=== PATIENT | female | born 1940 | race Caucasian/White ===

== ENCOUNTER 2022-02-21 10:30 | Outpatient (RCR) | payer MEDICARE, BC, SELFPAY ==
--- NOTE | 2022-02-15 19:15 | ONC.NURNOTE ---
Authorization: User: Gaby Staleyroryroseliam Date: 07/06/21 11:14 Type: Eligibility Determination Note... Request received from [facility] for prior authorization of Darzalex/Faspro [id number]. Patient carries Medicare as primary insurance. Per CMS.gov no prior authorization is required for Darzalex/Faspro. Services are based on medical necessity and follows Medicare guidelines.
[2022-02-17 16:05] LABS: Albumin 3.89 g/dL (3.75-5.01); Alpha 1 Globulin 0.22 g/dL (0.19-0.46); Immunofixation IFE Done; Immunoglobulin A 3 mg/dL (68-408); Immunoglobulin G 400 mg/dL (768-1632); Immunoglobulin M < 10 mg/dL (35-263); Kappa Qnt Free Light Chains 10.69 mg/L (3.30-19.40); Kappa/Lambda Light Chain Ratio 3.61 (0.26-1.65); Lambda Qnt Free Light Chains 2.96 mg/L (5.71-26.30); Total Protein, Serum 5.9 g/dL (6.3-8.2)
[2022-02-20 08:45] LABS: Basophils Percent Auto 1.4 % (0.0-3.0); Eosinophils Percent Auto 3.1 % (0.0-7.0); Hematocrit 41.5 % (33.0-51.0); Hemoglobin* 13.7 gm/dL (12.0-16.0); Lymphocytes Percent Auto 31.2 % (20-44); Mean Corpuscular HGB Conc 33 gm/dL (32-36); Mean Corpuscular Hemoglobin 33 pg (26-34); Mean Corpuscular Volume 101 fL (80-100); Monocytes Percent Auto 15.4 % (0.0-11.0); Neutrophils Percent Auto 48.9 % (42.0-72.0); Platelet Count* 221 K/uL (140-440); RDW Coefficient of Variation % 12.2 % (11.5-15.5); Red Blood Count 4.13 m/uL (4.00-5.20); White Blood Count* 4.23 K/uL (4.50-11.00)
[2022-02-20 08:52] LABS: Slide Review Reflex No
[2022-02-20 09:01] LABS: Chloride* 107 mmol/L (96-114); Potassium* 4.7 mmol/L (3.6-5.1); Sodium* 138 mmol/L (135-149)
[2022-02-20 09:03] LABS: Bilirubin Total* 0.5 mg/dL (0.1-1.5); Carbon Dioxide* 26 mmol/L (20-32); Creatinine* 1.4 mg/dL (0.5-1.5); Est. Creatinine Clearance* 26.92; Estimated Glomerular Filt Rate 37 ml/min
[2022-02-20 09:04] LABS: Alanine Aminotransferase* 14 U/L (4-35); Alkaline Phosphatase* 118 U/L (40-150); Aspartate Amino Transferase* 23 U/L (12-35); Blood Urea Nitrogen* 28 mg/dL (7-30); Calcium* 9.9 mg/dL (8.4-10.6); Glucose* 83 mg/dL (60-115); Total Protein* 6.1 g/dL (6.0-8.3)
[2022-02-21] MEDS: DARATUMUMAB-HYALURONIDASE-FIHJ 15 ML SUBCUT (11:01)
== END 2022-03-03 23:59 | disposition home or self-care (01) ==
LOC: CCIC 10:30
PROVIDERS: Clinical Nurse Specialist; PCP Internal Medicine; Visit Provider Internal Medicine Hematology & Oncology
DX: C90.00 Multiple myeloma not having achieved remission (principal)
CPT/HCPCS: 36415; 80053; 82784; 83520; 84155; 84165; 85025; 86334; 96372; 99212; 99214; J9144

== ENCOUNTER 2022-05-28 10:02 | Outpatient (CLI) | payer MEDICARE, BC, SELFPAY ==
[2022-05-28 17:58] LABS: Cholesterol* 311 mg/dL (90-199); HDL Cholesterol* 89 mg/dL (>=50); LDL Cholesterol Calculated 182 mg/dL (<100); Triglycerides* 199 mg/dL (40-149)
== END 2022-05-28 10:03 | disposition home or self-care (01) ==
LOC: NFLDREF 10:02
PROVIDERS: PCP Internal Medicine; Visit Provider Internal Medicine
DX: E78.5 Hyperlipidemia, unspecified (principal)
CPT/HCPCS: 80061

== ENCOUNTER 2022-09-12 09:00 | Outpatient (RCR) | payer MEDICARE, BC, SELFPAY ==
[2022-03-20 08:27] LABS: Basophils Percent Auto 1.1 % (0.0-3.0); Eosinophils Percent Auto 2.4 % (0.0-7.0); Hematocrit 41.6 % (33.0-51.0); Lymphocytes Percent Auto 35.1 % (20-44); Mean Corpuscular HGB Conc 34 gm/dL (32-36); Mean Corpuscular Hemoglobin 33 pg (26-34); Mean Corpuscular Volume 99 fL (80-100); Monocytes Percent Auto 14.1 % (0.0-11.0); Neutrophils Percent Auto 47.3 % (42.0-72.0); Platelet Count* 212 K/uL (140-440); RDW Coefficient of Variation % 12.3 % (11.5-15.5); White Blood Count* 3.76 K/uL (4.50-11.00)
[2022-03-20 08:33] LABS: Slide Review Reflex No
[2022-03-20 08:51] LABS: Chloride* 106 mmol/L (96-114)
[2022-03-20 08:52] LABS: Albumin* 3.9 g/dL (3.3-5.0); Potassium* 4.6 mmol/L (3.6-5.1); Sodium* 138 mmol/L (135-149)
[2022-03-20 08:54] LABS: Bilirubin Total* 0.3 mg/dL (0.1-1.5); Creatinine* 1.5 mg/dL (0.5-1.5); Estimated Glomerular Filt Rate 34 ml/min
[2022-03-20 08:55] LABS: Alanine Aminotransferase* 15 U/L (4-35); Alkaline Phosphatase* 119 U/L (40-150); Aspartate Amino Transferase* 25 U/L (12-35); Blood Urea Nitrogen* 24 mg/dL (7-30); Calcium* 9.7 mg/dL (8.4-10.6); Carbon Dioxide* 26 mmol/L (20-32); Total Protein* 6.4 g/dL (6.0-8.3)
[2022-03-20 09:21] LABS: Glucose* 44 mg/dL (60-115)
--- NOTE | 2022-03-20 10:20 | ONC.NURNOTE ---
Received phone call from lab with critical glucose of 44. Called patient and denies dizziness or feeling off. She was on her way to work. She was instructed to be sure to eat and drink something prior to leaving and let us know if she feels differently. Discussed with STEAMING CABINET TENDER, fasting glucose for tomorrow ordered. Patient called and notified that will need this, and to call to schedule her injection for in the morning if possible.
[2022-03-21 08:44] LABS: Glucose* 100 mg/dL (60-115)
[2022-03-21 13:45] VITALS: BP 143/82; PULSE 72; RESP 16; TEMP 37; O2SAT 94
[2022-03-21] MEDS: DARATUMUMAB-HYALURONIDASE-FIHJ 15 ML SUBCUT (14:12)
[2022-04-17 08:19] LABS: Basophils Absolute Auto 0.04 K/uL (0.00-0.30); Basophils Percent Auto 0.8 % (0.0-3.0); Eosinophils Absolute Auto 0.15 K/uL (0.00-0.50); Eosinophils Percent Auto 2.9 % (0.0-7.0); Hematocrit 40.5 % (33.0-51.0); Hemoglobin* 13.3 gm/dL (12.0-16.0); Lymphocytes Percent Auto 15.7 % (20-44); Mean Corpuscular HGB Conc 33 gm/dL (32-36); Mean Corpuscular Hemoglobin 33 pg (26-34); Mean Corpuscular Volume 100 fL (80-100); Monocytes Percent Auto 12.9 % (0.0-11.0); Neutrophils Absolute Auto 3.53 K/uL (1.7-7.0); Neutrophils Percent Auto 67.7 % (42.0-72.0); Platelet Count* 190 K/uL (140-440); RDW Coefficient of Variation % 12.5 % (11.5-15.5); Red Blood Count 4.04 m/uL (4.00-5.20); White Blood Count* 5.21 K/uL (4.50-11.00)
[2022-04-17 08:23] LABS: Slide Review Reflex No
[2022-04-17 08:44] LABS: Chloride* 107 mmol/L (96-114); Sodium* 138 mmol/L (135-149)
[2022-04-17 08:45] LABS: Potassium* 4.1 mmol/L (3.6-5.1)
[2022-04-17 08:47] LABS: Alkaline Phosphatase* 118 U/L (40-150); Aspartate Amino Transferase* 23 U/L (12-35); Bilirubin Total* 0.4 mg/dL (0.1-1.5); Blood Urea Nitrogen* 19 mg/dL (7-30); Carbon Dioxide* 24 mmol/L (20-32); Creatinine* 1.4 mg/dL (0.5-1.5); Estimated Glomerular Filt Rate 37 ml/min; Total Protein* 6.2 g/dL (6.0-8.3)
[2022-04-17 08:48] LABS: Alanine Aminotransferase* 14 U/L (4-35); Calcium* 9.3 mg/dL (8.4-10.6); Glucose* 71 mg/dL (60-115)
[2022-04-18 15:38] LABS: Total Protein, Serum 5.5
[2022-04-18 15:40] LABS: SARS Antigen* Negative (Negative)
[2022-04-18 16:25] LABS: Albumin 3.62; Alpha 2 Globulin 0.73
[2022-04-18 16:26] LABS: Immunoglobulin G 396
[2022-04-18 16:27] LABS: Immunoglobulin A 4; Immunoglobulin M < 10
[2022-04-18 16:28] LABS: Kappa Qnt Free Light Chains 10.29; Kappa/Lambda Light Chain Ratio 3.74; Lambda Qnt Free Light Chains 2.75
[2022-04-18 16:30] LABS: Immunofixation IFE Done
[2022-04-18 16:35] LABS: SARS PCR* Negative SARS-CoV-2 (Negative)
[2022-04-25 09:33] VITALS: BP 157/65; PULSE 53; RESP 16; TEMP 36.2; O2SAT 94
[2022-04-25] MEDS: DARATUMUMAB-HYALURONIDASE-FIHJ 15 ML SUBCUT (10:01)
[2022-05-22 08:28] LABS: Basophils Percent Auto 1.4 % (0.0-3.0); Eosinophils Percent Auto 3.4 % (0.0-7.0); Hematocrit 41.7 % (33.0-51.0); Hemoglobin* 13.7 gm/dL (12.0-16.0); Lymphocytes Percent Auto 31.8 % (20-44); Mean Corpuscular HGB Conc 33 gm/dL (32-36); Mean Corpuscular Hemoglobin 33 pg (26-34); Mean Corpuscular Volume 101 fL (80-100); Monocytes Percent Auto 13.8 % (0.0-11.0); Neutrophils Percent Auto 49.6 % (42.0-72.0); Platelet Count* 212 K/uL (140-440); Red Blood Count 4.14 m/uL (4.00-5.20); White Blood Count* 3.55 K/uL (4.50-11.00)
[2022-05-22 08:35] LABS: Slide Review Reflex No
[2022-05-22 08:47] LABS: Chloride* 106 mmol/L (96-114)
[2022-05-22 08:48] LABS: Sodium* 137 mmol/L (135-149)
[2022-05-22 08:49] LABS: Potassium* 4.7 mmol/L (3.6-5.1)
[2022-05-22 08:51] LABS: Alanine Aminotransferase* 14 U/L (4-35); Alkaline Phosphatase* 115 U/L (40-150); Aspartate Amino Transferase* 25 U/L (12-35); Bilirubin Total* 0.4 mg/dL (0.1-1.5); Blood Urea Nitrogen* 18 mg/dL (7-30); Carbon Dioxide* 27 mmol/L (20-32); Creatinine* 1.6 mg/dL (0.5-1.5); Estimated Glomerular Filt Rate 32 ml/min; Glucose* 75 mg/dL (60-115); Total Protein* 6.3 g/dL (6.0-8.3)
[2022-05-23 13:07] VITALS: BP 137/79; PULSE 97; RESP 16; TEMP 35.9
[2022-05-23 13:31] VITALS: BP 129/83; PULSE 73
[2022-05-23 13:32] VITALS: BP 128/82; PULSE 73
[2022-05-23] MEDS: DARATUMUMAB-HYALURONIDASE-FIHJ 15 ML SUBCUT (13:44)
[2022-06-13 08:21] LABS: Eosinophils Percent Auto 1.9 % (0.0-7.0); Hematocrit 42.2 % (33.0-51.0); Hemoglobin* 13.9 gm/dL (12.0-16.0); Lymphocytes Percent Auto 30.2 % (20-44); Mean Corpuscular HGB Conc 33 gm/dL (32-36); Mean Corpuscular Hemoglobin 33 pg (26-34); Mean Corpuscular Volume 101 fL (80-100); Monocytes Percent Auto 11.4 % (0.0-11.0); Neutrophils Percent Auto 55.5 % (42.0-72.0); Platelet Count* 213 K/uL (140-440); RDW Coefficient of Variation % 12.8 % (11.5-15.5); White Blood Count* 4.21 K/uL (4.50-11.00)
[2022-06-13 08:30] LABS: Slide Review Reflex No
[2022-06-13 08:37] LABS: Albumin* 4.1 g/dL (3.3-5.0); Chloride* 103 mmol/L (96-114)
[2022-06-13 08:38] LABS: Potassium* 5.2 mmol/L (3.6-5.1); Sodium* 135 mmol/L (135-149)
[2022-06-13 08:40] LABS: Aspartate Amino Transferase* 26 U/L (12-35); Bilirubin Total* 0.5 mg/dL (0.1-1.5); Carbon Dioxide* 26 mmol/L (20-32); Creatinine* 2.3 mg/dL (0.5-1.5); Estimated Glomerular Filt Rate 20 ml/min
[2022-06-13 08:41] LABS: Alanine Aminotransferase* 17 U/L (4-35); Alkaline Phosphatase* 117 U/L (40-150); Blood Urea Nitrogen* 33 mg/dL (7-30); Calcium* 9.7 mg/dL (8.4-10.6); Glucose* 106 mg/dL (60-115); Total Protein* 6.4 g/dL (6.0-8.3)
--- NOTE | 2022-06-14 08:47 | ONC.NURNOTE ---
Called and let patient know that her BUN and Creatinine are high so wondering if she has experienced any diarrhea or vomiting in last few days. She states she did have loose stool Friday and Friday like 2-3 times but admits she's not drinking as well either. Patient agreed to come in for a liter of NS today and states she will increase her water intake.
[2022-06-14 12:26] VITALS: BP 135/77; PULSE 67; RESP 16; TEMP 36.1; O2SAT 96
[2022-06-14] MEDS: 0.9 % SODIUM CHLORIDE 1000 ml 1,000 ML 500 ML IV (12:54)
[2022-06-15 23:41] LABS: Albumin 3.83 g/dL (3.75-5.01); Alpha 1 Globulin 0.24 g/dL (0.19-0.46); Alpha 2 Globulin 0.79 g/dL (0.48-1.05); Immunofixation IFE Done; Immunoglobulin A 5 mg/dL (68-408); Immunoglobulin G 488 mg/dL (768-1632); Immunoglobulin M <10 mg/dL (35-263); Kappa Qnt Free Light Chains 18.05 mg/L (3.30-19.40); Kappa/Lambda Light Chain Ratio 6.27 (0.26-1.65); Lambda Qnt Free Light Chains 2.88 mg/L (5.71-26.30); Monoclonal Protein 0.35 g/dL
[2022-06-19 08:50] LABS: Basophils Percent Auto 1.7 % (0.0-3.0); Eosinophils Percent Auto 2.8 % (0.0-7.0); Hemoglobin* 14.1 gm/dL (12.0-16.0); Immature Granulocytes Pct Auto 0.2 %; Lymphocytes Percent Auto 36.8 % (20-44); Mean Corpuscular HGB Conc 33 gm/dL (32-36); Mean Corpuscular Hemoglobin 33 pg (26-34); Mean Corpuscular Volume 101 fL (80-100); Neutrophils Percent Auto 45.5 % (42.0-72.0); Platelet Count* 229 K/uL (140-440); Red Blood Count 4.26 m/uL (4.00-5.20); White Blood Count* 4.24 K/uL (4.50-11.00)
[2022-06-19 08:55] LABS: Slide Review Reflex No
[2022-06-19 09:05] LABS: Chloride* 108 mmol/L (96-114); Sodium* 138 mmol/L (135-149)
[2022-06-19 09:06] LABS: Potassium* 4.7 mmol/L (3.6-5.1)
[2022-06-19 09:08] LABS: Alanine Aminotransferase* 17 U/L (4-35); Alkaline Phosphatase* 103 U/L (40-150); Aspartate Amino Transferase* 22 U/L (12-35); Bilirubin Total* 0.4 mg/dL (0.1-1.5); Blood Urea Nitrogen* 31 mg/dL (7-30); Carbon Dioxide* 25 mmol/L (20-32); Creatinine* 1.4 mg/dL (0.5-1.5); Estimated Glomerular Filt Rate 37 ml/min; Glucose* 63 mg/dL (60-115); Total Protein* 6.3 g/dL (6.0-8.3)
[2022-06-20] MEDS: DARATUMUMAB-HYALURONIDASE-FIHJ 15 ML SUBCUT (10:49)
[2022-07-17 08:48] LABS: Basophils Percent Auto 1.5 % (0.0-3.0); Eosinophils Percent Auto 3.2 % (0.0-7.0); Hematocrit 42.6 % (33.0-51.0); Hemoglobin* 13.8 gm/dL (12.0-16.0); Immature Granulocytes Pct Auto 0.2 %; Lymphocytes Percent Auto 30.1 % (20-44); Mean Corpuscular HGB Conc 32 gm/dL (32-36); Mean Corpuscular Hemoglobin 33 pg (26-34); Mean Corpuscular Volume 101 fL (80-100); Monocytes Percent Auto 15.8 % (0.0-11.0); Neutrophils Percent Auto 49.2 % (42.0-72.0); Platelet Count* 240 K/uL (140-440); Red Blood Count 4.21 m/uL (4.00-5.20); White Blood Count* 4.12 K/uL (4.50-11.00)
[2022-07-17 08:52] LABS: Slide Review Reflex No
[2022-07-17 09:08] LABS: Albumin* 3.9 g/dL (3.3-5.0)
[2022-07-17 09:09] LABS: Chloride* 109 mmol/L (96-114); Potassium* 4.4 mmol/L (3.6-5.1); Sodium* 141 mmol/L (135-149)
[2022-07-17 09:11] LABS: Bilirubin Total* 0.5 mg/dL (0.1-1.5); Creatinine* 1.4 mg/dL (0.5-1.5); Estimated Glomerular Filt Rate 37 ml/min
[2022-07-17 09:12] LABS: Alanine Aminotransferase* 16 U/L (4-35); Alkaline Phosphatase* 100 U/L (40-150); Aspartate Amino Transferase* 24 U/L (12-35); Blood Urea Nitrogen* 19 mg/dL (7-30); Calcium* 9.8 mg/dL (8.4-10.6); Carbon Dioxide* 27 mmol/L (20-32); Total Protein* 6.1 g/dL (6.0-8.3)
[2022-07-17 09:33] LABS: Glucose* 46 mg/dL (60-115)
--- NOTE | 2022-07-17 09:40 | ONC.NURNOTE ---
Blood sugar noted at 46 called to Yoko she reports eating breakfast including a glass of OJ around 630 this am recommended another glass of OJ and she will also have peanut butter and toast, leaving for work shortly also instructed to bring a snack to work
[2022-07-18 10:16] VITALS: BP 118/77; PULSE 54; RESP 16; TEMP 36.6; O2SAT 99
[2022-07-18] MEDS: DARATUMUMAB-HYALURONIDASE-FIHJ 15 ML SUBCUT (10:22)
[2022-07-18 10:24] LABS: Glucose* 72 mg/dL (60-115)
[2022-07-20 13:08] LABS: Albumin 3.64 g/dL (3.75-5.01); Alpha 1 Globulin 0.22 g/dL (0.19-0.46); Alpha 2 Globulin 0.76 g/dL (0.48-1.05); Immunofixation IFE Done; Immunoglobulin A 5 mg/dL (68-408); Immunoglobulin G 544 mg/dL (768-1632); Immunoglobulin M <10 mg/dL (35-263); Kappa Qnt Free Light Chains 20.01 mg/L (3.30-19.40); Monoclonal Protein 0.32 g/dL; Total Protein, Serum 5.7 g/dL (6.3-8.2)
[2022-07-31 08:55] LABS: Glucose* 83 mg/dL (60-115)
--- NOTE | 2022-07-31 14:58 | ONC.NURNOTE ---
Pt here to recheck glucose level. Glucose 83. Pt did have breakfast before blood draw. Discussed with Shiela Mancia APRN. With pt's permission, screen writer did leave message with her primary care provider Dr. Mcintyre informing primary care that pt has had low glucose, in the 40's and asymptomatic. Requested Francisco Javier review labs and offer any recommendations such as monitoring to pt.
[2022-08-11 09:34] LABS: Albumin 3.76 g/dL (3.75-5.01); Alpha 1 Globulin 0.27 g/dL (0.19-0.46); Alpha 2 Globulin 0.82 g/dL (0.48-1.05); Immunofixation IFE Done; Immunoglobulin A 5 mg/dL (68-408); Immunoglobulin G 532 mg/dL (768-1632); Immunoglobulin M 11 mg/dL (35-263); Kappa Qnt Free Light Chains 20.83 mg/L (3.30-19.40); Kappa/Lambda Light Chain Ratio 6.22 (0.26-1.65); Lambda Qnt Free Light Chains 3.35 mg/L (5.71-26.30); Monoclonal Protein 0.35 g/dL
[2022-08-14 08:13] LABS: Basophils Percent Auto 1.1 % (0.0-3.0); Eosinophils Percent Auto 3.4 % (0.0-7.0); Hematocrit 44.5 % (33.0-51.0); Hemoglobin* 14.5 gm/dL (12.0-16.0); Lymphocytes Percent Auto 26.3 % (20-44); Mean Corpuscular HGB Conc 33 gm/dL (32-36); Mean Corpuscular Hemoglobin 33 pg (26-34); Mean Corpuscular Volume 100 fL (80-100); Monocytes Percent Auto 11.2 % (0.0-11.0); Platelet Count* 290 K/uL (140-440); RDW Coefficient of Variation % 12.6 % (11.5-15.5); Red Blood Count 4.44 m/uL (4.00-5.20); White Blood Count* 4.37 K/uL (4.50-11.00)
[2022-08-14 08:14] LABS: Slide Review Reflex No
[2022-08-14 08:28] LABS: Albumin* 4.2 g/dL (3.3-5.0); Chloride* 109 mmol/L (96-114); Potassium* 4.2 mmol/L (3.6-5.1); Sodium* 139 mmol/L (135-149)
[2022-08-14 08:31] LABS: Alanine Aminotransferase* 16 U/L (4-35); Alkaline Phosphatase* 112 U/L (40-150); Aspartate Amino Transferase* 25 U/L (12-35); Bilirubin Total* 0.6 mg/dL (0.1-1.5); Blood Urea Nitrogen* 14 mg/dL (7-30); Carbon Dioxide* 27 mmol/L (20-32); Creatinine* 1.4 mg/dL (0.5-1.5); Estimated Glomerular Filt Rate 37 ml/min; Glucose* 68 mg/dL (60-115); Total Protein* 6.6 g/dL (6.0-8.3)
[2022-08-14 08:32] LABS: Calcium* 9.9 mg/dL (8.4-10.6)
[2022-08-16 11:30] VITALS: BP 159/90; PULSE 85; RESP 16; TEMP 36.2; O2SAT 96
[2022-08-16] MEDS: DARATUMUMAB-HYALURONIDASE-FIHJ 15 ML SUBCUT (11:45)
--- NOTE | 2022-09-09 15:16 | URNOTE ---
Request received for authorization for Daratumumab-Hyaluronidase (J9144). Prior authorization is not required as services are based on medical necessity and follow Medicare guidelines.
[2022-09-11 08:39] LABS: Basophils Percent Auto 1.2 % (0.0-3.0); Eosinophils Percent Auto 4.7 % (0.0-7.0); Hematocrit 44.4 % (33.0-51.0); Hemoglobin* 14.4 gm/dL (12.0-16.0); Lymphocytes Percent Auto 34.7 % (20-44); Mean Corpuscular HGB Conc 32 gm/dL (32-36); Mean Corpuscular Hemoglobin 33 pg (26-34); Mean Corpuscular Volume 101 fL (80-100); Monocytes Percent Auto 11.4 % (0.0-11.0); Platelet Count* 240 K/uL (140-440); RDW Coefficient of Variation % 13.1 % (11.5-15.5); Red Blood Count 4.38 m/uL (4.00-5.20); White Blood Count* 4.03 K/uL (4.50-11.00)
[2022-09-11 08:57] LABS: Slide Review Reflex No
[2022-09-11 08:58] LABS: Chloride* 110 mmol/L (96-114)
[2022-09-11 08:59] LABS: Potassium* 4.3 mmol/L (3.6-5.1); Sodium* 140 mmol/L (135-149)
[2022-09-11 09:01] LABS: Alkaline Phosphatase* 91 U/L (40-150); Aspartate Amino Transferase* 26 U/L (12-35); Bilirubin Total* 0.5 mg/dL (0.1-1.5); Blood Urea Nitrogen* 20 mg/dL (7-30); Carbon Dioxide* 24 mmol/L (20-32); Creatinine* 1.3 mg/dL (0.5-1.5); Estimated Glomerular Filt Rate 41 ml/min; Total Protein* 6.7 g/dL (6.0-8.3)
[2022-09-11 09:02] LABS: Alanine Aminotransferase* 19 U/L (4-35); Calcium* 9.8 mg/dL (8.4-10.6); Glucose* 69 mg/dL (60-115)
[2022-09-12 09:09] VITALS: BP 128/77; PULSE 58; RESP 18; TEMP 36.6; O2SAT 97
[2022-09-12] MEDS: DARATUMUMAB-HYALURONIDASE-FIHJ 15 ML SUBCUT (09:47)
== END 2022-09-16 23:59 | disposition home or self-care (01) ==
LOC: CCIC 09:00
PROVIDERS: Internal Medicine Hematology & Oncology; Nurse Practitioner Family; PCP Internal Medicine; Referring Provider Internal Medicine; Visit Provider Clinical Nurse Specialist
DX: C90.00 Multiple myeloma not having achieved remission (principal); E16.2 Hypoglycemia, unspecified
CPT/HCPCS: 36415; 80053; 82784; 82947; 83520; 84155; 84165; 85025; 86334; 87426; 87635; 96360; 96361; 96401; 99212; 99213; 99214; J9144; J7030

== ENCOUNTER 2023-03-27 10:30 | Outpatient (RCR) | payer MEDICARE, BC, SELFPAY ==
[2022-10-14 08:29] LABS: Basophils Percent Auto 1.5 % (0.0-3.0); Eosinophils Percent Auto 2.5 % (0.0-7.0); Hematocrit 43.2 % (33.0-51.0); Hemoglobin* 13.9 gm/dL (12.0-16.0); Lymphocytes Percent Auto 30.6 % (20-44); Mean Corpuscular HGB Conc 32 gm/dL (32-36); Mean Corpuscular Hemoglobin 33 pg (26-34); Mean Corpuscular Volume 101 fL (80-100); Neutrophils Percent Auto 53.4 % (42.0-72.0); Platelet Count* 256 K/uL (140-440); RDW Coefficient of Variation % 13.1 % (11.5-15.5); Red Blood Count 4.26 m/uL (4.00-5.20); Slide Review Reflex No; White Blood Count* 3.99 K/uL (4.50-11.00)
[2022-10-14 08:49] LABS: Albumin* 3.9 g/dL (3.3-5.0); Chloride* 107 mmol/L (96-114); Potassium* 4.4 mmol/L (3.6-5.1); Sodium* 138 mmol/L (135-149)
[2022-10-14 08:51] LABS: Bilirubin Total* 0.5 mg/dL (0.1-1.5); Creatinine* 1.3 mg/dL (0.5-1.5); Estimated Glomerular Filt Rate 41 ml/min
[2022-10-14 08:52] LABS: Alanine Aminotransferase* 17 U/L (4-35); Alkaline Phosphatase* 93 U/L (40-150); Aspartate Amino Transferase* 23 U/L (12-35); Blood Urea Nitrogen* 25 mg/dL (7-30); Calcium* 9.6 mg/dL (8.4-10.6); Carbon Dioxide* 27 mmol/L (20-32); Glucose* 60 mg/dL (60-115); Total Protein* 6.5 g/dL (6.0-8.3)
[2022-10-14 14:01] VITALS: BP 133/73; PULSE 72; RESP 16; TEMP 36.3; O2SAT 97
[2022-10-14] MEDS: DARATUMUMAB-HYALURONIDASE-FIHJ 15 ML SUBCUT (14:17)
[2022-11-03 02:46] LABS: Alpha 1 Globulin 0.23 g/dL (0.19-0.46); Alpha 2 Globulin 0.71 g/dL (0.48-1.05); Immunofixation IFE Done; Immunoglobulin A 5 mg/dL (68-408); Immunoglobulin G 594 mg/dL (768-1632); Immunoglobulin M 12 mg/dL (35-263); Kappa/Lambda Light Chain Ratio 8.03 (0.26-1.65); Lambda Qnt Free Light Chains 2.74 mg/L (5.71-26.30); Monoclonal Protein 0.41 g/dL
[2022-11-06 07:59] LABS: Basophils Absolute Auto 0.04 K/uL (0.00-0.30); Basophils Percent Auto 0.8 % (0.0-3.0); Eosinophils Absolute Auto 0.14 K/uL (0.00-0.50); Eosinophils Percent Auto 2.9 % (0.0-7.0); Hematocrit 44.9 % (33.0-51.0); Hemoglobin* 14.6 gm/dL (12.0-16.0); Lymphocytes Absolute Auto 1.73 K/uL (0.90-2.90); Lymphocytes Percent Auto 35.7 % (20-44); Mean Corpuscular HGB Conc 33 gm/dL (32-36); Mean Corpuscular Hemoglobin 33 pg (26-34); Mean Corpuscular Volume 101 fL (80-100); Monocytes Percent Auto 8.5 % (0.0-11.0); Neutrophils Absolute Auto 2.52 K/uL (1.7-7.0); Neutrophils Percent Auto 52.1 % (42.0-72.0); Platelet Count* 223 K/uL (140-440); RDW Coefficient of Variation % 13.1 % (11.5-15.5); Red Blood Count 4.43 m/uL (4.00-5.20); White Blood Count* 4.84 K/uL (4.50-11.00)
[2022-11-06 08:01] LABS: Slide Review Reflex No
[2022-11-06 08:10] LABS: Chloride* 107 mmol/L (96-114); Potassium* 4.5 mmol/L (3.6-5.1); Sodium* 139 mmol/L (135-149)
[2022-11-06 08:12] LABS: Creatinine* 1.4 mg/dL (0.5-1.5); Estimated Glomerular Filt Rate 37 ml/min
[2022-11-06 08:13] LABS: Alanine Aminotransferase* 18 U/L (4-35); Alkaline Phosphatase* 104 U/L (40-150); Aspartate Amino Transferase* 27 U/L (12-35); Bilirubin Total* 0.5 mg/dL (0.1-1.5); Blood Urea Nitrogen* 20 mg/dL (7-30); Carbon Dioxide* 28 mmol/L (20-32); Glucose* 138 mg/dL (60-115); Total Protein* 6.6 g/dL (6.0-8.3)
[2022-11-06 08:14] LABS: Calcium* 9.7 mg/dL (8.4-10.6)
[2022-11-07] MEDS: DARATUMUMAB-HYALURONIDASE-FIHJ 15 ML SUBCUT (12:39)
--- NOTE | 2022-11-08 08:23 | URNOTE ---
Request received for authorization for Darzalex faspro (J9144). Prior authorization is not required as services are based on medical necessity and follow Medicare guidelines.
[2022-11-20 08:07] LABS: Basophils Absolute Auto 0.04 K/uL (0.00-0.30); Basophils Percent Auto 0.8 % (0.0-3.0); Eosinophils Percent Auto 2.1 % (0.0-7.0); Hematocrit 45.2 % (33.0-51.0); Hemoglobin* 14.7 gm/dL (12.0-16.0); Lymphocytes Absolute Auto 1.64 K/uL (0.90-2.90); Lymphocytes Percent Auto 33.9 % (20-44); Mean Corpuscular HGB Conc 33 gm/dL (32-36); Mean Corpuscular Hemoglobin 33 pg (26-34); Mean Corpuscular Volume 102 fL (80-100); Monocytes Percent Auto 9.3 % (0.0-11.0); Neutrophils Absolute Auto 2.61 K/uL (1.7-7.0); Neutrophils Percent Auto 53.9 % (42.0-72.0); Platelet Count* 243 K/uL (140-440); RDW Coefficient of Variation % 13.3 % (11.5-15.5); Red Blood Count 4.44 m/uL (4.00-5.20); White Blood Count* 4.84 K/uL (4.50-11.00)
[2022-11-20 08:18] LABS: Chloride* 109 mmol/L (96-114)
[2022-11-20 08:19] LABS: Albumin* 4.2 g/dL (3.3-5.0); Potassium* 4.5 mmol/L (3.6-5.1); Sodium* 139 mmol/L (135-149)
[2022-11-20 08:21] LABS: Carbon Dioxide* 26 mmol/L (20-32); Creatinine* 1.5 mg/dL (0.5-1.5); Estimated Glomerular Filt Rate 34 ml/min
[2022-11-20 08:22] LABS: Alanine Aminotransferase* 21 U/L (4-35); Alkaline Phosphatase* 96 U/L (40-150); Aspartate Amino Transferase* 29 U/L (12-35); Bilirubin Total* 0.5 mg/dL (0.1-1.5); Blood Urea Nitrogen* 25 mg/dL (7-30); Calcium* 9.8 mg/dL (8.4-10.6); Glucose* 75 mg/dL (60-115)
[2022-11-20 08:23] LABS: Slide Review Reflex No
[2022-11-21] MEDS: DARATUMUMAB-HYALURONIDASE-FIHJ 15 ML SUBCUT (09:41)
[2022-11-21 09:48] VITALS: BP 157/74; PULSE 71; RESP 16; TEMP 36.2; O2SAT 96
[2022-12-04 08:11] LABS: Basophils Percent Auto 0.9 % (0.0-3.0); Eosinophils Percent Auto 2.6 % (0.0-7.0); Hematocrit 45.2 % (33.0-51.0); Hemoglobin* 14.8 gm/dL (12.0-16.0); Lymphocytes Percent Auto 30.4 % (20-44); Mean Corpuscular HGB Conc 33 gm/dL (32-36); Mean Corpuscular Hemoglobin 33 pg (26-34); Mean Corpuscular Volume 102 fL (80-100); Monocytes Percent Auto 11.6 % (0.0-11.0); Neutrophils Percent Auto 54.5 % (42.0-72.0); Platelet Count* 220 K/uL (140-440); RDW Coefficient of Variation % 13.1 % (11.5-15.5); Red Blood Count 4.43 m/uL (4.00-5.20); White Blood Count* 4.24 K/uL (4.50-11.00)
[2022-12-04 08:13] LABS: Slide Review Reflex No
[2022-12-04 08:47] LABS: Chloride* 107 mmol/L (96-114)
[2022-12-04 08:48] LABS: Albumin* 4.1 g/dL (3.3-5.0); Potassium* 4.4 mmol/L (3.6-5.1); Sodium* 140 mmol/L (135-149)
[2022-12-04 08:51] LABS: Alanine Aminotransferase* 19 U/L (4-35); Alkaline Phosphatase* 100 U/L (40-150); Aspartate Amino Transferase* 25 U/L (12-35); Bilirubin Total* 0.5 mg/dL (0.1-1.5); Blood Urea Nitrogen* 22 mg/dL (7-30); Carbon Dioxide* 26 mmol/L (20-32); Creatinine* 1.5 mg/dL (0.5-1.5); Estimated Glomerular Filt Rate 34 ml/min; Total Protein* 6.6 g/dL (6.0-8.3)
[2022-12-04 08:52] LABS: Glucose* 63 mg/dL (60-115)
[2022-12-05 10:14] VITALS: BP 143/95; PULSE 57; RESP 16; TEMP 36.4; O2SAT 96
[2022-12-05] MEDS: DARATUMUMAB-HYALURONIDASE-FIHJ 15 ML SUBCUT (10:40)
[2022-12-18 08:12] LABS: Basophils Percent Auto 0.5 % (0.0-3.0); Eosinophils Percent Auto 2.3 % (0.0-7.0); Hematocrit 44.2 % (33.0-51.0); Hemoglobin* 14.3 gm/dL (12.0-16.0); Lymphocytes Percent Auto 34.3 % (20-44); Mean Corpuscular HGB Conc 32 gm/dL (32-36); Mean Corpuscular Hemoglobin 33 pg (26-34); Mean Corpuscular Volume 102 fL (80-100); Monocytes Percent Auto 12.1 % (0.0-11.0); Neutrophils Percent Auto 50.8 % (42.0-72.0); Platelet Count* 207 K/uL (140-440); RDW Coefficient of Variation % 12.8 % (11.5-15.5); Red Blood Count 4.34 m/uL (4.00-5.20); White Blood Count* 4.29 K/uL (4.50-11.00)
[2022-12-18 08:21] LABS: Chloride* 107 mmol/L (96-114)
[2022-12-18 08:22] LABS: Potassium* 4.8 mmol/L (3.6-5.1); Slide Review Reflex No; Sodium* 138 mmol/L (135-149)
[2022-12-18 08:24] LABS: Carbon Dioxide* 25 mmol/L (20-32); Creatinine* 1.4 mg/dL (0.5-1.5); Estimated Glomerular Filt Rate 37 ml/min
[2022-12-18 08:25] LABS: Alanine Aminotransferase* 20 U/L (4-35); Alkaline Phosphatase* 88 U/L (40-150); Aspartate Amino Transferase* 25 U/L (12-35); Bilirubin Total* 0.4 mg/dL (0.1-1.5); Blood Urea Nitrogen* 21 mg/dL (7-30); Calcium* 9.9 mg/dL (8.4-10.6); Glucose* 76 mg/dL (60-115); Total Protein* 6.5 g/dL (6.0-8.3)
[2022-12-19 10:00] VITALS: BP 118/72; PULSE 53; RESP 16; TEMP 36.7; O2SAT 95
[2022-12-19] MEDS: DARATUMUMAB-HYALURONIDASE-FIHJ 15 ML SUBCUT (10:16)
[2023-01-01 07:49] LABS: Basophils Percent Auto 0.9 % (0.0-3.0); Eosinophils Percent Auto 2.7 % (0.0-7.0); Hematocrit 44.8 % (33.0-51.0); Hemoglobin* 14.7 gm/dL (12.0-16.0); Lymphocytes Percent Auto 32.6 % (20-44); Mean Corpuscular HGB Conc 33 gm/dL (32-36); Mean Corpuscular Hemoglobin 33 pg (26-34); Mean Corpuscular Volume 101 fL (80-100); Monocytes Percent Auto 10.1 % (0.0-11.0); Neutrophils Percent Auto 53.7 % (42.0-72.0); Platelet Count* 226 K/uL (140-440); RDW Coefficient of Variation % 12.9 % (11.5-15.5); Red Blood Count 4.45 m/uL (4.00-5.20); White Blood Count* 4.45 K/uL (4.50-11.00)
[2023-01-01 07:51] LABS: Slide Review Reflex No
[2023-01-01 08:05] LABS: Chloride* 111 mmol/L (96-114); Potassium* 4.1 mmol/L (3.6-5.1); Sodium* 141 mmol/L (135-149)
[2023-01-01 08:08] LABS: Alanine Aminotransferase* 21 U/L (4-35); Alkaline Phosphatase* 92 U/L (40-150); Aspartate Amino Transferase* 26 U/L (12-35); Bilirubin Total* 0.5 mg/dL (0.1-1.5); Blood Urea Nitrogen* 19 mg/dL (7-30); Carbon Dioxide* 22 mmol/L (20-32); Creatinine* 1.6 mg/dL (0.5-1.5); Estimated Glomerular Filt Rate 32 ml/min; Glucose* 80 mg/dL (60-115); Total Protein* 6.5 g/dL (6.0-8.3)
[2023-01-01 08:09] LABS: Calcium* 10.1 mg/dL (8.4-10.6)
--- NOTE | 2023-01-01 08:28 | ONC.NURNOTE ---
Pt here for labs 1 day prior to Darzalex faspro. Labs reviewed by Shiela Mancia APRN. Per Shiela, pt encouraged to increase hydration at home prior to tomorrow, we will recheck Creatinine and give pt IVF tomorrow prior to receiving the darzalex faspro. Pt verbalized understanding of plan of care.
[2023-01-02 10:24] VITALS: BP 142/76; PULSE 56; RESP 16; TEMP 36.2; O2SAT 96
[2023-01-02 10:36] LABS: Creatinine* 1.6 mg/dL (0.5-1.5); Estimated Glomerular Filt Rate 32 ml/min
[2023-01-02] MEDS: DARATUMUMAB-HYALURONIDASE-FIHJ 15 ML SUBCUT (12:00)
[2023-01-03 09:10] VITALS: BP 139/68; PULSE 67; RESP 16; TEMP 36.4; O2SAT 96
[2023-01-03 09:25] LABS: Creatinine* 1.3 mg/dL (0.5-1.5); Estimated Glomerular Filt Rate 41 ml/min
--- NOTE | 2023-01-03 11:31 | ONC.NURNOTE ---
Creatinine 1.3 today, IV dc'd. Pt encouraged to continue to stay hydrated.
[2023-01-15 08:28] LABS: Basophils Absolute Auto 0.04 K/uL (0.00-0.30); Basophils Percent Auto 0.8 % (0.0-3.0); Eosinophils Absolute Auto 0.11 K/uL (0.00-0.50); Eosinophils Percent Auto 2.2 % (0.0-7.0); Hematocrit 44.1 % (33.0-51.0); Hemoglobin* 14.3 gm/dL (12.0-16.0); Immature Granulocytes Abs Auto 0.01 K/uL (0.00-0.30); Immature Granulocytes Pct Auto 0.2 %; Lymphocytes Absolute Auto 1.77 K/uL (0.90-2.90); Mean Corpuscular HGB Conc 32 gm/dL (32-36); Mean Corpuscular Hemoglobin 33 pg (26-34); Mean Corpuscular Volume 102 fL (80-100); Monocytes Percent Auto 12.8 % (0.0-11.0); Neutrophils Absolute Auto 2.48 K/uL (1.7-7.0); Platelet Count* 216 K/uL (140-440); RDW Coefficient of Variation % 12.7 % (11.5-15.5); Red Blood Count 4.34 m/uL (4.00-5.20); White Blood Count* 5.06 K/uL (4.50-11.00)
[2023-01-15 08:34] LABS: Slide Review Reflex No
[2023-01-15 08:41] LABS: Albumin* 3.9 g/dL (3.3-5.0); Chloride* 105 mmol/L (96-114); Sodium* 139 mmol/L (135-149)
[2023-01-15 08:42] LABS: Potassium* 4.4 mmol/L (3.6-5.1)
[2023-01-15 08:44] LABS: Alkaline Phosphatase* 93 U/L (40-150); Aspartate Amino Transferase* 23 U/L (12-35); Bilirubin Total* 0.5 mg/dL (0.1-1.5); Blood Urea Nitrogen* 20 mg/dL (7-30); Carbon Dioxide* 28 mmol/L (20-32); Creatinine* 1.4 mg/dL (0.5-1.5); Estimated Glomerular Filt Rate 37 ml/min; Total Protein* 6.5 g/dL (6.0-8.3)
[2023-01-15 08:45] LABS: Alanine Aminotransferase* 18 U/L (4-35); Calcium* 9.9 mg/dL (8.4-10.6); Glucose* 77 mg/dL (60-115)
[2023-01-16 10:03] VITALS: BP 142/76; PULSE 52; RESP 16; TEMP 36; O2SAT 96
[2023-01-16] MEDS: DARATUMUMAB-HYALURONIDASE-FIHJ 15 ML SUBCUT (10:30)
[2023-01-22 08:09] LABS: Basophils Absolute Auto 0.04 K/uL (0.00-0.30); Basophils Percent Auto 0.8 % (0.0-3.0); Eosinophils Absolute Auto 0.07 K/uL (0.00-0.50); Eosinophils Percent Auto 1.3 % (0.0-7.0); Hematocrit 46.9 % (33.0-51.0); Hemoglobin* 15.2 gm/dL (12.0-16.0); Lymphocytes Absolute Auto 1.79 K/uL (0.90-2.90); Lymphocytes Percent Auto 33.6 % (20-44); Mean Corpuscular HGB Conc 32 gm/dL (32-36); Mean Corpuscular Hemoglobin 33 pg (26-34); Mean Corpuscular Volume 100 fL (80-100); Monocytes Percent Auto 9.8 % (0.0-11.0); Neutrophils Absolute Auto 2.91 K/uL (1.7-7.0); Neutrophils Percent Auto 54.5 % (42.0-72.0); Platelet Count* 255 K/uL (140-440); RDW Coefficient of Variation % 12.3 % (11.5-15.5); Red Blood Count 4.67 m/uL (4.00-5.20); White Blood Count* 5.33 K/uL (4.50-11.00)
[2023-01-22 08:11] LABS: Slide Review Reflex No
[2023-01-22 08:33] LABS: Albumin* 3.9 g/dL (3.3-5.0); Chloride* 107 mmol/L (96-114); Potassium* 4.1 mmol/L (3.6-5.1); Sodium* 138 mmol/L (135-149)
[2023-01-22 08:35] LABS: Creatinine* 1.6 mg/dL (0.5-1.5); Estimated Glomerular Filt Rate 32 ml/min
[2023-01-22 08:36] LABS: Alanine Aminotransferase* 20 U/L (4-35); Alkaline Phosphatase* 94 U/L (40-150); Aspartate Amino Transferase* 24 U/L (12-35); Bilirubin Total* 0.5 mg/dL (0.1-1.5); Blood Urea Nitrogen* 19 mg/dL (7-30); Carbon Dioxide* 24 mmol/L (20-32); Glucose* 105 mg/dL (60-115); Total Protein* 6.5 g/dL (6.0-8.3)
[2023-01-24 22:19] LABS: Albumin 3.81 g/dL (3.75-5.01); Alpha 1 Globulin 0.22 g/dL (0.19-0.46); Alpha 2 Globulin 0.75 g/dL (0.48-1.05); Immunofixation IFE Done; Immunoglobulin A 5 mg/dL (68-408); Immunoglobulin G 529 mg/dL (768-1632); Immunoglobulin M <10 mg/dL (35-263); Kappa Qnt Free Light Chains 24.68 mg/L (3.30-19.40); Kappa/Lambda Light Chain Ratio 10.28 (0.26-1.65); Monoclonal Protein 0.49 g/dL
[2023-01-29 08:22] LABS: Basophils Absolute Auto 0.04 K/uL (0.00-0.30); Basophils Percent Auto 0.9 % (0.0-3.0); Eosinophils Absolute Auto 0.08 K/uL (0.00-0.50); Eosinophils Percent Auto 1.7 % (0.0-7.0); Hematocrit 43.9 % (33.0-51.0); Hemoglobin* 14.3 gm/dL (12.0-16.0); Lymphocytes Absolute Auto 1.59 K/uL (0.90-2.90); Lymphocytes Percent Auto 34.5 % (20-44); Mean Corpuscular HGB Conc 33 gm/dL (32-36); Mean Corpuscular Hemoglobin 33 pg (26-34); Mean Corpuscular Volume 101 fL (80-100); Monocytes Percent Auto 10.2 % (0.0-11.0); Neutrophils Absolute Auto 2.43 K/uL (1.7-7.0); Neutrophils Percent Auto 52.7 % (42.0-72.0); Platelet Count* 213 K/uL (140-440); RDW Coefficient of Variation % 12.5 % (11.5-15.5); Red Blood Count 4.34 m/uL (4.00-5.20); White Blood Count* 4.61 K/uL (4.50-11.00)
[2023-01-29 08:26] LABS: Slide Review Reflex No
[2023-01-29 08:33] LABS: Albumin* 3.9 g/dL (3.3-5.0); Chloride* 107 mmol/L (96-114); Sodium* 138 mmol/L (135-149)
[2023-01-29 08:34] LABS: Potassium* 4.7 mmol/L (3.6-5.1)
[2023-01-29 08:36] LABS: Alkaline Phosphatase* 78 U/L (40-150); Aspartate Amino Transferase* 24 U/L (12-35); Bilirubin Total* 0.5 mg/dL (0.1-1.5); Blood Urea Nitrogen* 24 mg/dL (7-30); Carbon Dioxide* 24 mmol/L (20-32); Creatinine* 1.4 mg/dL (0.5-1.5); Estimated Glomerular Filt Rate 37 ml/min; Total Protein* 6.5 g/dL (6.0-8.3)
[2023-01-29 08:37] LABS: Alanine Aminotransferase* 19 U/L (4-35); Calcium* 9.9 mg/dL (8.4-10.6); Glucose* 61 mg/dL (60-115)
[2023-01-30] MEDS: DARATUMUMAB-HYALURONIDASE-FIHJ 15 ML SUBCUT (11:31)
[2023-02-26 08:14] LABS: Basophils Percent Auto 1.1 % (0.0-3.0); Hematocrit 43.6 % (33.0-51.0); Hemoglobin* 14.4 gm/dL (12.0-16.0); Immature Granulocytes Pct Auto 0.5 %; Lymphocytes Percent Auto 36.8 % (20-44); Mean Corpuscular HGB Conc 33 gm/dL (32-36); Mean Corpuscular Hemoglobin 34 pg (26-34); Mean Corpuscular Volume 102 fL (80-100); Monocytes Percent Auto 10.2 % (0.0-11.0); Neutrophils Percent Auto 49.4 % (42.0-72.0); Platelet Count* 245 K/uL (140-440); RDW Coefficient of Variation % 13.2 % (11.5-15.5); Red Blood Count 4.27 m/uL (4.00-5.20); White Blood Count* 4.43 K/uL (4.50-11.00)
[2023-02-26 08:19] LABS: Slide Review Reflex No
[2023-02-26 08:47] LABS: Albumin* 3.8 g/dL (3.3-5.0); Chloride* 110 mmol/L (96-114); Potassium* 4.2 mmol/L (3.6-5.1); Sodium* 139 mmol/L (135-149)
[2023-02-26 08:49] LABS: Bilirubin Total* 0.5 mg/dL (0.1-1.5); Creatinine* 1.5 mg/dL (0.5-1.5); Estimated Glomerular Filt Rate 34 ml/min
[2023-02-26 08:50] LABS: Alanine Aminotransferase* 18 U/L (4-35); Alkaline Phosphatase* 81 U/L (40-150); Aspartate Amino Transferase* 24 U/L (12-35); Blood Urea Nitrogen* 16 mg/dL (7-30); Calcium* 9.5 mg/dL (8.4-10.6); Carbon Dioxide* 21 mmol/L (20-32); Glucose* 92 mg/dL (60-115); Total Protein* 6.4 g/dL (6.0-8.3)
[2023-02-27] MEDS: DARATUMUMAB-HYALURONIDASE-FIHJ 15 ML SUBCUT (10:46)
--- NOTE | 2023-02-27 12:04 | PC.NURSE ---
Pt is here at [facility] today for scheduled injection. Pt shares that she recently had skin biopsies done on her LEFT upper lip (first time in this area) and LEFT wrist (second time in this area) for which she's waiting for final results. Per Yoko, the fender mechanic apprentice was confident these spots would be basal cell carcinoma. Pt states that she was also told that due to the location of the lip lesion, it would not be favorable to do more surgery on that area. Radiation therapy was discussed. Pt asked if it would be ok to get radiation (3x per week for 6 weeks) while on her current myeloma treatment. RN discussed with Dr. Shearer. would like to know what all pt is taking now for her myeloma, final pathology on the skin biopsies, and exact radiation treatment recommendations. 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 Yoko states that she hasn't even received final results and will still need to meet with radiation (in [facility]). She also states that she wouldn't start radiation until after she sees Dr. Shearer next month. She is ok waiting until then to finalize the plan. Yoko will make sure all records are sent to [facility]. Fax number provided.
[2023-03-22 01:11] LABS: Albumin 3.97 g/dL (3.75-5.01); Alpha 1 Globulin 0.21 g/dL (0.19-0.46); Alpha 2 Globulin 0.68 g/dL (0.48-1.05); Immunofixation IFE Done; Immunoglobulin A 5 mg/dL (68-408); Immunoglobulin G 709 mg/dL (768-1632); Immunoglobulin M 14 mg/dL (35-263); Kappa Qnt Free Light Chains 36.39 mg/L (3.30-19.40); Lambda Qnt Free Light Chains 2.51 mg/L (5.71-26.30); Monoclonal Protein 0.53 g/dL; Total Protein, Serum 6.1 g/dL (6.3-8.2)
[2023-03-26 08:19] LABS: Basophils Absolute Auto 0.05 K/uL (0.00-0.30); Eosinophils Absolute Auto 0.16 K/uL (0.00-0.50); Eosinophils Percent Auto 3.3 % (0.0-7.0); Hematocrit 47.4 % (33.0-51.0); Hemoglobin* 15.2 gm/dL (12.0-16.0); Lymphocytes Absolute Auto 1.71 K/uL (0.90-2.90); Lymphocytes Percent Auto 35.1 % (20-44); Mean Corpuscular HGB Conc 32 gm/dL (32-36); Mean Corpuscular Hemoglobin 33 pg (26-34); Mean Corpuscular Volume 102 fL (80-100); Monocytes Percent Auto 11.7 % (0.0-11.0); Neutrophils Absolute Auto 2.38 K/uL (1.7-7.0); Neutrophils Percent Auto 48.9 % (42.0-72.0); Platelet Count* 190 K/uL (140-440); RDW Coefficient of Variation % 13.6 % (11.5-15.5); Red Blood Count 4.65 m/uL (4.00-5.20); White Blood Count* 4.87 K/uL (4.50-11.00)
[2023-03-26 08:22] LABS: Slide Review Reflex No
[2023-03-26 08:39] LABS: Albumin* 3.9 g/dL (3.3-5.0); Chloride* 108 mmol/L (96-114); Potassium* 4.4 mmol/L (3.6-5.1); Sodium* 138 mmol/L (135-149)
[2023-03-26 08:42] LABS: Alkaline Phosphatase* 81 U/L (40-150); Anion Gap 9 mEq/L (7-15); Aspartate Amino Transferase* 26 U/L (12-35); Bilirubin Total* 0.5 mg/dL (0.1-1.5); Blood Urea Nitrogen* 21 mg/dL (7-30); Carbon Dioxide* 21 mmol/L (20-32); Creatinine* 1.6 mg/dL (0.5-1.5); Estimated Glomerular Filt Rate 31 ml/min; Total Protein* 6.5 g/dL (6.0-8.3)
[2023-03-26 08:43] LABS: Alanine Aminotransferase* 19 U/L (4-35); Glucose* 86 mg/dL (60-115)
[2023-03-28 19:37] LABS: Calcium* 9.6 mg/dL (8.4-10.6)
== END 2023-04-12 23:59 | disposition home or self-care (01) ==
LOC: CCIC 10:30
PROVIDERS: Clinical Nurse Specialist; Internal Medicine Hematology & Oncology; Physician Assistant; PCP Internal Medicine; Referring Provider Internal Medicine; Visit Provider Internal Medicine Hematology & Oncology
DX: C90.00 Multiple myeloma not having achieved remission (principal); G62.0 Drug-induced polyneuropathy; T45.1X5A Adverse effect of antineoplastic and immunosuppressive drugs, initial encounter
CPT/HCPCS: 36415; 80053; 82565; 82784; 83520; 84155; 84165; 85025; 86334; 93306; 96360; 96372; 96401; 99212; 99213; 99214; 99215; J9144

== ENCOUNTER 2023-04-01 11:07 | Outpatient (CLI) | payer MEDICARE, BC, SELFPAY ==
[2023-04-01 11:16] VITALS: BMI 25.8
[2023-04-01 11:48] VITALS: BP 143/87; PULSE 77; RESP 16; TEMP 36.3; O2SAT 99
[2023-04-01 12:25] VITALS: BP 92/63; PULSE 66; RESP 16; O2SAT 92
[2023-04-01 12:31] LABS: Basophils Absolute Auto 0.06 K/uL (0.00-0.30); Basophils Percent Auto 0.9 % (0.0-3.0); Eosinophils Percent Auto 1.5 % (0.0-7.0); Hemoglobin* 16.5 gm/dL (12.0-16.0); Immature Granulocytes Abs Auto 0.01 K/uL (0.00-0.30); Immature Granulocytes Pct Auto 0.2 %; Immature Reticulocyte Fraction 12.4 % (3.0-15.9); Lymphocytes Absolute Auto 2.61 K/uL (0.90-2.90); Lymphocytes Percent Auto 39.8 % (20-44); Mean Corpuscular HGB Conc 32 gm/dL (32-36); Mean Corpuscular Hemoglobin 33 pg (26-34); Mean Corpuscular Volume 101 fL (80-100); Monocytes Percent Auto 8.8 % (0.0-11.0); Neutrophils Percent Auto 48.8 % (42.0-72.0); Platelet Count* 246 K/uL (140-440); RDW Coefficient of Variation % 13.4 % (11.5-15.5); Red Blood Count 5.04 m/uL (4.00-5.20); Reticulocyte Hemoglobin Equivi 32.8 pg (29.0-35.0); Reticulocyte Percent 1.1 % (0.5-2.0); Reticulocytes Absolute 0.06 # (0.03-0.08); White Blood Count* 6.56 K/uL (4.50-11.00)
[2023-04-01 12:33] VITALS: BP 100/66; PULSE 62; RESP 16; O2SAT 92
--- NOTE | 2023-04-01 12:33 | P.ANES_ITS ---
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
[2023-04-01 12:45] VITALS: BP 107/71; PULSE 71; RESP 16; O2SAT 95
[2023-04-01 12:53] LABS: Slide Review Reflex No
== END 2023-04-01 13:06 | disposition home or self-care (01) ==
LOC: OP CLINIC 11:08
PROVIDERS: PCP Internal Medicine; Visit Provider Internal Medicine Hematology & Oncology
DX: C90.00 Multiple myeloma not having achieved remission (principal)
CPT/HCPCS: 01112; 36415; 38222; 85025; 85045; 88184; 88185; 88305; 88311; 88313; 88360; 99100; J1644; J2001; J2704

== ENCOUNTER 2023-04-03 12:13 | Outpatient (CLI) | payer MEDICARE, BC, SELFPAY ==
--- NOTE | 2023-04-03 12:45 | CRLHL7_ITS ---
For Patients: As a result of the 21st Century Cures Act, medical imaging exams and procedure reports are released immediately into your electronic medical record. You may view this report before your referring provider. If you have questions, please contact your health care provider. EXAM: PET-CT Vertex to feet CLINICAL INFORMATION: 83-yo female with multiple myeloma. Patient is referred for further characterization. TECHNIQUE: Radiopharmaceutical: 12.78 mCi of 18F-FDG Intravenous injection site: RAC Uptake time: 55 minutes Blood glucose level at the time of injection: 82 mg/dL Field of view: Skull vertex to feet CT protocol: The low-dose, free-breathing, noncontrast CT performed as part of this study is designed for the purposes of attenuation correction and lesion localization, and it is neither sufficient, nor it should be substituted for diagnostic purposes. COMPARISON: CT abdomen pelvis 05/04/2021 FINDINGS: Physiologic background liver standardized uptake value (SUV mean and SUV max) reported for comparison between PET studies: 3.1 and 3.6. Prominent amount of retained tracer within the soft tissues of the right forearm and hand. Findings could affect the sensitivity and reproducibility of SUV max Visualized head and neck: Physiologic uptake in the visualized portions of the brain and salivary glands. Head and neck lymph nodes: No suspicious head/neck lymph nodes. Lungs: No suspicious tracer avid pulmonary nodules or abnormal uptake. Thoracic lymph nodes: No enlarged or hypermetabolic mediastinal, hilar or axillary lymph nodes. Other chest findings: Physiologic myocardial uptake. Scattered coronary vascular calcifications. -Prior left-sided mastectomy no suspicious chest wall or axillary soft tissue uptake. Hepatobiliary: No abnormal uptake. Spleen: No abnormal uptake. No splenomegaly. Pancreas: No abnormal uptake. Adrenals: No abnormal uptake. Kidneys and bladder: No abnormal uptake or obstruction. Distended urinary bladder with no asymmetric wall thickening. Bowel and peritoneum: No suspicious bowel uptake or abnormality. Diffuse distal colonic diverticulosis without inflammatory change. Pelvic organs: Prior hysterectomy. No abnormal uptake. Abdominopelvic lymph nodes: No enlarged or hypermetabolic abdominopelvic lymph nodes. Musculoskeletal, soft tissues, skin: No aggressive, lytic or expansile osseous lesions with uptake. Medullary uptake within the proximal right humerus is nonspecific, SUV max 2.7 (fused image 120). No associated bony changes. As well, there is increased uptake within the right bony glenoid and lower body/tip of the right scapula without associated lytic changes or cortical erosion. For example: Lower right scapula/tip SUV max 3.3. -Degenerative type uptake within the right shoulder, spine, knees and left midfoot. Left total shoulder arthroplasty with periprosthetic uptake. Other: Scattered aortoiliac atherosclerotic vascular calcifications. IMPRESSION: 1. No aggressive, lytic or expansile osseous lesions with uptake worrisome for areas of active multiple myeloma. Small foci of medullary uptake proximal right humerus and increased uptake within the right bony glenoid and scapular body/tip without associated lytic changes or noncontrast CT abnormality. Nonspecific. Correlate with myeloma specific laboratory panel, bone marrow biopsy and clinical history. 2. No distant sites of tracer avid disease in the neck, lungs or solid organs of the upper abdomen . 3. Colonic diverticulosis without inflammatory change. 4. Prior left breast mastectomy with no suspicious soft tissue, left chest wall or left axillary vandana uptake. 5. Other nonacute findings as detailed in the body of the report. Dictated by Berny Noguera MD @ 04/15/2023 8:30:59 PM (Electronically Signed)
== END 2023-04-03 12:14 | disposition home or self-care (01) ==
LOC: RAD 12:13
PROVIDERS: PCP Internal Medicine; Visit Provider Internal Medicine Hematology & Oncology
DX: C90.00 Multiple myeloma not having achieved remission (principal); K57.30 Diverticulosis of large intestine without perforation or abscess without bleeding
CPT/HCPCS: 78816; A9552

== ENCOUNTER 2023-10-02 10:00 | Outpatient (RCR) | payer MEDICARE, BC, SELFPAY ==
[2023-04-18 08:27] LABS: Basophils Absolute Auto 0.04 K/uL (0.00-0.30); Basophils Percent Auto 0.8 % (0.0-3.0); Eosinophils Absolute Auto 0.11 K/uL (0.00-0.50); Eosinophils Percent Auto 2.3 % (0.0-7.0); Hematocrit 45.9 % (33.0-51.0); Immature Granulocytes Abs Auto 0.01 K/uL (0.00-0.30); Immature Granulocytes Pct Auto 0.2 %; Lymphocytes Absolute Auto 1.74 K/uL (0.90-2.90); Lymphocytes Percent Auto 35.7 % (20-44); Mean Corpuscular HGB Conc 33 gm/dL (32-36); Mean Corpuscular Hemoglobin 33 pg (26-34); Mean Corpuscular Volume 101 fL (80-100); Monocytes Percent Auto 10.5 % (0.0-11.0); Neutrophils Absolute Auto 2.47 K/uL (1.7-7.0); Neutrophils Percent Auto 50.5 % (42.0-72.0); Platelet Count* 220 K/uL (140-440); RDW Coefficient of Variation % 13.4 % (11.5-15.5); Red Blood Count 4.53 m/uL (4.00-5.20); White Blood Count* 4.88 K/uL (4.50-11.00)
[2023-04-18 08:30] LABS: Slide Review Reflex No
[2023-04-18 08:40] LABS: Albumin* 4.1 g/dL (3.3-5.0); Chloride* 107 mmol/L (96-114); Potassium* 4.4 mmol/L (3.6-5.1); Sodium* 140 mmol/L (135-149)
[2023-04-18 08:42] LABS: Anion Gap 8 mEq/L (7-15); Bilirubin Total* 0.7 mg/dL (0.1-1.5); Carbon Dioxide* 25 mmol/L (20-32); Creatinine* 1.6 mg/dL (0.5-1.5); Estimated Glomerular Filt Rate 31 ml/min
[2023-04-18 08:43] LABS: Alanine Aminotransferase* 20 U/L (4-35); Alkaline Phosphatase* 86 U/L (40-150); Aspartate Amino Transferase* 27 U/L (12-35); Blood Urea Nitrogen* 23 mg/dL (7-30); Calcium* 10.1 mg/dL (8.4-10.6); Glucose* 65 mg/dL (60-115); Total Protein* 6.8 g/dL (6.0-8.3)
[2023-04-18] MEDS: DARATUMUMAB-HYALURONIDASE-FIHJ 15 ML SUBCUT (13:54)
[2023-04-18 14:06] VITALS: BP 128/84; PULSE 89; RESP 16; TEMP 36.5; O2SAT 94
[2023-05-14 08:28] LABS: Basophils Absolute Auto 0.04 K/uL (0.00-0.30); Basophils Percent Auto 0.8 % (0.0-3.0); Eosinophils Absolute Auto 0.22 K/uL (0.00-0.50); Eosinophils Percent Auto 4.4 % (0.0-7.0); Hematocrit 48.8 % (33.0-51.0); Hemoglobin* 15.8 gm/dL (12.0-16.0); Immature Granulocytes Abs Auto 0.01 K/uL (0.00-0.30); Immature Granulocytes Pct Auto 0.2 %; Lymphocytes Percent Auto 30.1 % (20-44); Mean Corpuscular HGB Conc 32 gm/dL (32-36); Mean Corpuscular Hemoglobin 33 pg (26-34); Mean Corpuscular Volume 103 fL (80-100); Monocytes Percent Auto 11.8 % (0.0-11.0); Neutrophils Absolute Auto 2.63 K/uL (1.7-7.0); Neutrophils Percent Auto 52.7 % (42.0-72.0); Platelet Count* 264 K/uL (140-440); RDW Coefficient of Variation % 13.7 % (11.5-15.5); Red Blood Count 4.74 m/uL (4.00-5.20); White Blood Count* 4.99 K/uL (4.50-11.00)
[2023-05-14 08:31] LABS: Albumin* 4.3 g/dL (3.3-5.0); Chloride* 110 mmol/L (96-114); Sodium* 142 mmol/L (135-149)
[2023-05-14 08:32] LABS: Slide Review Reflex No
[2023-05-14 08:34] LABS: Alanine Aminotransferase* 18 U/L (4-35); Alkaline Phosphatase* 92 U/L (40-150); Anion Gap 10 mEq/L (7-15); Aspartate Amino Transferase* 28 U/L (12-35); Bilirubin Total* 0.6 mg/dL (0.1-1.5); Blood Urea Nitrogen* 22 mg/dL (7-30); Calcium* 9.9 mg/dL (8.4-10.6); Carbon Dioxide* 22 mmol/L (20-32); Creatinine* 1.4 mg/dL (0.5-1.5); Estimated Glomerular Filt Rate 37 ml/min; Total Protein* 7.3 g/dL (6.0-8.3)
[2023-05-14 09:08] LABS: Glucose* 43 mg/dL (60-115)
--- NOTE | 2023-05-14 09:37 | ONC.NURNOTE ---
Pt's glucose 43; re-run of blood sample is 42. Called pt; she is feeling well, denies lethargy. She ate pancakes with syrup for breakfast before coming in for labs. She notes she is tired but is always tired d/t dx/treatment. Pt has had low blood sugar before; see note from 07/2022. Encouraged pt to eat snacks throughout the day to keep steady inflow of carbohydrates; pt agreeable to this plan.
[2023-05-15 09:50] VITALS: BP 123/93; PULSE 81; RESP 16; TEMP 36.1; O2SAT 97
[2023-05-15] MEDS: DARATUMUMAB-HYALURONIDASE-FIHJ 15 ML SUBCUT (10:17)
--- NOTE | 2023-05-15 16:05 | ONC.NURNOTE ---
pt states took pre meds 1/2 before coming in this am.
[2023-05-17 11:58] LABS: Albumin 4.05 g/dL (3.75-5.01); Alpha 1 Globulin 0.25 g/dL (0.19-0.46); Alpha 2 Globulin 0.83 g/dL (0.48-1.05); Immunofixation IFE Done; Immunoglobulin A 5 mg/dL (68-408); Immunoglobulin G 860 mg/dL (768-1632); Immunoglobulin M 21 mg/dL (35-263); Kappa/Lambda Light Chain Ratio 11.67 (0.26-1.65); Monoclonal Protein 0.61 g/dL; Total Protein, Serum 6.5 g/dL (6.3-8.2)
[2023-06-11 08:05] LABS: Basophils Absolute Auto 0.04 K/uL (0.00-0.30); Basophils Percent Auto 0.8 % (0.0-3.0); Eosinophils Absolute Auto 0.21 K/uL (0.00-0.50); Eosinophils Percent Auto 4.4 % (0.0-7.0); Lymphocytes Absolute Auto 1.67 K/uL (0.90-2.90); Lymphocytes Percent Auto 35.2 % (20-44); Mean Corpuscular HGB Conc 33 gm/dL (32-36); Mean Corpuscular Hemoglobin 34 pg (26-34); Mean Corpuscular Volume 103 fL (80-100); Monocytes Percent Auto 10.7 % (0.0-11.0); Neutrophils Absolute Auto 2.32 K/uL (1.7-7.0); Neutrophils Percent Auto 48.9 % (42.0-72.0); Platelet Count* 241 K/uL (140-440); RDW Coefficient of Variation % 13.3 % (11.5-15.5); Red Blood Count 4.48 m/uL (4.00-5.20); White Blood Count* 4.75 K/uL (4.50-11.00)
[2023-06-11 08:07] LABS: Slide Review Reflex No
[2023-06-11 08:29] LABS: Chloride* 109 mmol/L (96-114)
[2023-06-11 08:30] LABS: Albumin* 4.1 g/dL (3.3-5.0); Potassium* 4.3 mmol/L (3.6-5.1); Sodium* 141 mmol/L (135-149)
[2023-06-11 08:33] LABS: Alanine Aminotransferase* 16 U/L (4-35); Alkaline Phosphatase* 90 U/L (40-150); Anion Gap 7 mEq/L (7-15); Aspartate Amino Transferase* 25 U/L (12-35); Bilirubin Total* 0.4 mg/dL (0.1-1.5); Blood Urea Nitrogen* 17 mg/dL (7-30); Carbon Dioxide* 25 mmol/L (20-32); Creatinine* 1.4 mg/dL (0.5-1.5); Estimated Glomerular Filt Rate 37 ml/min; Glucose* 73 mg/dL (60-115); Total Protein* 6.6 g/dL (6.0-8.3)
[2023-06-11 08:34] LABS: Calcium* 9.8 mg/dL (8.4-10.6)
[2023-06-12] MEDS: DARATUMUMAB-HYALURONIDASE-FIHJ 15 ML SUBCUT (11:16)
[2023-07-09 08:14] LABS: Basophils Absolute Auto 0.05 K/uL (0.00-0.30); Eosinophils Absolute Auto 0.15 K/uL (0.00-0.50); Hematocrit 48.8 % (33.0-51.0); Hemoglobin* 15.5 gm/dL (12.0-16.0); Lymphocytes Percent Auto 34.1 % (20-44); Mean Corpuscular HGB Conc 32 gm/dL (32-36); Mean Corpuscular Hemoglobin 33 pg (26-34); Mean Corpuscular Volume 105 fL (80-100); Monocytes Percent Auto 9.4 % (0.0-11.0); Neutrophils Absolute Auto 2.62 K/uL (1.7-7.0); Neutrophils Percent Auto 52.5 % (42.0-72.0); Platelet Count* 252 K/uL (140-440); RDW Coefficient of Variation % 13.6 % (11.5-15.5); Red Blood Count 4.65 m/uL (4.00-5.20); White Blood Count* 4.99 K/uL (4.50-11.00)
[2023-07-09 08:15] LABS: Slide Review Reflex No
[2023-07-09 08:30] LABS: Albumin* 4.2 g/dL (3.3-5.0); Chloride* 109 mmol/L (96-114); Potassium* 4.1 mmol/L (3.6-5.1); Sodium* 140 mmol/L (135-149)
[2023-07-09 08:32] LABS: Anion Gap 7 mEq/L (7-15); Bilirubin Total* 0.5 mg/dL (0.1-1.5); Carbon Dioxide* 24 mmol/L (20-32); Creatinine* 1.6 mg/dL (0.5-1.5); Estimated Glomerular Filt Rate 31 ml/min
[2023-07-09 08:33] LABS: Alanine Aminotransferase* 16 U/L (4-35); Alkaline Phosphatase* 94 U/L (40-150); Aspartate Amino Transferase* 25 U/L (12-35); Blood Urea Nitrogen* 18 mg/dL (7-30); Calcium* 9.7 mg/dL (8.4-10.6); Glucose* 77 mg/dL (60-115); Total Protein* 6.9 g/dL (6.0-8.3)
[2023-07-10 09:58] VITALS: BP 120/75; PULSE 91; RESP 16; TEMP 36.3; O2SAT 95
[2023-07-10] MEDS: DARATUMUMAB-HYALURONIDASE-FIHJ 15 ML SUBCUT (10:09)
[2023-08-06 08:40] LABS: Basophils Absolute Auto 0.03 K/uL (0.00-0.30); Basophils Percent Auto 0.6 % (0.0-3.0); Eosinophils Absolute Auto 0.17 K/uL (0.00-0.50); Eosinophils Percent Auto 3.5 % (0.0-7.0); Hemoglobin* 15.4 gm/dL (12.0-16.0); Lymphocytes Absolute Auto 1.76 K/uL (0.90-2.90); Lymphocytes Percent Auto 36.3 % (20-44); Mean Corpuscular HGB Conc 33 gm/dL (32-36); Mean Corpuscular Hemoglobin 34 pg (26-34); Mean Corpuscular Volume 104 fL (80-100); Monocytes Percent Auto 11.5 % (0.0-11.0); Neutrophils Absolute Auto 2.33 K/uL (1.7-7.0); Neutrophils Percent Auto 48.1 % (42.0-72.0); Platelet Count* 224 K/uL (140-440); RDW Coefficient of Variation % 13.9 % (11.5-15.5); Red Blood Count 4.51 m/uL (4.00-5.20); White Blood Count* 4.85 K/uL (4.50-11.00)
[2023-08-06 08:48] LABS: Slide Review Reflex No
[2023-08-06 09:00] LABS: Chloride* 109 mmol/L (96-114)
[2023-08-06 09:01] LABS: Albumin* 3.9 g/dL (3.3-5.0); Potassium* 4.3 mmol/L (3.6-5.1); Sodium* 141 mmol/L (135-149)
[2023-08-06 09:03] LABS: Anion Gap 8 mEq/L (7-15); Bilirubin Total* 0.5 mg/dL (0.1-1.5); Carbon Dioxide* 24 mmol/L (20-32); Creatinine* 1.4 mg/dL (0.5-1.5); Estimated Glomerular Filt Rate 37 ml/min
[2023-08-06 09:04] LABS: Alanine Aminotransferase* 18 U/L (4-35); Alkaline Phosphatase* 88 U/L (40-150); Aspartate Amino Transferase* 25 U/L (12-35); Blood Urea Nitrogen* 19 mg/dL (7-30); Calcium* 9.7 mg/dL (8.4-10.6); Glucose* 66 mg/dL (60-115); Total Protein* 6.7 g/dL (6.0-8.3)
[2023-08-07 10:40] VITALS: BP 131/84; PULSE 92; RESP 16; TEMP 35.9; O2SAT 97
[2023-08-07] MEDS: DARATUMUMAB-HYALURONIDASE-FIHJ 15 ML SUBCUT (10:55)
[2023-08-09 02:22] LABS: Alpha 1 Globulin 0.22 g/dL (0.19-0.46); Alpha 2 Globulin 0.73 g/dL (0.48-1.05); Immunofixation IFE Done; Immunoglobulin A 10 mg/dL (68-408); Immunoglobulin G 877 mg/dL (768-1632); Immunoglobulin M 12 mg/dL (35-263); Kappa/Lambda Light Chain Ratio 20.91 (0.26-1.65); Lambda Qnt Free Light Chains 2.31 mg/L (5.71-26.30); Monoclonal Protein 0.61 g/dL; Total Protein, Serum 6.1 g/dL (6.3-8.2)
[2023-09-03 08:28] LABS: Eosinophils Percent Auto 2.4 % (0.0-7.0); Hematocrit 47.7 % (33.0-51.0); Hemoglobin* 15.5 gm/dL (12.0-16.0); Lymphocytes Percent Auto 43.7 % (20-44); Mean Corpuscular HGB Conc 33 gm/dL (32-36); Mean Corpuscular Hemoglobin 34 pg (26-34); Mean Corpuscular Volume 105 fL (80-100); Monocytes Percent Auto 8.6 % (0.0-11.0); Neutrophils Percent Auto 44.3 % (42.0-72.0); Platelet Count* 199 K/uL (140-440); RDW Coefficient of Variation % 13.6 % (11.5-15.5); Red Blood Count 4.55 m/uL (4.00-5.20); White Blood Count* 4.19 K/uL (4.50-11.00)
[2023-09-03 08:30] LABS: Slide Review Reflex No
[2023-09-03 08:41] LABS: Chloride* 109 mmol/L (96-114); Potassium* 4.2 mmol/L (3.6-5.1); Sodium* 139 mmol/L (135-149)
[2023-09-03 08:43] LABS: Creatinine* 1.5 mg/dL (0.5-1.5); Estimated Glomerular Filt Rate 34 ml/min
[2023-09-03 08:44] LABS: Alanine Aminotransferase* 15 U/L (4-35); Alkaline Phosphatase* 96 U/L (40-150); Anion Gap 7 mEq/L (7-15); Aspartate Amino Transferase* 25 U/L (12-35); Bilirubin Total* 0.5 mg/dL (0.1-1.5); Blood Urea Nitrogen* 18 mg/dL (7-30); Carbon Dioxide* 23 mmol/L (20-32); Glucose* 150 mg/dL (60-115); Total Protein* 6.7 g/dL (6.0-8.3)
[2023-09-03 08:45] LABS: Calcium* 9.5 mg/dL (8.4-10.6)
[2023-09-04 09:46] VITALS: BP 142/89; PULSE 76; RESP 16; TEMP 36.1; O2SAT 98
[2023-09-04] MEDS: DARATUMUMAB-HYALURONIDASE-FIHJ 15 ML SUBCUT (10:17)
[2023-10-01 08:37] LABS: Basophils Absolute Auto 0.04 K/uL (0.00-0.30); Basophils Percent Auto 0.8 % (0.0-3.0); Eosinophils Absolute Auto 0.11 K/uL (0.00-0.50); Eosinophils Percent Auto 2.3 % (0.0-7.0); Hemoglobin* 15.4 gm/dL (12.0-16.0); Lymphocytes Percent Auto 39.7 % (20-44); Mean Corpuscular HGB Conc 32 gm/dL (32-36); Mean Corpuscular Hemoglobin 34 pg (26-34); Mean Corpuscular Volume 106 fL (80-100); Monocytes Percent Auto 11.7 % (0.0-11.0); Neutrophils Absolute Auto 2.17 K/uL (1.7-7.0); Neutrophils Percent Auto 45.5 % (42.0-72.0); Platelet Count* 218 K/uL (140-440); RDW Coefficient of Variation % 13.4 % (11.5-15.5); Red Blood Count 4.54 m/uL (4.00-5.20); White Blood Count* 4.78 K/uL (4.50-11.00)
[2023-10-01 08:40] LABS: Slide Review Reflex No
[2023-10-01 08:52] LABS: Albumin* 4.2 g/dL (3.3-5.0); Chloride* 105 mmol/L (96-114); Sodium* 137 mmol/L (135-149)
[2023-10-01 08:55] LABS: Alanine Aminotransferase* 16 U/L (4-35); Alkaline Phosphatase* 99 U/L (40-150); Anion Gap 6 mEq/L (7-15); Aspartate Amino Transferase* 24 U/L (12-35); Bilirubin Total* 0.5 mg/dL (0.1-1.5); Blood Urea Nitrogen* 24 mg/dL (7-30); Carbon Dioxide* 26 mmol/L (20-32); Creatinine* 1.5 mg/dL (0.5-1.5); Estimated Glomerular Filt Rate 34 ml/min; Glucose* 70 mg/dL (60-115); Total Protein* 7.1 g/dL (6.0-8.3)
[2023-10-01 08:56] LABS: Calcium* 10.2 mg/dL (8.4-10.6)
[2023-10-02 09:45] VITALS: BP 144/80; PULSE 103; RESP 16; TEMP 35.9
[2023-10-02] MEDS: DARATUMUMAB-HYALURONIDASE-FIHJ 15 ML SUBCUT (10:49)
== END 2023-10-14 23:59 | disposition home or self-care (01) ==
LOC: CCIC 10:00
PROVIDERS: Clinical Nurse Specialist; PCP Internal Medicine; Referring Provider Internal Medicine; Visit Provider Internal Medicine Hematology & Oncology
DX: C90.00 Multiple myeloma not having achieved remission (principal); Z51.12 Encounter for antineoplastic immunotherapy
CPT/HCPCS: 36415; 80053; 82784; 83520; 84155; 84165; 85025; 86334; 96401; 99212; 99213; 99214; 99215; G0463; J9144

== ENCOUNTER 2024-01-06 15:06 | Outpatient (CLI) | payer MEDICARE, BC, SELFPAY ==
--- NOTE | 2024-01-06 15:30 | CRLHL7_ITS ---
For Patients: As a result of the 21st Century Cures Act, medical imaging exams and procedure reports are released immediately into your electronic medical record. You may view this report before your referring provider. If you have questions, please contact your health care provider. Indication: Lesion of sciatic nerve. History of multiple myeloma. Incidental sacral Tarlov cysts. Technique: Noncontrast sagittal and axial T1, T2, and sagittal STIR sequences are provided. Postcontrast sagittal and axial T1 weighted images were obtained after administration of 20 cc Dotarem IV contrast. Comparison: PET-CT 04/03/2020 Findings: Levoscoliosis with apex at L2-3. No fractures. No prevertebral or paraspinal edema. No aggressive osseous lesions. The conus medullaris is normal in signal and location. Grade 1 anterolisthesis at L4-5. Moderate interspace narrowing at L1-2, L2-3 and L3-4 levels. T12-L1: Mild disc bulge indents the thecal sac without significant spinal canal stenosis. L1-2: Moderate disc space narrowing. Disc bulge and endplate osteophytic spurring. Mild indentation of the thecal sac. No significant spinal canal stenosis or neural foramen narrowing. L2-3: Mild disc bulge and endplate osteophytic spurring indents the thecal sac. No significant spinal canal stenosis or neural foraminal narrowing. L3-4: Disc bulge and endplate osteophytic spurring eccentric to the right. Moderate right facet arthrosis. Mild right subarticular recess narrowing and mild right neural foraminal narrowing. No left neural foramen narrowing. L4-5: Grade 1 anterolisthesis with uncovering of the disc. Moderate facet arthrosis and ligamentum flavum buckling. Mild subarticular recess stenosis. Mild right neural foraminal narrowing. No left neural foraminal narrowing. L5-S1: Mild disc bulge. Moderate facet arthrosis. Severe left neural foraminal narrowing. No right neural foraminal narrowing. Incidental bilateral sacral Tarlov cysts. Impression: 1. No acute osseous or ligamentous abnormality. Levoscoliosis with apex at L2-3. 2. Severe left neural foraminal narrowing at L5-S1 due to combination of disc bulge, endplate osteophytic spurring and facet arthrosis with impingement of the exiting left L5 nerve roots. 3. Multilevel low-grade spinal canal and neural foramina narrowing. 4. No pathologic enhancement. 5. Incidental bilateral sacral Tarlov cysts. Dictated by Koffi Jaime MD @ 01/07/2024 9:27:25 AM (Electronically Signed)
== END 2024-01-06 15:07 | disposition home or self-care (01) ==
LOC: MRI 15:07
PROVIDERS: PCP Internal Medicine; Visit Provider Internal Medicine
DX: G57.00 Lesion of sciatic nerve, unspecified lower limb (principal); M51.26 Other intervertebral disc displacement, lumbar region
CPT/HCPCS: 72158; A9575

== ENCOUNTER 2024-02-09 09:15 | Outpatient (RCR) | payer MEDICARE, BC, SELFPAY ==
--- NOTE | 2024-01-14 15:22 | PT.OPEX ---
PT [facility] [place] [facility] Eval PT [facility] Outpatient Eval Start: 01/14/24 13:42 Freq: Status: Active Protocol: Document 01/14/24 13:43 CRP (Rec: 01/14/24 15:21 CRP [id number]) E-signed By Armando Lopes, PT Physical Therapy Outpatient Evaluation Insurance Information Recert Due Date 04/13/24 Insurance Name Medicare B Medical Diagnosis R sided sciatica Referring MD Dr Mcintyre Subjective Subjective About 2 months ago she began having sharp shooting pain down her R quad with maybe some soreness at her gluteal muscles. Has had a long history of low grade LBP that she has been fine managing. This thigh pain she feels is nerve pain. This pain only happens at night. When it comes on it might take 30 min or so for her to stand and work it out. Was diagnosed with multiple myeloma about 3 years ago. Has neuropathy on both feet. Pain Comments Current Work Status Retired Objective Other/Pertinent Objective Trunk ROM flex WNL, Ext mod dec, bilat SB min/mod dec, bilat rot mod dec Hip ROM WNL MMT: myotomes WNL. Lumbopelvic flex: 4-/5. Hip ext 4-/5 bilat SLR negative bilat Assessment Assessment/Impression Pt has had recent past hx of signs and sxs consistent with lumbar radicular pain. Pt currently shows decreased trunk ROM, lumbopelvic weakness, hip extension weakness and decreased functional mobility. Skilled PT is necessary to incorporate ther ex, nm leonarda, manual therapy and pt education to improve functional mobility. Primary Functional Limitations Don/doff socks/shoes on the R Sleep difficulties Plan of Care Rehabilitation Potential Excellent Physical Therapy Goals 1. Independent with HEP in 6 weeks. 2. Pt will don/doff clothing without c.o in 8 weeks. 3. Pt will sleep through the night without thigh pain in 12 weeks. Coordination/Communication With Referral Source Treatment Plan/Direct Interventions Joint Mobilization,Manual Therapy,Neuromuscular Re-ed, Self-Care/Home Management, Therapeutic Activities, Therapeutic Exercises Frequency/Duration 1x/wk for 12 weeks Patient Will Be Discharged From Therapy Completion of LTG(s),Skills Plateau,Independent w/HEP, Independently Progressing Evaluation Billing Untimed Code Treatment Minutes 30 Complexity Moderate Certification Information Initial Certification Date 01/14/24 Ending Certification Date 04/13/24 Provider Signature Required Yes Provider Signature Shows Agreement With POC & Medical Necessity Physician NPI Number Write NPI# Here Physician Comment/Change : Physician Signature & Date Requested Please Sign/Date Here
== END 2024-02-09 09:39 | disposition home or self-care (01) ==
PROVIDERS: PCP Internal Medicine; Visit Provider Internal Medicine
DX: M54.31 Sciatica, right side (principal); Z51.89 Encounter for other specified aftercare
CPT/HCPCS: 97110; 97162

== ENCOUNTER 2024-03-25 09:30 | Outpatient (RCR) | payer MEDICARE, BC, SELFPAY ==
[2023-10-18 12:32] LABS: Albumin 4.07 g/dL (3.75-5.01); Alpha 1 Globulin 0.21 g/dL (0.19-0.46); Alpha 2 Globulin 0.74 g/dL (0.48-1.05); Immunofixation IFE Done; Immunoglobulin A 7 mg/dL (68-408); Immunoglobulin G 961 mg/dL (768-1632); Immunoglobulin M 12 mg/dL (35-263); Kappa Qnt Free Light Chains 60.96 mg/L (3.30-19.40); Kappa/Lambda Light Chain Ratio 28.22 (0.26-1.65); Lambda Qnt Free Light Chains 2.16 mg/L (5.71-26.30); Monoclonal Protein 0.72 g/dL (<=0.00); Total Protein, Serum 6.5 g/dL (6.3-8.2)
[2023-10-29 08:12] LABS: Basophils Absolute Auto 0.04 K/uL (0.00-0.30); Basophils Percent Auto 0.8 % (0.0-3.0); Eosinophils Percent Auto 2.1 % (0.0-7.0); Hematocrit 50.5 % (33.0-51.0); Hemoglobin* 16.6 gm/dL (12.0-16.0); Lymphocytes Absolute Auto 1.75 K/uL (0.90-2.90); Lymphocytes Percent Auto 36.5 % (20-44); Mean Corpuscular HGB Conc 33 gm/dL (32-36); Mean Corpuscular Hemoglobin 35 pg (26-34); Mean Corpuscular Volume 105 fL (80-100); Monocytes Percent Auto 9.6 % (0.0-11.0); Neutrophils Absolute Auto 2.44 K/uL (1.7-7.0); Platelet Count* 201 K/uL (140-440); RDW Coefficient of Variation % 13.3 % (11.5-15.5); Red Blood Count 4.79 m/uL (4.00-5.20); White Blood Count* 4.79 K/uL (4.50-11.00)
[2023-10-29 08:13] LABS: Slide Review Reflex No
[2023-10-29 08:28] LABS: Albumin* 4.3 g/dL (3.3-5.0); Chloride* 107 mmol/L (96-114); Potassium* 4.5 mmol/L (3.6-5.1); Sodium* 140 mmol/L (135-149)
[2023-10-29 08:30] LABS: Creatinine* 1.6 mg/dL (0.5-1.5); Estimated Glomerular Filt Rate 31 ml/min
[2023-10-29 08:31] LABS: Alanine Aminotransferase* 18 U/L (4-35); Alkaline Phosphatase* 98 U/L (40-150); Anion Gap 6 mEq/L (7-15); Aspartate Amino Transferase* 25 U/L (12-35); Bilirubin Total* 0.6 mg/dL (0.1-1.5); Blood Urea Nitrogen* 22 mg/dL (7-30); Carbon Dioxide* 27 mmol/L (20-32); Glucose* 81 mg/dL (60-115); Total Protein* 7.4 g/dL (6.0-8.3)
[2023-10-29 08:32] LABS: Calcium* 10.3 mg/dL (8.4-10.6)
[2023-10-30] MEDS: DARATUMUMAB-HYALURONIDASE-FIHJ 15 ML SUBCUT (11:29)
--- NOTE | 2023-11-05 14:43 | URNOTE ---
Prior authoirzation is not required for Darzalex (J9144). Pt has medicare/ [employer]. Services are based on medical necessity and follow medicare guidelines.
[2023-11-27 08:15] LABS: Basophils Absolute Auto 0.04 K/uL (0.00-0.30); Basophils Percent Auto 0.8 % (0.0-3.0); Eosinophils Absolute Auto 0.11 K/uL (0.00-0.50); Eosinophils Percent Auto 2.1 % (0.0-7.0); Hematocrit 46.5 % (33.0-51.0); Hemoglobin* 15.1 gm/dL (12.0-16.0); Lymphocytes Absolute Auto 1.81 K/uL (0.90-2.90); Mean Corpuscular HGB Conc 33 gm/dL (32-36); Mean Corpuscular Hemoglobin 35 pg (26-34); Mean Corpuscular Volume 107 fL (80-100); Monocytes Percent Auto 9.7 % (0.0-11.0); Neutrophils Absolute Auto 2.71 K/uL (1.7-7.0); Neutrophils Percent Auto 52.4 % (42.0-72.0); Platelet Count* 202 K/uL (140-440); RDW Coefficient of Variation % 13.3 % (11.5-15.5); Red Blood Count 4.36 m/uL (4.00-5.20); White Blood Count* 5.17 K/uL (4.50-11.00)
[2023-11-27 08:17] LABS: Slide Review Reflex No
[2023-11-27 08:51] LABS: Chloride* 109 mmol/L (96-114); Potassium* 4.3 mmol/L (3.6-5.1); Sodium* 138 mmol/L (135-149)
[2023-11-27 08:53] LABS: Bilirubin Total* 0.5 mg/dL (0.1-1.5); Creatinine* 1.6 mg/dL (0.5-1.5); Estimated Glomerular Filt Rate 31 ml/min
[2023-11-27 08:54] LABS: Alanine Aminotransferase* 18 U/L (4-35); Alkaline Phosphatase* 86 U/L (40-150); Anion Gap 5 mEq/L (7-15); Aspartate Amino Transferase* 28 U/L (12-35); Blood Urea Nitrogen* 27 mg/dL (7-30); Calcium* 9.8 mg/dL (8.4-10.6); Carbon Dioxide* 24 mmol/L (20-32); Glucose* 72 mg/dL (60-115); Total Protein* 6.9 g/dL (6.0-8.3)
[2023-11-27 13:00] VITALS: BP 106/71; PULSE 76; RESP 16; TEMP 36.6; O2SAT 96
[2023-11-27] MEDS: DARATUMUMAB-HYALURONIDASE-FIHJ 15 ML SUBCUT (13:23)
[2023-12-24 08:27] LABS: Basophils Absolute Auto 0.03 K/uL (0.00-0.30); Basophils Percent Auto 0.6 % (0.0-3.0); Eosinophils Absolute Auto 0.21 K/uL (0.00-0.50); Eosinophils Percent Auto 4.1 % (0.0-7.0); Hematocrit 48.5 % (33.0-51.0); Hemoglobin* 15.8 gm/dL (12.0-16.0); Immature Granulocytes Abs Auto 0.01 K/uL (0.00-0.30); Immature Granulocytes Pct Auto 0.2 %; Lymphocytes Absolute Auto 2.18 K/uL (0.90-2.90); Lymphocytes Percent Auto 42.4 % (20-44); Mean Corpuscular HGB Conc 33 gm/dL (32-36); Mean Corpuscular Hemoglobin 35 pg (26-34); Mean Corpuscular Volume 107 fL (80-100); Monocytes Percent Auto 9.5 % (0.0-11.0); Neutrophils Absolute Auto 2.22 K/uL (1.7-7.0); Neutrophils Percent Auto 43.2 % (42.0-72.0); Platelet Count* 210 K/uL (140-440); RDW Coefficient of Variation % 13.4 % (11.5-15.5); Red Blood Count 4.52 m/uL (4.00-5.20); White Blood Count* 5.14 K/uL (4.50-11.00)
[2023-12-24 08:32] LABS: Slide Review Reflex No
[2023-12-24 08:41] LABS: Albumin* 4.5 g/dL (3.3-5.0); Chloride* 109 mmol/L (96-114)
[2023-12-24 08:42] LABS: Potassium* 4.3 mmol/L (3.6-5.1); Sodium* 140 mmol/L (135-149)
[2023-12-24 08:44] LABS: Anion Gap 6 mEq/L (7-15); Aspartate Amino Transferase* 25 U/L (12-35); Bilirubin Total* 0.7 mg/dL (0.1-1.5); Blood Urea Nitrogen* 23 mg/dL (7-30); Carbon Dioxide* 25 mmol/L (20-32); Creatinine* 1.5 mg/dL (0.5-1.5); Estimated Glomerular Filt Rate 34 ml/min; Total Protein* 7.4 g/dL (6.0-8.3)
[2023-12-24 08:45] LABS: Alanine Aminotransferase* 17 U/L (4-35); Alkaline Phosphatase* 91 U/L (40-150); Calcium* 9.9 mg/dL (8.4-10.6); Glucose* 69 mg/dL (60-115)
[2023-12-25 13:30] VITALS: BP 124/80; PULSE 95; RESP 15; TEMP 35.9; O2SAT 97
[2023-12-25] MEDS: DARATUMUMAB-HYALURONIDASE-FIHJ 15 ML SUBCUT (14:19)
[2024-01-21 08:29] LABS: Basophils Absolute Auto 0.04 K/uL (0.00-0.30); Basophils Percent Auto 0.8 % (0.0-3.0); Eosinophils Absolute Auto 0.16 K/uL (0.00-0.50); Hematocrit 48.3 % (33.0-51.0); Hemoglobin* 15.8 gm/dL (12.0-16.0); Lymphocytes Absolute Auto 2.06 K/uL (0.90-2.90); Lymphocytes Percent Auto 39.2 % (20-44); Mean Corpuscular HGB Conc 33 gm/dL (32-36); Mean Corpuscular Hemoglobin 35 pg (26-34); Mean Corpuscular Volume 107 fL (80-100); Monocytes Percent Auto 10.7 % (0.0-11.0); Neutrophils Absolute Auto 2.43 K/uL (1.7-7.0); Neutrophils Percent Auto 46.3 % (42.0-72.0); Platelet Count* 236 K/uL (140-440); RDW Coefficient of Variation % 13.1 % (11.5-15.5); Red Blood Count 4.52 m/uL (4.00-5.20); Slide Review Reflex No; White Blood Count* 5.25 K/uL (4.50-11.00)
[2024-01-21 08:58] LABS: Albumin* 4.4 g/dL (3.3-5.0); Chloride* 107 mmol/L (96-114); Potassium* 4.6 mmol/L (3.6-5.1); Sodium* 138 mmol/L (135-149)
[2024-01-21 09:00] LABS: Anion Gap 7 mEq/L (7-15); Aspartate Amino Transferase* 24 U/L (12-35); Bilirubin Total* 0.6 mg/dL (0.1-1.5); Carbon Dioxide* 24 mmol/L (20-32); Creatinine* 1.5 mg/dL (0.5-1.5); Estimated Glomerular Filt Rate 34 ml/min; Total Protein* 7.1 g/dL (6.0-8.3)
[2024-01-21 09:01] LABS: Alanine Aminotransferase* 18 U/L (4-35); Alkaline Phosphatase* 79 U/L (40-150); Blood Urea Nitrogen* 27 mg/dL (7-30); Calcium* 10.2 mg/dL (8.4-10.6); Glucose* 72 mg/dL (60-115)
[2024-01-22 09:50] VITALS: BP 121/85; PULSE 65; RESP 16; TEMP 36.1; O2SAT 98
[2024-01-22] MEDS: DARATUMUMAB-HYALURONIDASE-FIHJ 15 ML SUBCUT (10:38)
[2024-01-23 08:47] LABS: Albumin 4.11 g/dL (3.75-5.01); Alpha 1 Globulin 0.19 g/dL (0.19-0.46); Alpha 2 Globulin 0.77 g/dL (0.48-1.05); Immunofixation IFE Done; Immunoglobulin A 6 mg/dL (68-408); Immunoglobulin G 1199 mg/dL (768-1632); Immunoglobulin M 22 mg/dL (35-263); Kappa Qnt Free Light Chains 96.99 mg/L (3.30-19.40); Kappa/Lambda Light Chain Ratio 40.08 (0.26-1.65); Lambda Qnt Free Light Chains 2.42 mg/L (5.71-26.30); Total Protein, Serum 6.7 g/dL (6.3-8.2)
--- NOTE | 2024-01-29 14:18 | ONC.NURNOTE ---
Lenalidomide 10 mg tabs X 14 days, followed by 14 days off repeated every 28 day cycle plan is to restart with D1 of next cycle Darzolax Reenrollment completed with the lenalidomide REMS program with same patient ID number RX faxed with all supporting documentation [facility] at Following reviewed with Yoko: dosing safe handling process for ordering medication each month survey that will need to be completed by patient financial implications of the copay with possible options for enrollment into patient assist program for free drug through the manufactorer hand out given on lenalidomide questions addressed plan to follow up next week when Yoko returns for trip
--- NOTE | 2024-02-03 14:02 | ONC.NURNOTE ---
Addendum entered by Katlyn Lambert RN 02/04/24 13:02: PA submitted via [employer] yesterday Original Note: PA for lenalidomide: [facility] unable at this time to give covermymeds harding for PA it is known that a PA is needed- however there is a glitch with [facility] in getting this set up with covermymeds automatic typewriter inspector spoke with multiple customer service reps and a pharmacist at [facility] phone # given to call insurance directly to do phone PA it was not the right number- 4 other phone calls attempted to [employer] and automatic typewriter inspector was not able to get to the right place to do a phone PA message left with Yoko that barriers encountered to expedite this process
--- NOTE | 2024-02-11 09:32 | ONC.NURNOTE ---
Lenalidomide PA approval 11/07/23-02/04/25 Case # [id number]
[2024-02-18 08:22] LABS: Basophils Absolute Auto 0.04 K/uL (0.00-0.30); Basophils Percent Auto 0.8 % (0.0-3.0); Hematocrit 49.3 % (33.0-51.0); Hemoglobin* 16.2 gm/dL (12.0-16.0); Immature Granulocytes Abs Auto 0.01 K/uL (0.00-0.30); Immature Granulocytes Pct Auto 0.2 %; Lymphocytes Absolute Auto 2.15 K/uL (0.90-2.90); Lymphocytes Percent Auto 42.2 % (20-44); Mean Corpuscular HGB Conc 33 gm/dL (32-36); Mean Corpuscular Hemoglobin 35 pg (26-34); Mean Corpuscular Volume 107 fL (80-100); Monocytes Percent Auto 10.8 % (0.0-11.0); Neutrophils Absolute Auto 2.24 K/uL (1.7-7.0); Platelet Count* 235 K/uL (140-440); RDW Coefficient of Variation % 13.1 % (11.5-15.5); Red Blood Count 4.59 m/uL (4.00-5.20); White Blood Count* 5.09 K/uL (4.50-11.00)
[2024-02-18 08:26] LABS: Slide Review Reflex No
[2024-02-18 08:32] LABS: Albumin* 4.4 g/dL (3.3-5.0)
[2024-02-18 08:33] LABS: Chloride* 106 mmol/L (96-114); Potassium* 4.2 mmol/L (3.6-5.1); Sodium* 139 mmol/L (135-149)
[2024-02-18 08:35] LABS: Alkaline Phosphatase* 81 U/L (40-150); Anion Gap 8 mEq/L (7-15); Aspartate Amino Transferase* 25 U/L (12-35); Bilirubin Total* 0.7 mg/dL (0.1-1.5); Blood Urea Nitrogen* 19 mg/dL (7-30); Carbon Dioxide* 25 mmol/L (20-32); Creatinine* 1.3 mg/dL (0.5-1.5); Estimated Glomerular Filt Rate 40 ml/min; Total Protein* 7.3 g/dL (6.0-8.3)
[2024-02-18 08:36] LABS: Alanine Aminotransferase* 16 U/L (4-35); Calcium* 10.4 mg/dL (8.4-10.6); Glucose* 85 mg/dL (60-115)
[2024-02-19 10:36] VITALS: BP 151/73; PULSE 73; RESP 16; TEMP 36.3; O2SAT 95
[2024-02-19] MEDS: DARATUMUMAB-HYALURONIDASE-FIHJ 15 ML SUBCUT (11:27)
--- NOTE | 2024-02-20 13:16 | ONC.NURNOTE ---
Addendum entered by Emmanuelle Mcclellan RN 02/23/24 13:44: Spoke to pt, she is doing well with no concerns at this time. Addendum entered by Emmanuelle Mcclellan RN 02/23/24 10:56: Left message with pt to call back to let [facility] staff know how she is doing since starting Revlimid. Original Note: Attempted to call pt to follow up start of revlimid, line busy. Will have nursing try again this afternoon.
--- NOTE | 2024-02-26 10:21 | ONC.NURNOTE ---
Addendum entered by Katlyn Lambert RN 02/27/24 11:40: return call to Yoko: reports no ill effects from Revlimd reports 1 watery and 1 loose stool- which can be her norm has not used imodium- and stools have been baseline since then eating and drinking well Original Note: Revlimid follow up: message left on voice mail to call back
--- NOTE | 2024-03-01 14:59 | ONC.NURNOTE ---
Yoko continues to report no adverse effects since starting the lenalidomide- she has 2 days left of the 14 days on, then she will have 14 days off plan to order next lenalidomide on 03/08/24 Yoko understands to call if any concerns arise
[2024-03-17 08:06] LABS: Basophils Percent Auto 2.6 % (0.0-3.0); Eosinophils Percent Auto 4.3 % (0.0-7.0); Hematocrit 48.6 % (33.0-51.0); Lymphocytes Percent Auto 52.4 % (20-44); Mean Corpuscular HGB Conc 33 gm/dL (32-36); Mean Corpuscular Hemoglobin 35 pg (26-34); Mean Corpuscular Volume 107 fL (80-100); Monocytes Percent Auto 15.1 % (0.0-11.0); Neutrophils Percent Auto 25.6 % (42.0-72.0); Platelet Count* 246 K/uL (140-440); RDW Coefficient of Variation % 13.1 % (11.5-15.5); Red Blood Count 4.56 m/uL (4.00-5.20); White Blood Count* 4.16 K/uL (4.50-11.00)
[2024-03-17 08:13] LABS: Slide Review Reflex No
[2024-03-17 08:19] LABS: Chloride* 111 mmol/L (96-114); Potassium* 4.1 mmol/L (3.6-5.1); Sodium* 140 mmol/L (135-149)
[2024-03-17 08:21] LABS: Creatinine* 1.5 mg/dL (0.5-1.5); Estimated Glomerular Filt Rate 34 ml/min
[2024-03-17 08:22] LABS: Alanine Aminotransferase* 16 U/L (4-35); Alkaline Phosphatase* 77 U/L (40-150); Anion Gap 7 mEq/L (7-15); Aspartate Amino Transferase* 24 U/L (12-35); Bilirubin Total* 0.5 mg/dL (0.1-1.5); Blood Urea Nitrogen* 28 mg/dL (7-30); Carbon Dioxide* 22 mmol/L (20-32); Glucose* 102 mg/dL (60-115); Total Protein* 6.6 g/dL (6.0-8.3)
[2024-03-18 10:00] VITALS: BP 112/69; PULSE 87; RESP 16; TEMP 36.6; O2SAT 96
[2024-03-18] MEDS: DARATUMUMAB-HYALURONIDASE-FIHJ 15 ML SUBCUT (10:49)
[2024-03-20 12:12] LABS: Albumin 3.82 g/dL (3.75-5.01); Alpha 1 Globulin 0.21 g/dL (0.19-0.46); Alpha 2 Globulin 0.76 g/dL (0.48-1.05); Immunofixation IFE Done; Immunoglobulin A 9 mg/dL (68-408); Immunoglobulin G 729 mg/dL (768-1632); Immunoglobulin M 17 mg/dL (35-263); Kappa Qnt Free Light Chains 51.65 mg/L (3.30-19.40); Kappa/Lambda Light Chain Ratio 18.71 (0.26-1.65); Lambda Qnt Free Light Chains 2.76 mg/L (5.71-26.30); Monoclonal Protein 0.57 g/dL (<=0.00); Total Protein, Serum 6.1 g/dL (6.3-8.2)
== END 2024-04-12 23:59 | disposition home or self-care (01) ==
LOC: CCIC 09:30
PROVIDERS: Clinical Nurse Specialist; PCP Internal Medicine; Referring Provider Internal Medicine; Visit Provider Internal Medicine Hematology & Oncology
DX: C90.00 Multiple myeloma not having achieved remission (principal); G62.0 Drug-induced polyneuropathy; T45.1X5A Adverse effect of antineoplastic and immunosuppressive drugs, initial encounter; D70.9 Neutropenia, unspecified
CPT/HCPCS: 36415; 80053; 82784; 83520; 84155; 84165; 85025; 86334; 96401; 97110; 97162; 99213; 99214; G0463; J9144

== ENCOUNTER 2024-10-07 08:00 | Outpatient (RCR) | payer MEDICARE, BC, SELFPAY ==
[2024-04-14 08:21] LABS: Basophils Percent Auto 2.6 % (0.0-3.0); Eosinophils Percent Auto 5.1 % (0.0-7.0); Hematocrit 45.3 % (33.0-51.0); Hemoglobin* 15.1 gm/dL (12.0-16.0); Lymphocytes Percent Auto 57.1 % (20-44); Mean Corpuscular HGB Conc 33 gm/dL (32-36); Mean Corpuscular Hemoglobin 35 pg (26-34); Mean Corpuscular Volume 106 fL (80-100); Monocytes Percent Auto 13.1 % (0.0-11.0); Neutrophils Percent Auto 22.1 % (42.0-72.0); Platelet Count* 222 K/uL (140-440); RDW Coefficient of Variation % 12.8 % (11.5-15.5); Red Blood Count 4.27 m/uL (4.00-5.20); White Blood Count* 3.52 K/uL (4.50-11.00)
[2024-04-14 08:23] LABS: Slide Review Reflex Yes
[2024-04-14 08:37] LABS: Albumin* 3.9 g/dL (3.3-5.0); Chloride* 108 mmol/L (96-114)
[2024-04-14 08:38] LABS: Potassium* 4.2 mmol/L (3.6-5.1); Sodium* 137 mmol/L (135-149)
[2024-04-14 08:40] LABS: Alkaline Phosphatase* 79 U/L (40-150); Anion Gap 8 mEq/L (7-15); Aspartate Amino Transferase* 21 U/L (12-35); Bilirubin Total* 0.6 mg/dL (0.1-1.5); Blood Urea Nitrogen* 18 mg/dL (7-30); Carbon Dioxide* 21 mmol/L (20-32); Creatinine* 1.4 mg/dL (0.5-1.5); Estimated Glomerular Filt Rate 37 ml/min
[2024-04-14 08:41] LABS: Alanine Aminotransferase* 16 U/L (4-35); Calcium* 9.8 mg/dL (8.4-10.6); Glucose* 81 mg/dL (60-115)
[2024-04-14 08:52] LABS: Slide Review Acceptable Review (Acceptable)
--- NOTE | 2024-04-15 11:54 | ONC.NURNOTE ---
Patient in clinic today for Darzalex Faspro and to start her D1 of 14 of Lenalidomide. Patient's ANC resulted at 0.80. On assessment patient report feeling good just some fatigue which is baseline for her. She denies any fevers, cough, or urinary symptoms. RN spoke with Dr. Shearer, Dr. Shearer wants to hold treatment today and have patient come next week to repeat CBC. If ANC over 1.0, ok for patient to start her round of Lenalidomide and receive her injection. Updated patient with MD recommendations and she verbalized understanding. Patient will come back on Saturday 04/21 for a CBC, she is asking for a call that afternoon with her results so she knows if she should take her pre meds on AM. RN will leave reminder for someone to call her. Patient agreeable to the plan.
--- NOTE | 2024-04-16 14:08 | ONC.NURNOTE ---
Sole Dyer [facility] and he states that patient is enrolled in bebo started on 01/10/2024 and goes until 01/08/2025. Currently has 8300 dollars left and shipment just sent out Patient called and informed.
[2024-04-21 08:12] LABS: Basophils Absolute Auto 0.08 K/uL (0.00-0.30); Basophils Percent Auto 1.3 % (0.0-3.0); Eosinophils Absolute Auto 0.07 K/uL (0.00-0.50); Eosinophils Percent Auto 1.2 % (0.0-7.0); Hematocrit 50.6 % (33.0-51.0); Hemoglobin* 16.6 gm/dL (12.0-16.0); Lymphocytes Absolute Auto 2.47 K/uL (0.90-2.90); Lymphocytes Percent Auto 41.4 % (20-44); Mean Corpuscular HGB Conc 33 gm/dL (32-36); Mean Corpuscular Hemoglobin 35 pg (26-34); Mean Corpuscular Volume 106 fL (80-100); Monocytes Percent Auto 5.9 % (0.0-11.0); Neutrophils Percent Auto 50.2 % (42.0-72.0); Platelet Count* 251 K/uL (140-440); RDW Coefficient of Variation % 13.1 % (11.5-15.5); Red Blood Count 4.79 m/uL (4.00-5.20); White Blood Count* 5.97 K/uL (4.50-11.00)
[2024-04-21 08:21] LABS: Slide Review Reflex No
[2024-04-21 08:26] LABS: Albumin* 4.1 g/dL (3.3-5.0); Chloride* 106 mmol/L (96-114)
[2024-04-21 08:27] LABS: Potassium* 4.3 mmol/L (3.6-5.1); Sodium* 137 mmol/L (135-149)
[2024-04-21 08:29] LABS: Alkaline Phosphatase* 91 U/L (40-150); Anion Gap 8 mEq/L (7-15); Aspartate Amino Transferase* 22 U/L (12-35); Bilirubin Total* 0.6 mg/dL (0.1-1.5); Blood Urea Nitrogen* 27 mg/dL (7-30); Carbon Dioxide* 23 mmol/L (20-32); Creatinine* 1.6 mg/dL (0.5-1.5); Estimated Glomerular Filt Rate 31 ml/min; Total Protein* 6.5 g/dL (6.0-8.3)
[2024-04-21 08:30] LABS: Alanine Aminotransferase* 20 U/L (4-35); Calcium* 9.9 mg/dL (8.4-10.6); Glucose* 127 mg/dL (60-115)
[2024-04-22] MEDS: DARATUMUMAB-HYALURONIDASE-FIHJ 15 ML SUBCUT (10:45)
--- NOTE | 2024-04-22 13:30 | ONC.NURNOTE ---
Patient in clinic today for treatment and brought in a bill from [facility] for her Lenalidomide. Patient thought she had a bebo and is wondering if she needs to pay the bill. RN called [facility] and they state that patient no longer has a balance. RN called patient to update her that she can disregard the bill she has. Patient verbalized understanding.
[2024-05-19 08:01] LABS: Basophils Percent Auto 3.2 % (0.0-3.0); Eosinophils Percent Auto 2.3 % (0.0-7.0); Hematocrit 47.6 % (33.0-51.0); Hemoglobin* 15.6 gm/dL (12.0-16.0); Immature Granulocytes Pct Auto 0.2 %; Mean Corpuscular HGB Conc 33 gm/dL (32-36); Mean Corpuscular Hemoglobin 35 pg (26-34); Mean Corpuscular Volume 107 fL (80-100); Monocytes Percent Auto 14.4 % (0.0-11.0); Neutrophils Percent Auto 23.9 % (42.0-72.0); Platelet Count* 258 K/uL (140-440); RDW Coefficient of Variation % 13.3 % (11.5-15.5); Red Blood Count 4.45 m/uL (4.00-5.20); White Blood Count* 4.39 K/uL (4.50-11.00)
[2024-05-19 08:07] LABS: Slide Review Reflex No
[2024-05-19 08:13] LABS: Chloride* 107 mmol/L (96-114); Sodium* 138 mmol/L (135-149)
[2024-05-19 08:14] LABS: Potassium* 4.2 mmol/L (3.6-5.1)
[2024-05-19 08:16] LABS: Alanine Aminotransferase* 16 U/L (4-35); Alkaline Phosphatase* 78 U/L (40-150); Anion Gap 6 mEq/L (7-15); Aspartate Amino Transferase* 22 U/L (12-35); Bilirubin Total* 0.5 mg/dL (0.1-1.5); Blood Urea Nitrogen* 15 mg/dL (7-30); Carbon Dioxide* 25 mmol/L (20-32); Creatinine* 1.5 mg/dL (0.5-1.5); Estimated Glomerular Filt Rate 34 ml/min; Glucose* 81 mg/dL (60-115); Total Protein* 6.3 g/dL (6.0-8.3)
--- NOTE | 2024-05-19 14:00 | ONC.NURNOTE ---
Labs reviewed. ANC 1.[address] Shearer patient notified that treatment- lenalidomide and darzalex held X 1 week appts rescheduled
[2024-05-22 12:05] LABS: Albumin 3.73 g/dL (3.75-5.01); Alpha 1 Globulin 0.22 g/dL (0.19-0.46); Alpha 2 Globulin 0.72 g/dL (0.48-1.05); Immunofixation IFE Done; Immunoglobulin A 8 mg/dL (68-408); Immunoglobulin G 472 mg/dL (768-1632); Immunoglobulin M 12 mg/dL (35-263); Kappa Qnt Free Light Chains 34.15 mg/L (3.30-19.40); Lambda Qnt Free Light Chains <1.30 mg/L (5.71-26.30); Monoclonal Protein 0.35 g/dL (<=0.00); Total Protein, Serum 5.7 g/dL (6.3-8.2)
[2024-05-26 08:07] LABS: Basophils Absolute Auto 0.11 K/uL (0.00-0.30); Basophils Percent Auto 2.1 % (0.0-3.0); Eosinophils Absolute Auto 0.08 K/uL (0.00-0.50); Eosinophils Percent Auto 1.5 % (0.0-7.0); Hematocrit 47.8 % (33.0-51.0); Hemoglobin* 15.7 gm/dL (12.0-16.0); Immature Granulocytes Abs Auto 0.01 K/uL (0.00-0.30); Immature Granulocytes Pct Auto 0.2 %; Lymphocytes Absolute Auto 2.19 K/uL (0.90-2.90); Lymphocytes Percent Auto 42.2 % (20-44); Mean Corpuscular HGB Conc 33 gm/dL (32-36); Mean Corpuscular Hemoglobin 35 pg (26-34); Mean Corpuscular Volume 107 fL (80-100); Monocytes Percent Auto 9.1 % (0.0-11.0); Neutrophils Absolute Auto 2.33 K/uL (1.7-7.0); Neutrophils Percent Auto 44.9 % (42.0-72.0); Platelet Count* 210 K/uL (140-440); RDW Coefficient of Variation % 13.4 % (11.5-15.5); Red Blood Count 4.47 m/uL (4.00-5.20); White Blood Count* 5.19 K/uL (4.50-11.00)
[2024-05-26 08:14] LABS: Slide Review Reflex Yes
[2024-05-26 08:39] LABS: Slide Review Acceptable Review (Acceptable)
[2024-05-27] MEDS: DARATUMUMAB-HYALURONIDASE-FIHJ 15 ML SUBCUT (11:07)
--- NOTE | 2024-05-31 11:56 | ONC.NURNOTE ---
New RX's for lenalidomide 2.5 mg and 5.0 mg in process with [facility]. This inspector automatic typewriter expedited the review on Friday and scripts still pending review when patient called today. Request was placed for expedite again. Yoko will call [facility] again tomorrow
--- NOTE | 2024-06-03 11:32 | ONC.NURNOTE ---
After 1 week of calling [facility] daily to expedite delivery of new doses of lenolidamide- drug is now able to be shipped to patient- ETA friday06/04/24 Yoko will start tomorrow will need to review schedule with Dr Shearer for the next schedule- as lenalidomide and Darzolex are not on the same schedule
--- NOTE | 2024-06-04 15:31 | ONC.NURNOTE ---
Addendum entered by Katlyn Lambert RN 06/07/24 10:38: Per Yoko- Samantha states that Lenalidomide will be shipped today and scheduled to arrive tomorrow patient took 10 mg dose on Friday, Friday and Friday (30 mg cumulative dose) and will not take any dose today ( to adjust for dose modification of 7.5 mg/d instead of 10 mg/day) and will start on the 2.5 mg + 5.0 mg tabs tomorrow X 10 additional days to complete the 14 day cycle Yoko repeated back the instructions Original Note: lenalidomide 7.5 mg dose has not been delivered Yoko called in to say Samantha just called- the lenalidomide is still in process and will not be delivered today- there was not further explanation as to why discussed with Shiela Ugarte APRN- and Yoko instructions as follows start the bird 10 mg today, Friday and Friday if she has not received the 7.5 mg dose- will adjust her schedule with the 10 mg to equal 7.5 mg/day Ykoo states understanding
--- NOTE | 2024-07-05 09:55 | ONC.NURNOTE ---
Lenalidomide RX for 2.5 mg and 5.0 mg D1-14 every 28 days was transferred to [facility] Medication is being shipped today for arrival on Friday- with start date on
[2024-07-07 08:34] LABS: Basophils Percent Auto 1.8 % (0.0-3.0); Eosinophils Percent Auto 1.3 % (0.0-7.0); Hematocrit 46.5 % (33.0-51.0); Hemoglobin* 15.5 gm/dL (12.0-16.0); Immature Granulocytes Pct Auto 0.2 %; Lymphocytes Percent Auto 42.2 % (20-44); Mean Corpuscular HGB Conc 33 gm/dL (32-36); Mean Corpuscular Hemoglobin 35 pg (26-34); Mean Corpuscular Volume 105 fL (80-100); Neutrophils Percent Auto 48.5 % (42.0-72.0); Platelet Count* 201 K/uL (140-440); RDW Coefficient of Variation % 13.4 % (11.5-15.5); Red Blood Count 4.41 m/uL (4.00-5.20); White Blood Count* 4.48 K/uL (4.50-11.00)
[2024-07-07 08:40] LABS: Slide Review Reflex No
[2024-07-07 08:50] LABS: Albumin* 3.8 g/dL (3.3-5.0); Chloride* 110 mmol/L (96-114); Sodium* 139 mmol/L (135-149)
[2024-07-07 08:51] LABS: Potassium* 4.1 mmol/L (3.6-5.1)
[2024-07-07 08:53] LABS: Alanine Aminotransferase* 15 U/L (4-35); Alkaline Phosphatase* 86 U/L (40-150); Anion Gap 10 mEq/L (7-15); Aspartate Amino Transferase* 23 U/L (12-35); Bilirubin Total* 0.4 mg/dL (0.1-1.5); Blood Urea Nitrogen* 13 mg/dL (7-30); Carbon Dioxide* 19 mmol/L (20-32); Creatinine* 1.3 mg/dL (0.5-1.5); Est. Creatinine Clearance* 26.82; Estimated Glomerular Filt Rate 40 ml/min; Glucose* 140 mg/dL (60-115)
[2024-07-08 10:04] VITALS: BP 115/81; PULSE 79; RESP 16; TEMP 36.2; O2SAT 98
[2024-07-08] MEDS: DARATUMUMAB-HYALURONIDASE-FIHJ 15 ML SUBCUT (11:06)
--- NOTE | 2024-07-27 09:59 | ONC.NURNOTE ---
Attempted to contact patient yesterday and today with no return phone call. REMS lenalidomide was completed yesterday, but sql report writer needed date that Rx needed for form. Nursing counted out from last date, and filled in 08/02/2024 and faxed to Juan Mcrockettmaria eugenia.
[2024-08-03 08:20] LABS: Basophils Percent Auto 2.5 % (0.0-3.0); Eosinophils Percent Auto 4.2 % (0.0-7.0); Hemoglobin* 15.9 gm/dL (12.0-16.0); Immature Granulocytes Pct Auto 0.2 %; Lymphocytes Percent Auto 35.4 % (20-44); Mean Corpuscular HGB Conc 33 gm/dL (32-36); Mean Corpuscular Hemoglobin 35 pg (26-34); Mean Corpuscular Volume 106 fL (80-100); Monocytes Percent Auto 13.7 % (0.0-11.0); Platelet Count* 208 K/uL (140-440); RDW Coefficient of Variation % 13.6 % (11.5-15.5); Red Blood Count 4.55 m/uL (4.00-5.20); White Blood Count* 4.32 K/uL (4.50-11.00)
[2024-08-03 08:21] LABS: Slide Review Reflex No
[2024-08-03 08:32] LABS: Chloride* 107 mmol/L (96-114); Potassium* 3.9 mmol/L (3.6-5.1); Sodium* 136 mmol/L (135-149)
[2024-08-03 08:34] LABS: Anion Gap 6 mEq/L (7-15); Aspartate Amino Transferase* 19 U/L (12-35); Bilirubin Total* 0.8 mg/dL (0.1-1.5); Carbon Dioxide* 23 mmol/L (20-32); Creatinine* 1.5 mg/dL (0.5-1.5); Est. Creatinine Clearance* 23.25; Estimated Glomerular Filt Rate 34 ml/min; Total Protein* 6.3 g/dL (6.0-8.3)
[2024-08-03 08:35] LABS: Alanine Aminotransferase* 16 U/L (4-35); Alkaline Phosphatase* 102 U/L (40-150); Blood Urea Nitrogen* 11 mg/dL (7-30); Calcium* 9.8 mg/dL (8.4-10.6); Glucose* 151 mg/dL (60-115)
--- OUTSIDE RECORDS SUMMARY | 2024-08-05 07:00 | XMS_ITS | Clinical Summary ---
Author Organization [facility] Address [place], [place] [address] Care Team Providers Care Director Of Public Safety Name Role Phone Jenelle Chung Ashlee Unavailable Sena Mcintyre MD Primary Care Provider [phone] Allergies No known active allergies Medications medication order composerIndication s:HX: breast cancer Prosthetic bra Left sided X 2 2 unit. 11 07/20/20 20 Active acyclovir (ZOVIRAX) 200 mg capsuleIndications :Multiple myeloma not having achieved remission (HC) Take 1 Capsule (200 mg) by mouth 2 times daily. 60 Capsule 11:27 AM CDT 05/15/20 21 Active ondansetron (ZOFRAN ODT) 8 mg disintegrating tabletIndications: Multiple myeloma not having achieved remission (HC),Chemotherapy- induced nausea Place 1 Tablet (8 mg) on the tongue every 8 hours if needed for Nausea/Vomiting. 1st choice for nausea 30 Tablet 11:27 AM CDT 05/15/20 21 Active acetaminophen (TYLENOL) 325 mg tablet Take 2 Tablets (650 mg) by mouth every 4 hours if needed for Pain. Max acetaminophen dose: 4000mg in 24 hrs. 0 05/15/20 21 Active calcium carbonate (TUMS) 200 mg calcium (500 mg) chewable tabletIndications: Chemotherapy-induc ed nausea Chew 1-2 Tablets (500-1,000 mg) by mouth every 4 hours if needed for Heartburn. 0 05/15/20 21 Active sennosides (Senna) 8.6 mg tabletIndications: Constipation, unspecified constipation type Take 2 Tablets (17.2 mg) by mouth 2 times daily if needed for Constipation. 100 Tablet 1 11:27 AM CDT 05/15/20 21 Active dexAMETHasone (DECADRON) 4 mg tablet 05/22/20 21 Active cholecalciferol (Vitamin D-3) 2,000 unit capsule Take 2,000 units by mouth once daily. Active trimethoprim-sulfa methoxazole, as half 160-800 mg, (BACTRIM DS, SEPTRA DS) 80-400 mg tab Take 1 half tablet by mouth. Patient takes 3 times a week Active diphenhydrAMINE (Benadryl Allergy) 25 mg tablet Take 25 mg by mouth. Takes 1 tablets once a week Active Eliquis 5 mg tabletIndications: Persistent atrial fibrillation (HC) TAKE ONE TABLET BY MOUTH TWICE DAILY 180 Tablet 1 03/05/20 22 Active metoprolol succinate SR (Toprol XL) 200 mg Sustained-Release tabletIndications: Longstanding persistent atrial fibrillation (HC) Take 1 Tablet (200 mg) by mouth once daily. 90 Tablet 3 10/03/19 24 Active allopurinoL (ZYLOPRIM) 100 mg tablet Take 2 Tablets by mouth once daily. Active Active Problems Problem Noted Date Diagnosed Date Constipation 05/15/2021 Hx of DVT (deep venous thrombosis) 05/15/2021 Myeloma 05/09/2021 Multiple myeloma diagnosed May 2021 05/08/2021 Anemia 05/08/2021 Benign neoplasm of colon 02/28/2009 Overview (05/27/2013): Colonoscopy 02/2009 polyps repeat in 3 years Colonoscopy 05/2013 polyp repeat in 5 years HX: breast cancer 12/29/2008 Sensorineural hearing loss, bilateral 11/27/2007 Pure hypercholesterolemia 10/04/2006 Myeloma kidney Resolved Problems Problem Noted Date Diagnosed Date Resolved Date JORY (acute kidney injury) 05/08/2021 Encounters Date Type Department Care Team Description 07/21/2024 Telephone [facility] [address] [place] [address] Metal Drill Press OperatorIndy Audiology Hearing Aid 07/21/2024 Telephone [facility] [address] [place], [place] [id number] Jeferson Almendarez, AuD 07/02/2024 Telephone [facility] [address] [place] [phone] Vivien Koch, Ashlee Questions (Appointments) 07/02/2024 Telephone [facility] [address] [place] [phone] Vivien Koch, AuD Questions (Lost Hearing Aids) 06/07/2024 Telephone [facility] [address] [place] [address] Jeferson Almendarez, AuD 05/25/2024 Telephone [facility] [address] [place] [phone] Vivien Koch, AuD Hearing Aid from Last 3 Months Immunizations Name Administration Dates Next Due Hepatitis A (Adult) 05/29/2011,03/30/2003 Influenza, High-dose Inactivated 06/10/2016,05/05,04/29/2014 Influenza, IIV3 (Age 6-35 mos) 3,05/07/2012,05/09/2011,2009 Influenza, Inactivated AIIV4 (Age 65+ Years) Preserv Free 05/03/2021,05/17/2020 Influenza, Inactivated IIV3 (Age 65+ Years) Preserv Free 07/05/2019,06/29/2018,06/16/2017 Pneumococcal Poly,23-Valent (Pneumovax) 03/30/2003 Pneumococcal conj 13-Valent (Prevnar 13) 06/16/2017 Td (Age >=7 Years) 05/04/1999 Td, Preservative Free (age > = 7 Years) 12/29/2008 Tdap 05/17/2020 Typhoid (injectable) 05/29/2011 Yellow Fever 03/30/2003 Zoster (Shingrix-RZV, recombinant) 02/19/2021, Family History Medical History Relation Name Comments Good Health Daughter 1 Good Health Daughter 2 Cancer Father bladder Cancer-prostate Father Cancer Mother endometrial Hyperlipidemia Son Omar Pulmonary embolism Son Omar Relation Name Status Comments Daughter 1 Alive Daughter 2 Alive Father Mother Alive Son Omar Social History Tobacco Use Types Packs/Day Years Used Date Smoking Tobacco: Never Smokeless Tobacco: Never Tobacco Cessation:Counseling Given: Yes Alcohol Use Standard Drinks/Week Comments Yes 2.5 (1 standard drink = 0.6 oz p ure alcohol) wine occasionally PHQ-2 Answer Date Recorded PHQ-2 TOTAL SCORE 0 07/20/2020 Social Connections Answer Date Recorded Frequency of Communication with Friends and Fami ly Not on file 08/04/2021 Financial Resource Strain Answer Date R ecorded Difficulty of Paying Living Expenses Not on file 08/04/2021 Difficulty of Paying Living Expenses Not on file 08/04/2021 Comments No Sex and Gender Information Value Date Recorded Sex Assigned at Not on file Legal Sex Female 5:24 AM GENERATOR MECHANIC Gender Identity Not on file Sexual Orientation Not on file Obstetrics History Para Term AB IAB SAB Ectopic Multiple Livin g Live Births 3 3 Date Outcome GA Total Labor Labor/2nd/3rd Weight Sex Type Anes PTL Cheryl A1 A5 Name Clin Para Para Para Last Filed Vital Signs Vital Sign Reading Time Taken Comments Blood Pressure 133/90 04/20/2024 1:06 PM CDT tow er Pulse 72 04/20/2024 1:06 PM CDT Temperature 36.4 C (97.5 F) 09/07/2021 2:00 PM GENERATOR MECHANIC Respiratory Rate 18 09/07/2021 2:00 PM GENERATOR MECHANIC Oxygen Saturation 98% 04/20/2024 1:06 PM CDT Inhaled Oxygen Concentration - - Weight 78 kg (172 lb) 04/20/2024 1:06 PM CDT Height 167.6 cm (5' 6) 09/07/2021 10:29 AM GENERATOR MECHANIC Body Mass Index 27.76 09/07/2021 10:29 AM GENERATOR MECHANIC Plan of Treatment Upcoming Encounters Date Type Department Care Team (Late st Contact Info) Description 08/18/2024 1:00 PM GENERATOR MECHANIC Office Visit [facility] [address] [facility] [address] [place] [phone] Mason Hodge MD [address] [facility] [address] [address] Health Maintenance Due Date Last Done Comments RSV vaccine for adults or (1 - 1-dose 75+ series) 2013 BMI (ht and wt on same day) for age 18+ 07/20/2021 07/20/2020, 07/05/2019, 06/29/2018, Additional history exists Depression screening for age 12+ 07/20/2021 07/20/2020, 07/05/2019, 06/29/2018, Additional history exists Medicare Wellness for age 65+ 07/21/2021 07/20/2020, 07/05/2019, 06/29/2018, Additional history exists Influenza for age 65+ 04/04/2024 05/03/2021 , 05/17/2020, 07/05/2019, Additional history exists COVID-19 vaccine series (2023- season) 2024 04/08/2024, 05/05/2023, 04/25/2022, Additional history exists Tetanus booster 05/17/2030 05/17/2020, 12/03, 05/04/1999 DEXA/DXA scan for age 65+ Addressed 01/07/2011 (Dec lined) Overridden with the intention of not completing the topic Pneumococcal series for age 50+ Completed 06/16/2017, 03/30/2003 Tdap Completed 05/17/2020 Zoster (shingles) series for age 50+ Completed 02/19/2021, 11/30/2020 Procedures Procedure Name Priority Date/Time Associated Diagnosis Comments EXTENDED HOLTER Routine 06/24/2024 Longstanding persistent atrial fibrillation (HC) from Last 3 Months Results * ZIO PATCH XT - weekly to monthly symptoms. (06/24/2024) us Mason Hodge MD CARDIAC SERVICES ORD F inal Result from Last 3 Months Insurance BLUE [place]OSS [place] BLUE MR PB ONLY MEDICARE PART A HB ONLY [place] BLUE HB ONLY MEDICARE PART B HB ONLY Advance Directives * Full Code (Latest Code Status on File) Date Activated Date Inactivated Comments 09/07/2021 12:35 PM 09/07/2021 8:26 PM Question Answer Comments Code Status Discussion: Reviewed Preferences * Partial Code Date Activated Date Inactivated Comments 05/08/2021 1:55 PM 05/15/2021 4:57 PM Discussed w ith patient and family. (daughter is physician and has extensively discussed). Okay for short term elective intubation, DNR otherwise. Full code for procedures on admission. Question Answer Comments Cardio Resuscitation: No Chest CompressionsNo De fibrillation/Cardioversion Ventilation: No Restrictions Drug Protocol: No Drug Protocol After Arrest Oc curs * Full Code Date Activated Date Inactivated Comments 05/08/2021 10:02 AM 05/08/2021 1:55 PM For procedu ral use only. Code status to be discussed at time of informed consent. Question Answer Comments Code Status Discussion: Other (specify in commen ts): Care Teams Director Of Public Safety Relationship Specialty Start Date End Date Sena Mcintyre MD [address] [place] [id number] PCP - General Internal Medicine 05/16/21 Jenelle Chung AuD Audiology 11/09/07
--- OUTSIDE RECORDS SUMMARY | 2024-08-05 07:00 | XMS_ITS | Continuity of Care Document ---
Author Name [facility] User [email or web address] Address Unknown Organization Unknown Address Unknown Procedures FILTER APPLIED:Only known Procedures with Onset Date within the last 5 years Procedure Date Procedure Provider Additiona l Information Status OFFICE O/P EST SF 10 MIN (35012) Completed CHEMO ANTI-NEOPL SQ/IM (16550) Completed OFFICE O/P EST MOD 30 MIN (90072) Completed COMPREHEN METABOLIC PANEL (60685) Completed COMPLETE CBC W/AUTO DIFF WBC (35690) Completed ROUTINE VENIPUNCTURE (38511) Completed ASSAY IGA/IGD/IGG/IGM EACH (85311) Completed IMMUNOASSAY QUANT NOS NONAB (13458) Completed ASSAY OF PROTEIN SERUM (47543) Completed IMMUNOFIX E-PHORESIS SERUM (32526) Completed PROTEIN E-PHORESIS SERUM (27065) Completed OFFICE O/P EST MOD 30 MIN (68181) Completed IMMUNOASSAY QUANT NOS NONAB (87595) Completed ASSAY OF PROTEIN SERUM (31379) Completed IMMUNOFIX E-PHORESIS SERUM (47790) Completed ASSAY IGA/IGD/IGG/IGM EACH (49432) Completed PROTEIN E-PHORESIS SERUM (73438) Completed ROUTINE VENIPUNCTURE (80737) Completed COMPREHEN METABOLIC PANEL (24472) Completed CHEMO ANTI-NEOPL SQ/IM (11596) Completed COMPLETE CBC W/AUTO DIFF WBC (67751) Completed OFFICE O/P EST SF 10 MIN (27817) Completed OFFICE O/P EST HI 40 MIN (15736) Completed Encounters FILTER APPLIED:Only known Encounters with Admission Date within the last 5 years Encounter Location Admission Discharge Billing Code Ward Supervisor [facility]
--- NOTE | 2024-08-05 10:34 | ONC.NURNOTE ---
patient arrived with mask and reports sinus drainage- afeb reports recovering from a cold patient has not done a COVID test reviewed with Shiela Ugarte APRN instructed Yoko to test for COVID- Treatment appt rescheduled for next - Lenalidomide start held until next week
[2024-08-12] MEDS: DARATUMUMAB-HYALURONIDASE-FIHJ 15 ML SUBCUT (10:53)
[2024-09-08 08:11] LABS: Basophils Percent Auto 2.8 % (0.0-3.0); Eosinophils Percent Auto 1.9 % (0.0-7.0); Hematocrit 47.3 % (33.0-51.0); Hemoglobin* 15.4 gm/dL (12.0-16.0); Lymphocytes Percent Auto 52.6 % (20-44); Mean Corpuscular HGB Conc 33 gm/dL (32-36); Mean Corpuscular Hemoglobin 35 pg (26-34); Mean Corpuscular Volume 106 fL (80-100); Neutrophils Percent Auto 29.7 % (42.0-72.0); Platelet Count* 215 K/uL (140-440); RDW Coefficient of Variation % 13.7 % (11.5-15.5); Red Blood Count 4.46 m/uL (4.00-5.20); White Blood Count* 3.61 K/uL (4.50-11.00)
[2024-09-08 08:12] LABS: Slide Review Reflex No
[2024-09-08 08:40] LABS: Albumin* 3.7 g/dL (3.3-5.0); Chloride* 104 mmol/L (96-114); Potassium* 4.3 mmol/L (3.6-5.1); Sodium* 137 mmol/L (135-149)
[2024-09-08 08:42] LABS: Creatinine* 1.5 mg/dL (0.5-1.5); Est. Creatinine Clearance* 23.25; Estimated Glomerular Filt Rate 34 ml/min
[2024-09-08 08:43] LABS: Alanine Aminotransferase* 16 U/L (4-35); Alkaline Phosphatase* 82 U/L (40-150); Anion Gap 8 mEq/L (7-15); Aspartate Amino Transferase* 20 U/L (12-35); Bilirubin Total* 0.6 mg/dL (0.1-1.5); Blood Urea Nitrogen* 14 mg/dL (7-30); Carbon Dioxide* 25 mmol/L (20-32); Glucose* 104 mg/dL (60-115); Total Protein* 5.9 g/dL (6.0-8.3)
[2024-09-08 08:44] LABS: Calcium* 9.8 mg/dL (8.4-10.6)
[2024-09-09 09:37] VITALS: BP 155/88; PULSE 92; RESP 18; TEMP 36.3; O2SAT 86
[2024-09-09] MEDS: DARATUMUMAB-HYALURONIDASE-FIHJ 15 ML SUBCUT (10:15)
--- NOTE | 2024-09-27 12:28 | ONC.NURNOTE ---
Letter received from [employer] that Revlimid is not on patients formulary and that an alternative is needed travel writer spent over 45 min on phone with Lootsie to get a formulary override for Revlimid, because lenolidamide is in short supply override received phone call reference # [id number] ph # [phone]
[2024-10-07 08:00] LABS: Basophils Percent Auto 2.3 % (0.0-3.0); Eosinophils Percent Auto 2.3 % (0.0-7.0); Hematocrit 48.4 % (33.0-51.0); Immature Granulocytes Pct Auto 0.2 %; Lymphocytes Percent Auto 53.6 % (20-44); Mean Corpuscular HGB Conc 33 gm/dL (32-36); Mean Corpuscular Hemoglobin 35 pg (26-34); Mean Corpuscular Volume 107 fL (80-100); Monocytes Percent Auto 11.7 % (0.0-11.0); Neutrophils Percent Auto 29.9 % (42.0-72.0); Platelet Count* 262 K/uL (140-440); RDW Coefficient of Variation % 14.5 % (11.5-15.5); Red Blood Count 4.54 m/uL (4.00-5.20); White Blood Count* 4.35 K/uL (4.50-11.00)
[2024-10-07 08:04] LABS: Slide Review Reflex No
[2024-10-07 08:08] LABS: Albumin* 4.4 g/dL (3.3-5.0); Chloride* 104 mmol/L (96-114); Potassium* 4.3 mmol/L (3.6-5.1); Sodium* 138 mmol/L (135-149)
[2024-10-07 08:11] LABS: Alanine Aminotransferase* 16 U/L (4-35); Alkaline Phosphatase* 92 U/L (40-150); Anion Gap 11 mEq/L (7-15); Aspartate Amino Transferase* 22 U/L (12-35); Blood Urea Nitrogen* 18 mg/dL (7-30); Calcium* 10.1 mg/dL (8.4-10.6); Carbon Dioxide* 23 mmol/L (20-32); Creatinine* 1.8 mg/dL (0.5-1.5); Est. Creatinine Clearance* 19.37; Estimated Glomerular Filt Rate 27 ml/min; Glucose* 134 mg/dL (60-115); Total Protein* 6.8 g/dL (6.0-8.3)
[2024-10-07 08:32] LABS: Bilirubin Total* 0.7 mg/dL (0.1-1.5)
--- NOTE | 2024-10-07 12:02 | ONC.NURNOTE ---
See provider note from today's visit. RN called Dr. Mason Hodge's team at [facility] to inquire about metoprolol dose given today's low BP. Of note, pt saw Dr. Hodge in August for her a. fib and recommended stress test was declined by Yoko as she wasn't interested in any of the interventions that would follow. Pt's a. fib is manageable and chronic. Spoke with CLARI Schreiber with I and she suggested that Yoko monitor her blood pressure twice daily (as directed by Shiela Ugarte, TABITHA, ART GLASS DESIGNER) and call after a few days with the updates. Per CLARI Schreiber, MD wouldn't make any medication changes based on one days readings. Resourcing Consultant called Yoko with these instructions, she verbalized understanding. Yoko also understands that she is to take a half dose of her Metoprolol (100 mg) tomorrow. We discussed that if her second reading (1-2 hours after taking her medication) is high, that she should resume the full 200 mg dose. We discussed s/s of rapid heart rate with her a. fib and that if she experiences any of those symptoms, she would also want to go back to her full dose. Pt states she understands all instructions. Will also update Dr. Mcintyre.
--- NOTE | 2024-10-11 09:15 | ONC.NURNOTE ---
Addendum entered by Katlyn Lambert RN 10/11/24 09:41: amend todays BP to 143/107 at 7 an Original Note: Yoko called with BP monitoring over the weekend: Friday: 145/86 prior to Metoprolol 100mg at 02 0945- 130/80 Friday: 145/115 prior to Metoprolol 100mg at 07 09: 126/85 manual by daughter later in afternoon 126/74 Friday: 137/102 at 07 prior to metoprolol 100mg 09: 143/98 Today: 143/07 prior metoprolol 100mg 09: 143/116 Denies KELLY's, nausea, visual changes reports feeling well other than the intermittant diarrhea related to the revlimid planning to come in today with her home BP cuff to compare BP's
[2024-10-11 11:18] LABS: Albumin 4.07 g/dL (3.75-5.01); Alpha 1 Globulin 0.23 g/dL (0.19-0.46); Alpha 2 Globulin 0.79 g/dL (0.48-1.05); Immunofixation IFE Done; Immunoglobulin A 8 mg/dL (68-408); Immunoglobulin G 585 mg/dL (768-1632); Immunoglobulin M 16 mg/dL (35-263); Kappa Qnt Free Light Chains 34.47 mg/L (3.30-19.40); Kappa/Lambda Light Chain Ratio 13.26 (0.26-1.65); Monoclonal Protein 0.36 g/dL (<=0.00); Total Protein, Serum 6.2 g/dL (6.3-8.2)
== END 2024-10-11 23:59 | disposition home or self-care (01) ==
LOC: CCIC 08:00
PROVIDERS: Internal Medicine Hematology & Oncology; PCP Internal Medicine; Referring Provider Internal Medicine; Visit Provider Clinical Nurse Specialist
DX: C90.00 Multiple myeloma not having achieved remission (principal); G62.0 Drug-induced polyneuropathy; T45.1X5A Adverse effect of antineoplastic and immunosuppressive drugs, initial encounter; I48.19 Other persistent atrial fibrillation; Z86.718 Personal history of other venous thrombosis and embolism; Z79.01 Long term (current) use of anticoagulants; Z85.3 Personal history of malignant neoplasm of breast; I95.9 Hypotension, unspecified
CPT/HCPCS: 36415; 80053; 82784; 83520; 84155; 84165; 85025; 86334; 96401; 99211; 99213; 99214; G0463; J9144

== ENCOUNTER 2024-11-01 11:42 | Outpatient (CLI) | payer MEDICARE, BC, SELFPAY ==
--- NOTE | 2024-11-01 12:00 | CRLHL7_ITS ---
For Patients: As a result of the 21st Century Cures Act, medical imaging exams and procedure reports are released immediately into your electronic medical record. You may view this report before your referring provider. If you have questions, please contact your health care provider. Indication: Left foot drop Technique: Multiplanar, multisequence, MRI of the lumbar spine, obtained without and with contrast. A total of 15 mL of Dotarem IV contrast was administered. Comparison: MRI lumbar spine report 01/06/2024 Findings: Levoconvex curvature, with right lateral listhesis at L1-2, left lateral listhesis at L4-5. Preserved lumbar lordosis, with grade 1 retrolisthesis at L1-2 and L2-3. No acute osseous abnormality. Modic type 1 opposing endplate changes at L1-2, L2-3 and L3-4. No suspicious bone marrow lesion or pathologic post-contrast enhancement identified. Conus medullaris terminates at T12-L1. Degenerative changes of the included SI joints. T11-T12: Left facet arthropathy. No neural foraminal or spinal canal stenosis. T12-L1: Shallow posterior disc bulge, mild facet arthropathy. No neural foraminal or spinal canal stenosis. L1-L2: Mild diffuse disc-osteophyte complex, mild facet arthropathy. No neural foraminal or spinal canal stenosis. L2-L3: Right eccentric disc-osteophyte complex, mild facet arthropathy. No neural foraminal or spinal canal stenosis. L3-L4: Mild right eccentric disc-osteophyte complex, right asymmetric facet arthropathy. No left, mild right neural foraminal narrowing. No spinal canal stenosis. L4-L5: Disc unroofing with diffuse bulge, moderate facet arthropathy. Mild bilateral neural foraminal narrowing. No spinal canal stenosis. L5-S1: Left eccentric disc-osteophyte complex impinging the exiting left L5 nerve root within the severely stenosed neural foramen. Left asymmetric facet arthropathy. No right neural foraminal or spinal canal stenosis. Impression: 1. Lumbar spondylosis, levoconvex curvature, low-grade spondylolisthesis and Modic endplate changes as detailed. 2. At L5-S1, left eccentric disc-osteophyte complex contributes to severe left neural foraminal stenosis and impingement of the exiting left L5 nerve root, similar to the prior exam. 3. Low-grade neural foraminal narrowing elsewhere. No spinal canal stenosis. Dictated by Dot Rush MD @ 11/01/2024 8:20:25 PM (Electronically Signed)
== END 2024-11-01 11:43 | disposition home or self-care (01) ==
LOC: MRI 11:47
PROVIDERS: PCP Internal Medicine; Visit Provider Internal Medicine Hematology & Oncology
DX: M21.372 Foot drop, left foot (principal); M47.896 Other spondylosis, lumbar region; M48.07 Spinal stenosis, lumbosacral region; C90.00 Multiple myeloma not having achieved remission
CPT/HCPCS: 72158; A9575

== ENCOUNTER 2024-12-01 11:45 | Outpatient (RCR) | payer MEDICARE, BC, SELFPAY ==
--- NOTE | 2024-11-08 15:08 | PT.OPEX ---
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 She has noticed weakness with dorsiflexion in the left. Numbness has caused a fall; no injury. Symptoms started a few months ago. Yoko has a walker but has not used it. 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 KEVIN: with a particular medication (chemotherapy) but pt has been off of medication for a while. Aggravating factors: sitting, fall occurred when going to stand to answer the phone after sitting. Alleviating factors: moving leg. PMH: A-fib, Multiple Myeloma receiving chemo, Breast CA ( remission), CKD, hyperlipidemia Work status: retired Pt goals: Pt wants an exercise program for balance and strengthening. 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 -Knee Ext: R: 5/5, L: 5/5? -Knee Flex: R: 5/5, L: 5/5? -Hip Abd: R: 5/5, L: 5/5?( seated) -Hip Add: R: 5/5, L: 5/5? -Hip Flx: R: 5/5, L: 4/5? Ankle Strength (R/L):? -DF: R: 5/5, L: 3-/5? -PF (uni heel raise): R: 5 reps, L: 3 reps? -Inv: R: 5/5, L: 5/5? -Meagan: R: 5/5, L: 3+/5? Balance & Gait DECKER=44 TUG=25 seconds Functional Test Performed & Score LEFS= 53 Assessment Assessment/Impression Patient is an 84-year-old female presenting to physical therapy for evaluation and treatment of left leg weakness and peripheral neuropathy. Patient presents with decreased left ankle and hip strength, impaired balance, and decreased sensation. These impairments are limiting the patient's ability to walk and transfer easily and pt has experienced falls. Patient appears motivated to participate in PT and presents with good prognosis to improve mobility, strength, proprioception and return to functional activities with skilled physical therapy intervention.? Educated patient on proper form and muscle activation throughout session in order to optimize muscle function and proper body mechanics.? Primary Functional Limitations weakness, impaired balance, impaired sensation. Plan of Care Rehabilitation Potential Good Physical Therapy Goals STG's to be met in 2-4 weeks: 1.) Pt will improve left dorsiflexion strength to 3/5 or greater 2.) Pt will be able to SLS on L LE for 5 seconds. 3.) Pt will increase Decker Balance scale score by 3 points suggesting improvement in balance and fall risk. LTG's to be met in 6-8 weeks: 1.) Pt will improve left ankle and hip strength to 4+/5 or greater for all motions. 2.) Pt will improve TUG score to <20 seconds. 3.) Pt will improve Decker balance scale score to 48 or better suggesting improved balance and decreasing risk for falls. 4.) Pt will be independent and compliant with HEP. Coordination/Communication With Referral Source Treatment Plan/Direct Interventions Gait Training,Neuromuscular Re -ed,Therapeutic Activities, Therapeutic Exercises Frequency/Duration 1-2x/week for 6-8 weeks Patient Will Be Discharged From Therapy Completion of LTG(s),Skills Plateau,Independent w/HEP, Independently Progressing Evaluation Billing Untimed Code Treatment Minutes 30 PT Eval No Charge No Complexity Low Certification Information Initial Certification Date 11/08/24 Ending Certification Date 02/07/25 Provider Signature Required Yes Provider Signature Shows Agreement With POC & Medical Necessity Physician NPI Number Write NPI# Here Physician Comment/Change : Physician Signature & Date Requested Please Sign/Date Here
--- NOTE | 2024-12-06 09:51 | ONC.NURNOTE ---
Revlimid order required an override (again) because generic is not available at [facility] Brisa in the pharmacy was able to get the override by calling [employer] at number listed in previous RN note first there was only an override for the 2.5 mg cap, 2nd call needed for the 5 mg cap both approved
[2025-02-07 09:56] LABS: Hematocrit* 43.4 % (33.0-51.0); Hemoglobin* 14.1 gm/dL (12.0-16.0); Immature Granulocytes Abs Auto 0.01 K/uL (0.00-0.30); Immature Granulocytes Pct Auto 0.2 %; Lymphocytes Absolute Auto 2.16 K/uL (0.90-2.90); Mean Corpuscular HGB Conc 33 gm/dL (32-36); Mean Corpuscular Hemoglobin 37 pg (26-34); Mean Corpuscular Volume 113 fL (80-100); RDW Coefficient of Variation % 14.4 % (11.5-15.5); Red Blood Count* 3.85 m/uL (4.00-5.20); White Blood Count* 5.28 K/uL (4.50-11.00)
[2025-02-07 09:57] LABS: Slide Review Reflex No
[2025-02-07 10:11] LABS: Albumin* 3.9 g/dL (3.3-5.0); Chloride* 108 mmol/L (96-114); Sodium* 138 mmol/L (135-149)
[2025-02-07 10:12] LABS: Potassium* 4.4 mmol/L (3.6-5.1)
[2025-02-07 10:14] LABS: Alanine Aminotransferase* 17 U/L (4-35); Alkaline Phosphatase* 87 U/L (40-150); Anion Gap 7 mEq/L (7-15); Aspartate Amino Transferase* 29 U/L (12-35); Bilirubin Total* 0.6 mg/dL (0.1-1.5); Blood Urea Nitrogen* 16 mg/dL (7-30); Carbon Dioxide* 23 mmol/L (20-32); Creatinine* 1.3 mg/dL (0.5-1.5); Estimated Glomerular Filt Rate 40 ml/min; Total Protein* 6.5 g/dL (6.0-8.3)
[2025-02-07 10:15] LABS: Calcium* 10.3 mg/dL (8.4-10.6); Glucose* 102 mg/dL (60-115)
[2025-02-09 12:39] LABS: Albumin 3.68 g/dL (3.75-5.01); Immunoglobulin A 10 mg/dL (68-408); Immunoglobulin G 867 mg/dL (768-1632); Immunoglobulin M 22 mg/dL (35-263)
== END 2025-06-07 23:59 | disposition home or self-care (01) ==
PROVIDERS: Internal Medicine Hematology & Oncology; PCP Internal Medicine; Referring Provider Internal Medicine; Visit Provider Clinical Nurse Specialist
DX: G62.0 Drug-induced polyneuropathy (principal); T45.1X5A Adverse effect of antineoplastic and immunosuppressive drugs, initial encounter; Z51.89 Encounter for other specified aftercare
CPT/HCPCS: 36415; 80053; 82784; 83520; 84155; 84165; 85025; 86334; 97110; 97161; 97530

== ENCOUNTER 2024-12-21 10:02 | Inpatient (IN) | payer MEDICARE, BC, SELFPAY ==
[2024-12-21] VITALS (27 sets, daily range): BP systolic 98–126; BP diastolic 47–95; PULSE 79–142; RESP 17–37; TEMP 36.4–37.3; O2SAT 9–98; BMI 26.6; BMI 27.5
--- OUTSIDE RECORDS SUMMARY | 2024-12-21 10:04 | XMS_ITS ---
Author Name Interface, [id number] lity Address [address] [facility] [address] [address] Organization [facility] Address [address] [facility] [address] [place] [address] Care Team Providers Care General Dentist Name Role Phone Cassy Tucker Unavailable Unavailable Allergies and Adverse Reactions Medication/Group Name Reaction Severity Date No known allergies Plan Date Type Value 06/19/2021 APPOINTMENT RCT15 - 0123 ARM RC VELCADE - 0123 ARM RC VELCADE 06/19/2021 APPOINTMENT RCT15 - 0123 ARM RC VELCADE - 0123 ARM RC VELCADE 06/19/2021 APPOINTMENT RCT15 - 0123 ARM RC VELCADE - 0123 ARM RC VELCADE 06/18/2021 APPOINTMENT CHTCK - CHART CH SHYANNE - CHART CHECK 06/12/2021 APPOINTMENT RCT15 - 0123 ARM RC VELCADE - 0123 ARM RC VELCADE 06/12/2021 APPOINTMENT RCT15 - 0123 ARM RC VELCADE - 0123 ARM RC VELCADE 06/12/2021 APPOINTMENT RCT15 - 0123 ARM RC VELCADE - 0123 ARM RC VELCADE 06/12/2021 LABORDER iSTAT creatinine panel 06/12/2021 LABORDER CMP 06/12/2021 LABORDER CBC w/ auto diff 06/18/2021 LABORDER CMP 06/18/2021 LABORDER CBC w/ auto diff 06/19/2021 LABORDER CMP 06/19/2021 LABORDER iSTAT creatinine panel 06/19/2021 LABORDER CBC w/ auto diff Reason for Visit RCT15 - 0123 ARM RC VELCADE - 0123 ARM RC VELCADE Encounters Date Name 06/12/2021 Anemia 06/12/2021 DVT - Deep vein thro mbosis of lower limb 06/12/2021 Liver function tests abnormal (finding) 06/12/2021 Multiple myeloma 06/12/2021 Myeloma kidney Immunizations Date Name Route Dose Instructions Refusal Reason Stat us Covid-19 vaccine (Pfizer) Completed Diagnostic Results Date Type Test Units Lower Limit Upper Limit Result Flag Comments Status Ordered By Specimen Source Lab Address 06/12 iSTAT creat inine panel Creat inine , iSTAT mg/dl 0.6 1.3 1.7 High FINAL [facility] [place], [address] [place] [address] [address] [place] [phone] Phone: () - 06/12 iSTAT creat inine panel GFR estim ate ml/min /1.73m ^2 27.3 Low GFR is calculate d using the CKD-EPI equation. FINAL [facility] - [facility], [address] [place] [address] [address] [place] [id number] 0 Phone: () - 06/12 CBC w/ auto diff WBC K/uL 3.0 8.9 3.6 FINAL [facility] - [facility], [address] [place] [address] [address] [place] [phone] 0 Phone: () - 06/12 CBC w/ auto diff HGB g/dL 11.3 15.2 9.1 Low FINAL [facility] - [facility], [address] [place] [address] [address] [place] [phone] 0 Phone: () - 06/12 CBC w/ auto diff PLT K/uL 113.0 364.0 168 FINAL [facility] - [place], [address] [place] [address] [address] [place] [id number] 0 Phone: () - 06/12 CBC w/ auto diff Consuelo # (ANC) K/uL 1.6 6.6 2.5 FINAL [facility] - [place], [address] [place] [address] [address] [place] [id number] 0 Phone: () - 06/12 CBC w/ auto diff Consuelo % % 43.0 74.0 70.3 FINAL Cassy [facility] [place], [address] [place] [id number] 0 Phone: () - 06/12 CBC w/ auto diff IG % % 0.0 0.5 4.5 High FINAL [facility] - [place], [address] [place] [phone] 0 Phone: () - 06/12 CBC w/ auto diff IG # K/uL 0.0 0.03 0.16 High FINAL [facility] - [place], [address] [place] [id number] 0 Phone: () - 06/12 CBC w/ auto diff LY % % 14.0 41.0 16.2 FINAL [facility] - [place], [address] [place] [id number] 0 Phone: () - 06/12 CBC w/ auto diff MO % % 6.0 15.0 6.7 FINAL [facility] - [place], [address] [place] [phone] 0 Phone: () - 06/12 CBC w/ auto diff EO % % 0.0 7.0 1.7 FINAL [facility] - [place], [address] [place] [address] [address] [place] [phone] 0 Phone: () - 06/12 CBC w/ auto diff BA % % 0.0 2.0 0.6 FINAL [facility] - [place], [address] [place] [id number] 0 Phone: () - 06/12 CBC w/ auto diff LY # K/uL 0.4 3.6 0.6 FINAL [facility] - [place], [address] [place] [address] [address] [place] [id number] 0 Phone: () - 06/12 CBC w/ auto diff MO # K/uL 0.2 1.3 0.2 FINAL [facility] - [place], [address] [place] [id number] 0 Phone: () - 06/12 CBC w/ auto diff EO # K/uL 0.0 0.6 0.1 FINAL [facility] - [place], [address] [place] [id number] 0 Phone: () - 06/12 CBC w/ auto diff BA # K/uL 0.0 0.2 0.0 FINAL [facility] - [place], [address] [place] [phone] 0 Phone: () - 06/12 CBC w/ auto diff NRBC % #/100W BC 0.0 0.2 0.8 High FINAL [facility] - [place], [address] [place] [address] [address] [place] [phone] 0 Phone: () - 06/12 CBC w/ auto diff RBC M/uL 3.9 5.1 2.76 Low FINAL [facility] - [place], [address] [place] [address] [address] [place] [phone] 0 Phone: () - 06/12 CBC w/ auto diff HCT % 35.0 48.0 27.9 Low FINAL [facility] - [place] [facility], [address] [place] [address] [address] [place] [phone] 0 Phone: () - 06/12 CBC w/ auto diff MCV fL 80.0 104.0 101.1 FINAL [facility] - [place], [address] [place] [id number] 0 Phone: () - 06/12 CBC w/ auto diff MCH pg 26.0 35.0 33.0 FINAL [facility] - [place], [address] [place] [id number] 0 Phone: () - 06/12 CBC w/ auto diff MCHC g/dL 30.0 35.0 32.6 FINAL [facility] - [place] [facility], [address] [place] [phone] 0 Phone: () - 06/12 CBC w/ auto diff MPV fL 9.5 13.4 10.8 FINAL [facility], [address] [place] [id number] 0 Phone: () - 06/12 CBC w/ auto diff RDW % 11.4 16.1 15.90 FINAL [facility], [address] [place] [address] [address] [place] [id number] 0 Phone: () - 06/12 CMP Sodiu m mmol/L 135.0 145.0 141 FINAL Cassy Tucker 06/12 CMP Potas sium mmol/L 3.5 5.0 4.3 FINAL Cassy Tucker 06/12 CMP Chlor glory mmol/L 98.0 110.0 107 FINAL Cassy Tucker 06/12 CMP CO2 mmol/L 21.0 31.0 24 FINAL Cassy Tucker 06/12 CMP Anion gap, mmol/ L 5.0 18.0 10 FINAL Cassy Tucker 06/12 CMP Gluco se mg/dL 65.0 100.0 111 High FINAL Cassy Tucker 06/12 CMP Calci um mg/dL 8.5 10.5 9.2 FINAL Cassy Tucker 06/12 CMP BUN mg/dL 8.0 25.0 29 High FINAL Cassy Tucker 06/12 CMP Creat inine mg/dL 0.57 1.11 1.61 High FINAL Cassy Tucker 06/12 CMP BUN/C reati nine ratio 10.0 20.0 18 FINAL Cassy Tucker 06/12 CMP GFR Afric an Ameri can, estim ated ml/min /1.73m 2 37 Low FINAL Cassy Tucker 06/12 CMP GFR non-A frica n Ameri can, estim ated ml/min /1.73m 2 31 Low FINAL Cassy Tucker 06/12 CMP Album in g/dL 3.2 4.6 3.5 FINAL Cassy Tucker 06/12 CMP Total prote in g/dL 6.0 8.0 5.8 Low FINAL Cassy Tucker 06/12 CMP Globu max g/dL 2.0 3.7 2.3 FINAL Cassy Tucker 06/12 CMP A/G ratio 1.0 2.0 1.5 FINAL Cassy Tucker 06/12 CMP Bilir ubin, total mg/dL 0.2 1.2 0.6 FINAL Cassy Tucker 06/12 CMP Alkal ine phosp hatas e IU/L 50.0 136.0 177 High FINAL Cassy Tucker 06/12 CMP ALT/S GPT IU/L 8.0 45.0 207 High FINAL Cassy Tucker 06/12 CMP AST/S GOT IU/L 2.0 40.0 47 High Test Performed by:[facility] [address], [address] - [place], [place] [id number] e : FINAL Cassy Tucker 06/18 [facility] [place] See manager business systems d 06/18 [facility] [place] lab See manager business systems d 06/18 [facility] [place] other lab See manager business systems d 06/19 CMP Album in g/dL 3.2 5.2 3.5 FINAL [facility], [address] [place] [phone] 0 Phone: () - 06/19 CMP Alkal ine phosp hatas e U/L 46.0 116.0 137 High FINAL Cassy wood [facility], [address] [place] [phone] 0 Phone: () - 06/19 CMP ALT/S GPT U/L 7.0 40.0 100 High FINAL [facility], [address] [facility] [id number] 0 Phone: () - 06/19 CMP AST/S GOT U/L 13.0 40.0 30 FINAL [facility], [address] [facility] [phone] 0 Phone: () - 06/19 CMP BUN mg/dL 9.0 23.0 25 High FINAL Cass[facility], [address] [phone] 0 Phone: () - 06/19 CMP Calci um mg/dL 8.7 10.4 9.5 FINAL Cassy wood [place] [address] [phone] 0 Phone: () - 06/19 CMP Chlor glory mmol/L 96.0 114.0 110 FINAL Cassy wood [place] [address] [phone] 0 Phone: () - 06/19 CMP CO2 mmol/L 20.0 31.0 28 The expected total allowable error for CO2 is 5.6%. We have seen up to 10% differenc e in values if reported at the end of the 96 hour stability window. Please consider the clinical significa nce of a 2.0-2.5 mmol/L lower reported CO2 value if reported at the end of the 96 hour stability window. FINAL Cassy wood [place] [address] [phone] 0 Phone: () - 06/19 CMP Creat inine mg/dL 0.5 1.2 1.43 High FINAL Cassy wood [place] [address] [phone] 0 Phone: () - 06/19 CMP GFR estim ate ml/min /1.73m ^2 33.7 Low GFR is calculate d using the CKD-EPI equation. FINAL Cassy wood [place] [address] [phone] 0 Phone: () - 06/19 CMP Gluco se mg/dL 73.0 126.0 97 FINAL Cassy wood [place] [address] [phone] 0 Phone: () - 06/19 CMP Potas sium mmol/L 3.5 5.1 4.2 FINAL Cassy wood [place] [address] [phone] 0 Phone: () - 06/19 CMP Sodiu m mmol/L 136.0 145.0 144 FINAL [facility], [address] [facility] [phone] 0 Phone: () - 06/19 CMP Bilir ubin, total mg/dL 0.3 1.2 0.5 FINAL [facility], [address] [facility] [phone] 0 Phone: () - 06/19 CMP Total prote in g/dL 5.7 8.2 5.1 Low FINAL Cassy [facility], [address] [facility] [phone] 0 Phone: () - 06/19 CBC w/ auto diff WBC K/uL 3.0 8.9 6.2 FINAL [facility], [address] [place] [address] [address] [place] [phone] 0 Phone: () - 06/19 CBC w/ auto diff HGB g/dL 11.3 15.2 9.4 Low FINAL [facility] [place] [facility], [address] [place] [address] [address] [place] [phone] 0 Phone: () - 06/19 CBC w/ auto diff PLT K/uL 113.0 364.0 198 FINAL [facility] [place] [facility], [address] [place] [address] [address] [place] [id number] 0 Phone: () - 06/19 CBC w/ auto diff Consuelo # (ANC) K/uL 1.6 6.6 4.0 FINAL [facility] [place] [facility], [address] [place] [address] [address] [place] [id number] 0 Phone: () - 06/19 CBC w/ auto diff Consuelo % % 43.0 74.0 64.4 FINAL [facility] [place] [facility], [address] [place] [address] [address] [place] [id number] 0 Phone: () - 06/19 CBC w/ auto diff IG % % 0.0 0.5 4.0 High FINAL [facility] [place] [facility], [address] [place] [address] 200 [facility] [place] [phone] 0 Phone: () - 06/19 CBC w/ auto diff IG # K/uL 0.0 0.03 0.25 High FINAL [facility] - [place], [address] [place] [address] 200 [facility] [place] [phone] 0 Phone: () - 06/19 CBC w/ auto diff LY % % 14.0 41.0 22.9 FINAL [facility] - [place], [address] [place] [address] 200 [facility] [place] [phone] 0 Phone: () - 06/19 CBC w/ auto diff MO % % 6.0 15.0 7.6 FINAL [facility] - [place], [address] [place] [address] 200 [facility] [place] [phone] 0 Phone: () - 06/19 CBC w/ auto diff EO % % 0.0 7.0 0.8 FINAL [facility] - [place], [address] [place] [address] 200 [facility] [place] [phone] 0 Phone: () - 06/19 CBC w/ auto diff BA % % 0.0 2.0 0.3 FINAL [facility] - [place], [address] [place] [address] 200 [facility] [place] [phone] 0 Phone: () - 06/19 CBC w/ auto diff LY # K/uL 0.4 3.6 1.4 FINAL [facility] - [place] [facility], [address] [place] [address] 200 [facility] [place] [phone] 0 Phone: () - 06/19 CBC w/ auto diff MO # K/uL 0.2 1.3 0.5 FINAL [facility] - [place] [facility], [address] [place] [address] 200 [facility] [place] [id number] 0 Phone: () - 06/19 CBC w/ auto diff EO # K/uL 0.0 0.6 0.1 FINAL [facility] - [place] [facility], [address] [place] [address] 200 [facility] [place] [phone] 0 Phone: () - 06/19 CBC w/ auto diff BA # K/uL 0.0 0.2 0.0 FINAL [facility] - [place], [address] [place] [id number] 0 Phone: () - 06/19 CBC w/ auto diff NRBC % #/100W BC 0.0 0.2 0.8 High FINAL [facility] - [place] [facility], [address] [place] [address] [address] [place] [id number] 0 Phone: () - 06/19 CBC w/ auto diff RBC M/uL 3.9 5.1 2.83 Low FINAL [facility] - [place] [facility], [address] [place] [phone] 0 Phone: () - 06/19 CBC w/ auto diff HCT % 35.0 48.0 29.1 Low FINAL [facility] - [place] [facility], [address] [place] [id number] 0 Phone: () - 06/19 CBC w/ auto diff MCV fL 80.0 104.0 102.8 FINAL [facility] - [place] [facility], [address] [place] [id number] 0 Phone: () - 06/19 CBC w/ auto diff MCH pg 26.0 35.0 33.2 FINAL [facility] - [place] [facility], [address] [place] [address] [address] [place] [phone] 0 Phone: () - 06/19 CBC w/ auto diff MCHC g/dL 30.0 35.0 32.3 FINAL [facility] - [place], [address] [place] [address] [address] [place] [id number] 0 Phone: () - 06/19 CBC w/ auto diff MPV fL 9.5 13.4 10.7 FINAL [facility] - [place] [facility], [address] [place] [address] [address] [place] [phone] 0 Phone: () - 06/19 CBC w/ auto diff RDW % 11.4 16.1 16.10 FINAL [facility] - [place] [facility], [address] [place] [address] [address] [facility] [place] [phone] 0 Phone: () - 06/19 iSTAT creat inine panel Creat inine , iSTAT mg/dl 0.6 1.3 1.7 High FINAL [facility], [address] [place] [address] [address] [facility] [phone] 0 Phone: () - 06/19 iSTAT creat inine panel GFR estim ate ml/min /1.73m ^2 27.3 Low GFR is calculate d using the CKD-EPI equation. FINAL [facility], [address] [place] [address] 200 [facility] [phone] 0 Phone: () - Medications Date Name Route Dose Frequency Instructions Start Date End Date Status Ondansetron Oral Disintegrating Tablet orally 8.0 mg every 8 hours prn nausea and vomiting active Metoprolol Oral (Tartrate) 1.0 tablet BID active 09/04 bortezomib 3.5 MG Injection [Velcade] subcutaneously 2.5 mg once FOR SUBCUTANEOUS ADMINISTRATION dilute with NS to a final concentration of 2.5 mg/mL.May give IV. If given IV, dilute with NS to a final concentration of 1 mg/mL and give over 3-5 seconds. Bortezomib is a possible irritant.NOTE: This is Velcade. 2021 active 09/04 Diphenhydramine IV intravenously 50.0 mg Re-initiate treatment only upon physician approval. 2021 active 09/04 1 ML epinephrine 1 MG/ML Injection intramuscularly 0.3 mg once Re-initiate treatment only upon physician approval. 2021 active 09/04 famotidine 10 MG/ML Injectable Solution intravenously 20.0 mg Re-initiate treatment only upon physician approval. 2021 active 09/04 Solu-Medrol intravenously 125.0 mg Re-initiate treatment only upon physician approval. 2021 active 09/04 Solu-Cortef intravenously 100.0 mg Re-initiate treatment only upon physician approval. 2021 active 08/28 1 ML epinephrine 1 MG/ML Injection intramuscularly 0.3 mg once Re-initiate treatment only upon physician approval. 2021 active 08/28 famotidine 10 MG/ML Injectable Solution intravenously 20.0 mg Re-initiate treatment only upon physician approval. 2021 active 08/28 Diphenhydramine IV intravenously 50.0 mg Re-initiate treatment only upon physician approval. 2021 active 08/28 Solu-Medrol intravenously 125.0 mg Re-initiate treatment only upon physician approval. 2021 active 08/28 Solu-Cortef intravenously 100.0 mg Re-initiate treatment only upon physician approval. 2021 active 08/28 bortezomib 3.5 MG Injection [Velcade] subcutaneously 2.5 mg once FOR SUBCUTANEOUS ADMINISTRATION dilute with NS to a final concentration of 2.5 mg/mL.May give IV. If given IV, dilute with NS to a final concentration of 1 mg/mL and give over 3-5 seconds. Bortezomib is a possible irritant.NOTE: This is Velcade. 2021 active 08/21 1 ML epinephrine 1 MG/ML Injection intramuscularly 0.3 mg once Re-initiate treatment only upon physician approval. 2021 active 08/21 Diphenhydramine IV intravenously 50.0 mg Re-initiate treatment only upon physician approval. 2021 active 08/21 Solu-Cortef intravenously 100.0 mg Re-initiate treatment only upon physician approval. 2021 active 08/21 bortezomib 3.5 MG Injection [Velcade] subcutaneously 2.5 mg once FOR SUBCUTANEOUS ADMINISTRATION dilute with NS to a final concentration of 2.5 mg/mL.May give IV. If given IV, dilute with NS to a final concentration of 1 mg/mL and give over 3-5 seconds. Bortezomib is a possible irritant.NOTE: This is Velcade. 2021 active 08/21 Solu-Medrol intravenously 125.0 mg Re-initiate treatment only upon physician approval. 2021 active 08/21 famotidine 10 MG/ML Injectable Solution intravenously 20.0 mg Re-initiate treatment only upon physician approval. 2021 active 08/14 1 ML epinephrine 1 MG/ML Injection intramuscularly 0.3 mg once Re-initiate treatment only upon physician approval. 2021 active 08/14 famotidine 10 MG/ML Injectable Solution intravenously 20.0 mg Re-initiate treatment only upon physician approval. 2021 active 08/14 bortezomib 3.5 MG Injection [Velcade] subcutaneously 2.5 mg once FOR SUBCUTANEOUS ADMINISTRATION dilute with NS to a final concentration of 2.5 mg/mL.May give IV. If given IV, dilute with NS to a final concentration of 1 mg/mL and give over 3-5 seconds. Bortezomib is a possible irritant.NOTE: This is Velcade. 2021 active 08/14 Solu-Cortef intravenously 100.0 mg Re-initiate treatment only upon physician approval. 2021 active 08/14 Diphenhydramine IV intravenously 50.0 mg Re-initiate treatment only upon physician approval. 2021 active 08/14 Solu-Medrol intravenously 125.0 mg Re-initiate treatment only upon physician approval. 2021 active 08/07 bortezomib 3.5 MG Injection [Velcade] subcutaneously 2.5 mg once FOR SUBCUTANEOUS ADMINISTRATION dilute with NS to a final concentration of 2.5 mg/mL.May give IV. If given IV, dilute with NS to a final concentration of 1 mg/mL and give over 3-5 seconds. Bortezomib is a possible irritant.NOTE: This is Velcade. 2021 active 08/07 famotidine 10 MG/ML Injectable Solution intravenously 20.0 mg Re-initiate treatment only upon physician approval. 2021 active 08/07 1 ML epinephrine 1 MG/ML Injection intramuscularly 0.3 mg once Re-initiate treatment only upon physician approval. 2021 active 08/07 Diphenhydramine IV intravenously 50.0 mg Re-initiate treatment only upon physician approval. 2021 active 08/07 Solu-Medrol intravenously 125.0 mg Re-initiate treatment only upon physician approval. 2021 active 08/07 Solu-Cortef intravenously 100.0 mg Re-initiate treatment only upon physician approval. 2021 active 07/31 1 ML epinephrine 1 MG/ML Injection intramuscularly 0.3 mg once Re-initiate treatment only upon physician approval. 2020 active 07/31 famotidine 10 MG/ML Injectable Solution intravenously 20.0 mg Re-initiate treatment only upon physician approval. 2020 active 07/31 Solu-Medrol intravenously 125.0 mg Re-initiate treatment only upon physician approval. 2020 active 07/31 Solu-Cortef intravenously 100.0 mg Re-initiate treatment only upon physician approval. 2020 active 07/31 bortezomib 3.5 MG Injection [Velcade] subcutaneously 2.5 mg once FOR SUBCUTANEOUS ADMINISTRATION dilute with NS to a final concentration of 2.5 mg/mL.May give IV. If given IV, dilute with NS to a final concentration of 1 mg/mL and give over 3-5 seconds. Bortezomib is a possible irritant.NOTE: This is Velcade. 2020 active 07/31 Diphenhydramine IV intravenously 50.0 mg Re-initiate treatment only upon physician approval. 2020 active 07/24 Solu-Cortef intravenously 100.0 mg Re-initiate treatment only upon physician approval. 2020 active 07/24 1 ML epinephrine 1 MG/ML Injection intramuscularly 0.3 mg once Re-initiate treatment only upon physician approval. 2020 active 07/24 bortezomib 3.5 MG Injection [Velcade] subcutaneously 2.5 mg once FOR SUBCUTANEOUS ADMINISTRATION dilute with NS to a final concentration of 2.5 mg/mL.May give IV. If given IV, dilute with NS to a final concentration of 1 mg/mL and give over 3-5 seconds. Bortezomib is a possible irritant.NOTE: This is Velcade. 2020 active 07/24 Solu-Medrol intravenously 125.0 mg Re-initiate treatment only upon physician approval. 2020 active 07/24 Diphenhydramine IV intravenously 50.0 mg Re-initiate treatment only upon physician approval. 2020 active 07/24 famotidine 10 MG/ML Injectable Solution intravenously 20.0 mg Re-initiate treatment only upon physician approval. 2020 active 07/17 Diphenhydramine IV intravenously 50.0 mg Re-initiate treatment only upon physician approval. 2020 active 07/17 bortezomib 3.5 MG Injection [Velcade] subcutaneously 2.5 mg once FOR SUBCUTANEOUS ADMINISTRATION dilute with NS to a final concentration of 2.5 mg/mL.May give IV. If given IV, dilute with NS to a final concentration of 1 mg/mL and give over 3-5 seconds. Bortezomib is a possible irritant.NOTE: This is Velcade. 2020 active 07/17 famotidine 10 MG/ML Injectable Solution intravenously 20.0 mg Re-initiate treatment only upon physician approval. 2020 active 07/17 Solu-Cortef intravenously 100.0 mg Re-initiate treatment only upon physician approval. 2020 active 07/17 Solu-Medrol intravenously 125.0 mg Re-initiate treatment only upon physician approval. 2020 active 07/17 1 ML epinephrine 1 MG/ML Injection intramuscularly 0.3 mg once Re-initiate treatment only upon physician approval. 2020 active 07/10 Solu-Medrol intravenously 125.0 mg Re-initiate treatment only upon physician approval. 2020 active 07/10 Solu-Cortef intravenously 100.0 mg Re-initiate treatment only upon physician approval. 2020 active 07/10 bortezomib 3.5 MG Injection [Velcade] subcutaneously 2.5 mg once FOR SUBCUTANEOUS ADMINISTRATION dilute with NS to a final concentration of 2.5 mg/mL.May give IV. If given IV, dilute with NS to a final concentration of 1 mg/mL and give over 3-5 seconds. Bortezomib is a possible irritant.NOTE: This is Velcade. 2020 active 07/10 famotidine 10 MG/ML Injectable Solution intravenously 20.0 mg Re-initiate treatment only upon physician approval. 2020 active 07/10 Diphenhydramine IV intravenously 50.0 mg Re-initiate treatment only upon physician approval. 2020 active 07/10 1 ML epinephrine 1 MG/ML Injection intramuscularly 0.3 mg once Re-initiate treatment only upon physician approval. 2020 active 07/03 famotidine 10 MG/ML Injectable Solution intravenously 20.0 mg Re-initiate treatment only upon physician approval. 2020 active 07/03 bortezomib 3.5 MG Injection [Velcade] subcutaneously 2.5 mg once FOR SUBCUTANEOUS ADMINISTRATION dilute with NS to a final concentration of 2.5 mg/mL.May give IV. If given IV, dilute with NS to a final concentration of 1 mg/mL and give over 3-5 seconds. Bortezomib is a possible irritant.NOTE: This is Velcade. 2020 active 07/03 Solu-Cortef intravenously 100.0 mg Re-initiate treatment only upon physician approval. 2020 active 07/03 1 ML epinephrine 1 MG/ML Injection intramuscularly 0.3 mg once Re-initiate treatment only upon physician approval. 2020 active 07/03 Diphenhydramine IV intravenously 50.0 mg Re-initiate treatment only upon physician approval. 2020 active 07/03 Solu-Medrol intravenously 125.0 mg Re-initiate treatment only upon physician approval. 2020 active 06/26 bortezomib 3.5 MG Injection [Velcade] subcutaneously 2.5 mg once FOR SUBCUTANEOUS ADMINISTRATION dilute with NS to a final concentration of 2.5 mg/mL.May give IV. If given IV, dilute with NS to a final concentration of 1 mg/mL and give over 3-5 seconds. Bortezomib is a possible irritant.NOTE: This is Velcade. 2020 active 06/26 famotidine 10 MG/ML Injectable Solution intravenously 20.0 mg Re-initiate treatment only upon physician approval. 2020 active 06/26 Diphenhydramine IV intravenously 50.0 mg Re-initiate treatment only upon physician approval. 2020 active 06/26 Solu-Cortef intravenously 100.0 mg Re-initiate treatment only upon physician approval. 2020 active 06/26 1 ML epinephrine 1 MG/ML Injection intramuscularly 0.3 mg once Re-initiate treatment only upon physician approval. 2020 active 06/26 Solu-Medrol intravenously 125.0 mg Re-initiate treatment only upon physician approval. 2020 active 06/19 Diphenhydramine IV intravenously 50.0 mg Re-initiate treatment only upon physician approval. 2020 active 06/19 Solu-Cortef intravenously 100.0 mg Re-initiate treatment only upon physician approval. 2020 active 06/19 1 ML epinephrine 1 MG/ML Injection intramuscularly 0.3 mg once Re-initiate treatment only upon physician approval. 2020 active 06/19 Solu-Medrol intravenously 125.0 mg Re-initiate treatment only upon physician approval. 2020 active 06/19 famotidine 10 MG/ML Injectable Solution intravenously 20.0 mg Re-initiate treatment only upon physician approval. 2020 active 06/13 dexamethasone 4 MG Oral Tablet orally 40.0 mg once 2020 active 06/12 Diphenhydramine IV intravenously 50.0 mg Re-initiate treatment only upon physician approval. 2020 active 06/12 famotidine 10 MG/ML Injectable Solution intravenously 20.0 mg Re-initiate treatment only upon physician approval. 2020 active 06/12 acyclovir 400 MG Oral Tablet orally 1.0 tablet 2 times per day 2020 active 06/12 apixaban 2.5 MG Oral Tablet orally 1.0 tablet 2 times per day 2020 active 06/12 Solu-Cortef intravenously 100.0 mg Re-initiate treatment only upon physician approval. 2020 active 06/12 1 ML epinephrine 1 MG/ML Injection intramuscularly 0.3 mg once Re-initiate treatment only upon physician approval. 2020 active 06/12 Solu-Medrol intravenously 125.0 mg Re-initiate treatment only upon physician approval. 2020 active 06/05 Solu-Medrol intravenously 125.0 mg Re-initiate treatment only upon physician approval. 2020 active 06/05 Solu-Cortef intravenously 100.0 mg Re-initiate treatment only upon physician approval. 2020 active 06/05 Diphenhydramine IV intravenously 50.0 mg Re-initiate treatment only upon physician approval. 2020 active 06/05 1 ML epinephrine 1 MG/ML Injection intramuscularly 0.3 mg once Re-initiate treatment only upon physician approval. 2020 active 06/05 famotidine 10 MG/ML Injectable Solution intravenously 20.0 mg Re-initiate treatment only upon physician approval. 2020 active 05/29 1 ML epinephrine 1 MG/ML Injection intramuscularly 0.3 mg once Re-initiate treatment only upon physician approval. 2020 active 05/29 Diphenhydramine IV intravenously 50.0 mg Re-initiate treatment only upon physician approval. 2020 active 05/29 Solu-Cortef intravenously 100.0 mg Re-initiate treatment only upon physician approval. 2020 active 05/29 Solu-Medrol intravenously 125.0 mg Re-initiate treatment only upon physician approval. 2020 active 05/29 famotidine 10 MG/ML Injectable Solution intravenously 20.0 mg Re-initiate treatment only upon physician approval. 2020 active 05/25 apixaban 2.5 MG Oral Tablet orally 1.0 tablet 2 times per day 2020 active 05/24 cyclophosphamid e 50 MG Oral Capsule orally 400.0 mg once 2020 active 05/23 cyclophosphamid e 50 MG Oral Capsule orally 400.0 mg once 2020 active 05/22 Diphenhydramine IV intravenously 50.0 mg Re-initiate treatment only upon physician approval. 2020 active 05/22 1 ML epinephrine 1 MG/ML Injection intramuscularly 0.3 mg once Re-initiate treatment only upon physician approval. 2020 active 05/22 famotidine 10 MG/ML Injectable Solution intravenously 20.0 mg Re-initiate treatment only upon physician approval. 2020 active 05/22 Solu-Cortef intravenously 100.0 mg Re-initiate treatment only upon physician approval. 2020 active 05/22 Solu-Medrol intravenously 125.0 mg Re-initiate treatment only upon physician approval. 2020 active 05/20 cyclophosphamid e 50 MG Oral Capsule orally 500.0 mg once 2020 active 05/20 dexamethasone 4 MG Oral Tablet orally 40.0 mg once 2020 active Problems Diagnosis Status Date of Diagnosi s Anemia Active Renal failure Active Liver function tests abnormal (finding) Active Myeloma kidney Active DVT - Deep vein thrombosis of lower limb Active Multiple myeloma Active Vital Signs Date Type Value 06/12/2021 Body Temperature 97.70 06/12/2021 Heart Beat 83.00 06/12/2021 BSA 1.78 06/12/2021 BMI 24.47 06/12/2021 Height 66.00 06/12/2021 Weight 151.60 06/12/2021 Pain Scale 0.00 06/12/2021 Intravascular Systolic 124 06/12/2021 Intravascular Diastolic 84 06/12/2021 Oxygen Saturation 97.00 06/12/2021 Respiratory Rate 15.00 06/19/2021 Body Temperature 98.10 06/19/2021 BMI 24.40 06/19/2021 Height 66.00 06/19/2021 Weight 151.20 06/19/2021 BSA 1.78 06/19/2021 Intravascular Systolic 118 06/19/2021 Intravascular Diastolic 66 06/19/2021 Oxygen Saturation 98.00 06/19/2021 Respiratory Rate 16.00 06/19/2021 Heart Beat 83.00 06/19/2021 Pain Scale 0.00
--- OUTSIDE RECORDS SUMMARY | 2024-12-21 10:04 | XMS_ITS | CCD ---
Author Name Interface, [id number] lity Address [address] [place], [place] [address] [address] [facility] Address [address] [place] [id number] Allergies and Adverse Reactions Care Plan Reason for Visit Encounters Functional Status Medications Problems Social History
--- OUTSIDE RECORDS SUMMARY | 2024-12-21 10:05 | XMS_ITS ---
Author Name Interface, [id number] lity Address [address] [facility] [address] [address] [facility] Address [address] [facility] [address] [address] Care Team Providers Care Healthcare Manager Name Role Phone Tony Gutierrez Unavailable Unavailable Allergies and Adverse Reactions Medication/Group Name Reaction Severity Date No known allergies Plan Date Type Value 06/19/2021 APPOINTMENT RCT15 - 0123 ARM RC VELCADE - 0123 ARM RC VELCADE 06/19/2021 APPOINTMENT RCT15 - 0123 ARM RC VELCADE - 0123 ARM RC VELCADE 06/19/2021 APPOINTMENT RCT15 - 0123 ARM RC VELCADE - 0123 ARM RC VELCADE 06/18/2021 APPOINTMENT CHTCK - CHART SHYANNE - CHART CHECK 06/12/2021 APPOINTMENT RCT15 - 0123 ARM RC VELCADE - 0123 ARM RC VELCADE 06/12/2021 APPOINTMENT RCT15 - 0123 ARM RC VELCADE - 0123 ARM RC VELCADE 06/12/2021 APPOINTMENT RCT15 - 0123 ARM RC VELCADE - 0123 ARM RC VELCADE 06/11/2021 APPOINTMENT CHTCK - CHART SHYANNE - CHART CHECK 06/05/2021 APPOINTMENT RCT15 - 0123 ARM RC VELCADE - 0123 ARM RC VELCADE 06/05/2021 APPOINTMENT RCT15 - 0123 ARM RC VELCADE - 0123 ARM RC VELCADE 06/05/2021 APPOINTMENT RCT15 - 0123 ARM RC VELCADE - 0123 ARM RC VELCADE 05/29/2021 APPOINTMENT RCINJ - 0123 ARM DRAW/RC/VELCADE - [place]/HENRIK OFF 05/29/2021 APPOINTMENT RCINJ - 0123 ARM DRAW/RC/VELCADE - [place]/HENRIK OFF 05/29/2021 APPOINTMENT RCINJ - 0123 ARM DRAW/RC/VELCADE - [place]/HENRIK OFF 05/22/2021 APPOINTMENT HP - 0123 HOSP P T/OK PER DR GUTIERREZ - 0123 HOSP PT/OK PER DR BORGES 05/22/2021 APPOINTMENT HP - 0123 HOSP P T/OK PER DR GUTIERREZ - 0123 HOSP PT/OK PER DR BORGSE 05/22/2021 APPOINTMENT INJ - VELCADE - VELCADE 05/22/2021 LABORDER CMP 05/22/2021 LABORDER IStat 6+ Panel 05/22/2021 LABORDER Serum Protein El ectrophoresis (SPEP) 05/22/2021 LABORDER CBC w/ auto diff 05/22/2021 LABORDER Hepatitis C anti body panel 05/22/2021 LABORDER Hepatitis B surf albina antigen panel 05/22/2021 LABORDER CBC w/ auto diff 05/22/2021 LABORDER iSTAT creatinine panel 05/29/2021 LABORDER iSTAT creatinine panel 05/29/2021 LABORDER CMP 05/29/2021 LABORDER Serum Protein El ectrophoresis (SPEP) 05/29/2021 LABORDER CBC w/ auto diff 06/01/2021 LABORDER CMP 06/01/2021 LABORDER U/S 06/05/2021 LABORDER Uric acid panel 06/05/2021 LABORDER CMP 06/05/2021 LABORDER iSTAT creatinine panel 06/05/2021 LABORDER CBC w/ auto diff 06/05/2021 LABORDER Ferritin panel 06/05/2021 LABORDER Iron profile 06/11/2021 LABORDER CBC w/ auto diff 06/11/2021 LABORDER CMP 06/12/2021 LABORDER iSTAT creatinine panel 06/12/2021 LABORDER CMP 06/12/2021 LABORDER CBC w/ auto diff 06/18/2021 LABORDER CMP 06/18/2021 LABORDER CBC w/ auto diff 06/19/2021 LABORDER CMP 06/19/2021 LABORDER iSTAT creatinine panel 06/19/2021 LABORDER CBC w/ auto diff Reason for Visit RCT15 - 0123 ARM RC VELCADE - 0123 ARM RC VELCADE Encounters Date Name 05/22/2021 Anemia 05/22/2021 DVT - Deep vein thro mbosis of lower limb 05/22/2021 Liver function tests abnormal (finding) 05/22/2021 Multiple myeloma 05/22/2021 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 Renal failure Immunizations Date Name Route Dose Instructions Refusal Reason Stat us Covid-19 vaccine (Pfizer) Completed Covid-19 vaccine (Pfizer) Completed Covid-19 vaccine (Pfizer) Completed Flu vaccine - Adult Comp leted Diagnostic Results Date Type Test Units Lower Limit Upper Limit Result Flag Comments Status Ordered By Specimen Source Lab Address 05/22 CMP Album in g/dL 3.2 5.2 4.0 FINAL Tony Sierra [place] [address] [phone] Phone: () - 05/22 CMP Alkal ine phosp hatas e U/L 46.0 116.0 62 FINAL [place] [address] [phone] Phone: () - 05/22 CMP ALT/S GPT U/L 7.0 40.0 39 FINAL [place] [address] [id number] 0 Phone: () - 05/22 CMP AST/S GOT U/L 13.0 40.0 31 FINAL Tony Sierra [place] [address] [id number] 0 Phone: () - 05/22 CMP BUN mg/dL 9.0 23.0 40 High FINAL [place] [address] [address] [facility] [address] [phone] 0 Phone: () - 05/22 CMP Calci um mg/dL 8.7 10.4 8.8 FINAL [place] [address] [phone] 0 Phone: () - 05/22 CMP Chlor glory mmol/L 96.0 114.0 101 FINAL [place] [address] [address] [facility] [phone] 0 Phone: () - 05/22 CMP CO2 mmol/L 20.0 31.0 24 The expected total allowable error for CO2 is 5.6%. We have seen up to 10% differenc e in values if reported at the end of the 96 hour stability window. Please consider the clinical significa nce of a 2.0-2.5 mmol/L lower reported CO2 value if reported at the end of the 96 hour stability window. FINAL Tony wood [address] [id number] [phone] Phone: () - 05/22 CMP Creat inine mg/dL 0.5 1.2 2.12 High FINAL Tony wood [address] [phone] Phone: () - 05/22 CMP GFR estim ate ml/min /1.73m ^2 20.9 Low GFR is calculate d using the CKD-EPI equation. FINAL Tony wood [address] [id number] Phone: () - 05/22 CMP Gluco se mg/dL 73.0 126.0 140 High FINAL Tony wood [place] [address] [phone] Phone: () - 05/22 CMP Potas sium mmol/L 3.5 5.1 3.7 FINAL Tony wood [address] [phone] [phone] Phone: () - 05/22 CMP Sodiu m mmol/L 136.0 145.0 136 FINAL Tony wood [address] [phone] 0 Phone: () - 05/22 CMP Bilir ubin, total mg/dL 0.3 1.2 0.7 FINAL Tony wood [place] [address] [phone] Phone: () - 10/19 /2021 CMP Total prote in g/dL 5.7 8.2 5.7 FINAL Tony wood [facility], [address] [facility] [phone] Phone: () - 05/22 CBC w/ auto diff WBC K/uL 3.0 8.9 5.2 FINAL Tony wood [facility] - [place], [address] [place] [id number] 0 Phone: () - 05/22 CBC w/ auto diff HGB g/dL 11.3 15.2 8.2 Low FINAL Tony wood [facility] - [place], [address] [place] [id number] 0 Phone: () - 05/22 CBC w/ auto diff PLT K/uL 113.0 364.0 129 FINAL [facility], [address] [place] [id number] 0 Phone: () - 05/22 CBC w/ auto diff Plate let, immat ure, fract ion % 0.9 11.2 10.6 FINAL Tony wood [facility] - [place], [address] [place] [address] [address] [place] [id number] 0 Phone: () - 05/22 CBC w/ auto diff Consuelo # (ANC) K/uL 1.6 6.6 4.4 FINAL Tony wood [facility] - [place], [address] [place] [id number] 0 Phone: () - 05/22 CBC w/ auto diff Consuelo % % 43.0 74.0 85.2 High FINAL Tony wood [facility] - [place], [address] [place] [id number] 0 Phone: () - 05/22 CBC w/ auto diff IG % % 0.0 0.5 1.3 High FINAL Tony wood [facility] - [place], [address] [place] [id number] 0 Phone: () - 05/22 CBC w/ auto diff IG # K/uL 0.0 0.03 0.07 High FINAL Tony wood [facility] - [place], [address] [place] [address] [address] [place] [id number] 0 Phone: () - 05/22 CBC w/ auto diff LY % % 14.0 41.0 4.0 Low FINAL Tony wood [facility] - [place], [address] [place] [address] [address] [place] [id number] 0 Phone: () - 05/22 CBC w/ auto diff MO % % 6.0 15.0 6.4 FINAL Tony wood [facility] - [place], [address] [place] [address] [address] [place] [id number] 0 Phone: () - 05/22 CBC w/ auto diff EO % % 0.0 7.0 2.9 FINAL Tony wood [facility] - [place], [address] [place] [address] [address] [place] [id number] 0 Phone: () - 05/22 CBC w/ auto diff BA % % 0.0 2.0 0.2 FINAL Tony wood [facility] - [place], [address] [place] [address] [address] [place] [id number] 0 Phone: () - 05/22 CBC w/ auto diff LY # K/uL 0.4 3.6 0.2 Low FINAL Tony wood [facility] - [place], [address] [place] [address] [address] [place] [id number] 0 Phone: () - 05/22 CBC w/ auto diff MO # K/uL 0.2 1.3 0.3 FINAL Tony wood [facility] - [place], [address] [place] [address] [address] [place] [id number] 0 Phone: () - 05/22 CBC w/ auto diff EO # K/uL 0.0 0.6 0.2 FINAL Tony wood [facility] - [place], [address] [place] [address] [address] [place] [id number] 0 Phone: () - 05/22 CBC w/ auto diff BA # K/uL 0.0 0.2 0.0 FINAL Tony wood [facility] - [place], [address] [place] [id number] 0 Phone: () - 05/22 CBC w/ auto diff NRBC % #/100W BC 0.0 0.2 1.2 High FINAL Tony wood [facility] - [place], [address] [place] [id number] 0 Phone: () - 05/22 CBC w/ auto diff RBC M/uL 3.9 5.1 2.35 Low FINAL Tony wood [facility] - [place], [address] [place] [id number] 0 Phone: () - 05/22 CBC w/ auto diff HCT % 35.0 48.0 23.4 Low FINAL Tony wood [facility] - [place], [facility] [address] [place] [id number] 0 Phone: () - 05/22 CBC w/ auto diff MCV fL 80.0 104.0 99.6 FINAL Tony wood On[facility] - [place], [address] [place] [id number] 0 Phone: () - 05/22 CBC w/ auto diff MCH pg 26.0 35.0 34.9 FINAL Tony wood [facility] - [place], [address] [place] [id number] 0 Phone: () - 05/22 CBC w/ auto diff MCHC g/dL 30.0 35.0 35.0 FINAL Tony wood [facility] - [place], [address] [place] [id number] 0 Phone: () - 05/22 CBC w/ auto diff MPV fL 9.5 13.4 11.9 FINAL Tony wood On[facility] - [place], [facility] [address] [place] [id number] 0 Phone: () - 05/22 CBC w/ auto diff RDW % 11.4 16.1 13.40 FINAL Tony wood [facility] - [place], [facility] [address] [place] [id number] 0 Phone: () - 05/22 iSTAT creat inine panel Creat inine , iSTAT mg/dl 0.6 1.3 2.5 High FINAL Tony wood Oncology - [place], [address] [place] [id number] 0 Phone: () - 05/22 iSTAT creat inine panel GFR estim ate ml/min /1.73m ^2 17.2 Low GFR is calculate d using the CKD-EPI equation. FINAL Tony wood [facility] - [place], [address] [place] [id number] 0 Phone: () - 05/22 Sodiu m, iSTAT mmol/L 138.0 146.0 134 Low Reference range adjusted 0 with implement ation of I-Stat 8+ cartridge . FINAL Tony wood [facility]cology - [place] [facility], [address] [place] [id number] 0 Phone: () - 05/22 Potas sium, iSTAT mmol/L 3.5 4.9 3.6 Reference range adjusted 0 with implement ation of I-Stat 8+ cartridge . FINAL Tony wood Oncology - [place], [address] [place] [id number] 0 Phone: () - 05/22 Chlor glory, iSTAT mmol/L 98.0 109.0 96 Low Reference range adjusted 0 with implement ation of I-Stat 8+ cartridge . FINAL Tony wood Oncology - [place] [facility], [address] [place] [id number] 0 Phone: () - 05/22 Gluco se mg/dl 70.0 105.0 141 High Reference range adjusted 0 with implement ation of I-Stat 8+ cartridge . FINAL Tnoy wood Oncology - [place] [facility], [address] [place] [id number] 0 Phone: () - 05/22 BUN mg/dl 8.0 26.0 38 High Reference range adjusted 0 with implement ation of I-Stat 8+ cartridge . FINAL Tony wood [facility], [address] [place] [address] [address] [place] [id number] 0 Phone: () - 05/22 Total prote in g/dL 6.4 8.0 5.6 Low FINAL Tony wood [facility], [address] [place] [address] [id number] Phone: () - 05/22 Album in, SPE g/dL 3.31 5.31 3.72 FINAL Tony wood [facility], [address] [place] [address] [id number] 0 Phone: () - 05/22 Alpha -1 globu max g/dL 0.19 0.42 0.30 FINAL Tony wood [facility], [address] [facility] [address] [place] [address] [id number] 0 Phone: () - 05/22 Alpha -2 globu max g/dL 0.44 1.03 0.74 FINAL Tony wood [facility], [address] [facility] [address] [place] [address] [id number] 0 Phone: () - 05/22 Beta globu max g/dL 0.52 1.05 0.38 Low FINAL Tony wood [facility], [address] [facility] [address] [place] [address] [id number] 0 Phone: () - 05/22 Gamma globu max g/dL 0.59 1.46 0.46 Low FINAL Tony wood [facility], [address] [facility] [address] [place] [address] [id number] 0 Phone: () - 05/22 Elect ropho resis , Prote in Lab resul t note Parapro tein detecte d in gamma region = 0.4gm/d L. No history for compari son. Recomme nd immunot yping. Interpr eted and signed by Selena de la paz MD on 021 FINAL Tony wood [facility], [address] [facility] [address] [place] [address] [id number] 0 Phone: () - 05/22 M-spi ke, SPE, g/dL g/dL 0.40 FINAL Tony wood Oncology - [place], [address] [place] [id number] 0 Phone: () - 05/22 Hepat itis B surfa ce antig en panel Hepat itis B surfa ce antig en Nonreac tive Test Performed by:[email or web address] [address] - [facility] [place], [place] [address]Grqw e : FINAL Tony Gutierrez 05/22 Hepat itis C antib jacqui panel Hepat itis C antib jacqui, qual Non-Christine ctive Antibodie s to HCV not detected; does not exclude the possibili ty of exposure toHCV.Valerie t Performed by:[facility] [address] - [facility] [place], [place] [address]Ebrz e : FINAL Tony Gutierrez 05/29 CBC w/ auto diff WBC K/uL 3.0 8.9 12.9 High FINAL Cassy wood Oncology - [facility], [address] [place] [address] [address] [place] [id number] 0 Phone: () - 05/29 CBC w/ auto diff HGB g/dL 11.3 15.2 7.7 Critica l hematol ogy result obtaine d Criti desirae Low FINAL Cassy wood Oncology - [facility], [address] [place] [id number] 0 Phone: () - 05/29 CBC w/ auto diff PLT K/uL 113.0 364.0 142 FINAL [facility] wood [facility], [address] [place] [id number] 0 Phone: () - 05/29 CBC w/ auto diff Consuelo # (ANC) K/uL 1.6 6.6 11.4 High FINAL Cassy wood [facility], [address] [place] [id number] 0 Phone: () - 05/29 CBC w/ auto diff Consuelo % % 43.0 74.0 88.8 High FINAL Cassy wood [facility] - [place], [address] [place] [id number] 0 Phone: () - 05/29 CBC w/ auto diff IG % % 0.0 0.5 1.4 High FINAL Cassy wood [facility] - [place], [address] [place] [id number] 0 Phone: () - 05/29 CBC w/ auto diff IG # K/uL 0.0 0.03 0.18 High FINAL Cassy wood [facility] - [place], [address] [place] [address] [address] [place] [id number] 0 Phone: () - 05/29 CBC w/ auto diff LY % % 14.0 41.0 4.6 Low FINAL Cassy wood [facility] - [place], [address] [place] [address] [address] [place] [id number] 0 Phone: () - 05/29 CBC w/ auto diff MO % % 6.0 15.0 4.8 Low FINAL Cassy wood [facility] - [place], [address] [place] [address] [address] [place] [id number] 0 Phone: () - 05/29 CBC w/ auto diff EO % % 0.0 7.0 0.2 FINAL Cassy wood [facility] - [place], [address] [place] [address] [address] [place] [id number] 0 Phone: () - 05/29 CBC w/ auto diff BA % % 0.0 2.0 0.2 FINAL Cassy wood [facility] - [place], [address] [place] [address] [address] [place] [id number] 0 Phone: () - 05/29 CBC w/ auto diff LY # K/uL 0.4 3.6 0.6 FINAL Cassy wood [facility] - [place], [address] [place] [address] [address] [place] [id number] 0 Phone: () - 05/29 CBC w/ auto diff MO # K/uL 0.2 1.3 0.6 FINAL Cassy wood [facility] - [place], [address] [place] [id number] 0 Phone: () - 05/29 CBC w/ auto diff EO # K/uL 0.0 0.6 0.0 FINAL Cassy wood [facility] - [place], [address] [place] [id number] 0 Phone: () - 05/29 CBC w/ auto diff BA # K/uL 0.0 0.2 0.0 FINAL Cassy wood [facility] - [place], [address] [place] [id number] 0 Phone: () - 05/29 CBC w/ auto diff NRBC % #/100W BC 0.0 0.2 0.4 High FINAL Cassy wood [facility] - [place] [facility], [address] [place] [address] 200 [place] [id number] 0 Phone: () - 05/29 CBC w/ auto diff RBC M/uL 3.9 5.1 2.26 Low FINAL Cassy wood [facility] - [place], [address] [place] [address] 200 [place] [id number] 0 Phone: () - 05/29 CBC w/ auto diff HCT % 35.0 48.0 23.0 Low FINAL Cassy wood [facility] - [place], [address] [place] [address] 200 [place] [id number] 0 Phone: () - 05/29 CBC w/ auto diff MCV fL 80.0 104.0 101.8 FINAL Cassy wood On[facility] - [place], [address] [place] [address] 200 [place] [id number] 0 Phone: () - 05/29 CBC w/ auto diff MCH pg 26.0 35.0 34.1 FINAL Cassy wood [facility] - [place] [facility], [address] [place] [address] [address] [place] [id number] 0 Phone: () - 05/29 CBC w/ auto diff MCHC g/dL 30.0 35.0 33.5 FINAL Cassy wood [facility] - [place] [facility], [address] [place] [address] [address] [place] [id number] 0 Phone: () - 05/29 CBC w/ auto diff MPV fL 9.5 13.4 12.0 FINAL Cassy wood [facility], [address] [facility] [id number] 0 Phone: () - 05/29 CBC w/ auto diff RDW % 11.4 16.1 13.80 FINAL Cassy wood [facility], [address] [place] [address] 200 [facility] [id number] 0 Phone: () - 05/29 CMP CO2 mmol/L 20.0 31.0 27 The expected total allowable error for CO2 is 5.6%. We have seen up to 10% differenc e in values if reported at the end of the 96 hour stability window. Please consider the clinical significa nce of a 2.0-2.5 mmol/L lower reported CO2 value if reported at the end of the 96 hour stability window. FINAL Cassy wood [facility], [address] [id number] 0 Phone: () - 05/29 CMP Creat inine mg/dL 0.5 1.2 2.02 High FINAL Cassy wood [place] [address] [id number] [phone] Phone: () - 05/29 CMP GFR estim ate ml/min /1.73m ^2 22.2 Low GFR is calculate d using the CKD-EPI equation. FINAL Cassy wood [place] [address] [phone] 0 Phone: () - 05/29 CMP Gluco se mg/dL 73.0 126.0 100 FINAL Cassy wood [place] [address] [id number] 0 Phone: () - 05/29 CMP Potas sium mmol/L 3.5 5.1 4.0 FINAL Cassy wood [facility], [address] [id number] 0 Phone: () - 05/29 CMP Sodiu m mmol/L 136.0 145.0 138 FINAL Cassy wood [facility], [address] [place] [address] [id number] 0 Phone: () - 05/29 CMP Bilir ubin, total mg/dL 0.3 1.2 0.5 FINAL Cassy wood [facility], [address] [place] [address] [id number] 0 Phone: () - 05/29 CMP Total prote in g/dL 5.7 8.2 6.1 FINAL Cassy wood [facility] [address] [facility] [address] [place] [address] [id number] [phone] Phone: () - 05/29 CMP Album in g/dL 3.2 5.2 4.1 FINAL Cassy wood [facility] [address] [facility] [address] [place] [address] [id number] 0 Phone: () - 05/29 CMP Alkal ine phosp hatas e U/L 46.0 116.0 143 High FINAL Cassy wood [facility], [facility] [address] [facility] [address] [place] [address] [id number] 0 Phone: () - 05/29 CMP ALT/S GPT U/L 7.0 40.0 315 High FINAL Cassy wood [place] [address] [id number] 0 Phone: () - 05/29 CMP AST/S GOT U/L 13.0 40.0 150 High FINAL Cassy wood [place] [address] [address] [facility] [address] [place] [address] [id number] 0 Phone: () - 05/29 CMP BUN mg/dL 9.0 23.0 41 High FINAL Cassy wood [place] [address] [address] [facility] [address] [id number] 0 Phone: () - 05/29 CMP Calci um mg/dL 8.7 10.4 10.0 FINAL Csasy wood [place] [address] [address] [facility] [address] [place] [address] [id number] 0 Phone: () - 05/29 CMP Chlor glory mmol/L 96.0 114.0 100 FINAL Cassy wood [facility], [address] [facility] [address] [id number] 0 Phone: () - 05/29 Total prote in g/dL 6.4 8.0 6.0 Low FINAL Cassy wood [facility], [address] [facility] [address] [id number] 0 Phone: () - 05/29 Album in, SPE g/dL 3.31 5.31 3.74 FINAL Cassy wood [facility] [address] [id number] 0 Phone: () - 05/29 Alpha -1 globu max g/dL 0.19 0.42 0.38 FINAL Cassy wood [place] [address] [address] [facility] [address] [phone] 0 Phone: () - 05/29 Alpha -2 globu max g/dL 0.44 1.03 0.91 FINAL Cassy wood [place] [address] [address] [facility] [address] [id number] 0 Phone: () - 05/29 Beta globu max g/dL 0.52 1.05 0.49 Low FINAL Cassy wood [place] [address] [address] [facility] [address] [id number] 0 Phone: () - 05/29 Gamma globu max g/dL 0.59 1.46 0.48 Low FINAL Cassy wood [place] [address] [address] [facility] [address] [id number] 0 Phone: () - 05/29 Elect ropho resis , Prote in Lab resul t note Previou sly identif ied parapro tein detecte d in gamma region. Was 0.4 gm/dL, now 0.3 gm/dL. Interpr eted and signed by Jerilyn suazo MD on 021 FINAL Cassy wood [facility], [facility] N [facility] [address] [phone] 0 Phone: () - 05/29 M-spi ke, SPE, g/dL g/dL 0.35 FINAL Cassy wood [facility], [address] [facility] 100 [facility] [id number] 0 Phone: () - 05/29 iSTAT creat inine panel Creat inine , iSTAT mg/dl 0.6 1.3 2.3 High FINAL Cassy wood [facility], [address] [place] [id number] 0 Phone: () - 05/29 iSTAT creat inine panel GFR estim ate ml/min /1.73m ^2 19.0 Low GFR is calculate d using the CKD-EPI equation. FINAL Cassy wood [facility], [address] [place] [id number] 0 Phone: () - 06/01 [facility] other lab See chainstitch elastic attacher d 06/04 [facility] other lab See chainstitch elastic attacher d 06/05 CMP Album in g/dL 3.2 5.2 3.8 FINAL Cassy wood [facility], [address] [facility] [address] [place] [address] [id number] 0 Phone: () - 06/05 CMP Alkal ine phosp hatas e U/L 46.0 116.0 120 High FINAL Cassy wood [facility], [address] [facility] [address] [id number] 0 Phone: () - 06/05 CMP ALT/S GPT U/L 7.0 40.0 66 High FINAL Cassy wood [facility], [address] [facility] [address] [facility] [id number] [phone] Phone: () - 06/05 CMP AST/S GOT U/L 13.0 40.0 21 FINAL Cassy wood [facility], [address] [facility] 100 [facility] [id number] 0 Phone: () - 06/05 CMP BUN mg/dL 9.0 23.0 26 High FINAL Cassy wood [facility], [address] [facility] [id number] 0 Phone: () - 06/05 CMP Calci um mg/dL 8.7 10.4 9.2 FINAL Cassy wood [place] [address] [id number] [phone] Phone: () - 06/05 CMP Chlor glory mmol/L 96.0 114.0 108 FINAL Cassy wood [place] [address] [id number] 0 Phone: () - 06/05 CMP CO2 mmol/L 20.0 31.0 23 The expected total allowable error for CO2 is 5.6%. We have seen up to 10% differenc e in values if reported at the end of the 96 hour stability window. Please consider the clinical significa nce of a 2.0-2.5 mmol/L lower reported CO2 value if reported at the end of the 96 hour stability window. FINAL Cassy wood [place] [address] [id number] 0 Phone: () - 06/05 CMP Creat inine mg/dL 0.5 1.2 1.70 High FINAL Csasy wood [place] [address] [id number] 0 Phone: () - 06/05 CMP GFR estim ate ml/min /1.73m ^2 27.3 Low GFR is calculate d using the CKD-EPI equation. FINAL Cassy wood [place] [address] [id number] 0 Phone: () - 06/05 CMP Gluco se mg/dL 73.0 126.0 109 FINAL Cassy wood [place] [address] [id number] 0 Phone: () - 06/05 CMP Potas sium mmol/L 3.5 5.1 4.4 FINAL Cassy wood [place] [address] [phone] 0 Phone: () - 06/05 CMP Sodiu m mmol/L 136.0 145.0 142 FINAL Cassy wood [facility], [address] [facility] [address] [place] [id number] 0 Phone: () - 06/05 CMP Bilir ubin, total mg/dL 0.3 1.2 0.4 FINAL Cassy wood [facility], [address] [facility] [id number] [phone] Phone: () - 06/05 CMP Total prote in g/dL 5.7 8.2 5.7 FINAL Cassy wood [facility], [address] [facility] [place] [id number] 0 Phone: () - 06/05 iSTAT creat inine panel Creat inine , iSTAT mg/dl 0.6 1.3 2.0 High FINAL [facility], [address] [place] [address] 200 [facility] [place] [id number] 0 Phone: () - 06/05 iSTAT creat inine panel GFR estim ate ml/min /1.73m ^2 22.5 Low GFR is calculate d using the CKD-EPI equation. FINAL [facility], [address] [place] [address] [address] [place] [id number] 0 Phone: () - 06/05 CBC w/ auto diff WBC K/uL 3.0 8.9 4.3 FINAL Cassy wood [facility] - [place] [facility], [address] [place] [address] 200 [place] [id number] 0 Phone: () - 06/05 CBC w/ auto diff HGB g/dL 11.3 15.2 7.1 Critica l hematol ogy result obtaine d Criti desirae Low FINAL Cassy wood [facility] [place] [facility], [address] [place] [address] [address] [place] [id number] 0 Phone: () - 06/05 CBC w/ auto diff PLT K/uL 113.0 364.0 143 FINAL Cassy wood [facility], [address] 200 [place] [id number] 0 Phone: () - 06/05 CBC w/ auto diff Consuelo # (ANC) K/uL 1.6 6.6 3.3 FINAL Cassy wood [facility] - [place], [address] [place] [address] [address] [place] [id number] 0 Phone: () - 06/05 CBC w/ auto diff Consuelo % % 43.0 74.0 75.0 High FINAL Cassy wood [facility] - [place], [address] [place] [address] [address] [place] [id number] 0 Phone: () - 06/05 CBC w/ auto diff IG % % 0.0 0.5 0.5 FINAL Cassy wood [facility] - [place], [address] [place] [address] [address] [place] [id number] 0 Phone: () - 06/05 CBC w/ auto diff IG # K/uL 0.0 0.03 0.02 FINAL Cassy wood [facility] - [place], [address] [place] [address] [address] [place] [id number] 0 Phone: () - 06/05 CBC w/ auto diff LY % % 14.0 41.0 13.4 Low FINAL Cassy wood [facility] - [place] [facility], [address] [place] [address] [address] [place] [id number] 0 Phone: () - 06/05 CBC w/ auto diff MO % % 6.0 15.0 6.2 FINAL Cassy wood [facility] - [place], [address] [place] [address] [address] [place] [id number] 0 Phone: () - 06/05 CBC w/ auto diff EO % % 0.0 7.0 4.2 FINAL Cassy wood [facility] - [place], [address] [place] [address] [address] [place] [id number] 0 Phone: () - 06/05 CBC w/ auto diff BA % % 0.0 2.0 0.7 FINAL Cassy wood [facility] - [place], [address] [place] [address] [address] [place] [id number] 0 Phone: () - 06/05 CBC w/ auto diff LY # K/uL 0.4 3.6 0.6 FINAL Cassy wood [facility] - [place] [facility], [address] [place] [address] [address] [place] [id number] 0 Phone: () - 06/05 CBC w/ auto diff MO # K/uL 0.2 1.3 0.3 FINAL Cassy wood [facility] - [place], [address] [place] [address] [address] [place] [id number] 0 Phone: () - 06/05 CBC w/ auto diff EO # K/uL 0.0 0.6 0.2 FINAL Cassy wood [facility] - [place], [address] [place] [address] [address] [place] [id number] 0 Phone: () - 06/05 CBC w/ auto diff BA # K/uL 0.0 0.2 0.0 FINAL Cassy wood [facility] - [place], [address] [place] [address] [address] [place] [id number] 0 Phone: () - 06/05 CBC w/ auto diff NRBC % #/100W BC 0.0 0.2 0.0 FINAL Cassy wood [facility] - [place] [facility], [address] [place] [address] [address] [place] [id number] 0 Phone: () - 06/05 CBC w/ auto diff RBC M/uL 3.9 5.1 2.07 Low FINAL Cassy wood [facility] - [place] [facility], [address] [place] [address] [address] [place] [id number] 0 Phone: () - 06/05 CBC w/ auto diff HCT % 35.0 48.0 21.9 Low FINAL Cassy wood [facility] - [place], [address] [place] [address] [address] [place] [id number] 0 Phone: () - 06/05 CBC w/ auto diff MCV fL 80.0 104.0 105.8 High FINAL Cassy wood [facility] - [place], [address] [place] [address] [address] [place] [id number] 0 Phone: () - 06/05 CBC w/ auto diff MCH pg 26.0 35.0 34.3 FINAL Cassy wood [facility] - [place], [address] [place] [id number] 0 Phone: () - 06/05 CBC w/ auto diff MCHC g/dL 30.0 35.0 32.4 FINAL Cassy wood [facility], [address] [place] [id number] 0 Phone: () - 06/05 CBC w/ auto diff MPV fL 9.5 13.4 11.4 FINAL Cassy wood [facility], [address] [place] [id number] 0 Phone: () - 06/05 CBC w/ auto diff RDW % 11.4 16.1 14.30 FINAL Cassy wood [facility], [address] [place] [address] 200 [place] [id number] 0 Phone: () - 06/05 Uric acid panel Uric acid mg/dL 2.5 7.7 3.7 FINAL Cassy Sierra [facility], [address] [id number] 0 Phone: () - 06/05 Crys tin panel Crys tin NG/ML 10.0 130.0 975.10 High FINAL Wendi Chan [facility], [address] [id number] 0 Phone: () - 06/05 Iron profi le TIBC ug/dL 250.0 425.0 264 FINAL Wendi Chan [place] [address] [id number] 0 Phone: () - 06/05 Iron profi le Iron ug/dL 50.0 175.0 46 Low FINAL Wendi Chan [facility] [address] [id number] 0 Phone: () - 06/05 Iron profi le Unbou nd iron capac ity ug/dL 75.0 410.0 218 FINAL Wendi Chan [facility] [address] [id number] 0 Phone: () - 06/05 Iron profi le Iron, % satur ation % 20.0 55.0 17 Low FINAL Wendi wood [facility], [address] [place] [id number] 0 Phone: () - 06/11 [facility] other lab See chainstitch elastic attacher d 06/12 iSTAT creat inine panel Creat inine , iSTAT mg/dl 0.6 1.3 1.7 High FINAL Cassy wood Oncology - [place], [address] [place] [address] [address] [place] [id number] 0 Phone: () - 06/12 iSTAT creat inine panel GFR estim ate ml/min /1.73m ^2 27.3 Low GFR is calculate d using the CKD-EPI equation. FINAL Cassy wood [facility] - [place], [address] [place] [address] [address] [place] [id number] 0 Phone: () - 06/12 CBC w/ auto diff WBC K/uL 3.0 8.9 3.6 FINAL Cassy wood [facility] - [place], [address] [place] [address] [address] [place] [id number] 0 Phone: () - 06/12 CBC w/ auto diff HGB g/dL 11.3 15.2 9.1 Low FINAL Cassy wood [facility] - [place] [facility], [address] [place] [address] [address] [place] [id number] 0 Phone: () - 06/12 CBC w/ auto diff PLT K/uL 113.0 364.0 168 FINAL Cassy wood [facility] - [place], [address] [place] [address] [address] [place] [id number] 0 Phone: () - 06/12 CBC w/ auto diff Consuelo # (ANC) K/uL 1.6 6.6 2.5 FINAL Cassy wood [facility] - [place], [address] [place] [address] [address] [place] [id number] 0 Phone: () - 06/12 CBC w/ auto diff Consuelo % % 43.0 74.0 70.3 FINAL Cassy [place] [facility] [place], [address] [place] [id number] 0 Phone: () - 06/12 CBC w/ auto diff IG % % 0.0 0.5 4.5 High FINAL Cassy wood [facility] - [place], [address] 200 [place] [id number] 0 Phone: () - 06/12 CBC w/ auto diff IG # K/uL 0.0 0.03 0.16 High FINAL Cassy wood [facility] - [place], [address] [place] [id number] 0 Phone: () - 06/12 CBC w/ auto diff LY % % 14.0 41.0 16.2 FINAL Cassy wood [facility] - [place], [address] 200 [place] [id number] 0 Phone: () - 06/12 CBC w/ auto diff MO % % 6.0 15.0 6.7 FINAL Cassy wood [facility] - [place], [address] 200 [place] [id number] 0 Phone: () - 06/12 CBC w/ auto diff EO % % 0.0 7.0 1.7 FINAL Cassy wood [facility] - [place], [address] [place] [address] 200 [place] [id number] 0 Phone: () - 06/12 CBC w/ auto diff BA % % 0.0 2.0 0.6 FINAL Cassy wood [facility] - [place], [address] 200 [place] [id number] 0 Phone: () - 06/12 CBC w/ auto diff LY # K/uL 0.4 3.6 0.6 FINAL Cassy wood [facility] - [place] [facility], [address] [place] [address] 200 [place] [id number] 0 Phone: () - 06/12 CBC w/ auto diff MO # K/uL 0.2 1.3 0.2 FINAL Cassy wood [facility] - [place] [facility], [address] 200 [place] [id number] 0 Phone: () - 06/12 CBC w/ auto diff EO # K/uL 0.0 0.6 0.1 FINAL Cassy wood [facility] - [place] [facility], [address] [place] [id number] 0 Phone: () - 06/12 CBC w/ auto diff BA # K/uL 0.0 0.2 0.0 FINAL Cassy wood [facility] - [place] [facility], [address] 200 [place] [id number] 0 Phone: () - 06/12 CBC w/ auto diff NRBC % #/100W BC 0.0 0.2 0.8 High FINAL Cassy wood [facility] - [place] [facility], [address] [place] [address] 200 [place] [id number] 0 Phone: () - 06/12 CBC w/ auto diff RBC M/uL 3.9 5.1 2.76 Low FINAL Cassy wood [facility] - [place] [facility], [address] [place] [address] 200 [place] [id number] 0 Phone: () - 06/12 CBC w/ auto diff HCT % 35.0 48.0 27.9 Low FINAL Cassy wood [facility] - [place] [facility], [address] [place] [address] 200 [place] [id number] 0 Phone: () - 06/12 CBC w/ auto diff MCV fL 80.0 104.0 101.1 FINAL Cassy wood [facility] - [place] [facility], [address] [place] [id number] 0 Phone: () - 06/12 CBC w/ auto diff MCH pg 26.0 35.0 33.0 FINAL Cassy wood [facility] - [place] [facility], [address] 200 [place] [id number] 0 Phone: () - 06/12 CBC w/ auto diff MCHC g/dL 30.0 35.0 32.6 FINAL Cassy wood [facility] - [place] [facility], [address] 200 [place] [id number] 0 Phone: () - 06/12 CBC w/ auto diff MPV fL 9.5 13.4 10.8 FINAL [facility], [address] [place] [id number] 0 Phone: () - 06/12 CBC w/ auto diff RDW % 11.4 16.1 15.90 FINAL Cassy wood [facility], [address] [place] [address] [address] [place] [id number] 0 Phone: () - 06/12 CMP Sodiu [...] IU/L 2.0 40.0 47 High Test Performed by:[facility] [id number], [address] - [place], [place] [address]Pndj e : FINAL Cassy Tucker 06/18 [facility] other lab See chainstitch elastic attacher d 06/18 [facility] other lab See chainstitch elastic attacher d 06/18 [facility] other lab See chainstitch elastic attacher d 06/19 CMP Album in g/dL 3.2 5.2 3.5 FINAL Cassy Sierra a [facility], [address] [place] [address] [id number] [phone] Phone: () - 06/19 CMP Alkal ine phosp hatas e U/L 46.0 116.0 137 High FINAL Cassy wood [facility], [address] [place] [address] [id number] 0 Phone: () - 06/19 CMP ALT/S GPT U/L 7.0 40.0 100 High FINAL Cassy Sierra a [facility], [address] [facility] [id number] 0 Phone: () - 06/19 CMP AST/S GOT U/L 13.0 40.0 30 FINAL Cassy wood [facility], [address] [facility] [id number] 0 Phone: () - 06/19 CMP BUN mg/dL 9.0 23.0 25 High FINAL Cassy Sierra a [facility], [address] [id number] 0 Phone: () - 06/19 CMP Calci um mg/dL 8.7 10.4 9.5 FINAL Cassy wood [place] [address] [id number] 0 Phone: () - 06/19 CMP Chlor glory mmol/L 96.0 114.0 110 FINAL Cassy wood [place] [address] [id number] 0 Phone: () - 06/19 CMP CO2 [...] 96 hour stability window. FINAL Cassy wood [place] [address] [id number] 0 Phone: () - 06/19 CMP Creat inine mg/dL 0.5 1.2 1.43 High FINAL Cassy wood [place] [address] [id number] 0 Phone: () - 06/19 CMP GFR estim ate ml/min /1.73m ^2 33.7 Low GFR is calculate d using the CKD-EPI equation. FINAL Cassy wood [place] [address] [id number] 0 Phone: () - 06/19 CMP Gluco se mg/dL 73.0 126.0 97 FINAL Cassy wood [place] [address] [id number] 0 Phone: () - 06/19 CMP Potas sium mmol/L 3.5 5.1 4.2 FINAL Cassy wood [place] [address] [id number] 0 Phone: () - 06/19 CMP Sodiu m mmol/L 136.0 145.0 144 FINAL Cassy wood [facility], [address] [facility] [address] [facility] [id number] 0 Phone: () - 06/19 CMP Bilir ubin, total mg/dL 0.3 1.2 0.5 FINAL Cassy wood [facility], [address] [facility] [id number] 0 Phone: () - 06/19 CMP Total prote in g/dL 5.7 8.2 5.1 Low FINAL Cassy wood [facility], [address] [facility] [address] [place] [id number] 0 Phone: () - 06/19 iSTAT creat inine panel Creat inine , iSTAT mg/dl 0.6 1.3 1.7 High FINAL Cassy wood [facility], [address] [place] [address] [address] [facility] [place] [id number] 0 Phone: () - 06/19 iSTAT creat inine panel GFR estim ate ml/min /1.73m ^2 27.3 Low GFR is calculate d using the CKD-EPI equation. FINAL Cassy wood [facility], [address] [place] [address] [address] [place] [id number] 0 Phone: () - 06/19 CBC w/ auto diff WBC K/uL 3.0 8.9 6.2 FINAL Cassy wood [facility], [address] [place] [address] [address] [place] [id number] 0 Phone: () - 06/19 CBC w/ auto diff HGB g/dL 11.3 15.2 9.4 Low FINAL Cassy wood [facility] [place] [facility], [address] [place] [address] [address] [place] [id number] 0 Phone: () - 06/19 CBC w/ auto diff PLT K/uL 113.0 364.0 198 FINAL [facility]y wood [facility], [address] [place] [address] [address] [place] [id number] 0 Phone: () - 06/19 CBC w/ auto diff Consuelo # (ANC) K/uL 1.6 6.6 4.0 FINAL Cassy wood [facility] - [place], [address] [place] [address] [address] [place] [id number] 0 Phone: () - 06/19 CBC w/ auto diff Consuelo % % 43.0 74.0 64.4 FINAL Cassy wood [facility] - [place], [address] [place] [address] [address] [place] [id number] 0 Phone: () - 06/19 CBC w/ auto diff IG % % 0.0 0.5 4.0 High FINAL Cassy wood [facility] - [place], [address] [place] [address] [address] [place] [id number] 0 Phone: () - 06/19 CBC w/ auto diff IG # K/uL 0.0 0.03 0.25 High FINAL Cassy wood [facility] - [place], [address] [place] [address] [address] [place] [id number] 0 Phone: () - 06/19 CBC w/ auto diff LY % % 14.0 41.0 22.9 FINAL Cassy wood [facility] - [place], [address] [place] [address] [address] [place] [id number] 0 Phone: () - 06/19 CBC w/ auto diff MO % % 6.0 15.0 7.6 FINAL Cassy wood [facility] - [place], [address] [place] [address] [address] [place] [id number] 0 Phone: () - 06/19 CBC w/ auto diff EO % % 0.0 7.0 0.8 FINAL Cassy wood [facility] - [place], [address] [place] [address] [address] [place] [id number] 0 Phone: () - 06/19 CBC w/ auto diff BA % % 0.0 2.0 0.3 FINAL Cassy wood [facility] - [place], [address] [place] [address] [address] [place] [id number] 0 Phone: () - 06/19 CBC w/ auto diff LY # K/uL 0.4 3.6 1.4 FINAL Cassy wood [facility] - [place], [address] [place] [address] [address] [place] [id number] 0 Phone: () - 06/19 CBC w/ auto diff MO # K/uL 0.2 1.3 0.5 FINAL Cassy wood [facility] - [place], [address] [place] [id number] 0 Phone: () - 06/19 CBC w/ auto diff EO # K/uL 0.0 0.6 0.1 FINAL Cassy wood [facility] - [place], [address] [place] [id number] 0 Phone: () - 06/19 CBC w/ auto diff BA # K/uL 0.0 0.2 0.0 FINAL Cassy wood [facility] - [place], [address] [place] [id number] 0 Phone: () - 06/19 CBC w/ auto diff NRBC % #/100W BC 0.0 0.2 0.8 High FINAL Cassy wood [facility] - [place], [address] [place] [id number] 0 Phone: () - 06/19 CBC w/ auto diff RBC M/uL 3.9 5.1 2.83 Low FINAL Cassy wood [facility] - [place], [address] [place] [id number] 0 Phone: () - 06/19 CBC w/ auto diff HCT % 35.0 48.0 29.1 Low FINAL Cassy wood [facility] - [place], [address] [place] [id number] 0 Phone: () - 06/19 CBC w/ auto diff MCV fL 80.0 104.0 102.8 FINAL Cassy wood [facility] - [place], [address] [place] [address] [address] [place] [id number] 0 Phone: () - 06/19 CBC w/ auto diff MCH pg 26.0 35.0 33.2 FINAL Cassy wood [facility] - [place], [address] [place] [id number] 0 Phone: () - 06/19 CBC w/ auto diff MCHC g/dL 30.0 35.0 32.3 FINAL Cassy wood Oncology [facility], [address] [place] [address] 200 [facility] [id number] 0 Phone: () - 06/19 CBC w/ auto diff MPV fL 9.5 13.4 10.7 FINAL Cassy wood [facility], [address] [place] [address] 200 [facility] [id number] 0 Phone: () - 06/19 CBC w/ auto diff RDW % 11.4 16.1 16.10 FINAL Cassy wood [facility], [address] [facility] [id number] 0 Phone: () - Medications Date Name [...] myeloma Active Vital Signs Date Type Value 05/22/2021 BMI 25.47 05/22/2021 Height 66.00 05/22/2021 Weight 157.80 05/22/2021 Pain Scale 0.00 05/22/2021 BSA 1.81 05/22/2021 Oxygen Saturation 100.00 05/22/2021 Respiratory Rate 16.00 05/22/2021 Heart Beat 62.00 05/22/2021 Body Temperature 97.80 05/22/2021 Intravascular Systolic 112 05/22/2021 Intravascular Diastolic 78 05/29/2021 Intravascular Systolic 122 05/29/2021 Intravascular Diastolic 82 05/29/2021 BSA 1.80 05/29/2021 BMI 25.31 05/29/2021 Height 66.00 05/29/2021 Weight 156.80 05/29/2021 Pain Scale 0.00 05/29/2021 Oxygen Saturation 100.00 05/29/2021 Respiratory Rate 16.00 05/29/2021 Heart Beat 88.00 05/29/2021 Body Temperature 96.20 06/05/2021 BMI 24.79 06/05/2021 Height 66.00 06/05/2021 Weight 153.60 06/05/2021 Pain Scale 0.00 06/05/2021 BSA 1.79 06/05/2021 Oxygen Saturation 94.00 06/05/2021 Respiratory Rate 16.00 06/05/2021 Heart Beat 73.00 06/05/2021 Body Temperature 97.80 06/05/2021 Intravascular Systolic 108 06/05/2021 Intravascular Diastolic 56 06/12/2021 Body Temperature 97.70 06/12/2021 Heart Beat 83.00 06/12/2021 Respiratory Rate 15.00 06/12/2021 Oxygen Saturation 97.00 06/12/2021 Intravascular Systolic 124 06/12/2021 Intravascular Diastolic 84 06/12/2021 BSA 1.78 06/12/2021 Pain Scale 0.00 06/12/2021 Weight 151.60 06/12/2021 BMI 24.47 06/12/2021 Height 66.00 06/19/2021 BSA 1.78 06/19/2021 BMI 24.40 06/19/2021 Height 66.00 06/19/2021 Weight 151.20 06/19/2021 Body Temperature 98.10 06/19/2021 Intravascular Systolic 118 06/19/2021 Intravascular Diastolic 66 06/19/2021 Oxygen Saturation 98.00 06/19/2021 Respiratory Rate 16.00 06/19/2021 Heart Beat 83.00 06/19/2021 Pain Scale 0.00
--- OUTSIDE RECORDS SUMMARY | 2024-12-21 10:05 | XMS_ITS ---
Author Name Interface, [id number] lity Address [address] [facility] [address] [address] [facility] Address [address] [facility] [address] [address] Care Team Providers Care Expense Analyst Name Role Phone Wendi Chan Unavailable Unavailable Allergies and Adverse Reactions Medication/Group Name Reaction Severity Date No known allergies Plan Date Type Value 06/19/2021 APPOINTMENT RCT15 - 0123 ARM RC VELCADE - 0123 ARM RC VELCADE 06/19/2021 APPOINTMENT RCT15 - 0123 ARM RC VELCADE - 0123 ARM RC VELCADE 06/19/2021 APPOINTMENT RCT15 - 0123 ARM RC VELCADE - 0123 ARM RC VELCADE 06/19/2021 LABORDER CMP 06/19/2021 LABORDER iSTAT creatinine panel 06/19/2021 LABORDER CBC w/ auto diff Reason for Visit RCT15 - 0123 ARM RC VELCADE - 0123 ARM RC VELCADE Encounters Date Name 06/19/2021 Anemia 06/19/2021 DVT - Deep vein thro mbosis of lower limb 06/19/2021 Liver function tests abnormal (finding) 06/19/2021 Multiple myeloma 06/19/2021 Renal failure Diagnostic Results Date Type Test Units Lower Limit Upper Limit Result Flag Comments Status Ordered By Specimen Source Lab Address 06/19 iSTAT creat inine panel Creat inine , iSTAT mg/dl 0.6 1.3 1.7 High FINAL Cassy Caitlin [facility], [address] [place] [address] [address] [facility] [place] [phone] Phone: () - 06/19 iSTAT creat inine panel GFR estim ate ml/min /1.73m ^2 27.3 Low GFR is calculate d using the CKD-EPI equation. FINAL Cassy wood [facility], [address] [place] [address] [address] [facility] [phone] 0 Phone: () - 06/19 CMP Album in g/dL 3.2 5.2 3.5 FINAL Cassy wood [facility] [address] [facility] [address] [facility] [phone] 0 Phone: () - 06/19 CMP Alkal ine phosp hatas e U/L 46.0 116.0 137 High FINAL [facility] [address] [facility] [address] [phone] Phone: () - 06/19 CMP ALT/S GPT U/L 7.0 40.0 100 High FINAL Cassy [facility] [address] [id number] [phone] Phone: () - 06/19 CMP AST/S GOT U/L 13.0 40.0 30 FINAL [facility] [address] [facility] [address] [phone] 0 Phone: () - 06/19 CMP BUN mg/dL 9.0 23.0 25 High FINAL [facility] [address] [facility] [address] [phone] 0 Phone: () - 06/19 CMP Calci um mg/dL 8.7 10.4 9.5 FINAL [place] [address] [address] [facility] [address] [phone] Phone: () - 06/19 CMP Chlor glory mmol/L 96.0 114.0 110 FINAL [facility] [address] [address] [facility] [address] [phone] 0 Phone: () - 06/19 CMP CO2 [...] 96 hour stability window. FINAL [place]y wood [place] [address] [phone] Phone: () - 06/19 CMP Creat inine mg/dL 0.5 1.2 1.43 High FINAL Cassy owod [place] [address] [phone] Phone: () - 06/19 CMP GFR estim ate ml/min /1.73m ^2 33.7 Low GFR is calculate d using the CKD-EPI equation. FINAL [place]y [place] [address] [phone] 0 Phone: () - 06/19 CMP Gluco se mg/dL 73.0 126.0 97 FINAL [place]y [place] [address] [phone] Phone: () - 06/19 CMP Potas sium mmol/L 3.5 5.1 4.2 FINAL [place] [address] [phone] 0 Phone: () - 06/19 CMP Sodiu m mmol/L 136.0 145.0 144 FINAL [place] [address] [phone] 0 Phone: () - 06/19 CMP Bilir ubin, total mg/dL 0.3 1.2 0.5 FINAL [place] [address] [phone] 0 Phone: () - 06/19 CMP Total prote in g/dL 5.7 8.2 5.1 Low FINAL [place]y [place] [address] [phone] 0 Phone: () - 06/19 CBC w/ auto diff WBC K/uL 3.0 8.9 6.2 FINAL [facility]y [facility] [place], [address] [place] [address] [address] [place] [phone] 0 Phone: () - 06/19 CBC w/ auto diff HGB g/dL 11.3 15.2 9.4 Low FINAL [facility] [place], [address] [facility] [address] [place] [phone] 0 Phone: () - 06/19 CBC w/ auto diff PLT K/uL 113.0 364.0 198 FINAL [facility] [place], [address] [place] [address] [address] [place] [phone] 0 Phone: () - 06/19 CBC w/ auto diff Consuelo # (ANC) K/uL 1.6 6.6 4.0 FINAL [facility] [place], [address] [place] [address] [address] [place] [phone] 0 Phone: () - 06/19 CBC w/ auto diff Consuelo % % 43.0 74.0 64.4 FINAL [facility] [place], [address] [place] [address] [address] [place] [phone] 0 Phone: () - 06/19 CBC w/ auto diff IG % % 0.0 0.5 4.0 High FINAL [facility] [place], [address] [place] [address] [address] [place] [phone] 0 Phone: () - 06/19 CBC w/ auto diff IG # K/uL 0.0 0.03 0.25 High FINAL [facility] [place], [address] [place] [address] [address] [place] [phone] 0 Phone: () - 06/19 CBC w/ auto diff LY % % 14.0 41.0 22.9 FINAL [facility] [place], [address] [place] [address] [address] [place] [phone] 0 Phone: () - 06/19 CBC w/ auto diff MO % % 6.0 15.0 7.6 FINAL [facility] [place], [address] [place] [phone] 0 Phone: () - 06/19 CBC w/ auto diff EO % % 0.0 7.0 0.8 FINAL [facility] [place], [address] [place] [address] 200 [place] [phone] 0 Phone: () - 06/19 CBC w/ auto diff BA % % 0.0 2.0 0.3 FINAL [facility] [place], [address] [place] [address] 200 [place] [phone] 0 Phone: () - 06/19 CBC w/ auto diff LY # K/uL 0.4 3.6 1.4 FINAL [facility] [place] [facility], [address] [place] [address] 200 [place] [phone] 0 Phone: () - 06/19 CBC w/ auto diff MO # K/uL 0.2 1.3 0.5 FINAL [facility] [place] [facility], [address] [place] [address] 200 [facility] [place] [phone] 0 Phone: () - 06/19 CBC w/ auto diff EO # K/uL 0.0 0.6 0.1 FINAL [facility] [place] [facility], [address] [place] [address] 200 [place] [phone] 0 Phone: () - 06/19 CBC w/ auto diff BA # K/uL 0.0 0.2 0.0 FINAL [place] [place] [facility], [address] [place] [address] 200 [place] [phone] 0 Phone: () - 06/19 CBC w/ auto diff NRBC % #/100W BC 0.0 0.2 0.8 High FINAL [facility] [place] [facility], [address] [place] [address] 200 [place] [phone] 0 Phone: () - 06/19 CBC w/ auto diff RBC M/uL 3.9 5.1 2.83 Low FINAL [facility] [place] [facility], [address] [place] [address] 200 [place] [phone] 0 Phone: () - 06/19 CBC w/ auto diff HCT % 35.0 48.0 29.1 Low FINAL Cassy [facility], [address] [place] [address] 200 [facility] [phone] 0 Phone: () - 06/19 CBC w/ auto diff MCV fL 80.0 104.0 102.8 FINAL [facility], [address] [place] [address] 200 [facility] [phone] 0 Phone: () - 06/19 CBC w/ auto diff MCH pg 26.0 35.0 33.2 FINAL [facility], [address] [place] [address] 200 [facility] [phone] 0 Phone: () - 06/19 CBC w/ auto diff MCHC g/dL 30.0 35.0 32.3 FINAL [facility], [address] [place] [address] 200 [facility] [phone] 0 Phone: () - 06/19 CBC w/ auto diff MPV fL 9.5 13.4 10.7 FINAL [facility], [address] [place] [address] 200 [facility] [phone] 0 Phone: () - 06/19 CBC w/ auto diff RDW % 11.4 16.1 16.10 FINAL [facility], [address] [place] [address] 200 [facility] [phone] 0 Phone: () - Medications Date Name [...] myeloma Active Vital Signs Date Type Value 06/19/2021 Body Temperature 98.10 06/19/2021 Heart Beat 83.00 06/19/2021 Respiratory Rate 16.00 06/19/2021 Oxygen Saturation 98.00 06/19/2021 BSA 1.78 06/19/2021 Pain Scale 0.00 06/19/2021 Weight 151.20 06/19/2021 Height 66.00 06/19/2021 BMI 24.40 06/19/2021 Intravascular Systolic 118 06/19/2021 Intravascular Diastolic 66
--- OUTSIDE RECORDS SUMMARY | 2024-12-21 10:05 | XMS_ITS | Clinical Summary ---
Author Organization [facility] Address [facility] [place] [address] Care Team Providers Care Method Consultant Name Role Phone Jenelle Chung Ashlee Unavailable [phone] Sena Mcintyre MD Primary Care Provider [phone] Allergies No known active allergies Medications medication [...] daily if needed for Constipation. 100 Tablet 11:27 AM CDT 05/15/20 21 Active dexAMETHasone [...] DAILY 180 Tablet 1 03/05/20 22 Active allopurinoL (ZYLOPRIM) 100 mg tablet Take 2 Tablets by mouth once daily. Active metoprolol succinate SR (TOPROL XL) 200 mg Sustained-Release tabletIndications: Longstanding persistent atrial fibrillation (HC) TAKE ONE TABLET BY MOUTH ONE TIME DAILY 90 Tablet 3 10/08/19 25 Active Active Problems Problem Noted Date Diagnosed [...] Encounters Date Type Department Care Team Description 10/12/2024 Telephone [facility] [place] [address] [facility] [address] [place] [id number] Mason Hodge MD Blood Pressure 10/07/2024 Telephone [facility] [address] [place] [phone] Mason Hodge MD Medication Management 10/06/2024 Refill [facility] [address] [place] [address] Mason Hodge MD Refill Request (Metoprolol Succinate Sr) from Last 3 Months Immunizations Immunization Administration Dates Next Due Hepatitis A (Adult) [...] Mother endometrial Hyperlipidemia Son Omar Pulmonary embolism Carl Nelson Relation Name Status Comments Daughter 1 Alive [...] on file Legal Sex Female 5:24 AM 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 Gender Identity Not on file Sexual Orientation [...] 36.4 C (97.5 F) 09/07/2021 2:00 PM 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 Respiratory Rate 18 09/07/2021 2:00 PM 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 Oxygen Saturation 98% 04/20/2024 1:06 PM CDT Inhaled Oxygen Concentration - - Weight 78 kg (172 lb) 04/20/2024 1:06 PM CDT Height 167.6 cm (5' 6) 09/07/2021 10:29 AM 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 Body Mass Index 27.76 09/07/2021 10:29 AM 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 Plan of Treatment Health Maintenance Due Date Last Done Comments Depression screening for age 12+ 1952 RSV vaccine for adults or (1 - 1-dose 75+ series) 2013 BMI (ht and wt on same day) for age 18+ 07/20/2021 07/20/2020, 07/05/2019, 06/29/2018, Additional history exists Medicare Wellness for age 65+ 07/21/2021 07/20/2020, 07/05/2019, 06/29/2018, Additional history exists COVID-19 vaccine series (8 - Pfizer risk season) 2024 04/08/2024, 05/05/2023, 04/25/2022, Additional history exists Influenza Vaccine (Season Ended) 2025 05/03/2021, 05/17/2020, 07/05/2019, Additional history exists Tetanus booster 05/17/2030 05/17/2020, 12/03, 05/04/1999 DEXA/DXA scan for age 65+ Addressed 01/07/2011 (Dec lined) Overridden with the intention of not completing the topic Pneumococcal series for age 50+ Completed 06/16/2017, 03/30/2003 Tdap Completed 05/17/2020 Zoster (shingles) series for age 50+ Completed 02/19/2021, 11/30/2020 Hepatitis B series for 19+ Aged Out N o longer eligible based on patient's age to complete this topic Insurance [employer] [place] BLUE MR PB ONLY MEDICARE PART A HB ONLY [employer] [place] BLUE HB ONLY MEDICARE PART B HB [...] Other (specify in commen ts): Care Teams Method Consultant Relationship Specialty Start Date End Date Sena Mcintyre MD [address] [place] [address] PCP - General Internal Medicine 05/16/21 Jenelle Chung AuD Audiology 11/09/07
--- NOTE | 2024-12-21 10:35 | ED.SOB ---
HPI - SOB/Dyspnea General Time Seen by Provider: 10:35 Date Seen: 12/21/24 Chief Complaint: Shortness of Breath/Dyspnea Stated Complaint: Shortness of Breath Cough Time Seen by Provider: 12/21/24 10:31 Source: patient, RN notes reviewed and old records reviewed Mode of arrival: ambulatory Limitations: no limitations History of Present Illness HPI Narrative: This 84-year-old female is accompanied in by her daughter and coming in with respiratory illness with fever, coughing, worsening shortness of breath. She has been sick with shortness of breath and cough for about 9 days now. Denies any chest pain. She has been coughing, somewhat productive. She has shortness of breath which is worse with exertion. She notes that she has some swelling but her daughter feels that her swelling of her legs is baseline. She admits her mom will intermittently have some lower extremity swelling but does not feel that there is any now. She was in clinic and saw her primary doctor, Dr. Mcintyre, on December 16. A chest x-ray did not show any pneumonia. She has had multiple swabs, had a negative triple viral swab on December 16. She does have underlying atrial fibrillation and is anticoagulated with Eliquis. She has decreased appetite but has still been drinking fluids. Her past medical history is reviewed and she has had a history of chronic kidney disease with acute kidney injury, history of breast cancer, chronic atrial fibrillation, history of a DVT, hyperlipidemia, sensorineural hearing loss with hearing aids which are not in currently, aortic valve regurgitation, multiple myeloma, peripheral neuropathy from previous chemotherapy. She also has nontraumatic pain in her left hip that has recently developed. 11:10 a.m.: On further discussion with the daughter, patient did slide out of bed this morning onto the ground. Her hip pain has started after that from what the daughter knows. Her mom looked much better on Friday when she saw her. She has also reported diarrhea but she sometimes will have that with the Revlimid. They held that last night. MD elicited complaint: shortness of breath and cough Related Data Home oxygen amount: none Home Medications ?Medication ?Instructions ?Recorded ?Confirmed diphenhydramine HCl 25 mg capsule 25 mg PO Q8H PRN 02/13/22 12/16/24 (Benadryl) cholecalciferol (vitamin D3) 10 10 mcg PO DAILY 04/25/22 12/21/24 mcg (400 unit) capsule (Vitamin D3) acetaminophen 500 mg tablet 500 - 1,000 mg PO Q6H PRN 05/28/22 12/21/24 metoprolol succinate 200 mg 200 mg PO DAILY 10/30/23 12/21/24 tablet,extended release 24 hr sennosides 8.6 mg tablet (Laxative 8.6 mg PO DAILY PRN 09/09/24 12/21/24 (sennosides)) dexamethasone 4 mg tablet 20 mg PO DIRECTED PRN 11/15/24 12/21/24 lenalidomide 5 mg capsule 7.5 mg PO DIRECTED 11/15/24 12/21/24 (Revlimid) Previous Rx's ?Medication ?Instructions ?Recorded apixaban 5 mg tablet (Eliquis) 5 mg PO BID #180 tabs 06/15/24 acyclovir 400 mg tablet 400 mg PO BID #180 tabs 06/28/24 sulfamethoxazole 800 1 tab PO 3XW #90 tabs 11/01/24 mg-trimethoprim 160 mg tablet Allergies Allergy/AdvReac Type Severity Reaction Status Date / Time No Known Drug Allergies Allergy Verified 12/16/24 14:58 PFSH PFSH Medical History History of breast cancer ?Z85.3 - Personal history of malignant neoplasm of breast (ICD-10) Health care directive on file ?Z78.9 - Other specified health status (ICD-10) Surgical History History of basal cell carcinoma of skin ?Z85.828 - Personal history of other malignant neoplasm of skin (ICD-10) History of cataract surgery ?Z98.49 - Cataract extraction status, unspecified eye (ICD-10) 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) ?Z96.612 - Presence of left artificial shoulder joint (ICD-10) History of vein stripping (1969) ?Z98.890 - Other specified postprocedural states (ICD-10) History of tonsillectomy ?Z90.89 - Acquired absence of other organs (ICD-10) History of left mastectomy (1987) ?Z90.12 - Acquired absence of left breast and nipple (ICD-10) History of hysterectomy (1991) ?Z90.710 - Acquired absence of both cervix and uterus (ICD-10) Social History What is your current living situation?: I presently have a place to live Problems where you live: no known problems In the past 12 months, utilities in danger of being shut off: no In past 12 months, lack of transportation kept you from medical appts, meetings, work, or getting things needed for daily living: no In the past 12 mos, have been you worried that your food would run out before you had money to buy more?: never true In the past 12 mos, the food you bought just didn't last and you didn't have money to buy more?: never true Smoking Status: Never smoker Do you use any of these nicotine containing products: None How often do you have a drink containing alcohol: never How often do you have six or more drinks on one occasion: Never AUDIT-C Alcohol total score: 0 Non-prescribed substance use: denies use How often does anyone, including family, friends and others, physically hurt you: never How often does anyone, including family, friends and others, insult or talk down to you: never How often does anyone, including family, friends and others, threaten you with harm: never How often does anyone, including family, friends and others, scream or curse at you: never service: No Exam Const: Vital Signs, click to edit/add: Vital Signs - 24 hr 12/21/24 10:19 12/21/24 10:41 12/21/24 10:41 Temperature 99.1 F Pulse Rate Pulse Rate [Pulse Oximeter] 79 Respiratory Rate 32 H Blood Pressure Blood Pressure [Le ft Upper Arm] 98/47 L Pulse Oximetry 88 88 93 Oxygen Delivery Me thod Room Air Nasal Cannula Oxygen Flow Rate 2 12/21/24 12:04 12/21/24 12:05 12/21/24 12:15 Temperature Pulse Rate 103 H 109 H Pulse Rate [Pulse Oximeter] Respiratory Rate 30 H 25 H 35 H Blood Pressure 118/86 Blood Pressure [Le ft Upper Arm] Pulse Oximetry 9 L 98 Oxygen Delivery Me thod Nasal Cannula Nasal Cannula Nasal Cannula Oxygen Flow Rate 3 3 3 12/21/24 12:22 12/21/24 12:30 12/21/24 12:42 Temperature Pulse Rate 105 H 101 H 112 H Pulse Rate [Pulse Oximeter] Respiratory Rate 34 H 32 H 34 H Blood Pressure 114/73 108/77 Blood Pressure [Le ft Upper Arm] Pulse Oximetry 98 97 97 Oxygen Delivery Me thod Nasal Cannula Nasal Cannula Nasal Cannula Oxygen Flow Rate 3 3 3 12/21/24 12:43 12/21/24 12:45 12/21/24 13:00 Temperature Pulse Rate 114 H 96 109 H Pulse Rate [Pulse Oximeter] Respiratory Rate 33 H 31 H 30 H Blood Pressure Blood Pressure [Le ft Upper Arm] Pulse Oximetry 97 97 97 Oxygen Delivery Me thod Nasal Cannula Nasal Cannula Nasal Cannula Oxygen Flow Rate 3 3 3 12/21/24 13:02 12/21/24 13:15 12/21/24 13:22 Temperature Pulse Rate 112 H 89 105 H Pulse Rate [Pulse Oximeter] Respiratory Rate 17 37 H 30 H Blood Pressure 103/86 101/73 Blood Pressure [Le ft Upper Arm] Pulse Oximetry 87 L 91 92 Oxygen Delivery Me thod Nasal Cannula Nasal Cannula Nasal Cannula Oxygen Flow Rate 3 3 3 12/21/24 13:30 12/21/24 13:42 12/21/24 13:45 Temperature Pulse Rate 91 112 H 95 Pulse Rate [Pulse Oximeter] Respiratory Rate 32 H 19 35 H Blood Pressure 112/81 Blood Pressure [Le ft Upper Arm] Pulse Oximetry 94 91 89 Oxygen Delivery Me thod Nasal Cannula Nasal Cannula Nasal Cannula Oxygen Flow Rate 3 3 3 12/21/24 14:00 Temperature Pulse Rate 142 H Pulse Rate [Pulse Oximeter] Respiratory Rate Blood Pressure Blood Pressure [Le ft Upper Arm] Pulse Oximetry Oxygen Delivery Me thod Nasal Cannula Oxygen Flow Rate 3 Patient is alert, interactive, has a coarse cough but is able to speak in phrases. Voice seems a little hoarse, she does sound mildly congested. Her initial pulse rate in triage was captured to be 79 but nursing staff when hooking her up on vitals on the monitor found her heart rate to be elevated. Sclera clear, symmetrical facial function, appears pale. Neck without any adenopathy or masses. She has coarse breath sounds, diminished air entry, no crackles noted. CV is fast, cannot hear murmur, coarse lung sounds over leaning heart sounds. Abdomen is soft, nontender, nondistended, no organomegaly. She has no pretibial edema noted, no calf tenderness. She was hypoxic on arrival at 88%. Documenting provider has reviewed patient's vital signs: yes Course Course ED Course: This 84-year-old female is obviously ill with upper respiratory infection, possible secondary pneumonia. She is in atrial fibrillation with rapid ventricular response, elevated heart rate and mildly low blood pressure. There could be a component of congestive heart failure but do feel she needs a little fluid support and will give 250 mL bolus, hopefully this will strength in her blood pressure enough that we can give a low-dose IV injection of metoprolol 2.5 mg for rate control. Will do portable chest x-ray, she may need advanced imaging. She is on Eliquis in thus doubt that we need to be concerned for pulmonary emboli. Will do a screening D-dimer and if significantly elevated with history of multiple myeloma, do need to consider possible thrombosis through the novel anticoagulant. Obviously infectious etiology is being considered and potential sepsis. Have ordered blood cultures. Will try to do some low-dose fluids to start with until I can see her portable chest x-ray. Will obviously get full complement of labs. I do not for see this patient being able to go home. Will look at hip imaging on this patient is well just to ensure no occult hip fracture; if there is a fracture, this would be quite concerning in this patient as she is not stable for emergent surgical procedure. With the atrial fibrillation with rapid ventricular response, will try some low-dose fluid resuscitation and checked chest x-ray for congestive heart failure as noted. Could consider emergent cardioversion as patient is anticoagulated if needed but do have concerns with conscious sedation in her current state. However, patient is chronic AFib but and the likely not convert. Discussion with her daughter reveals that the attempted a cardioversion a year ago or so and she lasted 1 day in sinus rhythm. I think her rapid ventricular response is more a sign of her underlying illness/respiratory infection. Hopefully will be able to do some fluid resuscitation and treat underlying problem to correct the atrial fibrillation with RVR. Patient does admit that she has maybe missed some doses of her Eliquis in the last week. Reevaluation(s) Time of Reevaluation #1: 12:04 Reevaluation #1: Have reviewed chest and hip imaging results; there is pneumonia on the chest x-ray. Have already initiated IV antibiotics with Rocephin and azithromycin. After the 250ml bolus of NS, patient's heart rate is coming down into the lower 100's to 120's. Will follow up with another L of NS over 2 hours and hold on any IV metoprolol. Daughter notes that her mom took her oral metoprolol around 9am today. Did speak with the hospitalist Dr. Sanabria and she accepts patient to inpatient status. Reviewed advanced directives with patient and her daughter, she requests DNR/DNI. With pneumonia seen on plain films, response to interventions done and current labs, do not feel that we need to have CT imaging done at this time. It certainly can be considered at a later time if clinically indicated or needed. Time of Reevaluation #2: 12:45 Reevaluation #2: Blood pressure is improving, pulse rate is coming down after antibiotics and initiating IV fluids. Her daughter notes at times her pulse is dropping into the 90s now. Was briefly back up to 120 when I went in but overall the trend is improving pulse rate with IV fluids. She is just starting the L I ordered. Will order a subsequent L of lactated Ringer's, based on weight her fluid requirement would be 2100ml if sepsis considered. Vital Signs Vital signs: Initial Vital Signs Temperature 99.1 F 12/21/24 10:19 Temperature Source Axillary 12/21/24 10:19 Pulse Rate 79 12/21/24 10:19 Respiratory Rate 32 H 12/21/24 10:19 Blood Pressure 98/47 L 12/21/24 10:19 Blood Pressure Mean 64 L 12/21/24 10:19 Blood Pressure Position Sitting 12/21/24 10:19 Pulse Oximetry 88 12/21/24 10:19 Oxygen Delivery Method Room Air 12/21/24 10:19 Vital Signs Temperature 99.1 F 12/21/24 10:19 Pulse Rate 79 12/21/24 10:19 Respiratory Rate 32 H 12/21/24 10:19 Blood Pressure 98/47 L 12/21/24 10:19 Pulse Oximetry 88 12/21/24 10:19 Oxygen Delivery Method Room Air 12/21/24 10:19 Temperature 99.1 F 12/21/24 10:19 Pulse Rate 142 H 12/21/24 14:00 Respiratory Rate 35 H 12/21/24 13:45 Blood Pressure 112/81 12/21/24 13:42 Pulse Oximetry 89 12/21/24 13:45 Oxygen Delivery Method Nasal Cannula 12/21/24 14:00 Oxygen Flow Rate 3 12/21/24 14:00 Medications Administered Medications: Discontinued Medications Generic Name Dose Route Start Last Admin Trade Name Freq PRN Reason Stop Dose Admin Sodium Chloride 250 mls @ 250 mls/hr 12/21/24 10:44 12/21/24 11:50 0.9 % Sodium Chloride 250 Ml IV 12/21/24 11:43 Infused .Q1H ONE Infusion Ceftriaxone Sodium 1 gm/ 100 mls @ 200 mls/hr 12/21/24 11:21 12/21/24 12:30 Sodium Chloride IVPB 12/21/24 11:22 Infused ONCE ONE Infusion Azithromycin 500 mg/ Sodium 255 mls @ 255 mls/hr 12/21/24 11:21 12/21/24 13:40 Chloride IVPB 12/21/24 11:22 Infused ONCE ONE Infusion Sodium Chloride 1,000 mls @ 500 mls/hr 12/21/24 11:48 12/21/24 12:08 0.9 % Sodium Chloride 1000 Ml IV 12/21/24 13:47 500 mls/hr .Q2H SETH Administration Metoprolol Tartrate 2.5 mg 12/21/24 10:44 12/21/24 13:45 Metoprolol Tartrate 1 Mg/Ml Inj IVP 12/21/24 10:45 Not Given ONCE ONE MDM - SOB/Dyspnea Lab Data Attestation: I reviewed the patient's lab results. Labs: Lab Results 12/21/24 Range/Units 10:55 WBC 3.27 L (4.50-11.00) K/uL RBC 3.99 L (4.00-5.20) m/uL Hgb 14.6 (12.0-16.0) gm/dL Hct 43.0 (33.0-51.0) % MCV 108 H (80-100) fL MCH 37 H (26-34) pg MCHC 34 (32-36) gm/dL RDW Coeff of Tri 13.7 (11.5-15.5) % Plt Count 126 L (140-440) K/uL Neut % (Auto) 46.5 (42.0-72.0) % Lymph % (Auto) 31.5 (20-44) % [place] % (Auto) 20.2 H (0.0-11.0) % Eos % (Auto) 0.6 (0.0-7.0) % Baso % (Auto) 0.6 (0.0-3.0) % Neut # (Auto) 1.50 L (1.7-7.0) K/uL Lymph # (Auto) 1.00 (0.90-2.90) K/uL [place] # (Auto) 0.70 (0.00-0.90) K/UL Eos # (Auto) 0.00 (0.00-0.50) K/uL Baso # (Auto) 0.00 (0.00-0.30) K/uL Abs Immat Gran (auto) 0.00 (0.00-0.30) K/uL Imm/Tot Granulo (auto) 0.6 % D-Dimer Quant (PE/DVT) 0.78 H (0.00-0.50) ug/ml VBG pH 7.355 (7.32-7.43) VBG pCO2 40 (40-50) mmHG VBG pO2 34.5 (25-47) mmHG VBG HCO3 22 (21-28) mmol/L Sodium 135 (135-149) mmol/L Potassium 3.9 (3.6-5.1) mmol/L Chloride 102 (96-114) mmol/L Carbon Dioxide 22 (20-32) mmol/L Anion Gap 11 (7-15) mEq/L BUN 23 (7-30) mg/dL Creatinine 1.4 (0.5-1.5) mg/dL Estimated Creat Clear 24.91 Estimated GFR 37 ml/min Glucose 121 H (60-115) mg/dL Lactate 2.7 H (0.5-1.9) mmol/L Calcium 10.4 (8.4-10.6) mg/dL Magnesium 1.6 (1.5-2.6) mg/dL Total Bilirubin 1.3 (0.1-1.5) mg/dL AST 30 (12-35) U/L ALT 28 (4-35) U/L Alkaline Phosphatase 118 (40-150) U/L Troponin I 0.03 (0.01-0.04) ng/mL C-Reactive Protein 23.5 H (0.5-1.0) mg/dL NT-Pro-B Natriuret Pep 9520 pg/mL Total Protein 6.6 (6.0-8.3) g/dL Albumin 3.9 (3.3-5.0) g/dL Procalcitonin 0.49 (<0.50) ng/mL TSH 0.834 (0.270-4.200) uIU/mL SARS-CoV-2 (PCR) Negative SARS-CoV-2 (Negative) Influenza Type A (PCR) Negative PCR FLU A (Negative) Influenza Type B (PCR) Negative PCR FLU B (Negative) RSV (PCR) Negative PCR RSV (Negative) Imaging Data Chest x-ray: Attestation: I have reviewed the pertinent imaging results. My impression: Do not appreciate any occult congestive heart failure. Could be some cephalization of the vessels. Probable infiltrate along the lower heart border left side. Radiologist's impression: Patient: [facility] Facility:?[facility] [place] Patient ID:?[id number] Site Patient ID:?[id number]. Site :?[id number] Study:?XRay-Chest 2 VIEW-12/21/2024 11:23:02 AM Ordering Physician:?Albert Donovan Final Report: INDICATION: HYPOXIA, COUGH/FEVER, SOB TECHNIQUE: Chest 2 views COMPARISON: 12/16/2024 FINDINGS: Increased airspace densities within the left lower lobe. Cardiomegaly. Postop changes left shoulder. IMPRESSION: Left lower lobe infiltrate. Dictated by Koffi Gallegos MD @ 12/21/2024 11:44:25 AM (Electronic Signature) XR left hip/pelvis: Attestation: I have reviewed the pertinent imaging results. My impression: I do not appreciate any acute fracture on my preliminary review. Radiologist's impression: Patient: [facility] Facility:?[facility] [place] Patient ID:?[id number] Site Patient ID:?[id number]. Site :?[id number] Study:?XRay-Head Left 1V PELVIS AND 2V HIP-12/21/2024 11:23:41 AM Ordering Physician:Najma Donovan Final Report: Indication: PAIN, NON-TRAUMATIC Technique: Pelvis and left hip 3 views Comparison: None Findings: Joint space narrowing and spurring left hip. No fracture. No intrinsic osseous lesion. Impression: Degenerative joint disease left hip. Dictated by Koffi Gallegos MD @ 12/21/2024 11:45:32 AM (Electronic Signature) ECG Data Attestation: I personally reviewed and interpreted this ECG as follows: (Atrial fibrillation with rapid ventricular response, nonspecific ST and T-wave changes, rate 142 beats per minute.) ECG interpretation date: 12/21/24 ECG interpretation time: 10:51 Prior ECG tracings: available for review (Compared to EKG in 2023, was atrial fibrillation but lower heart rate with lasts ST and T-wave segment changes.) Discharge Plan Discharge Clinical Impression: Hypoxia, Atrial fibrillation with rapid ventricular response Community acquired pneumonia Qualifiers: Laterality: left Lung location: lower lobe of lung Qualified Code(s): J18.9 - Pneumonia, unspecified organism Patient Disposition: Admitted As Inpatient Condition: Improved
--- NOTE | 2024-12-21 10:41 | CRLHL7_ITS ---
For Patients: As a result of the Cures Act, medical imaging exams and procedure reports are released immediately into your electronic medical record. You may view this report before your referring provider. If you have questions, please contact your health care provider. INDICATION: HYPOXIA, COUGH/FEVER, SOB TECHNIQUE: Chest 2 views COMPARISON: 12/16/2024 FINDINGS: Increased airspace densities within the left lower lobe. Cardiomegaly. Postop changes left shoulder. IMPRESSION: Left lower lobe infiltrate. Dictated by Koffi Gallegos MD @ 12/21/2024 11:44:25 AM (Electronically Signed)
--- NOTE | 2024-12-21 10:52 | CRLHL7_ITS ---
For Patients: As a result of the Cures Act, medical imaging exams and procedure reports are released immediately into your electronic medical record. You may view this report before your referring provider. If you have questions, please contact your health care provider. Indication: PAIN, NON-TRAUMATIC Technique: Pelvis and left hip 3 views Comparison: None Findings: Joint space narrowing and spurring left hip. No fracture. No intrinsic osseous lesion. Impression: Degenerative joint disease left hip. Dictated by Koffi Gallegos MD @ 12/21/2024 11:45:32 AM (Electronically Signed)
[2024-12-21 11:03] LABS: HCO3 VBG 22 mmol/L (21-28); Lactate* 2.7 mmol/L (0.5-1.9); PCO2 VBG 40 mmHG (40-50); PO2 VBG 34.5 mmHG (25-47); pH VBG 7.355 (7.32-7.43)
[2024-12-21 11:07] LABS: Basophils Percent Auto 0.6 % (0.0-3.0); Eosinophils Percent Auto 0.6 % (0.0-7.0); Hemoglobin* 14.6 gm/dL (12.0-16.0); Immature Granulocytes Pct Auto 0.6 %; Lymphocytes Percent Auto 31.5 % (20-44); Mean Corpuscular HGB Conc 34 gm/dL (32-36); Mean Corpuscular Hemoglobin 37 pg (26-34); Mean Corpuscular Volume 108 fL (80-100); Monocytes Percent Auto 20.2 % (0.0-11.0); Neutrophils Percent Auto 46.5 % (42.0-72.0); Platelet Count* 126 K/uL (140-440); RDW Coefficient of Variation % 13.7 % (11.5-15.5); Red Blood Count 3.99 m/uL (4.00-5.20); White Blood Count* 3.27 K/uL (4.50-11.00)
[2024-12-21 11:09] LABS: Slide Review Reflex No
[2024-12-21] MEDS: 0.9 % SODIUM CHLORIDE 250 ml 250 ML IV (11:25)
[2024-12-21 11:27] LABS: D Dimer Quantitative* 0.78 ug/ml (0.00-0.50)
[2024-12-21 11:33] LABS: Albumin* 3.9 g/dL (3.3-5.0); Chloride* 102 mmol/L (96-114)
[2024-12-21 11:34] LABS: Potassium* 3.9 mmol/L (3.6-5.1); Sodium* 135 mmol/L (135-149)
[2024-12-21 11:36] LABS: Alanine Aminotransferase* 28 U/L (4-35); Aspartate Amino Transferase* 30 U/L (12-35); Blood Urea Nitrogen* 23 mg/dL (7-30); Creatinine* 1.4 mg/dL (0.5-1.5); Est. Creatinine Clearance* 24.91; Estimated Glomerular Filt Rate 37 ml/min
[2024-12-21 11:37] LABS: Alkaline Phosphatase* 118 U/L (40-150); Anion Gap 11 mEq/L (7-15); Bilirubin Total* 1.3 mg/dL (0.1-1.5); Calcium* 10.4 mg/dL (8.4-10.6); Carbon Dioxide* 22 mmol/L (20-32); Glucose* 121 mg/dL (60-115); Magnesium* 1.6 mg/dL (1.5-2.6); Total Protein* 6.6 g/dL (6.0-8.3)
[2024-12-21 11:42] LABS: PCR FLU A Negative PCR FLU A (Negative); PCR FLU B Negative PCR FLU B (Negative); PCR RSV Negative PCR RSV (Negative); SARS PCR* Negative SARS-CoV-2 (Negative)
[2024-12-21] MEDS: cefTRIAXone 1 GM in 0.9 % SODIUM CHLORIDE Mini-bag 100 ML IVPB (11:42)
[2024-12-21 11:49] LABS: Troponin I* 0.03 ng/mL (0.01-0.04)
[2024-12-21 11:51] LABS: C Reactive Protein* 23.5 mg/dL (0.5-1.0); NT Pro B Type NatriureticPept* 9520 pg/mL
[2024-12-21 11:54] LABS: Procalcitonin* 0.49 ng/mL (<0.50)
[2024-12-21] MEDS: 0.9 % SODIUM CHLORIDE 1000 ml 1,000 ML 500 ML IV (12:08)
[2024-12-21 12:09] LABS: TSH With Reflex to FT4* 0.834 uIU/mL (0.270-4.200)
--- OUTSIDE RECORDS SUMMARY | 2024-12-21 12:31 | XMS_ITS | CCD ---
Author Name Interface, [id number] lity Address [address] [address] Organization [facility] Address [address] [address] Allergies and Adverse Reactions Medication/Group Name Reaction Severity Date No known allergies Care Plan Date Type Value 06/05/2021 LABORDER Iron profile 06/05/2021 LABORDER Ferritin panel Reason for Visit RCT15 - 0123 ARM RC VELCADE - 0123 ARM RC VELCADE Encounters Date Name 06/19/2021 Multiple myeloma Functional Status Date Name Score 06/12/2021 ECOG performance status - grade 1 1 05/29/2021 ECOG performance status - grade 1 1 05/22/2021 ECOG performance status - grade 1 1 Medications Date Name Route Dose Frequency Instructions Start Date End Date Status Allopurinol Oral PO 2.0 tablet daily inactive Acyclovir Oral PO 1.0 capsule BID inactive Ondansetron Oral Disintegrating Tablet orally 8.0 mg every 8 hours prn nausea and vomiting active Metoprolol Oral (Tartrate) 1.0 tablet BID active Verapamil Oral ER Tab inactive Problems Diagnosis Status Date of Diagnosi s Anemia Active Renal failure Active Liver function tests abnormal (finding) Active Myeloma kidney Active DVT - Deep vein thrombosis of lower limb Active Multiple myeloma Active Social History Date Name Value 06/05/2021 Sex Female
--- OUTSIDE RECORDS SUMMARY | 2024-12-21 12:31 | XMS_ITS | CCD ---
Author Name Interface, [id number] lity Address [address] [place], [place] [address] [place] [address] [facility] Address [address] [place] [id number] Allergies and Adverse Reactions Care Plan Reason for Visit Encounters Functional Status Medications Problems Social History
--- OUTSIDE RECORDS SUMMARY | 2024-12-21 12:31 | XMS_ITS ---
Author Name Interface, [id number] lity Address [address] [facility] [address] [address] Organization [facility] Address [address] [facility] [address] [place] [address] Care Team Providers Care End Polisher Name Role Phone Cassy Tucker Unavailable Unavailable [...] High FINAL [facility] - [place] [facility], [address] [place] [address] [address] [place] [id number] 0 Phone: () - 06/12 iSTAT creat inine panel GFR estim ate ml/min /1.73m ^2 27.3 Low GFR is calculate d using the CKD-EPI equation. FINAL [facility], [address] [place] [address] [address] [place] [id number] 0 Phone: () - 06/12 CBC w/ auto diff WBC K/uL 3.0 8.9 3.6 FINAL [facility] - [facility], [address] [place] [address] [address] [place] [id number] 0 Phone: () - 06/12 CBC w/ auto diff HGB g/dL 11.3 15.2 9.1 Low FINAL [facility] - [facility], [address] [place] [address] [address] [place] [id number] 0 Phone: () - 06/12 CBC w/ auto diff PLT K/uL 113.0 364.0 168 FINAL [facility] - [place] [facility], [address] [place] [address] [address] [place] [id number] 0 Phone: () - 06/12 CBC w/ auto diff Consuelo # (ANC) K/uL 1.6 6.6 2.5 FINAL [facility] - [place] [facility], [address] [place] [address] [address] [place] [id number] 0 Phone: () - 06/12 CBC w/ auto diff Consuelo % % 43.0 74.0 70.3 FINAL Cassy [facility] [place] [facility], [address] [place] [id number] 0 Phone: () - 06/12 CBC w/ auto diff IG % % 0.0 0.5 4.5 High FINAL [facility] - [place] [facility], [address] [place] [id number] 0 Phone: () - 06/12 CBC w/ auto diff IG # K/uL 0.0 0.03 0.16 High FINAL [facility] - [place] [facility], [address] [place] [id number] 0 Phone: () - 06/12 CBC w/ auto diff LY % % 14.0 41.0 16.2 FINAL [facility] - [place], [address] [place] [id number] 0 Phone: () - 06/12 CBC w/ auto diff MO % % 6.0 15.0 6.7 FINAL [facility] - [place] [facility], [address] [place] [id number] 0 Phone: () - 06/12 CBC w/ auto diff EO % % 0.0 7.0 1.7 FINAL [facility] - [place] [facility], [address] [place] [address] [address] [place] [id number] 0 Phone: () - 06/12 CBC w/ auto diff BA % % 0.0 2.0 0.6 FINAL [facility] - [place] [facility], [address] [place] [id number] 0 Phone: () - 06/12 CBC w/ auto diff LY # K/uL 0.4 3.6 0.6 FINAL [facility] - [place] [facility], [address] [place] [address] 200 [place] [id number] 0 Phone: () - 06/12 CBC w/ auto diff MO # K/uL 0.2 1.3 0.2 FINAL [facility] - [place], [address] [place] [id number] 0 Phone: () - 06/12 CBC w/ auto diff EO # K/uL 0.0 0.6 0.1 FINAL [facility] - [place] [facility], [address] [place] [id number] 0 Phone: () - 06/12 CBC w/ auto diff BA # K/uL 0.0 0.2 0.0 FINAL [facility] - [place] [facility], [address] [place] [id number] 0 Phone: () - 06/12 CBC w/ auto diff NRBC % #/100W BC 0.0 0.2 0.8 High FINAL [facility] - [place] [facility], [address] [place] [address] 200 [place] [id number] 0 Phone: () - 06/12 CBC w/ auto diff RBC M/uL 3.9 5.1 2.76 Low FINAL [facility] - [place] [facility], [address] [place] [address] 200 [place] [id number] 0 Phone: () - 06/12 CBC w/ auto diff HCT % 35.0 48.0 27.9 Low FINAL [facility] - [place] [facility], [address] [place] [address] 200 [place] [phone] 0 Phone: () - 06/12 CBC w/ auto diff MCV fL 80.0 104.0 101.1 FINAL [facility] - [place] [facility], [address] [place] [id number] 0 Phone: () - 06/12 CBC w/ auto diff MCH pg 26.0 35.0 33.0 FINAL [facility] - [place] [facility], [address] [place] [id number] 0 Phone: () - 06/12 CBC w/ auto diff MCHC g/dL 30.0 35.0 32.6 FINAL [facility] - [place] [facility], [address] [place] [id number] 0 Phone: () - 06/12 CBC w/ auto diff MPV fL 9.5 13.4 10.8 FINAL [facility], [address] [place] [id number] 0 Phone: () - 06/12 CBC w/ auto diff RDW % 11.4 16.1 15.90 FINAL [facility], [address] [place] [address] [address] [place] [id number] 0 Phone: () - 06/12 CMP Sodiu [...] IU/L 2.0 40.0 47 High Test Performed by:[id number], [address] - [place], [place] [id number] e [phone] FINAL Cassy Tucker 06/18 [facility] [place] See gripper attacher d 06/18 [facility] [place] [place] See gripper attacher d 06/18 [facility] [place] lab See gripper attacher d 06/19 CMP Album in g/dL 3.2 5.2 3.5 FINAL Cassy Sierra [facility], [address] [place] [address] [phone] 0 Phone: () - 06/19 CMP Alkal ine phosp hatas e U/L 46.0 116.0 137 High FINAL Cassy wood [facility], [address] [place] [address] [phone] Phone: () - 06/19 CMP ALT/S GPT U/L 7.0 40.0 100 High FINAL Cassy Sierra a [facility], [address] [facility] [id number] 0 Phone: () - 06/19 CMP AST/S GOT U/L 13.0 40.0 30 FINAL Cassy wood [facility], [address] [facility] [phone] 0 Phone: () - 06/19 CMP BUN mg/dL 9.0 23.0 25 High FINAL Cassy Sierra a [facility], [address] [id number] [phone] Phone: () - 06/19 CMP Calci um mg/dL 8.7 10.4 9.5 FINAL Cassy wood [place] [address] [id number] 0 Phone: () - 06/19 CMP Chlor glory mmol/L 96.0 114.0 110 FINAL Cassy wood [place] [address] [id number] 0 Phone: () - 06/19 CMP CO2 [...] stability window. FINAL Cassy wood [place] [address] [id number] 0 Phone: () - 06/19 CMP Creat inine mg/dL 0.5 1.2 1.43 High FINAL Cassy wood [place] [address] [id number] 0 Phone: () - 06/19 CMP GFR estim ate ml/min /1.73m ^2 33.7 Low GFR is calculate d using the CKD-EPI equation. FINAL Cassy wood [place] [address] [phone] 0 Phone: () - 06/19 CMP Gluco se mg/dL 73.0 126.0 97 FINAL Cassy wood [place] [address] [id number] 0 Phone: () - 06/19 CMP Potas sium mmol/L 3.5 5.1 4.2 FINAL Cassy wood [place] [address] [phone] 0 Phone: () - 06/19 CMP Sodiu m mmol/L 136.0 145.0 144 FINAL [facility], [address] [facility] [id number] [phone] Phone: () - 06/19 CMP Bilir ubin, total mg/dL 0.3 1.2 0.5 FINAL [facility], [address] [facility] [id number] 0 Phone: () - 06/19 CMP Total prote in g/dL 5.7 8.2 5.1 Low FINAL Cassy wood [facility], [address] [facility] [id number] [phone] Phone: () - 06/19 CBC w/ auto diff WBC K/uL 3.0 8.9 6.2 FINAL [facility], [address] [place] [address] [address] [place] [id number] 0 Phone: () - 06/19 CBC w/ auto diff HGB g/dL 11.3 15.2 9.4 Low FINAL [facility] - [place] [facility], [address] [place] [address] [address] [place] [id number] 0 Phone: () - 06/19 CBC w/ auto diff PLT K/uL 113.0 364.0 198 FINAL [facility] - [place] [facility], [address] [place] [address] [address] [place] [id number] 0 Phone: () - 06/19 CBC w/ auto diff Consuelo # (ANC) K/uL 1.6 6.6 4.0 FINAL [facility] - [place] [facility], [address] [place] [address] [address] [place] [id number] 0 Phone: () - 06/19 CBC w/ auto diff Consuelo % % 43.0 74.0 64.4 FINAL [facility] - [place] [facility], [address] [place] [address] [address] [place] [id number] 0 Phone: () - 06/19 CBC w/ auto diff IG % % 0.0 0.5 4.0 High FINAL [facility] - [place] [facility], [address] [place] [address] 200 [facility] [place] [id number] 0 Phone: () - 06/19 CBC w/ auto diff IG # K/uL 0.0 0.03 0.25 High FINAL [facility] - [place] [facility], [address] [place] [address] [address] [facility] [place] [id number] 0 Phone: () - 06/19 CBC w/ auto diff LY % % 14.0 41.0 22.9 FINAL [facility] - [place] [facility], [address] [place] [address] [address] [facility] [place] [id number] 0 Phone: () - 06/19 CBC w/ auto diff MO % % 6.0 15.0 7.6 FINAL [facility] - [place] [facility], [address] [place] [address] [address] [facility] [place] [id number] 0 Phone: () - 06/19 CBC w/ auto diff EO % % 0.0 7.0 0.8 FINAL [facility] - [place] [facility], [address] [place] [address] [address] [facility] [place] [id number] 0 Phone: () - 06/19 CBC w/ auto diff BA % % 0.0 2.0 0.3 FINAL [facility] - [place] [facility], [address] [place] [address] [address] [facility] [place] [id number] 0 Phone: () - 06/19 CBC w/ auto diff LY # K/uL 0.4 3.6 1.4 FINAL [facility] - [place] [facility], [address] [place] [address] [address] [facility] [place] [id number] 0 Phone: () - 06/19 CBC w/ auto diff MO # K/uL 0.2 1.3 0.5 FINAL [facility] - [place] [facility], [address] [place] [address] [address] [facility] [place] [id number] 0 Phone: () - 06/19 CBC w/ auto diff EO # K/uL 0.0 0.6 0.1 FINAL [facility] - [place] [facility], [address] [place] [address] [address] [facility] [place] [id number] 0 Phone: () - 06/19 CBC w/ auto diff BA # K/uL 0.0 0.2 0.0 FINAL [facility] - [place] [facility], [address] [place] [id number] 0 Phone: () - 06/19 CBC w/ auto diff NRBC % #/100W BC 0.0 0.2 0.8 High FINAL [facility] - [place] [facility], [address] [place] [address] [address] [place] [id number] 0 Phone: () - 06/19 CBC w/ auto diff RBC M/uL 3.9 5.1 2.83 Low FINAL [facility] - [place] [facility], [address] [place] [id number] 0 Phone: () - 06/19 CBC w/ auto diff HCT % 35.0 48.0 29.1 Low FINAL [facility] - [place] [facility], [address] [place] [id number] 0 Phone: () - 06/19 CBC w/ auto diff MCV fL 80.0 104.0 102.8 FINAL [facility] - [place] [facility], [address] [place] [phone] 0 Phone: () - 06/19 CBC w/ auto diff MCH pg 26.0 35.0 33.2 FINAL [facility] - [place] [facility], [address] [place] [address] [address] [place] [id number] 0 Phone: () - 06/19 CBC w/ auto diff MCHC g/dL 30.0 35.0 32.3 FINAL [facility] - [place] [facility], [address] [place] [address] [address] [place] [id number] 0 Phone: () - 06/19 CBC w/ auto diff MPV fL 9.5 13.4 10.7 FINAL [facility] - [place] [facility], [address] [place] [address] [address] [place] [id number] 0 Phone: () - 06/19 CBC w/ auto diff RDW % 11.4 16.1 16.10 FINAL [facility] - [place] [facility], [address] [place] [address] [address] [facility] [place] [id number] 0 Phone: () - 06/19 iSTAT creat inine panel Creat inine , iSTAT mg/dl 0.6 1.3 1.7 High FINAL [facility], [address] [place] [address] [address] [facility] [id number] 0 Phone: () - 06/19 iSTAT creat inine panel GFR estim ate ml/min /1.73m ^2 27.3 Low GFR is calculate d using the CKD-EPI equation. FINAL [facility], [address] [place] [address] 200 [facility] [id number] [phone] Phone: () - Medications Date Name [...]
--- OUTSIDE RECORDS SUMMARY | 2024-12-21 12:31 | XMS_ITS ---
Author Name Interface, [id number] lity Address [address] [facility] [address] [address] [facility] Address [address] [facility] [address] [address] Care Team Providers Care Oiler Helper Name Role Phone Tony Gutierrez Unavailable Unavailable [...] HOSP PT/OK PER DR BORGES 05/22/2021 APPOINTMENT INJ - VELCADE - VELCADE [...] g/dL 3.2 5.2 4.0 FINAL Tony [place] [address] [phone] [phone] Phone: () - 05/22 CMP Alkal ine phosp hatas e U/L 46.0 116.0 62 FINAL [place] [address] [id number] 0 Phone: () - 05/22 CMP ALT/S GPT U/L 7.0 40.0 39 FINAL [place] [address] [id number] 0 Phone: () - 05/22 CMP AST/S GOT U/L 13.0 40.0 31 FINAL Tony [place] [address] [phone] 0 Phone: () - 05/22 CMP BUN mg/dL 9.0 23.0 40 High FINAL [place] [address] [address] [facility] [address] [phone] 0 Phone: () - 05/22 CMP Calci um mg/dL 8.7 10.4 8.8 FINAL [place] [address] [id number] 0 Phone: () - 05/22 CMP Chlor glory mmol/L 96.0 114.0 101 FINAL [place] [address] [address] [facility] [phone] 0 Phone: () - 05/22 CMP CO2 [...] 96 hour stability window. FINAL Tony wood [address] [id number] [phone] Phone: () - 05/22 CMP Creat inine mg/dL 0.5 1.2 2.12 High FINAL Tony wood [address] [id number] 0 Phone: () - 05/22 CMP GFR estim ate ml/min /1.73m ^2 20.9 Low GFR is calculate d using the CKD-EPI equation. FINAL Tony wood [address] [phone] 0 Phone: () - 05/22 CMP Gluco se mg/dL 73.0 126.0 140 High FINAL Tony wood [place] [address] [id number] 0 Phone: () - 05/22 CMP Potas sium mmol/L 3.5 5.1 3.7 FINAL Tony wood [address] [phone] 0 Phone: () - 05/22 CMP Sodiu m mmol/L 136.0 145.0 136 FINAL Tony wood [address] [id number] 0 Phone: () - 05/22 CMP Bilir ubin, total mg/dL 0.3 1.2 0.7 FINAL Tony wood [place] [address] [id number] 0 Phone: () - 10/19 /2021 CMP Total prote in g/dL 5.7 8.2 5.7 FINAL Tony wood [facility], [address] [facility] [phone] 0 Phone: () - 05/22 CBC w/ auto diff WBC K/uL 3.0 8.9 5.2 FINAL Tony wood [facility] - [place], [address] [place] [id number] 0 Phone: () - 05/22 CBC w/ auto diff HGB g/dL 11.3 15.2 8.2 Low FINAL Tony wood [facility] - [place], [address] [place] [id number] 0 Phone: () - 05/22 CBC w/ auto diff PLT K/uL 113.0 364.0 129 FINAL Tony wood [facility], [address] [place] [id number] 0 Phone: () - 05/22 CBC w/ auto diff Plate let, immat ure, fract ion % 0.9 11.2 10.6 FINAL Tony wood [facility] - [place], [address] [place] [address] [address] [place] [id number] 0 Phone: () - 05/22 CBC w/ auto diff Consuelo # (ANC) K/uL 1.6 6.6 4.4 FINAL Tony wood [facility] - [place], [address] [place] [id number] 0 Phone: () - 05/22 CBC w/ auto diff Consuelo % % 43.0 74.0 85.2 High FINAL Tony wood [facility] - [place], [address] [place] [id number] 0 Phone: () - 05/22 CBC w/ auto diff IG % % 0.0 0.5 1.3 High FINAL Tony wood [facility] - [place], [address] [place] [id number] 0 Phone: () - 05/22 CBC w/ auto diff IG # K/uL 0.0 0.03 0.07 High FINAL Tony wood [facility] - [place], [address] [place] [address] [address] [place] [id number] 0 Phone: () - 05/22 CBC w/ auto diff LY % % 14.0 41.0 4.0 Low FINAL Tony wood [facility] - [place], [address] [place] [address] [address] [place] [id number] 0 Phone: () - 05/22 CBC w/ auto diff MO % % 6.0 15.0 6.4 FINAL Tony wood [facility] - [place], [address] [place] [address] [address] [place] [id number] 0 Phone: () - 05/22 CBC w/ auto diff EO % % 0.0 7.0 2.9 FINAL Tony wood [facility] - [place], [address] [place] [address] [address] [place] [id number] 0 Phone: () - 05/22 CBC w/ auto diff BA % % 0.0 2.0 0.2 FINAL Tony wood [facility] - [place], [address] [place] [address] [address] [place] [id number] 0 Phone: () - 05/22 CBC w/ auto diff LY # K/uL 0.4 3.6 0.2 Low FINAL Tony wood [facility] - [place], [address] [place] [address] [address] [place] [id number] 0 Phone: () - 05/22 CBC w/ auto diff MO # K/uL 0.2 1.3 0.3 FINAL Tony wood [facility] - [place], [address] [place] [address] [address] [place] [id number] 0 Phone: () - 05/22 CBC w/ auto diff EO # K/uL 0.0 0.6 0.2 FINAL Tony wood [facility] - [place], [address] [place] [address] [address] [place] [id number] 0 Phone: () - 05/22 CBC w/ auto diff BA # K/uL 0.0 0.2 0.0 FINAL Tony wood [facility] - [place], [address] [place] [id number] 0 Phone: () - 05/22 CBC w/ auto diff NRBC % #/100W BC 0.0 0.2 1.2 High FINAL Tony wood [facility] - [place], [address] [place] [id number] 0 Phone: () - 05/22 CBC w/ auto diff RBC M/uL 3.9 5.1 2.35 Low FINAL Tony wood [facility] - [place], [address] [place] [id number] 0 Phone: () - 05/22 CBC w/ auto diff HCT % 35.0 48.0 23.4 Low FINAL Tony wood Oncology - [place], [facility] [address] [place] [id number] 0 Phone: () - 05/22 CBC w/ auto diff MCV fL 80.0 104.0 99.6 FINAL Tony wood [facility] - [place], [address] [place] [id number] 0 Phone: () - 05/22 CBC w/ auto diff MCH pg 26.0 35.0 34.9 FINAL Tony wood [facility] - [place], [address] [place] [id number] 0 Phone: () - 05/22 CBC w/ auto diff MCHC g/dL 30.0 35.0 35.0 FINAL Tony wood [facility] - [place], [address] [place] [id number] 0 Phone: () - 05/22 CBC w/ auto diff MPV fL 9.5 13.4 11.9 FINAL Tony wood Oncology - [place], [facility] [address] [place] [id number] 0 Phone: () - 05/22 CBC w/ auto diff RDW % 11.4 16.1 13.40 FINAL Tony wood On[facility] - [place], [facility] [address] [place] [id number] 0 Phone: () - 05/22 iSTAT creat inine panel Creat inine , iSTAT mg/dl 0.6 1.3 2.5 High FINAL Tony wood Oncology - [place], [address] [place] [id number] 0 Phone: () - 05/22 iSTAT creat inine panel GFR estim ate ml/min /1.73m ^2 17.2 Low GFR is calculate d using the CKD-EPI equation. FINAL Tony wood Oncology - [place], [address] [place] [id number] 0 Phone: () - 05/22 Sodiu m, iSTAT mmol/L 138.0 146.0 134 Low Reference range adjusted 0 with implement ation of I-Stat 8+ cartridge . FINAL Tony wood Oncology - [place] [facility], [address] 200 [place] [id number] 0 Phone: () - 05/22 Potas sium, iSTAT mmol/L 3.5 4.9 3.6 Reference range adjusted 0 with implement ation of I-Stat 8+ cartridge . FINAL Tony wood Oncology - [place], [address] [place] [id number] 0 Phone: () - 05/22 Chlor glory, iSTAT mmol/L 98.0 109.0 96 Low Reference range adjusted 0 with implement ation of I-Stat 8+ cartridge . FINAL Tony wood Oncology - [place] [facility], [address] [place] [id number] 0 Phone: () - 05/22 Gluco se mg/dl 70.0 105.0 141 High Reference range adjusted 0 with implement ation of I-Stat 8+ cartridge . FINAL Tony wood Oncology - [place] [facility], [address] [place] [id number] 0 Phone: () - 05/22 BUN mg/dl 8.0 26.0 38 High Reference range adjusted 0 with implement ation of I-Stat 8+ cartridge . FINAL Tony wood [facility], [address] [place] [address] [address] [place] [id number] 0 Phone: () - 05/22 Total prote in g/dL 6.4 8.0 5.6 Low FINAL Tony wood [facility], [address] [place] [address] [id number] 0 Phone: () - 05/22 Album in, SPE g/dL 3.31 5.31 3.72 FINAL Tony wood [facility], [address] [place] [address] [id number] 0 Phone: () - 05/22 Alpha -1 globu max g/dL 0.19 0.42 0.30 FINAL Tony wood [facility], [address] [facility] [address] [place] [address] [id number] 0 Phone: () - 05/22 Alpha -2 globu max g/dL 0.44 1.03 0.74 FINAL Tony wood [facility], [address] [facility] [address] [place] [address] [id number] 0 Phone: () - 05/22 Beta globu max g/dL 0.52 1.05 0.38 Low FINAL Tony wood [facility], [address] [facility] [address] [place] [address] [id number] 0 Phone: () - 05/22 Gamma globu max g/dL 0.59 1.46 0.46 Low FINAL Tony wood [facility], [address] [facility] [address] [place] [address] [id number] 0 Phone: () - 05/22 Elect ropho resis , Prote in Lab resul t note Parapro tein detecte d in gamma region = 0.4gm/d L. No history for compari son. Recomme nd immunot yping. Interpr eted and signed by Selena de la paz MD on 021 FINAL Tony wood [facility], [address] [facility] [address] [place] [address] [id number] 0 Phone: () - 05/22 M-spi ke, SPE, g/dL g/dL 0.40 FINAL Tony wood Oncology - [place], [address] [place] [id number] 0 Phone: () - 05/22 Hepat itis B surfa ce antig en panel Hepat itis B surfa ce antig en Nonreac tive Test Performed by:[facility] [address] - [facility] [place], [place] [address]Ucbu e : FINAL Tony Gutierrez 05/22 Hepat itis C antib jacqui panel Hepat itis C antib jacqui, qual Non-Christine ctive Antibodie s to HCV not detected; does not exclude the possibili ty of exposure toHCV.Valerie t Performed by:[facility] [address] - [facility] [place] [address]Ihlu e : FINAL Tony Gutierrez 05/29 CBC w/ auto diff WBC K/uL 3.0 8.9 12.9 High FINAL Cassy wood Oncology - [facility], [address] [place] [address] [address] [place] [id number] 0 Phone: () - 05/29 CBC w/ auto diff HGB g/dL 11.3 15.2 7.7 Critica l hematol ogy result obtaine d Criti desirae Low FINAL Cassy wood Oncology - [facility], [address] [place] [id number] 0 Phone: () - 05/29 CBC w/ auto diff PLT K/uL 113.0 364.0 142 FINAL [facility] wood [facility], [address] [place] [id number] 0 Phone: () - 05/29 CBC w/ auto diff Consuelo # (ANC) K/uL 1.6 6.6 11.4 High FINAL [place] wood [facility], [address] [place] [id number] 0 Phone: () - 05/29 CBC w/ auto diff Consuelo % % 43.0 74.0 88.8 High FINAL Cassy wood [facility] - [place], [address] [place] [id number] 0 Phone: () - 05/29 CBC w/ auto diff IG % % 0.0 0.5 1.4 High FINAL Cassy wood [facility] - [place], [address] [place] [id number] 0 Phone: () - 05/29 CBC w/ auto diff IG # K/uL 0.0 0.03 0.18 High FINAL Cassy wood [facility] - [place], [address] [place] [address] [address] [place] [id number] 0 Phone: () - 05/29 CBC w/ auto diff LY % % 14.0 41.0 4.6 Low FINAL Cassy wood [facility] - [place], [address] [place] [address] [address] [place] [id number] 0 Phone: () - 05/29 CBC w/ auto diff MO % % 6.0 15.0 4.8 Low FINAL Cassy wood [facility] - [place], [address] [place] [address] [address] [place] [id number] 0 Phone: () - 05/29 CBC w/ auto diff EO % % 0.0 7.0 0.2 FINAL Cassy wood [facility] - [place], [address] [place] [address] [address] [place] [id number] 0 Phone: () - 05/29 CBC w/ auto diff BA % % 0.0 2.0 0.2 FINAL Cassy wood [facility] - [place], [address] [place] [address] [address] [place] [id number] 0 Phone: () - 05/29 CBC w/ auto diff LY # K/uL 0.4 3.6 0.6 FINAL Cassy wood [facility] - [place], [address] [place] [address] [address] [place] [id number] 0 Phone: () - 05/29 CBC w/ auto diff MO # K/uL 0.2 1.3 0.6 FINAL Cassy wood [facility] - [place], [address] [place] [id number] 0 Phone: () - 05/29 CBC w/ auto diff EO # K/uL 0.0 0.6 0.0 FINAL Cassy wood [facility] - [place], [address] [place] [id number] 0 Phone: () - 05/29 CBC w/ auto diff BA # K/uL 0.0 0.2 0.0 FINAL Cassy wood [facility] - [place], [address] [place] [id number] 0 Phone: () - 05/29 CBC w/ auto diff NRBC % #/100W BC 0.0 0.2 0.4 High FINAL [place]y wood [facility] - [place] [facility], [address] [place] [address] 200 [place] [id number] 0 Phone: () - 05/29 CBC w/ auto diff RBC M/uL 3.9 5.1 2.26 Low FINAL Cassy wood [facility] - [place], [address] [place] [address] 200 [place] [id number] 0 Phone: () - 05/29 CBC w/ auto diff HCT % 35.0 48.0 23.0 Low FINAL Cassy wood [facility] - [place], [address] [place] [address] 200 [place] [id number] 0 Phone: () - 05/29 CBC w/ auto diff MCV fL 80.0 104.0 101.8 FINAL Cassy wood On[facility] - [place], [address] [place] [address] 200 [place] [id number] 0 Phone: () - 05/29 CBC w/ auto diff MCH pg 26.0 35.0 34.1 FINAL Cassy wood [facility] - [place] [facility], [address] [place] [address] [address] [place] [id number] 0 Phone: () - 05/29 CBC w/ auto diff MCHC g/dL 30.0 35.0 33.5 FINAL Cassy wood [facility] - [place] [facility], [address] [place] [address] [address] [place] [id number] 0 Phone: () - 05/29 CBC w/ auto diff MPV fL 9.5 13.4 12.0 FINAL Cassy wood [facility], [address] 200 [facility] [id number] 0 Phone: () - 05/29 CBC w/ auto diff RDW % 11.4 16.1 13.80 FINAL Cassy wood [facility], [address] [place] [address] 200 [facility] [id number] 0 Phone: () - 05/29 CMP CO2 [...] 96 hour stability window. FINAL Cassy wood [facility], [address] [id number] 0 Phone: () - 05/29 CMP Creat inine mg/dL 0.5 1.2 2.02 High FINAL [place] [address] [id number] 0 Phone: () - 05/29 CMP GFR estim ate ml/min /1.73m ^2 22.2 Low GFR is calculate d using the CKD-EPI equation. FINAL Cassy [place] [address] [id number] 0 Phone: () - 05/29 CMP Gluco se mg/dL 73.0 126.0 100 FINAL [place]y [place] [address] [id number] 0 Phone: () - 05/29 CMP Potas sium mmol/L 3.5 5.1 4.0 FINAL Cassy wood [facility], [address] [id number] 0 Phone: () - 05/29 CMP Sodiu m mmol/L 136.0 145.0 138 FINAL Cassy wood [facility], [address] [place] [address] [id number] 0 Phone: () - 05/29 CMP Bilir ubin, total mg/dL 0.3 1.2 0.5 FINAL Cassy wood [facility], [address] [place] [address] [id number] 0 Phone: () - 05/29 CMP Total prote in g/dL 5.7 8.2 6.1 FINAL Cassy wood [facility] [address] [facility] [address] [place] [address] [id number] 0 Phone: () - 05/29 CMP Album in g/dL 3.2 5.2 4.1 FINAL Cassy wood [facility] [address] [facility] [address] [place] [address] [id number] 0 Phone: () - 05/29 CMP Alkal ine phosp hatas e U/L 46.0 116.0 143 High FINAL Cassy wood [facility], [facility] N [facility] [address] [place] [address] [id number] 0 Phone: () - 05/29 CMP ALT/S GPT U/L 7.0 40.0 315 High FINAL [place]y [place] [address] [id number] 0 Phone: () - 05/29 CMP AST/S GOT U/L 13.0 40.0 150 High FINAL [place] [address] [address] [facility] [address] [place] [address] [id number] 0 Phone: () - 05/29 CMP BUN mg/dL 9.0 23.0 41 High FINAL [place] [address] [address] [facility] [address] [id number] 0 Phone: () - 05/29 CMP Calci um mg/dL 8.7 10.4 10.0 FINAL [place] [address] [address] [facility] [address] [place] [address] [id number] 0 Phone: () - 05/29 CMP Chlor glory mmol/L 96.0 114.0 100 FINAL Cassy wood [facility], [address] [facility] [address] [id number] 0 Phone: () - 05/29 Total prote in g/dL 6.4 8.0 6.0 Low FINAL Cassy wood [facility], [address] [facility] [address] [id number] 0 Phone: () - 05/29 Album in, SPE g/dL 3.31 5.31 3.74 FINAL Cassy wood [facility] [address] [id number] 0 Phone: () - 05/29 Alpha -1 globu max g/dL 0.19 0.42 0.38 FINAL [place] [address] [address] [facility] [address] [id number] 0 Phone: () - 05/29 Alpha -2 globu max g/dL 0.44 1.03 0.91 FINAL [place] [address] [address] [facility] [address] [id number] 0 Phone: () - 05/29 Beta globu max g/dL 0.52 1.05 0.49 Low FINAL [place]y [place] [address] [address] [facility] [address] [id number] 0 Phone: () - 05/29 Gamma globu max g/dL 0.59 1.46 0.48 Low FINAL [place] [address] [address] [facility] [address] [id number] 0 Phone: () - 05/29 Elect ropho resis , Prote in Lab resul t note Previou sly identif ied parapro tein detecte d in gamma region. Was 0.4 gm/dL, now 0.3 gm/dL. Interpr eted and signed by Jerilyn suazo MD on 021 FINAL Cassy wood [facility], [facility] N [facility] [address] [id number] 0 Phone: () - 05/29 M-spi ke, SPE, g/dL g/dL 0.35 FINAL [place] [facility], [address] [facility] 100 [facility] [phone] 0 Phone: () - 05/29 iSTAT creat inine panel Creat inine , iSTAT mg/dl 0.6 1.3 2.3 High FINAL Cassy wood [facility], [address] [place] [id number] 0 Phone: () - 05/29 iSTAT creat inine panel GFR estim ate ml/min /1.73m ^2 19.0 Low GFR is calculate d using the CKD-EPI equation. 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 service technician d 06/04 [facility] other lab See garage door service technician d 06/05 CMP Album in g/dL 3.2 5.2 3.8 FINAL Cassy wood [facility], [address] [facility] [address] [place] [address] [id number] 0 Phone: () - 06/05 CMP Alkal ine phosp hatas e U/L 46.0 116.0 120 High FINAL Cassy wood [facility], [address] [facility] [address] [id number] 0 Phone: () - 06/05 CMP ALT/S GPT U/L 7.0 40.0 66 High FINAL Cassy wood [facility], [address] [facility] [address] [facility] [id number] 0 Phone: () - 06/05 CMP AST/S GOT U/L 13.0 40.0 21 FINAL Cassy wood [facility], [address] [facility] 100 [facility] [id number] 0 Phone: () - 06/05 CMP BUN mg/dL 9.0 23.0 26 High FINAL Cassy wood [facility], [address] [facility] [id number] 0 Phone: () - 06/05 CMP Calci um mg/dL 8.7 10.4 9.2 FINAL Cassy [place] [address] [id number] 0 Phone: () - 06/05 CMP Chlor glory mmol/L 96.0 114.0 108 FINAL Cassy [place] [address] [id number] 0 Phone: () - 06/05 CMP CO2 [...] 96 hour stability window. FINAL Cassy [place] [address] [id number] 0 Phone: () - 06/05 CMP Creat inine mg/dL 0.5 1.2 1.70 High FINAL Cassy [place] [address] [id number] 0 Phone: () - 06/05 CMP GFR estim ate ml/min /1.73m ^2 27.3 Low GFR is calculate d using the CKD-EPI equation. FINAL Cassy [place] [address] [id number] 0 Phone: () - 06/05 CMP Gluco se mg/dL 73.0 126.0 109 FINAL Cassy [place] [address] [id number] 0 Phone: () - 06/05 CMP Potas sium mmol/L 3.5 5.1 4.4 FINAL Cassy wood [place] [address] [id number] 0 Phone: () - 06/05 CMP Sodiu m mmol/L 136.0 145.0 142 FINAL Cassy wood [facility], [address] [facility] [address] [place] [id number] 0 Phone: () - 06/05 CMP Bilir ubin, total mg/dL 0.3 1.2 0.4 FINAL Cassy wood [facility], [address] [facility] [id number] 0 Phone: () - 06/05 CMP Total prote in g/dL 5.7 8.2 5.7 FINAL Cassy wood [facility], [address] [facility] [address] [place] [id number] 0 Phone: () - 06/05 iSTAT creat inine panel Creat inine , iSTAT mg/dl 0.6 1.3 2.0 High FINAL [facility], [address] [place] [address] 200 [facility] [place] [id number] 0 Phone: () - 06/05 iSTAT creat inine panel GFR estim ate ml/min /1.73m ^2 22.5 Low GFR is calculate d using the CKD-EPI equation. FINAL [facility], [address] [place] [address] [address] [place] [id number] 0 Phone: () - 06/05 CBC w/ auto diff WBC K/uL 3.0 8.9 4.3 FINAL [place] wood [facility] [place] [facility], [address] [place] [address] 200 [place] [id number] 0 Phone: () - 06/05 CBC w/ auto diff HGB g/dL 11.3 15.2 7.1 Critica l hematol ogy result obtaine d Criti desirae Low FINAL [place] wood [facility] [place] [facility], [address] [place] [address] [address] [place] [id number] 0 Phone: () - 06/05 CBC w/ auto diff PLT K/uL 113.0 364.0 143 FINAL [facility] wood [facility], [address] 200 [place] [id number] 0 Phone: () - 06/05 CBC w/ auto diff Consuelo # (ANC) K/uL 1.6 6.6 3.3 FINAL Cassy wood [facility] - [place], [address] [place] [address] [address] [place] [id number] 0 Phone: () - 06/05 CBC w/ auto diff Consuelo % % 43.0 74.0 75.0 High FINAL [place] wood [facility] - [place], [address] [place] [address] [address] [place] [id number] 0 Phone: () - 06/05 CBC w/ auto diff IG % % 0.0 0.5 0.5 FINAL Cassy wood [facility] - [place], [address] [place] [address] [address] [place] [id number] 0 Phone: () - 06/05 CBC w/ auto diff IG # K/uL 0.0 0.03 0.02 FINAL [place]y wood [facility] - [place], [address] [place] [address] [address] [place] [id number] 0 Phone: () - 06/05 CBC w/ auto diff LY % % 14.0 41.0 13.4 Low FINAL [place] wood [facility] - [place], [address] [place] [address] [address] [place] [id number] 0 Phone: () - 06/05 CBC w/ auto diff MO % % 6.0 15.0 6.2 FINAL [place] wood [facility] - [place], [address] [place] [address] [address] [place] [id number] 0 Phone: () - 06/05 CBC w/ auto diff EO % % 0.0 7.0 4.2 FINAL [place] wood [facility] - [place], [address] [place] [address] [address] [place] [id number] 0 Phone: () - 06/05 CBC w/ auto diff BA % % 0.0 2.0 0.7 FINAL [place] wood [facility] - [place], [address] [place] [address] [address] [place] [id number] 0 Phone: () - 06/05 CBC w/ auto diff LY # K/uL 0.4 3.6 0.6 FINAL [place] wood [facility] - [place], [address] [place] [address] [address] [place] [id number] 0 Phone: () - 06/05 CBC w/ auto diff MO # K/uL 0.2 1.3 0.3 FINAL [facility] [place], [address] [place] [address] [address] [place] [id number] 0 Phone: () - 06/05 CBC w/ auto diff EO # K/uL 0.0 0.6 0.2 FINAL [facility] [place], [address] [place] [address] [address] [place] [id number] 0 Phone: () - 06/05 CBC w/ auto diff BA # K/uL 0.0 0.2 0.0 FINAL [facility] [place], [address] [place] [address] [address] [place] [id number] 0 Phone: () - 06/05 CBC w/ auto diff NRBC % #/100W BC 0.0 0.2 0.0 FINAL [facility] [place], [address] [place] [address] [address] [place] [id number] 0 Phone: () - 06/05 CBC w/ auto diff RBC M/uL 3.9 5.1 2.07 Low FINAL [facility] [place], [address] [place] [address] [address] [place] [id number] 0 Phone: () - 06/05 CBC w/ auto diff HCT % 35.0 48.0 21.9 Low FINAL [facility] [place], [address] [place] [address] [address] [place] [id number] 0 Phone: () - 06/05 CBC w/ auto diff MCV fL 80.0 104.0 105.8 High FINAL [facility] [place], [address] [place] [address] [address] [place] [id number] 0 Phone: () - 06/05 CBC w/ auto diff MCH pg 26.0 35.0 34.3 FINAL [facility] [place], [address] [place] [id number] 0 Phone: () - 06/05 CBC w/ auto diff MCHC g/dL 30.0 35.0 32.4 FINAL Cassy wood [facility], [address] 200 [place] [id number] 0 Phone: () - 06/05 CBC w/ auto diff MPV fL 9.5 13.4 11.4 FINAL Cassy wood [facility], [address] [place] [id number] 0 Phone: () - 06/05 CBC w/ auto diff RDW % 11.4 16.1 14.30 FINAL Cassy wood [facility], [address] [place] [address] 200 [place] [id number] 0 Phone: () - 06/05 Uric acid panel Uric acid mg/dL 2.5 7.7 3.7 FINAL Cassy Sierra [facility], [address] [id number] 0 Phone: () - 06/05 Crys tin panel Crys tin NG/ML 10.0 130.0 975.10 High FIN[address] Wendi [address] [facility], [address] [id number] 0 Phone: () - 06/05 Iron profi le TIBC ug/dL 250.0 425.0 264 FINAL Wendi Chan [place] [address] [id number] 0 Phone: () - 06/05 Iron profi le Iron ug/dL 50.0 175.0 46 Low FINAL Wendi Chan [facility] [address] [id number] 0 Phone: () - 06/05 Iron profi le Unbou nd iron capac ity ug/dL 75.0 410.0 218 FINAL Wendi Chan [facility] [address] [id number] 0 Phone: () - 06/05 Iron profi le Iron, % satur ation % 20.0 55.0 17 Low FINAL [facility], [address] [place] [id number] 0 Phone: () - 06/11 [facility] other lab See garage door service technician d 06/12 iSTAT creat inine panel Creat inine , iSTAT mg/dl 0.6 1.3 1.7 High FINAL [facility] [place], [address] [place] [address] [address] [place] [id number] 0 Phone: () - 06/12 iSTAT creat inine panel GFR estim ate ml/min /1.73m ^2 27.3 Low GFR is calculate d using the CKD-EPI equation. FINAL [facility] [place], [address] [place] [address] [address] [place] [id number] 0 Phone: () - 06/12 CBC w/ auto diff WBC K/uL 3.0 8.9 3.6 FINAL [facility] [place], [address] [place] [address] [address] [place] [id number] 0 Phone: () - 06/12 CBC w/ auto diff HGB g/dL 11.3 15.2 9.1 Low FINAL [facility] [place], [address] [place] [address] [address] [place] [id number] 0 Phone: () - 06/12 CBC w/ auto diff PLT K/uL 113.0 364.0 168 FINAL [facility] [place], [address] [place] [address] [address] [place] [id number] 0 Phone: () - 06/12 CBC w/ auto diff Consuelo # (ANC) K/uL 1.6 6.6 2.5 FINAL [facility] [place], [address] [place] [address] [address] [place] [id number] 0 Phone: () - 06/12 CBC w/ auto diff Consuelo % % 43.0 74.0 70.3 FINAL [facility]y [facility] [place], [address] 200 [place] [id number] 0 Phone: () - 06/12 CBC w/ auto diff IG % % 0.0 0.5 4.5 High FINAL [facility] [place], [address] 200 [place] [id number] 0 Phone: () - 06/12 CBC w/ auto diff IG # K/uL 0.0 0.03 0.16 High FINAL [facility] [place], [address] [place] [id number] 0 Phone: () - 06/12 CBC w/ auto diff LY % % 14.0 41.0 16.2 FINAL [facility] [place], [address] [place] [id number] 0 Phone: () - 06/12 CBC w/ auto diff MO % % 6.0 15.0 6.7 FINAL [facility] [place], [address] 200 [place] [id number] 0 Phone: () - 06/12 CBC w/ auto diff EO % % 0.0 7.0 1.7 FINAL [facility] [place], [address] [place] [address] 200 [place] [id number] 0 Phone: () - 06/12 CBC w/ auto diff BA % % 0.0 2.0 0.6 FINAL [facility] [place], [address] 200 [place] [id number] 0 Phone: () - 06/12 CBC w/ auto diff LY # K/uL 0.4 3.6 0.6 FINAL [facility] [place], [address] [place] [address] 200 [place] [id number] 0 Phone: () - 06/12 CBC w/ auto diff MO # K/uL 0.2 1.3 0.2 FINAL [facility] [place], [address] [place] [id number] 0 Phone: () - 06/12 CBC w/ auto diff EO # K/uL 0.0 0.6 0.1 FINAL [facility] [place] [facility], [address] [place] [id number] 0 Phone: () - 06/12 CBC w/ auto diff BA # K/uL 0.0 0.2 0.0 FINAL [facility] [place] [facility], [address] [place] [id number] 0 Phone: () - 06/12 CBC w/ auto diff NRBC % #/100W BC 0.0 0.2 0.8 High FINAL [facility] [place] [facility], [address] [place] [address] 200 [place] [id number] 0 Phone: () - 06/12 CBC w/ auto diff RBC M/uL 3.9 5.1 2.76 Low FINAL [facility] [place] [facility], [address] [place] [address] 200 [place] [id number] 0 Phone: () - 06/12 CBC w/ auto diff HCT % 35.0 48.0 27.9 Low FINAL [facility] [place] [facility], [address] [place] [address] 200 [place] [id number] 0 Phone: () - 06/12 CBC w/ auto diff MCV fL 80.0 104.0 101.1 FINAL [facility] [place] [facility], [address] 200 [place] [id number] 0 Phone: () - 06/12 CBC w/ auto diff MCH pg 26.0 35.0 33.0 FINAL [facility] [place] [facility], [address] [place] [id number] 0 Phone: () - 06/12 CBC w/ auto diff MCHC g/dL 30.0 35.0 32.6 FINAL [facility] [place] [facility], [address] [place] [id number] 0 Phone: () - 06/12 CBC w/ auto diff MPV fL 9.5 13.4 10.8 FINAL [facility], [address] [place] [id number] 0 Phone: () - 06/12 CBC w/ auto diff RDW % 11.4 16.1 15.90 FINAL [facility], [address] [place] [address] [address] [place] [id number] 0 Phone: () - 06/12 CMP Sodiu [...] IU/L 2.0 40.0 47 High Test Performed by:[employer] [facility] [id number], [address] - [place], [place] [id number] e [phone] FINAL Cassy Tucker 06/18 [facility] other lab See garage door service technician d 06/18 [facility] other lab See garage door service technician d 06/18 [facility] other lab See garage door service technician d 06/19 CMP Album in g/dL 3.2 5.2 3.5 FINAL Cassy Sierra [facility], [address] [place] [address] [phone] 0 Phone: () - 06/19 CMP Alkal ine phosp hatas e U/L 46.0 116.0 137 High FINAL Cassy wood [facility], [address] [place] [address] [id number] 0 Phone: () - 06/19 CMP ALT/S GPT U/L 7.0 40.0 100 High FINAL Cassy Sierra [facility], [address] [facility] [id number] 0 Phone: () - 06/19 CMP AST/S GOT U/L 13.0 40.0 30 FINAL Cassy [facility], [address] [facility] [id number] 0 Phone: () - 06/19 CMP BUN mg/dL 9.0 23.0 25 High FINAL Cassy [facility], [address] [id number] 0 Phone: () - 06/19 CMP Calci um mg/dL 8.7 10.4 9.5 FINAL Cassy wood [place] [address] [id number] 0 Phone: () - 06/19 CMP Chlor glory mmol/L 96.0 114.0 110 FINAL Cassy wood [place] [address] [id number] 0 Phone: () - 06/19 CMP CO2 [...] 96 hour stability window. FINAL Cassy wood [place] [address] [id number] 0 Phone: () - 06/19 CMP Creat inine mg/dL 0.5 1.2 1.43 High FINAL Cassy wood [place] [address] [id number] 0 Phone: () - 06/19 CMP GFR estim ate ml/min /1.73m ^2 33.7 Low GFR is calculate d using the CKD-EPI equation. FINAL Cassy wood [place] [address] [id number] 0 Phone: () - 06/19 CMP Gluco se mg/dL 73.0 126.0 97 FINAL Cassy wood [place] [address] [id number] 0 Phone: () - 06/19 CMP Potas sium mmol/L 3.5 5.1 4.2 FINAL Cassy wood [place] [address] [id number] 0 Phone: () - 06/19 CMP Sodiu m mmol/L 136.0 145.0 144 FINAL [facility], [address] [facility] [address] [facility] [id number] 0 Phone: () - 06/19 CMP Bilir ubin, total mg/dL 0.3 1.2 0.5 FINAL [facility], [address] [facility] [id number] 0 Phone: () - 06/19 CMP Total prote in g/dL 5.7 8.2 5.1 Low FINAL Cassy wood [facility], [address] [facility] [address] [place] [id number] 0 Phone: () - 06/19 iSTAT creat inine panel Creat inine , iSTAT mg/dl 0.6 1.3 1.7 High FINAL [facility], [address] [place] [address] [address] [facility] [place] [id number] 0 Phone: () - 06/19 iSTAT creat inine panel GFR estim ate ml/min /1.73m ^2 27.3 Low GFR is calculate d using the CKD-EPI equation. FINAL [facility], [address] [place] [address] [address] [place] [id number] 0 Phone: () - 06/19 CBC w/ auto diff WBC K/uL 3.0 8.9 6.2 FINAL [facility], [address] [place] [address] [address] [place] [id number] 0 Phone: () - 06/19 CBC w/ auto diff HGB g/dL 11.3 15.2 9.4 Low FINAL [facility] [place] [facility], [address] [place] [address] [address] [place] [id number] 0 Phone: () - 06/19 CBC w/ auto diff PLT K/uL 113.0 364.0 198 FINAL [facility], [address] [place] [address] [address] [place] [id number] 0 Phone: () - 06/19 CBC w/ auto diff Consuelo # (ANC) K/uL 1.6 6.6 4.0 FINAL [facility] [place], [address] [place] [address] [address] [place] [id number] 0 Phone: () - 06/19 CBC w/ auto diff Consuelo % % 43.0 74.0 64.4 FINAL [facility] [place], [address] [place] [address] [address] [place] [id number] 0 Phone: () - 06/19 CBC w/ auto diff IG % % 0.0 0.5 4.0 High FINAL [facility] [place], [address] [place] [address] [address] [place] [id number] 0 Phone: () - 06/19 CBC w/ auto diff IG # K/uL 0.0 0.03 0.25 High FINAL [facility] [place], [address] [place] [address] [address] [place] [id number] 0 Phone: () - 06/19 CBC w/ auto diff LY % % 14.0 41.0 22.9 FINAL [facility] [place], [address] [place] [address] [address] [place] [id number] 0 Phone: () - 06/19 CBC w/ auto diff MO % % 6.0 15.0 7.6 FINAL [facility] [place], [address] [place] [address] [address] [place] [id number] 0 Phone: () - 06/19 CBC w/ auto diff EO % % 0.0 7.0 0.8 FINAL [facility] [place], [address] [place] [address] [address] [place] [id number] 0 Phone: () - 06/19 CBC w/ auto diff BA % % 0.0 2.0 0.3 FINAL [facility] [place], [address] [place] [address] [address] [place] [id number] 0 Phone: () - 06/19 CBC w/ auto diff LY # K/uL 0.4 3.6 1.4 FINAL [facility] [place], [address] [place] [address] [address] [place] [id number] 0 Phone: () - 06/19 CBC w/ auto diff MO # K/uL 0.2 1.3 0.5 FINAL [facility] [place], [address] [place] [id number] 0 Phone: () - 06/19 CBC w/ auto diff EO # K/uL 0.0 0.6 0.1 FINAL [facility] [place], [address] [place] [id number] 0 Phone: () - 06/19 CBC w/ auto diff BA # K/uL 0.0 0.2 0.0 FINAL [facility] [place], [address] [place] [id number] 0 Phone: () - 06/19 CBC w/ auto diff NRBC % #/100W BC 0.0 0.2 0.8 High FINAL [facility] [place], [address] [place] [id number] 0 Phone: () - 06/19 CBC w/ auto diff RBC M/uL 3.9 5.1 2.83 Low FINAL [facility] [place], [address] [place] [id number] 0 Phone: () - 06/19 CBC w/ auto diff HCT % 35.0 48.0 29.1 Low FINAL [facility] [place], [address] [place] [id number] 0 Phone: () - 06/19 CBC w/ auto diff MCV fL 80.0 104.0 102.8 FINAL [facility] [place], [address] [place] [address] [address] [place] [id number] 0 Phone: () - 06/19 CBC w/ auto diff MCH pg 26.0 35.0 33.2 FINAL [facility] [place], [address] [place] [id number] 0 Phone: () - 06/19 CBC w/ auto diff MCHC g/dL 30.0 35.0 32.3 FINAL [facility], [address] [place] [address] 200 [facility] [id number] 0 Phone: () - 06/19 CBC w/ auto diff MPV fL 9.5 13.4 10.7 FINAL Cassy wood [facility], [address] [place] [address] 200 [facility] [id number] 0 Phone: () - 06/19 CBC w/ auto diff RDW % 11.4 16.1 16.10 FINAL Cassy wood [facility], [address] [facility] [id number] 0 Phone: () - Medications Date Name [...]
--- OUTSIDE RECORDS SUMMARY | 2024-12-21 12:31 | XMS_ITS ---
Author Name Interface, [id number] lity Address [address] [facility] [address] [address] [facility] Oncology Address [address] [facility] [address] [address] Care Team Providers Care Hand Coper Name Role Phone Tony Gutierrez Unavailable Unavailable [...] g/dL 3.2 5.2 4.0 FINAL Tony Sierra [place] [address] [id number] Phone: () - 05/22 CMP Alkal ine phosp hatas e U/L 46.0 116.0 62 FINAL [place] [address] [id number] 0 Phone: () - 05/22 CMP ALT/S GPT U/L 7.0 40.0 39 FINAL [place] [address] [id number] 0 Phone: () - 05/22 CMP AST/S GOT U/L 13.0 40.0 31 FINAL Tony Sierra [place] [address] [id number] 0 Phone: () - 05/22 CMP BUN mg/dL 9.0 23.0 40 High FINAL [place] [address] [address] [facility] [address] [id number] 0 Phone: () - 05/22 CMP Calci um mg/dL 8.7 10.4 8.8 FINAL [place] [address] [id number] 0 Phone: () - 05/22 CMP Chlor glory mmol/L 96.0 114.0 101 FINAL [place] [address] [address] [facility] [id number] 0 Phone: () - 05/22 CMP CO2 [...] 96 hour stability window. FINAL Tony wood [address] [id number] [phone] Phone: () - 05/22 CMP Creat inine mg/dL 0.5 1.2 2.12 High FINAL Tony wood [address] [id number] 0 Phone: () - 05/22 CMP GFR estim ate ml/min /1.73m ^2 20.9 Low GFR is calculate d using the CKD-EPI equation. FINAL Tony wood [address] [id number] 0 Phone: () - 05/22 CMP Gluco se mg/dL 73.0 126.0 140 High FINAL Tony wood [place] [address] [id number] 0 Phone: () - 05/22 CMP Potas sium mmol/L 3.5 5.1 3.7 FINAL Tony wood [address] [id number] 0 Phone: () - 05/22 CMP Sodiu m mmol/L 136.0 145.0 136 FINAL Tony wood [address] [id number] 0 Phone: () - 05/22 CMP Bilir ubin, total mg/dL 0.3 1.2 0.7 FINAL Tony wood [place] [address] [id number] 0 Phone: () - 10/19 /2021 CMP Total prote in g/dL 5.7 8.2 5.7 FINAL Tony wood Oncology [facility], [address] [facility] [phone] 0 Phone: () - 05/22 CBC w/ auto diff WBC K/uL 3.0 8.9 5.2 FINAL Tony wood Oncology - [place], [address] [place] [id number] 0 Phone: () - 05/22 CBC w/ auto diff HGB g/dL 11.3 15.2 8.2 Low FINAL Tony wood Oncology - [place], [address] [place] [id number] 0 Phone: () - 05/22 CBC w/ auto diff PLT K/uL 113.0 364.0 129 FINAL Tony wood [facility], [address] [place] [id number] 0 Phone: () - 05/22 CBC w/ auto diff Plate let, immat ure, fract ion % 0.9 11.2 10.6 FINAL Tony wood Oncology - [place], [address] [place] [address] [address] [place] [id number] 0 Phone: () - 05/22 CBC w/ auto diff Consuelo # (ANC) K/uL 1.6 6.6 4.4 FINAL Tony wood Oncology - [place], [address] [place] [id number] 0 Phone: () - 05/22 CBC w/ auto diff Consuelo % % 43.0 74.0 85.2 High FINAL Tony wood Oncology - [place], [address] [place] [id number] 0 Phone: () - 05/22 CBC w/ auto diff IG % % 0.0 0.5 1.3 High FINAL Tony wood Oncology - [place], [address] [place] [id number] 0 Phone: () - 05/22 CBC w/ auto diff IG # K/uL 0.0 0.03 0.07 High FINAL Tony wood Oncology - [place], [address] [place] [address] [address] [place] [id number] 0 Phone: () - 05/22 CBC w/ auto diff LY % % 14.0 41.0 4.0 Low FINAL Tony wood Oncology - [place], [address] [place] [address] [address] [place] [id number] 0 Phone: () - 05/22 CBC w/ auto diff MO % % 6.0 15.0 6.4 FINAL Tony wood Oncology - [place], [address] [place] [address] [address] [place] [id number] 0 Phone: () - 05/22 CBC w/ auto diff EO % % 0.0 7.0 2.9 FINAL Tony wood Oncology - [place], [address] [place] [address] [address] [place] [id number] 0 Phone: () - 05/22 CBC w/ auto diff BA % % 0.0 2.0 0.2 FINAL Tony wood Oncology - [place], [address] [place] [address] [address] [place] [id number] 0 Phone: () - 05/22 CBC w/ auto diff LY # K/uL 0.4 3.6 0.2 Low FINAL Tony wood Oncology - [place], [address] [place] [address] [address] [place] [id number] 0 Phone: () - 05/22 CBC w/ auto diff MO # K/uL 0.2 1.3 0.3 FINAL Tony wood Oncology - [place], [address] [place] [address] [address] [place] [id number] 0 Phone: () - 05/22 CBC w/ auto diff EO # K/uL 0.0 0.6 0.2 FINAL Tony wood Oncology - [place], [address] [place] [address] [address] [place] [id number] 0 Phone: () - 05/22 CBC w/ auto diff BA # K/uL 0.0 0.2 0.0 FINAL Tony wood Oncology - [place], [address] [place] [id number] 0 Phone: () - 05/22 CBC w/ auto diff NRBC % #/100W BC 0.0 0.2 1.2 High FINAL Tony wood Oncology - [place], [address] [place] [id number] 0 Phone: () - 05/22 CBC w/ auto diff RBC M/uL 3.9 5.1 2.35 Low FINAL Tony wood Oncology - [place], [address] [place] [id number] 0 Phone: () - 05/22 CBC w/ auto diff HCT % 35.0 48.0 23.4 Low FINAL Tony wood Oncology - [place], [facility] [address] [place] [id number] 0 Phone: () - 05/22 CBC w/ auto diff MCV fL 80.0 104.0 99.6 FINAL Tony wood Oncology - [place], [address] [place] [id number] 0 Phone: () - 05/22 CBC w/ auto diff MCH pg 26.0 35.0 34.9 FINAL Tony wood Oncology - [place], [address] [place] [id number] 0 Phone: () - 05/22 CBC w/ auto diff MCHC g/dL 30.0 35.0 35.0 FINAL Tony wood Oncology - [place], [address] [place] [id number] 0 Phone: () - 05/22 CBC w/ auto diff MPV fL 9.5 13.4 11.9 FINAL Tony wood Oncology - [place], [facility] [address] [place] [id number] 0 Phone: () - 05/22 CBC w/ auto diff RDW % 11.4 16.1 13.40 FINAL Tony wood Oncology - [place], [facility] [address] [place] [id number] 0 Phone: () - 05/22 iSTAT creat inine panel Creat inine , iSTAT mg/dl 0.6 1.3 2.5 High FINAL Tony wood Oncology - [place], [address] [place] [id number] 0 Phone: () - 05/22 iSTAT creat inine panel GFR estim ate ml/min /1.73m ^2 17.2 Low GFR is calculate d using the CKD-EPI equation. FINAL Tony wood Oncology - [place], [address] [place] [id number] 0 Phone: () - 05/22 Sodiu m, iSTAT mmol/L 138.0 146.0 134 Low Reference range adjusted 0 with implement ation of I-Stat 8+ cartridge . FINAL Tony wood Oncology - [place] [facility], [address] [place] [id number] 0 Phone: () - 05/22 Potas sium, iSTAT mmol/L 3.5 4.9 3.6 Reference range adjusted 0 with implement ation of I-Stat 8+ cartridge . FINAL Tony wood Oncology - [place], [address] [place] [id number] 0 Phone: () - 05/22 Chlor glory, iSTAT mmol/L 98.0 109.0 96 Low Reference range adjusted 0 with implement ation of I-Stat 8+ cartridge . FINAL Tony wood Oncology - [place] [facility], [address] [place] [id number] 0 Phone: () - 05/22 Gluco se mg/dl 70.0 105.0 141 High Reference range adjusted 0 with implement ation of I-Stat 8+ cartridge . FINAL Tony wood Oncology - [place] [facility], [address] [place] [id number] 0 Phone: () - 05/22 BUN mg/dl 8.0 26.0 38 High Reference range adjusted 0 with implement ation of I-Stat 8+ cartridge . FINAL Tony wood [facility], [address] [place] [address] [address] [place] [id number] 0 Phone: () - 05/22 Total prote in g/dL 6.4 8.0 5.6 Low FINAL Tony wood [facility], [address] [place] [address] [id number] 0 Phone: () - 05/22 Album in, SPE g/dL 3.31 5.31 3.72 FINAL Tony wood [facility], [address] [place] [address] [id number] 0 Phone: () - 05/22 Alpha -1 globu max g/dL 0.19 0.42 0.30 FINAL Tony wood [facility], [address] [facility] [address] [place] [address] [id number] 0 Phone: () - 05/22 Alpha -2 globu max g/dL 0.44 1.03 0.74 FINAL Tony wood [facility], [address] [facility] [address] [place] [address] [id number] 0 Phone: () - 05/22 Beta globu max g/dL 0.52 1.05 0.38 Low FINAL Tony wood [facility], [address] [facility] [address] [place] [address] [id number] 0 Phone: () - 05/22 Gamma globu max g/dL 0.59 1.46 0.46 Low FINAL Tony wood [facility], [address] [facility] [address] [place] [address] [id number] 0 Phone: () - 05/22 Elect ropho resis , Prote in Lab resul t note Parapro tein detecte d in gamma region = 0.4gm/d L. No history for compari son. Recomme nd immunot yping. Interpr eted and signed by Selena de la paz MD on 021 FINAL Tony wood [facility], [address] [facility] [address] [place] [address] [id number] 0 Phone: () - 05/22 M-spi ke, SPE, g/dL g/dL 0.40 FINAL Tony wood Oncology - [place], [address] [place] [id number] 0 Phone: () - 05/22 Hepat itis B surfa ce antig en panel Hepat itis B surfa ce antig en Nonreac tive Test Performed by:[facility] [address] - [facility] [place] [place] [address]Yarw e : FINAL Tony Gutierrez 05/22 Hepat itis C antib jacqui panel Hepat itis C antib jacqui, qual Non-Christine ctive Antibodie s to HCV not detected; does not exclude the possibili ty of exposure toHCV.Valerie t Performed by:[facility] [address] - [facility] [place] [address]Swbo e : FINAL Tony Gutierrez 05/29 CBC w/ auto diff WBC K/uL 3.0 8.9 12.9 High FINAL Cassy wood Oncology - [facility], [address] [place] [address] [address] [place] [id number] 0 Phone: () - 05/29 CBC w/ auto diff HGB g/dL 11.3 15.2 7.7 Critica l hematol ogy result obtaine d Criti desirae Low FINAL Cassy wood Oncology - [facility], [address] [place] [id number] 0 Phone: () - 05/29 CBC w/ auto diff PLT K/uL 113.0 364.0 142 FINAL Cassy wood [facility], [address] [place] [id number] 0 Phone: () - 05/29 CBC w/ auto diff Consuelo # (ANC) K/uL 1.6 6.6 11.4 High FINAL Cassy wood [facility], [address] [place] [id number] 0 Phone: () - 05/29 CBC w/ auto diff Consuelo % % 43.0 74.0 88.8 High FINAL Cassy wood Oncology - [place], [address] [place] [id number] 0 Phone: () - 05/29 CBC w/ auto diff IG % % 0.0 0.5 1.4 High FINAL Cassy wood Oncology - [place], [address] [place] [id number] 0 Phone: () - 05/29 CBC w/ auto diff IG # K/uL 0.0 0.03 0.18 High FINAL Cassy wood Oncology - [place], [address] [place] [address] [address] [place] [id number] 0 Phone: () - 05/29 CBC w/ auto diff LY % % 14.0 41.0 4.6 Low FINAL Cassy wood Oncology - [place], [address] [place] [address] [address] [place] [id number] 0 Phone: () - 05/29 CBC w/ auto diff MO % % 6.0 15.0 4.8 Low FINAL Cassy wood Oncology - [place], [address] [place] [address] [address] [place] [id number] 0 Phone: () - 05/29 CBC w/ auto diff EO % % 0.0 7.0 0.2 FINAL Cassy wood Oncology - [place], [address] [place] [address] [address] [place] [id number] 0 Phone: () - 05/29 CBC w/ auto diff BA % % 0.0 2.0 0.2 FINAL Cassy wood Oncology - [place], [address] [place] [address] [address] [place] [id number] 0 Phone: () - 05/29 CBC w/ auto diff LY # K/uL 0.4 3.6 0.6 FINAL Cassy wood Oncology - [place], [address] [place] [address] [address] [place] [id number] 0 Phone: () - 05/29 CBC w/ auto diff MO # K/uL 0.2 1.3 0.6 FINAL Cassy wood Oncology - [place], [address] [place] [id number] 0 Phone: () - 05/29 CBC w/ auto diff EO # K/uL 0.0 0.6 0.0 FINAL Cassy wood Oncology - [place], [address] [place] [id number] 0 Phone: () - 05/29 CBC w/ auto diff BA # K/uL 0.0 0.2 0.0 FINAL Cassy wood Oncology - [place], [address] [place] [id number] 0 Phone: () - 05/29 CBC w/ auto diff NRBC % #/100W BC 0.0 0.2 0.4 High FINAL Cassy wood Oncology - [place] [facility], [address] [place] [address] 200 [place] [id number] 0 Phone: () - 05/29 CBC w/ auto diff RBC M/uL 3.9 5.1 2.26 Low FINAL Cassy wood Oncology - [place], [address] [place] [address] 200 [place] [id number] 0 Phone: () - 05/29 CBC w/ auto diff HCT % 35.0 48.0 23.0 Low FINAL Cassy wood Oncology - [place], [address] [place] [address] 200 [place] [id number] 0 Phone: () - 05/29 CBC w/ auto diff MCV fL 80.0 104.0 101.8 FINAL Cassy wood Oncology - [place], [address] [place] [address] 200 [place] [id number] 0 Phone: () - 05/29 CBC w/ auto diff MCH pg 26.0 35.0 34.1 FINAL Cassy wood Oncology - [place] [facility], [address] [place] [address] [address] [place] [id number] 0 Phone: () - 05/29 CBC w/ auto diff MCHC g/dL 30.0 35.0 33.5 FINAL Cassy wood Oncology - [place] [facility], [address] [place] [address] [address] [place] [id number] 0 Phone: () - 05/29 CBC w/ auto diff MPV fL 9.5 13.4 12.0 FINAL Cassy wood [facility], [address] [facility] [id number] 0 Phone: () - 05/29 CBC w/ auto diff RDW % 11.4 16.1 13.80 FINAL Cassy wood [facility], [address] [place] [address] 200 [facility] [id number] 0 Phone: () - 05/29 CMP CO2 [...] 96 hour stability window. FINAL Cassy wood [facility], [address] [id number] 0 Phone: () - 05/29 CMP Creat inine mg/dL 0.5 1.2 2.02 High FINAL [place] [address] [id number] 0 Phone: () - 05/29 CMP GFR estim ate ml/min /1.73m ^2 22.2 Low GFR is calculate d using the CKD-EPI equation. FINAL Cassy [place] [address] [id number] 0 Phone: () - 05/29 CMP Gluco se mg/dL 73.0 126.0 100 FINAL Cassy [place] [address] [id number] 0 Phone: () - 05/29 CMP Potas sium mmol/L 3.5 5.1 4.0 FINAL Cassy wood [facility], [address] [id number] 0 Phone: () - 05/29 CMP Sodiu m mmol/L 136.0 145.0 138 FINAL [place]y wood [facility], [address] [place] [address] [id number] 0 Phone: () - 05/29 CMP Bilir ubin, total mg/dL 0.3 1.2 0.5 FINAL Cassy wood [facility], [address] [place] [address] [id number] 0 Phone: () - 05/29 CMP Total prote in g/dL 5.7 8.2 6.1 FINAL Cassy wood [facility] [address] [facility] [address] [place] [address] [id number] 0 Phone: () - 05/29 CMP Album in g/dL 3.2 5.2 4.1 FINAL Cassy wood [facility] [address] [facility] [address] [place] [address] [id number] 0 Phone: () - 05/29 CMP Alkal ine phosp hatas e U/L 46.0 116.0 143 High FINAL Cassy wood [facility], [facility] N [facility] [address] [place] [address] [id number] 0 Phone: () - 05/29 CMP ALT/S GPT U/L 7.0 40.0 315 High FINAL Cassy [place] [address] [id number] 0 Phone: () - 05/29 CMP AST/S GOT U/L 13.0 40.0 150 High FINAL Cassy [place] [address] [address] [facility] [address] [place] [address] [id number] 0 Phone: () - 05/29 CMP BUN mg/dL 9.0 23.0 41 High FINAL Cassy [place] [address] [address] [facility] [address] [id number] 0 Phone: () - 05/29 CMP Calci um mg/dL 8.7 10.4 10.0 FINAL [place] [address] [address] [facility] [address] [place] [address] [id number] 0 Phone: () - 05/29 CMP Chlor glory mmol/L 96.0 114.0 100 FINAL Cassy wood [facility], [address] [facility] [address] [id number] 0 Phone: () - 05/29 Total prote in g/dL 6.4 8.0 6.0 Low FINAL Cassy wood [facility], [address] [facility] [address] [id number] 0 Phone: () - 05/29 Album in, SPE g/dL 3.31 5.31 3.74 FINAL Cassy wood [facility] [address] [id number] 0 Phone: () - 05/29 Alpha -1 globu max g/dL 0.19 0.42 0.38 FINAL Cassy [place] [address] [address] [facility] [address] [id number] 0 Phone: () - 05/29 Alpha -2 globu max g/dL 0.44 1.03 0.91 FINAL Cass[place] [address] [address] [facility] [address] [id number] 0 Phone: () - 05/29 Beta globu max g/dL 0.52 1.05 0.49 Low FINAL Cassy [place] [address] [address] [facility] [address] [id number] 0 Phone: () - 05/29 Gamma globu max g/dL 0.59 1.46 0.48 Low FINAL Cassy [place] [address] [address] [facility] [address] [id number] 0 Phone: () - 05/29 Elect ropho resis , Prote in Lab resul t note Previou sly identif ied parapro tein detecte d in gamma region. Was 0.4 gm/dL, now 0.3 gm/dL. Interpr eted and signed by Jerilyn suazo MD on 021 FINAL Cassy wood [facility], [facility] N [facility] [address] [id number] 0 Phone: () - 05/29 M-spi ke, SPE, g/dL g/dL 0.35 FINAL [place] wood [facility], [address] [facility] [address] [facility] [id number] 0 Phone: () - 05/29 iSTAT creat inine panel Creat inine , iSTAT mg/dl 0.6 1.3 2.3 High FINAL [place] wood [facility], [address] [place] [id number] 0 Phone: () - 05/29 iSTAT creat inine panel GFR estim ate ml/min /1.73m ^2 19.0 Low GFR is calculate d using the CKD-EPI equation. FINAL Cassy wood [facility], [address] [place] [id number] 0 Phone: () - 06/01 [facility] other lab See global creative chairman d 06/04 [facility] other lab See global creative chairman d 06/05 CMP Album in g/dL 3.2 5.2 3.8 FINAL Cassy wood [facility], [address] [facility] [address] [place] [address] [id number] 0 Phone: () - 06/05 CMP Alkal ine phosp hatas e U/L 46.0 116.0 120 High FINAL Cassy wood [facility], [address] [facility] [address] [id number] 0 Phone: () - 06/05 CMP ALT/S GPT U/L 7.0 40.0 66 High FINAL [place]y wood [facility], [address] [facility] [address] [facility] [id number] 0 Phone: () - 06/05 CMP AST/S GOT U/L 13.0 40.0 21 FINAL Cassy wood [facility], [address] [facility] [address] [facility] [id number] 0 Phone: () - 06/05 CMP BUN mg/dL 9.0 23.0 26 High FINAL Cassy wood [facility], [address] [facility] [id number] 0 Phone: () - 06/05 CMP Calci um mg/dL 8.7 10.4 9.2 FINAL Cassy [place] [address] [id number] 0 Phone: () - 06/05 CMP Chlor glory mmol/L 96.0 114.0 108 FINAL Cassy wood [place] [address] [id number] 0 Phone: () - 06/05 CMP CO2 [...] 96 hour stability window. FINAL Cassy wood [place] [address] [id number] [phone] Phone: () - 06/05 CMP Creat inine mg/dL 0.5 1.2 1.70 High FINAL Cassy [place] [address] [id number] 0 Phone: () - 06/05 CMP GFR estim ate ml/min /1.73m ^2 27.3 Low GFR is calculate d using the CKD-EPI equation. FINAL Cassy wood [place] [address] [id number] 0 Phone: () - 06/05 CMP Gluco se mg/dL 73.0 126.0 109 FINAL Cassy wood [place] [address] [id number] 0 Phone: () - 06/05 CMP Potas sium mmol/L 3.5 5.1 4.4 FINAL Cassy wood [place] [address] [id number] 0 Phone: () - 06/05 CMP Sodiu m mmol/L 136.0 145.0 142 FINAL Cassy wood Oncology [facility], [address] [facility] [address] [place] [id number] 0 Phone: () - 06/05 CMP Bilir ubin, total mg/dL 0.3 1.2 0.4 FINAL Cassy wood [facility], [address] [facility] [id number] [phone] Phone: () - 06/05 CMP Total prote in g/dL 5.7 8.2 5.7 FINAL Cassy wood [facility], [address] [facility] [address] [place] [id number] 0 Phone: () - 06/05 iSTAT creat inine panel Creat inine , iSTAT mg/dl 0.6 1.3 2.0 High FINAL Cass[facility], [address] [place] [address] 200 [facility] [place] [id number] 0 Phone: () - 06/05 iSTAT creat inine panel GFR estim ate ml/min /1.73m ^2 22.5 Low GFR is calculate d using the CKD-EPI equation. FINAL Cassy wood [facility], [address] [place] [address] [address] [place] [id number] 0 Phone: () - 06/05 CBC w/ auto diff WBC K/uL 3.0 8.9 4.3 FINAL Cassy wood [facility] - [place] [facility], [address] [place] [address] 200 [place] [id number] 0 Phone: () - 06/05 CBC w/ auto diff HGB g/dL 11.3 15.2 7.1 Critica l hematol ogy result obtaine d Criti desirae Low FINAL Cassy wood Oncology - [place] [facility], [address] [place] [address] [address] [place] [id number] 0 Phone: () - 06/05 CBC w/ auto diff PLT K/uL 113.0 364.0 143 FINAL Cassy wood [facility], [address] 200 [place] [id number] 0 Phone: () - 06/05 CBC w/ auto diff Consuelo # (ANC) K/uL 1.6 6.6 3.3 FINAL Cassy wood Oncology - [place], [address] [place] [address] [address] [place] [id number] 0 Phone: () - 06/05 CBC w/ auto diff Consuelo % % 43.0 74.0 75.0 High FINAL Cassy wood Oncology - [place], [address] [place] [address] [address] [place] [id number] 0 Phone: () - 06/05 CBC w/ auto diff IG % % 0.0 0.5 0.5 FINAL Cassy wood Oncology - [place], [address] [place] [address] [address] [place] [id number] 0 Phone: () - 06/05 CBC w/ auto diff IG # K/uL 0.0 0.03 0.02 FINAL Cassy wood Oncology - [place], [address] [place] [address] [address] [place] [id number] 0 Phone: () - 06/05 CBC w/ auto diff LY % % 14.0 41.0 13.4 Low FINAL Cassy wood Oncology - [place], [address] [place] [address] [address] [place] [id number] 0 Phone: () - 06/05 CBC w/ auto diff MO % % 6.0 15.0 6.2 FINAL [place] wood Oncology - [place], [address] [place] [address] [address] [place] [id number] 0 Phone: () - 06/05 CBC w/ auto diff EO % % 0.0 7.0 4.2 FINAL [place]y wood Oncology - [place], [address] [place] [address] [address] [place] [id number] 0 Phone: () - 06/05 CBC w/ auto diff BA % % 0.0 2.0 0.7 FINAL Cassy wood Oncology - [place], [address] [place] [address] [address] [place] [id number] 0 Phone: () - 06/05 CBC w/ auto diff LY # K/uL 0.4 3.6 0.6 FINAL Cassy wood Oncology - [place], [address] [place] [address] [address] [place] [id number] 0 Phone: () - 06/05 CBC w/ auto diff MO # K/uL 0.2 1.3 0.3 FINAL Cassy wood Oncology - [place], [address] [address] [place] [address] [address] [place] [id number] 0 Phone: () - 06/05 CBC w/ auto diff EO # K/uL 0.0 0.6 0.2 FINAL [facility] [place], [address] [place] [address] [address] [place] [id number] 0 Phone: () - 06/05 CBC w/ auto diff BA # K/uL 0.0 0.2 0.0 FINAL [facility] [place], [address] [place] [address] [address] [place] [id number] 0 Phone: () - 06/05 CBC w/ auto diff NRBC % #/100W BC 0.0 0.2 0.0 FINAL [facility] [place], [address] [place] [address] [address] [place] [id number] 0 Phone: () - 06/05 CBC w/ auto diff RBC M/uL 3.9 5.1 2.07 Low FINAL [facility] [place], [address] [place] [address] [address] [place] [id number] 0 Phone: () - 06/05 CBC w/ auto diff HCT % 35.0 48.0 21.9 Low FINAL [facility] [place], [address] [place] [address] [address] [place] [id number] 0 Phone: () - 06/05 CBC w/ auto diff MCV fL 80.0 104.0 105.8 High FINAL [facility] [place], [address] [place] [address] [address] [place] [id number] 0 Phone: () - 06/05 CBC w/ auto diff MCH pg 26.0 35.0 34.3 FINAL [facility] [place], [address] [place] [id number] 0 Phone: () - 06/05 CBC w/ auto diff MCHC g/dL 30.0 35.0 32.4 FINAL [facility], [address] 200 [place] [id number] 0 Phone: () - 06/05 CBC w/ auto diff MPV fL 9.5 13.4 11.4 FINAL [facility], [address] [place] [id number] 0 Phone: () - 06/05 CBC w/ auto diff RDW % 11.4 16.1 14.30 FINAL [facility], [address] [place] [address] 200 [place] [id number] 0 Phone: () - 06/05 Uric acid panel Uric acid mg/dL 2.5 7.7 3.7 FINAL Cassy Sierra [facility], [address] [id number] 0 Phone: () - 06/05 Crys tin panel Crys tin NG/ML 10.0 130.0 975.10 High FINAL Wendi Chan [facility], [address] [id number] 0 Phone: () - 06/05 Iron profi le TIBC ug/dL 250.0 425.0 264 FINAL Wendi Chan [place] [address] [id number] 0 Phone: () - 06/05 Iron profi le Iron ug/dL 50.0 175.0 46 Low FINAL Wendi Chan [facility] [address] [id number] 0 Phone: () - 06/05 Iron profi le Unbou nd iron capac ity ug/dL 75.0 410.0 218 FINAL Wendi [facility] [address] [id number] 0 Phone: () - 06/05 Iron profi le Iron, % satur ation % 20.0 55.0 17 Low FINAL [facility], [address] [place] [id number] 0 Phone: () - 06/11 [facility] other lab See global creative chairman d 06/12 iSTAT creat inine panel Creat inine , iSTAT mg/dl 0.6 1.3 1.7 High FINAL [facility] [place], [address] [place] [address] [address] [place] [id number] 0 Phone: () - 06/12 iSTAT creat inine panel GFR estim ate ml/min /1.73m ^2 27.3 Low GFR is calculate d using the CKD-EPI equation. FINAL [facility] [place], [address] [place] [address] [address] [place] [id number] 0 Phone: () - 06/12 CBC w/ auto diff WBC K/uL 3.0 8.9 3.6 FINAL [facility] [place], [address] [place] [address] [address] [place] [id number] 0 Phone: () - 06/12 CBC w/ auto diff HGB g/dL 11.3 15.2 9.1 Low FINAL [facility] [place], [address] [place] [address] [address] [place] [id number] 0 Phone: () - 06/12 CBC w/ auto diff PLT K/uL 113.0 364.0 168 FINAL [facility] [place], [address] [place] [address] [address] [place] [id number] 0 Phone: () - 06/12 CBC w/ auto diff Consuelo # (ANC) K/uL 1.6 6.6 2.5 FINAL [facility] [place], [address] [place] [address] [address] [place] [id number] 0 Phone: () - 06/12 CBC w/ auto diff Consuelo % % 43.0 74.0 70.3 FINAL [facility] [place], [address] 200 [place] [id number] 0 Phone: () - 06/12 CBC w/ auto diff IG % % 0.0 0.5 4.5 High FINAL [facility] [place], [address] [place] [id number] 0 Phone: () - 06/12 CBC w/ auto diff IG # K/uL 0.0 0.03 0.16 High FINAL [facility] [place], [address] 200 [place] [id number] 0 Phone: () - 06/12 CBC w/ auto diff LY % % 14.0 41.0 16.2 FINAL [facility] [place], [address] 200 [place] [id number] 0 Phone: () - 06/12 CBC w/ auto diff MO % % 6.0 15.0 6.7 FINAL [facility] [place], [address] 200 [place] [id number] 0 Phone: () - 06/12 CBC w/ auto diff EO % % 0.0 7.0 1.7 FINAL [facility] [place], [address] [place] [address] 200 [place] [id number] 0 Phone: () - 06/12 CBC w/ auto diff BA % % 0.0 2.0 0.6 FINAL [facility] [place], [address] [place] [id number] 0 Phone: () - 06/12 CBC w/ auto diff LY # K/uL 0.4 3.6 0.6 FINAL [facility] [place], [address] [place] [address] 200 [place] [id number] 0 Phone: () - 06/12 CBC w/ auto diff MO # K/uL 0.2 1.3 0.2 FINAL [facility] [place], [address] [place] [id number] 0 Phone: () - 06/12 CBC w/ auto diff EO # K/uL 0.0 0.6 0.1 FINAL [facility] [place] [facility], [address] [place] [id number] 0 Phone: () - 06/12 CBC w/ auto diff BA # K/uL 0.0 0.2 0.0 FINAL [facility] [place] [facility], [address] [place] [id number] 0 Phone: () - 06/12 CBC w/ auto diff NRBC % #/100W BC 0.0 0.2 0.8 High FINAL [facility] [place] [facility], [address] [place] [address] 200 [place] [id number] 0 Phone: () - 06/12 CBC w/ auto diff RBC M/uL 3.9 5.1 2.76 Low FINAL [facility] [place] [facility], [address] [place] [address] 200 [place] [id number] 0 Phone: () - 06/12 CBC w/ auto diff HCT % 35.0 48.0 27.9 Low FINAL [facility] [place] [facility], [address] [place] [address] 200 [place] [id number] 0 Phone: () - 06/12 CBC w/ auto diff MCV fL 80.0 104.0 101.1 FINAL [facility] [place] [facility], [address] 200 [place] [id number] 0 Phone: () - 06/12 CBC w/ auto diff MCH pg 26.0 35.0 33.0 FINAL [facility] [place] [facility], [address] [place] [id number] 0 Phone: () - 06/12 CBC w/ auto diff MCHC g/dL 30.0 35.0 32.6 FINAL [facility] [place] [facility], [address] [place] [id number] 0 Phone: () - 06/12 CBC w/ auto diff MPV fL 9.5 13.4 10.8 FINAL [facility], [address] [place] [id number] 0 Phone: () - 06/12 CBC w/ auto diff RDW % 11.4 16.1 15.90 FINAL [facility], [address] [place] [address] [address] [place] [id number] 0 Phone: () - 06/12 CMP Sodiu [...] IU/L 2.0 40.0 47 High Test Performed by:[facility] [id number] [facility] [address], [address] - [place], [place] [id number] e [phone] FINAL Cassy Tucker 06/18 [facility] other lab See global creative chairman d 06/18 [facility] other lab See global creative chairman d 06/18 [facility] other lab See global creative chairman d 06/19 CMP Album in g/dL 3.2 5.2 3.5 FINAL Cassy Sierra [facility], [address] [place] [address] [phone] 0 Phone: () - 06/19 CMP Alkal ine phosp hatas e U/L 46.0 116.0 137 High FINAL Cassy wood [facility], [address] [place] [address] [phone] 0 Phone: () - 06/19 CMP ALT/S GPT U/L 7.0 40.0 100 High FINAL Cassy Sierra a [facility], [address] [facility] [id number] 0 Phone: () - 06/19 CMP AST/S GOT U/L 13.0 40.0 30 FINAL Cassy wood [facility], [address] [facility] [id number] 0 Phone: () - 06/19 CMP BUN mg/dL 9.0 23.0 25 High FINAL Cassy Sierra a [facility], [address] [id number] 0 Phone: () - 06/19 CMP Calci um mg/dL 8.7 10.4 9.5 FINAL Cassy wood [place] [address] [id number] 0 Phone: () - 06/19 CMP Chlor glory mmol/L 96.0 114.0 110 FINAL Cassy wood [place] [address] [id number] 0 Phone: () - 06/19 CMP CO2 [...] 96 hour stability window. FINAL Cassy wood [place] [address] [id number] 0 Phone: () - 06/19 CMP Creat inine mg/dL 0.5 1.2 1.43 High FINAL Cassy wood [place] [address] [id number] 0 Phone: () - 06/19 CMP GFR estim ate ml/min /1.73m ^2 33.7 Low GFR is calculate d using the CKD-EPI equation. FINAL Cassy wood [place] [address] [id number] 0 Phone: () - 06/19 CMP Gluco se mg/dL 73.0 126.0 97 FINAL Cassy wood [place] [address] [id number] 0 Phone: () - 06/19 CMP Potas sium mmol/L 3.5 5.1 4.2 FINAL Cassy wood [place] [address] [id number] 0 Phone: () - 06/19 CMP Sodiu m mmol/L 136.0 145.0 144 FINAL [facility], [address] [facility] [address] [facility] [id number] 0 Phone: () - 06/19 CMP Bilir ubin, total mg/dL 0.3 1.2 0.5 FINAL [facility], [address] [facility] [id number] 0 Phone: () - 06/19 CMP Total prote in g/dL 5.7 8.2 5.1 Low FINAL Cassy wood [facility], [address] [facility] [place] [id number] 0 Phone: () - 06/19 iSTAT creat inine panel Creat inine , iSTAT mg/dl 0.6 1.3 1.7 High FINAL [facility], [address] [place] [address] [address] [facility] [place] [id number] 0 Phone: () - 06/19 iSTAT creat inine panel GFR estim ate ml/min /1.73m ^2 27.3 Low GFR is calculate d using the CKD-EPI equation. FINAL [facility], [address] [place] [address] [address] [place] [id number] 0 Phone: () - 06/19 CBC w/ auto diff WBC K/uL 3.0 8.9 6.2 FINAL [facility], [address] [place] [address] [address] [place] [id number] 0 Phone: () - 06/19 CBC w/ auto diff HGB g/dL 11.3 15.2 9.4 Low FINAL [facility] [place] [facility], [address] [place] [address] [address] [place] [id number] 0 Phone: () - 06/19 CBC w/ auto diff PLT K/uL 113.0 364.0 198 FINAL [facility], [address] [place] [address] [address] [place] [id number] 0 Phone: () - 06/19 CBC w/ auto diff Consuelo # (ANC) K/uL 1.6 6.6 4.0 FINAL [facility] [place], [address] [place] [address] [address] [place] [id number] 0 Phone: () - 06/19 CBC w/ auto diff Consuelo % % 43.0 74.0 64.4 FINAL [facility] [place], [address] [place] [address] [address] [place] [id number] 0 Phone: () - 06/19 CBC w/ auto diff IG % % 0.0 0.5 4.0 High FINAL [facility] [place], [address] [place] [address] [address] [place] [id number] 0 Phone: () - 06/19 CBC w/ auto diff IG # K/uL 0.0 0.03 0.25 High FINAL [facility] [place], [address] [place] [address] [address] [place] [id number] 0 Phone: () - 06/19 CBC w/ auto diff LY % % 14.0 41.0 22.9 FINAL [facility] [place], [address] [place] [address] [address] [place] [id number] 0 Phone: () - 06/19 CBC w/ auto diff MO % % 6.0 15.0 7.6 FINAL [facility] [place], [address] [place] [address] [address] [place] [id number] 0 Phone: () - 06/19 CBC w/ auto diff EO % % 0.0 7.0 0.8 FINAL [facility] [place], [address] [place] [address] [address] [place] [id number] 0 Phone: () - 06/19 CBC w/ auto diff BA % % 0.0 2.0 0.3 FINAL [facility] [place], [address] [place] [address] [address] [place] [id number] 0 Phone: () - 06/19 CBC w/ auto diff LY # K/uL 0.4 3.6 1.4 FINAL [facility] [place], [address] [place] [address] [address] [place] [id number] 0 Phone: () - 06/19 CBC w/ auto diff MO # K/uL 0.2 1.3 0.5 FINAL [facility] [place], [address] [place] [id number] 0 Phone: () - 06/19 CBC w/ auto diff EO # K/uL 0.0 0.6 0.1 FINAL [facility] [place], [address] [place] [id number] 0 Phone: () - 06/19 CBC w/ auto diff BA # K/uL 0.0 0.2 0.0 FINAL [facility] [place], [address] [place] [id number] 0 Phone: () - 06/19 CBC w/ auto diff NRBC % #/100W BC 0.0 0.2 0.8 High FINAL [facility] [place], [address] [place] [id number] 0 Phone: () - 06/19 CBC w/ auto diff RBC M/uL 3.9 5.1 2.83 Low FINAL [facility] [place], [address] [place] [id number] 0 Phone: () - 06/19 CBC w/ auto diff HCT % 35.0 48.0 29.1 Low FINAL [facility] [place], [address] [place] [id number] 0 Phone: () - 06/19 CBC w/ auto diff MCV fL 80.0 104.0 102.8 FINAL [facility] [place], [address] [place] [address] [address] [place] [id number] 0 Phone: () - 06/19 CBC w/ auto diff MCH pg 26.0 35.0 33.2 FINAL [facility] [place], [address] [place] [id number] 0 Phone: () - 06/19 CBC w/ auto diff MCHC g/dL 30.0 35.0 32.3 FINAL [facility], [address] [place] [address] 200 [facility] [id number] 0 Phone: () - 06/19 CBC w/ auto diff MPV fL 9.5 13.4 10.7 FINAL Cassy wood [facility], [address] [place] [address] 200 [facility] [id number] 0 Phone: () - 06/19 CBC w/ auto diff RDW % 11.4 16.1 16.10 FINAL Cassy wood [facility], [address] [facility] [id number] 0 Phone: () - Medications Date Name [...]
--- OUTSIDE RECORDS SUMMARY | 2024-12-21 12:32 | XMS_ITS ---
Author Name Interface, [id number] lity Address [address] [facility] [address] [address] Organization [facility] Address [address] [facility] [address] [place] [address] Care Team Providers Care Colorist Name Role Phone Cassy Tucker Unavailable Unavailable [...] High FINAL Cassy wood [facility] - [place] [facility], [address] [place] [address] [address] [place] [phone] 0 Phone: () - 06/12 iSTAT creat inine panel GFR estim ate ml/min /1.73m ^2 27.3 Low GFR is calculate d using the CKD-EPI equation. FINAL Cassy wood [facility] - [facility], [address] [place] [address] [address] [place] [id number] 0 Phone: () - 06/12 CBC w/ auto diff WBC K/uL 3.0 8.9 3.6 FINAL Cassy wood [facility] - [facility], [address] [place] [address] [address] [place] [id number] 0 Phone: () - 06/12 CBC w/ auto diff HGB g/dL 11.3 15.2 9.1 Low FINAL Cassy wood [facility] - [facility], [address] [place] [address] [address] [place] [id number] 0 Phone: () - 06/12 CBC w/ auto diff PLT K/uL 113.0 364.0 168 FINAL Cassy wood [facility] - [place] [facility], [address] [place] [address] [address] [place] [id number] 0 Phone: () - 06/12 CBC w/ auto diff Consuelo # (ANC) K/uL 1.6 6.6 2.5 FINAL Cassy wood [facility] - [place] [facility], [address] [place] [address] [address] [place] [id number] 0 Phone: () - 06/12 CBC w/ auto diff Consuelo % % 43.0 74.0 70.3 FINAL Cassy [place]itz [place] [facility] - [place], [address] [place] [id number] 0 Phone: () - 06/12 CBC w/ auto diff IG % % 0.0 0.5 4.5 High FINAL Cassy wood [facility] - [place], [address] [place] [id number] 0 Phone: () - 06/12 CBC w/ auto diff IG # K/uL 0.0 0.03 0.16 High FINAL Cassy wood [facility] - [place], [address] [place] [id number] 0 Phone: () - 06/12 CBC w/ auto diff LY % % 14.0 41.0 16.2 FINAL Cassy wood [facility] - [place], [address] 200 [place] [id number] 0 Phone: () - 06/12 CBC w/ auto diff MO % % 6.0 15.0 6.7 FINAL Cassy wood [facility] - [place], [address] 200 [place] [phone] 0 Phone: () - 06/12 CBC w/ auto diff EO % % 0.0 7.0 1.7 FINAL Cassy wood [facility] - [place], [address] [place] [address] 200 [place] [id number] 0 Phone: () - 06/12 CBC w/ auto diff BA % % 0.0 2.0 0.6 FINAL Cassy wood [facility] - [place], [address] 200 [place] [id number] 0 Phone: () - 06/12 CBC w/ auto diff LY # K/uL 0.4 3.6 0.6 FINAL Cassy wood [facility] - [place], [address] [place] [address] 200 [place] [id number] 0 Phone: () - 06/12 CBC w/ auto diff MO # K/uL 0.2 1.3 0.2 FINAL Cassy wood [facility] - [place], [address] [place] [id number] 0 Phone: () - 06/12 CBC w/ auto diff EO # K/uL 0.0 0.6 0.1 FINAL Cassy wood [facility] - [place] [facility], [address] [place] [id number] 0 Phone: () - 06/12 CBC w/ auto diff BA # K/uL 0.0 0.2 0.0 FINAL Cassy wood [facility] - [place] [facility], [address] [place] [id number] 0 Phone: () - 06/12 CBC w/ auto diff NRBC % #/100W BC 0.0 0.2 0.8 High FINAL Cassy wood [facility] - [place] [facility], [address] [place] [address] 200 [place] [id number] 0 Phone: () - 06/12 CBC w/ auto diff RBC M/uL 3.9 5.1 2.76 Low FINAL Cassy wood [facility] - [place] [facility], [address] [place] [address] 200 [place] [id number] 0 Phone: () - 06/12 CBC w/ auto diff HCT % 35.0 48.0 27.9 Low FINAL Cassy wood [facility] - [place] [facility], [address] [place] [address] 200 [place] [id number] 0 Phone: () - 06/12 CBC w/ auto diff MCV fL 80.0 104.0 101.1 FINAL Cassy wood [facility] - [place] [facility], [address] [place] [id number] 0 Phone: () - 06/12 CBC w/ auto diff MCH pg 26.0 35.0 33.0 FINAL Cassy wood [facility] - [place] [facility], [address] [place] [id number] 0 Phone: () - 06/12 CBC w/ auto diff MCHC g/dL 30.0 35.0 32.6 FINAL Cassy wood [facility] - [place] [facility], [address] [place] [id number] 0 Phone: () - 06/12 CBC w/ auto diff MPV fL 9.5 13.4 10.8 FINAL [facility]y [facility], [address] [place] [id number] 0 Phone: () - 06/12 CBC w/ auto diff RDW % 11.4 16.1 15.90 FINAL [facility], [address] [place] [address] [address] [place] [id number] 0 Phone: () - 06/12 CMP Sodiu [...] IU/L 2.0 40.0 47 High Test Performed by:[facility] [address], [address] - [place], [place] [address]Ihhi e : FINAL Cassy Tucker 06/18 [facility] [place] See teacher selection specialist d 06/18 [facility] [place] other [place] See teacher selection specialist d 06/18 [facility] [place] [facility] lab See teacher selection specialist d 06/19 CMP Album in g/dL 3.2 5.2 3.5 FINAL Cassy Sierra [facility], [address] [place] [address] [phone] 0 Phone: () - 06/19 CMP Alkal ine phosp hatas e U/L 46.0 116.0 137 High FINAL Cassy wood [facility], [address] [place] [address] [id number] 0 Phone: () - 06/19 CMP ALT/S GPT U/L 7.0 40.0 100 High FINAL Cassy Sierra a [facility], [address] [facility] [id number] 0 Phone: () - 06/19 CMP AST/S GOT U/L 13.0 40.0 30 FINAL Cassy wood [facility], [address] [facility] [id number] 0 Phone: () - 06/19 CMP BUN mg/dL 9.0 23.0 25 High FINAL Cassy Sierra a [facility], [address] [phone] 0 Phone: () - 06/19 CMP Calci um mg/dL 8.7 10.4 9.5 FINAL Cassy wood [place] [address] [phone] 0 Phone: () - 06/19 CMP Chlor glory mmol/L 96.0 114.0 110 FINAL Cassy wood [place] [address] [phone] 0 Phone: () - 06/19 CMP CO2 [...] 96 hour stability window. FINAL Cassy wood [place] [address] [phone] 0 Phone: () - 06/19 CMP Creat inine mg/dL 0.5 1.2 1.43 High FINAL Cassy wood [place] [address] [phone] 0 Phone: () - 06/19 CMP GFR estim ate ml/min /1.73m ^2 33.7 Low GFR is calculate d using the CKD-EPI equation. FINAL Cassy wood [place] [address] [phone] 0 Phone: () - 06/19 CMP Gluco se mg/dL 73.0 126.0 97 FINAL Cassy wood [place] [address] [id number] 0 Phone: () - 06/19 CMP Potas sium mmol/L 3.5 5.1 4.2 FINAL Cassy wood [place] [address] [phone] 0 Phone: () - 06/19 CMP Sodiu m mmol/L 136.0 145.0 144 FINAL Cassy wood [facility], [address] [facility] [id number] 0 Phone: () - 06/19 CMP Bilir ubin, total mg/dL 0.3 1.2 0.5 FINAL Cassy wood [facility], [address] [facility] [phone] 0 Phone: () - 06/19 CMP Total prote in g/dL 5.7 8.2 5.1 Low FINAL Cassy wood [facility], [address] [facility] [id number] 0 Phone: () - 06/19 CBC w/ auto diff WBC K/uL 3.0 8.9 6.2 FINAL [facility]y [facility], [address] [place] [address] [address] [place] [id number] 0 Phone: () - 06/19 CBC w/ auto diff HGB g/dL 11.3 15.2 9.4 Low FINAL Cassy wood [facility] - [place] [facility], [address] [place] [address] [address] [place] [id number] 0 Phone: () - 06/19 CBC w/ auto diff PLT K/uL 113.0 364.0 198 FINAL Cassy wood [facility] - [place] [facility], [address] [place] [address] [address] [place] [id number] 0 Phone: () - 06/19 CBC w/ auto diff Consuelo # (ANC) K/uL 1.6 6.6 4.0 FINAL Cassy wood [facility] - [place] [facility], [address] [place] [address] [address] [place] [id number] 0 Phone: () - 06/19 CBC w/ auto diff Consuelo % % 43.0 74.0 64.4 FINAL Cassy wood [facility] - [place] [facility], [address] [place] [address] [address] [place] [id number] 0 Phone: () - 06/19 CBC w/ auto diff IG % % 0.0 0.5 4.0 High FINAL Cassy wood [facility] - [place] [facility], [address] [place] [address] 200 [facility] [place] [id number] 0 Phone: () - 06/19 CBC w/ auto diff IG # K/uL 0.0 0.03 0.25 High FINAL Cassy wood [facility] - [place], [address] [place] [address] 200 [facility] [place] [id number] 0 Phone: () - 06/19 CBC w/ auto diff LY % % 14.0 41.0 22.9 FINAL Cassy wood [facility] - [place], [address] [place] [address] 200 [facility] [place] [id number] 0 Phone: () - 06/19 CBC w/ auto diff MO % % 6.0 15.0 7.6 FINAL Cassy wood [facility] - [place], [address] [place] [address] 200 [facility] [place] [id number] 0 Phone: () - 06/19 CBC w/ auto diff EO % % 0.0 7.0 0.8 FINAL Cassy wood [facility] - [place], [address] [place] [address] 200 [facility] [place] [id number] 0 Phone: () - 06/19 CBC w/ auto diff BA % % 0.0 2.0 0.3 FINAL Cassy wood [facility] - [place], [address] [place] [address] 200 [facility] [place] [id number] 0 Phone: () - 06/19 CBC w/ auto diff LY # K/uL 0.4 3.6 1.4 FINAL Cassy wood [facility] - [place], [address] [place] [address] 200 [facility] [place] [id number] 0 Phone: () - 06/19 CBC w/ auto diff MO # K/uL 0.2 1.3 0.5 FINAL Cassy wood [facility] - [place], [address] [place] [address] 200 [facility] [place] [id number] 0 Phone: () - 06/19 CBC w/ auto diff EO # K/uL 0.0 0.6 0.1 FINAL Cassy wood [facility] - [place], [address] [place] [address] 200 [facility] [place] [id number] 0 Phone: () - 06/19 CBC w/ auto diff BA # K/uL 0.0 0.2 0.0 FINAL Cassy wood [facility] - [place] [facility], [address] [place] [id number] 0 Phone: () - 06/19 CBC w/ auto diff NRBC % #/100W BC 0.0 0.2 0.8 High FINAL Cassy wood [facility] - [place] [facility], [address] [place] [address] [address] [place] [id number] 0 Phone: () - 06/19 CBC w/ auto diff RBC M/uL 3.9 5.1 2.83 Low FINAL Cassy wood [facility] - [place] [facility], [address] [place] [id number] 0 Phone: () - 06/19 CBC w/ auto diff HCT % 35.0 48.0 29.1 Low FINAL Cassy wood [facility] - [place] [facility], [address] [place] [id number] 0 Phone: () - 06/19 CBC w/ auto diff MCV fL 80.0 104.0 102.8 FINAL Cassy wood [facility] - [place] [facility], [address] [place] [phone] 0 Phone: () - 06/19 CBC w/ auto diff MCH pg 26.0 35.0 33.2 FINAL Cassy wood [facility] - [place] [facility], [address] [place] [address] [address] [place] [id number] 0 Phone: () - 06/19 CBC w/ auto diff MCHC g/dL 30.0 35.0 32.3 FINAL Cassy wood [facility] - [place] [facility], [address] [place] [address] [address] [place] [id number] 0 Phone: () - 06/19 CBC w/ auto diff MPV fL 9.5 13.4 10.7 FINAL Cassy wood [facility] - [place] [facility], [address] [place] [address] [address] [place] [id number] 0 Phone: () - 06/19 CBC w/ auto diff RDW % 11.4 16.1 16.10 FINAL Cassy wood [facility] - [place] [facility], [address] [place] [address] [address] [facility] [place] [id number] 0 Phone: () - 06/19 iSTAT creat inine panel Creat inine , iSTAT mg/dl 0.6 1.3 1.7 High FINAL Cassy wood [facility] - [facility], [address] [place] [address] [address] [facility] [id number] 0 Phone: () - 06/19 iSTAT creat inine panel GFR estim ate ml/min /1.73m ^2 27.3 Low GFR is calculate d using the CKD-EPI equation. FINAL [facility], [address] [place] [address] 200 [facility] [phone] 0 Phone: () - Medications Date Name [...]
--- OUTSIDE RECORDS SUMMARY | 2024-12-21 12:32 | XMS_ITS ---
Author Name Interface, [id number] lity Address [address] [facility] [address] [address] [facility] Address [address] [facility] [address] [address] Care Team Providers Care Blanking Press Operator Name Role Phone Wendi Chan Unavailable Unavailable [...] FINAL Cassy Caitlin Ramirezot a [facility], [address] [place] [address] [address] [facility] [place] [phone] 0 Phone: () - 06/19 iSTAT creat inine panel GFR estim ate ml/min /1.73m ^2 27.3 Low GFR is calculate d using the CKD-EPI equation. FINAL Cassy wood [facility], [address] [place] [address] [address] [facility] [phone] 0 Phone: () - 06/19 CMP Album in g/dL 3.2 5.2 3.5 FINAL Cassy wood [facility] [address] [facility] 100 [facility] [phone] 0 Phone: () - 06/19 CMP Alkal ine phosp hatas e U/L 46.0 116.0 137 High FINAL Cassy wood [facility] [address] [facility] [address] [phone] 0 Phone: () - 06/19 CMP ALT/S GPT U/L 7.0 40.0 100 High FINAL Cassy wood [facility] [address] [phone] 0 Phone: () - 06/19 CMP AST/S GOT U/L 13.0 40.0 30 FINAL Cassy wood [facility] [address] [facility] [address] [phone] 0 Phone: () - 06/19 CMP BUN mg/dL 9.0 23.0 25 High FINAL Cassy wood [facility] [address] [facility] [address] [phone] 0 Phone: () - 06/19 CMP Calci um mg/dL 8.7 10.4 9.5 FINAL Cassy wood [place] [address] [address] [facility] [address] [phone] 0 Phone: () - 06/19 CMP Chlor glory mmol/L 96.0 114.0 110 FINAL Cassy wood [place] [address] [address] [facility] [address] [phone] 0 Phone: () - 06/19 CMP CO2 [...] 96 hour stability window. FINAL Cassy wood [place] [address] [phone] 0 Phone: () - 06/19 CMP Creat inine mg/dL 0.5 1.2 1.43 High FINAL Cassy wood [place] [address] [id number] 0 Phone: () - 06/19 CMP GFR estim ate ml/min /1.73m ^2 33.7 Low GFR is calculate d using the CKD-EPI equation. FINAL Cassy wood [place] [address] [phone] 0 Phone: () - 06/19 CMP Gluco se mg/dL 73.0 126.0 97 FINAL Cassy wood [place] [address] [id number] 0 Phone: () - 06/19 CMP Potas sium mmol/L 3.5 5.1 4.2 FINAL Cassy wood [place] [address] [id number] 0 Phone: () - 06/19 CMP Sodiu m mmol/L 136.0 145.0 144 FINAL Cassy wood [place] [address] [phone] 0 Phone: () - 06/19 CMP Bilir ubin, total mg/dL 0.3 1.2 0.5 FINAL Cassy wood [place] [address] [phone] 0 Phone: () - 06/19 CMP Total prote in g/dL 5.7 8.2 5.1 Low FINAL Cassy wood [place] [address] [phone] 0 Phone: () - 06/19 CBC w/ auto diff WBC K/uL 3.0 8.9 6.2 FINAL [place]y wood [facility] - [place], [address] [place] [address] [address] [place] [id number] 0 Phone: () - 06/19 CBC w/ auto diff HGB g/dL 11.3 15.2 9.4 Low FINAL [facility]y wood [facility] - [place], [address] [facility] [place] [id number] 0 Phone: () - 06/19 CBC w/ auto diff PLT K/uL 113.0 364.0 198 FINAL [facility]y wood [facility] - [place], [address] [place] [address] [address] [place] [id number] 0 Phone: () - 06/19 CBC w/ auto diff Consuelo # (ANC) K/uL 1.6 6.6 4.0 FINAL Cassy wood [facility] - [place], [address] [place] [address] [address] [place] [id number] 0 Phone: () - 06/19 CBC w/ auto diff Consuelo % % 43.0 74.0 64.4 FINAL Cassy wood [facility] - [place], [address] [place] [address] [address] [place] [id number] 0 Phone: () - 06/19 CBC w/ auto diff IG % % 0.0 0.5 4.0 High FINAL Cassy wood [facility] - [place], [address] [place] [address] [address] [place] [id number] 0 Phone: () - 06/19 CBC w/ auto diff IG # K/uL 0.0 0.03 0.25 High FINAL Cassy wood [facility] - [place], [address] [place] [address] [address] [place] [id number] 0 Phone: () - 06/19 CBC w/ auto diff LY % % 14.0 41.0 22.9 FINAL Cassy [facility] - [place], [address] [place] [address] [address] [place] [id number] 0 Phone: () - 06/19 CBC w/ auto diff MO % % 6.0 15.0 7.6 FINAL Cassy wood [facility] - [place], [address] [facility] [address] [place] [id number] 0 Phone: () - 06/19 CBC w/ auto diff EO % % 0.0 7.0 0.8 FINAL Cassy wood [facility] - [place], [address] [place] [address] 200 [place] [id number] 0 Phone: () - 06/19 CBC w/ auto diff BA % % 0.0 2.0 0.3 FINAL Cassy wood [facility] - [place], [address] [place] [address] 200 [place] [id number] 0 Phone: () - 06/19 CBC w/ auto diff LY # K/uL 0.4 3.6 1.4 FINAL Cassy wood [facility] - [place] [facility], [address] [place] [address] 200 [place] [id number] 0 Phone: () - 06/19 CBC w/ auto diff MO # K/uL 0.2 1.3 0.5 FINAL Cassy wood [facility] - [place] [facility], [address] [place] [address] 200 [facility] [place] [phone] 0 Phone: () - 06/19 CBC w/ auto diff EO # K/uL 0.0 0.6 0.1 FINAL Cassy wood [facility] - [place] [facility], [address] [place] [address] 200 [place] [id number] 0 Phone: () - 06/19 CBC w/ auto diff BA # K/uL 0.0 0.2 0.0 FINAL Cassy wood [facility] - [place] [facility], [address] [place] [address] 200 [place] [phone] 0 Phone: () - 06/19 CBC w/ auto diff NRBC % #/100W BC 0.0 0.2 0.8 High FINAL Cassy wood [facility] - [place] [facility], [address] [place] [address] 200 [place] [id number] 0 Phone: () - 06/19 CBC w/ auto diff RBC M/uL 3.9 5.1 2.83 Low FINAL Cassy wood [facility] - [place] [facility], [address] [place] [address] 200 [place] [id number] 0 Phone: () - 06/19 CBC w/ auto diff HCT % 35.0 48.0 29.1 Low FINAL Cassy wood [facility], [address] [place] [address] 200 [facility] [phone] 0 Phone: () - 06/19 CBC w/ auto diff MCV fL 80.0 104.0 102.8 FINAL Cassy wood [facility], [address] [place] [address] 200 [facility] [id number] 0 Phone: () - 06/19 CBC w/ auto diff MCH pg 26.0 35.0 33.2 FINAL Cassy wood [facility], [address] [place] [address] 200 [facility] [id number] 0 Phone: () - 06/19 CBC w/ auto diff MCHC g/dL 30.0 35.0 32.3 FINAL Cassy wood [facility], [address] [place] [address] 200 [facility] [phone] 0 Phone: () - 06/19 CBC w/ auto diff MPV fL 9.5 13.4 10.7 FINAL Cassy wood [facility], [address] [place] [address] 200 [facility] [id number] 0 Phone: () - 06/19 CBC w/ auto diff RDW % 11.4 16.1 16.10 FINAL Cassy wood [facility], [address] [place] [address] 200 [facility] [phone] 0 Phone: () - Medications Date Name [...]
--- OUTSIDE RECORDS SUMMARY | 2024-12-21 12:32 | XMS_ITS ---
Author Name Interface, N9Domdwii lity Address [address] [facility] [address] [facility] [address] [address] [facility] Oncology Address [address] [facility] [address] [address] Care Team Providers Care Operations And Maintenance Specialist Name Role Phone Wendi Chan Unavailable Unavailable [...] FINAL Cassy Caitlin Ramirezot a [facility], [address] [place] [address] [address] [facility] [place] [phone] Phone: () - 06/19 iSTAT creat inine panel GFR estim ate ml/min /1.73m ^2 27.3 Low GFR is calculate d using the CKD-EPI equation. FINAL Cassy wood [facility], [address] [place] [address] [address] [facility] [id number] 0 Phone: () - 06/19 CMP Album in g/dL 3.2 5.2 3.5 FINAL Cassy wood [facility] [address] [facility] [address] [facility] [id number] 0 Phone: () - 06/19 CMP Alkal ine phosp hatas e U/L 46.0 116.0 137 High FINAL Cassy wood [facility] [address] [facility] [address] [phone] 0 Phone: () - 06/19 CMP ALT/S GPT U/L 7.0 40.0 100 High FINAL Cassy wood [facility] [address] [id number] 0 Phone: () - 06/19 CMP AST/S GOT U/L 13.0 40.0 30 FINAL Cassy wood [facility] [address] [facility] [address] [phone] Phone: () - 06/19 CMP BUN mg/dL 9.0 23.0 25 High FINAL Cassy wood [facility] [address] [facility] [address] [phone] 0 Phone: () - 06/19 CMP Calci um mg/dL 8.7 10.4 9.5 FINAL Cassy wood [place] [address] [address] [facility] [address] [id number] 0 Phone: () - 06/19 CMP Chlor glory mmol/L 96.0 114.0 110 FINAL Cassy wood [place] [address] [address] [facility] [address] [phone] 0 Phone: () - 06/19 CMP CO2 [...] 96 hour stability window. FINAL Cassy wood [place] [address] [id number] 0 Phone: () - 06/19 CMP Creat inine mg/dL 0.5 1.2 1.43 High FINAL Cassy wood [place] [address] [phone] 0 Phone: () - 06/19 CMP GFR estim ate ml/min /1.73m ^2 33.7 Low GFR is calculate d using the CKD-EPI equation. FINAL Cassy wood [place] [address] [phone] 0 Phone: () - 06/19 CMP Gluco se mg/dL 73.0 126.0 97 FINAL Cassy wood [place] [address] [id number] 0 Phone: () - 06/19 CMP Potas sium mmol/L 3.5 5.1 4.2 FINAL Cassy wood [place] [address] [id number] 0 Phone: () - 06/19 CMP Sodiu m mmol/L 136.0 145.0 144 FINAL Cassy wood [place] [address] [id number] 0 Phone: () - 06/19 CMP Bilir ubin, total mg/dL 0.3 1.2 0.5 FINAL Cassy wood [place] [address] [phone] 0 Phone: () - 06/19 CMP Total prote in g/dL 5.7 8.2 5.1 Low FINAL Cassy wood [place] [address] [id number] 0 Phone: () - 06/19 CBC w/ auto diff WBC K/uL 3.0 8.9 6.2 FINAL Cassy wood [facility] [place], [address] [place] [address] [address] [place] [id number] 0 Phone: () - 06/19 CBC w/ auto diff HGB g/dL 11.3 15.2 9.4 Low FINAL Cassy wood [facility] [place], [address] [place] [id number] 0 Phone: () - 06/19 CBC w/ auto diff PLT K/uL 113.0 364.0 198 FINAL Cassy wood [facility] [place], [address] [place] [address] [address] [place] [id number] 0 Phone: () - 06/19 CBC w/ auto diff Consuelo # (ANC) K/uL 1.6 6.6 4.0 FINAL Cassy wood [facility] [place], [address] [place] [address] [address] [place] [id number] 0 Phone: () - 06/19 CBC w/ auto diff Consuelo % % 43.0 74.0 64.4 FINAL Cassy wood [facility] [place], [address] [place] [address] [address] [place] [id number] 0 Phone: () - 06/19 CBC w/ auto diff IG % % 0.0 0.5 4.0 High FINAL Cassy wood [facility] [place], [address] [place] [address] [address] [place] [id number] 0 Phone: () - 06/19 CBC w/ auto diff IG # K/uL 0.0 0.03 0.25 High FINAL Cassy wood [facility] [place], [address] [place] [address] [address] [place] [id number] 0 Phone: () - 06/19 CBC w/ auto diff LY % % 14.0 41.0 22.9 FINAL Cassy wood [facility] [place], [address] [place] [address] [address] [place] [id number] 0 Phone: () - 06/19 CBC w/ auto diff MO % % 6.0 15.0 7.6 FINAL Cassy wood [facility] [place], [address] [place] [id number] 0 Phone: () - 06/19 CBC w/ auto diff EO % % 0.0 7.0 0.8 FINAL Cassy wood [facility] [place], [address] [place] [address] 200 [place] [id number] 0 Phone: () - 06/19 CBC w/ auto diff BA % % 0.0 2.0 0.3 FINAL Cassy wood [facility] [place], [address] [place] [address] 200 [place] [id number] 0 Phone: () - 06/19 CBC w/ auto diff LY # K/uL 0.4 3.6 1.4 FINAL Cassy wood [facility] [place] [facility], [address] [place] [address] 200 [place] [id number] 0 Phone: () - 06/19 CBC w/ auto diff MO # K/uL 0.2 1.3 0.5 FINAL Cassy wood [facility] [place] [facility], [address] [place] [address] 200 [facility] [place] [phone] 0 Phone: () - 06/19 CBC w/ auto diff EO # K/uL 0.0 0.6 0.1 FINAL Cassy wood [facility] [place] [facility], [address] [place] [address] 200 [place] [id number] 0 Phone: () - 06/19 CBC w/ auto diff BA # K/uL 0.0 0.2 0.0 FINAL Cassy wood [facility] - [place] [facility], [address] [place] [address] 200 [place] [id number] 0 Phone: () - 06/19 CBC w/ auto diff NRBC % #/100W BC 0.0 0.2 0.8 High FINAL Cassy wood [facility] [place] [facility], [address] [place] [address] 200 [place] [phone] 0 Phone: () - 06/19 CBC w/ auto diff RBC M/uL 3.9 5.1 2.83 Low FINAL Cassy wood [facility] - [place] [facility], [address] [place] [address] 200 [place] [id number] 0 Phone: () - 06/19 CBC w/ auto diff HCT % 35.0 48.0 29.1 Low FINAL Cassy wood [facility], [address] [place] [address] 200 [facility] [id number] 0 Phone: () - 06/19 CBC w/ auto diff MCV fL 80.0 104.0 102.8 FINAL Cassy wood [facility], [address] [place] [address] 200 [facility] [id number] 0 Phone: () - 06/19 CBC w/ auto diff MCH pg 26.0 35.0 33.2 FINAL Cassy wood [facility], [address] [place] [address] 200 [facility] [id number] 0 Phone: () - 06/19 CBC w/ auto diff MCHC g/dL 30.0 35.0 32.3 FINAL Cassy wood [facility], [address] [place] [address] 200 [facility] [id number] 0 Phone: () - 06/19 CBC w/ auto diff MPV fL 9.5 13.4 10.7 FINAL Cassy wood [facility], [address] [place] [address] 200 [facility] [id number] 0 Phone: () - 06/19 CBC w/ auto diff RDW % 11.4 16.1 16.10 FINAL Cassy wood [facility], [address] [place] [address] 200 [facility] [phone] 0 Phone: () - Medications Date Name [...]
[2024-12-21] MEDS: AZITHROMYCIN 500 MG in 0.9 % SODIUM CHLORIDE 250 ml 250 ML 255 MG IVPB (12:39)
--- NOTE | 2024-12-21 13:59 | PM.IMHP1 ---
Assessment and Plan Assessment and plan (1) Sepsis: Problem comment: Source community-acquired pneumonia Indicators: Elevated Heart rate, elevated respiratory rate, depressed total white blood cell count, systolic blood pressure less than 90, lactate greater than 2 Fluid resuscitation, respiratory antibiotics, prednisone, oxygen Status: Acute (2) Acute hypoxemic respiratory failure: Problem comment: -community-acquired pneumonia, left lower lobe -continue ceftriaxone and azithromycin -oral prednisone -DuoNeb -Aerobika -oxygen to titrate sats 90-95% -RT to evaluate Status: Acute (3) Community acquired pneumonia: Problem comment: Left lower lobe check legionella and strep pneumonia MRSA pending BC pending sputum culture pending Status: Acute (4) Atrial fibrillation with rapid ventricular response: Problem comment: -hydrate to get lactate down and see if this is more of a sepsis driven tachycardia verses arrhythmia (in permanent afib - RVR maybe sepsis driven) -oral metoprolol after fluid resuscitation carefully given soft pressures of acute illness -replace magnesium -continue OAC Status: Acute (5) Chronic anticoagulation: Problem comment: -eliquis for AFIB and hx of DVT Status: Acute (6) Multiple myeloma: Problem comment: IgG [place], Dxed 05/24, followed by Hematology Stage IV, recurrent. Currently being treated with Revlimid Status: Acute (7) Aortic valve regurgitation: Problem comment: Moderate to severe by echo 05/24, last 10/23, recheck due every 1-2Y (followed by [facility], Dr. Mason Hodge), last 03/26 (aortic regurgitation was mild, no stenosis) Status: Acute (8) History of deep vein thrombosis: Problem comment: Left lower extremity DVT, by US here 05/24, anticoagulation per her oncologist, Dr. Gutierrez (apixaban started 05/24) Status: Acute (9) Hyperlipidemia: Problem comment: on atorvastatin, stopped when hospitalized for acute renal failure/multiple myeloma diagnosis 05/24 Status: Acute (10) Sensorineural hearing loss (SNHL) of both ears: Status: Acute (11) Peripheral neuropathy due to chemotherapy: Status: Acute Hospitalist- H&P: HPI History of Present Illness Date Seen: 12/21/24 Chief complaint: Shortness of Breath Cough Narrative: ADMISSION HISTORY AND PHYSICAL - HOSPITALIST Chief Complaint: Weak; coughing, FINCH and fell out of bed last night HPI: 84 y/o WF with hx of recurrent stage IV MM, AFib, aortic regurgitation, breast cancer presents with a week of URI sx. Traveled to [place] for her granddaughter's college graduation and during that trip her daughter was positive for COVID. She tested when back and negative. she saw her PCP last week and dx with viral bronchitis (neg covid and neg CXR). She has gotten worse since that visit. She acknowledges having some delusions, more weakness, and more cough. Her daughter brought her to the ED today. She was hypoxic on arrival. ED MD: This 84-year-old female is accompanied in by her daughter and coming in with respiratory illness with fever, coughing, worsening shortness of breath. She has been sick with shortness of breath and cough for about 9 days now. Denies any chest pain. She has been coughing, somewhat productive. She has shortness of breath which is worse with exertion. She notes that she has some swelling but her daughter feels that her swelling of her legs is baseline. She admits her mom will intermittently have some lower extremity swelling but does not feel that there is any now. She was in clinic and saw her primary doctor, Dr. Mcintyre, on December 16. A chest x-ray did not show any pneumonia. She has had multiple swabs, had a negative triple viral swab on December 16. She does have underlying atrial fibrillation and is anticoagulated with Eliquis. She has decreased appetite but has still been drinking fluids. Her past medical history is reviewed and she has had a history of chronic kidney disease with acute kidney injury, history of breast cancer, chronic atrial fibrillation, history of a DVT, hyperlipidemia, sensorineural hearing loss with hearing aids which are not in currently, aortic valve regurgitation, multiple myeloma, peripheral neuropathy from previous chemotherapy. She also has nontraumatic pain in her left hip that has recently developed. 11:10 a.m.: On further discussion with the daughter, patient did slide out of bed this morning onto the ground. Her hip pain has started after that from what the daughter knows. Her mom looked much better on Friday when she saw her. She has also reported diarrhea but she sometimes will have that with the Revlimid. They held that last night. MD elicited complaint: shortness of breath and cough ER COURSE: labs, oxygen, fluids, azithro, ceftriaxone, metoprolol tartrate 2.5mg IV once cxr, hip xray, ekg. CODE STATUS: DNR/DNI PCP: Hilda Mcintyre MD EMERGENCY CONTACT PLAN: Mae Fox Rel To Pat Daughter I've updated the PFSH, medications and allergies in the [facility] tabs. INVESTIGATIONS: LABS/MICRO/ECG/IMAGING Blood pressures have been as low as 98/47, currently 103/86 tachycardic with heart rates measured in the low teens but EKG showed 140s, depending on RVR status T-max has been 99.1? F Respiratory rate 30s O2 sat low 90s with nasal cannula support at 3 liters/minute. Lowest pulse ox noted is 88%. CBC reflects a white blood cell count of 3.27, stable hemoglobin at 14.6, MCV 108, platelets 126 D-dimer 0.78 Normal VBG Normal electrolytes, baseline renal function is BUN in the 20s with a creatinine of 1.4-1.5 Glucose 121 Lactate 2.7 Magnesium low normal 1.6 Normal TSH C reactive protein 23.5 , procalcitonin 0.49 BNP 9500 Two view chest x-ray Left lower lobe infiltrate Left hip x-ray shows degenerative joint disease with no acute fractures. Two blood cultures have been drawn and are pending at the lab EKG shows AFib with RVR, rate 142. REVIEW OF SYSTEMS: 12-point ROS completed with patient and negative unless otherwise stated in HPI or below. PHYSICAL EXAM: CONSTITUTIONAL: looks tired; but is aware and awake. hoarse voice. on oxygen. GENERAL: Well-developed at ideal body weight, in mild respiratory distress. VITAL SIGNS: see record. HEENT: Sclerae are anicteric. No petechiae. CARDIAC: rhythm is regular. There is no S3 or rub. No harsh murmurs. Extremities show trace edema with symmetrical pulses. PULM: good air entry with no wheeze. decreased BS in the left base. NEURO: Speech is fluent. A brief neurologic exam is negative. SKIN: No rashes, petechiae, concerning changes PSYCHIATRIC: Euthymic. ADMIT TO MEDSURG: FLOOR CARE DVT: continue home eliquis GI: PO intake Time spent: Today I spent 75 minutes seeing the patient, discussing the patient with ER staff, reviewing [facility] and [facility] notes/diagnostics, discussing the care plan with our care time that includes social work, PT/OT, pharmacy, RT, alf and documenting my impressions and plan in the medical record. MEDICAL NECESSITY FOR HOSPITALIZATION Anticipated midnights in the hospital: 2 Admitting diagnosis: Hypoxic respiratory failure, community he acquired pneumonia, active multiple myeloma Risk of morbidity and mortality: high Acuity is characterized as high and reflected in: Advanced age, elevated lactate, active cancer, hypoxic, lobar pneumonia This patient will require hospital services as outlined in the assessment and plan in order to stabilize and be safely discharged to a lower level of care. Because of the risk and acuity as described above, this patient cannot be managed at a lower level of care. LENGTH OF STAY: 2 IP ? 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 of anticoagulants (ICD-10) Persistent atrial fibrillation ?I48.19 - Other persistent atrial fibrillation (ICD-10) History of breast cancer ?Z85.3 - Personal history of malignant neoplasm of breast (ICD-10) Health care directive on file ?Z78.9 - Other specified health status (ICD-10) Surgical History History of basal cell carcinoma of skin ?Z85.828 - Personal history of other malignant neoplasm of skin (ICD-10) History of cataract surgery ?Z98.49 - Cataract extraction status, unspecified eye (ICD-10) 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) ?Z96.612 - Presence of left artificial shoulder joint (ICD-10) History of vein stripping (1969) ?Z98.890 - Other specified postprocedural states (ICD-10) History of tonsillectomy ?Z90.89 - Acquired absence of other organs (ICD-10) History of left mastectomy (1987) ?Z90.12 - Acquired absence of left breast and nipple (ICD-10) History of hysterectomy (1991) ?Z90.710 - Acquired absence of both cervix and uterus (ICD-10) Social History What is your current living situation?: I presently have a place to live Problems where you live: no known problems In the past 12 months, utilities in danger of being shut off: no In past 12 months, lack of transportation kept you from medical appts, meetings, work, or getting things needed for daily living: no In the past 12 mos, have been you worried that your food would run out before you had money to buy more?: never true In the past 12 mos, the food you bought just didn't last and you didn't have money to buy more?: never true Smoking Status: Never smoker Do you use any of these nicotine containing products: None How often do you have a drink containing alcohol: never How often do you have six or more drinks on one occasion: Never AUDIT-C Alcohol total score: 0 Non-prescribed substance use: denies use How often does anyone, including family, friends and others, physically hurt you: never How often does anyone, including family, friends and others, insult or talk down to you: never How often does anyone, including family, friends and others, threaten you with harm: never How often does anyone, including family, friends and others, scream or curse at you: never service: No Meds Home Medications and Allergies Home Medications ?Medication ?Instructions ?Recorded ?Confirmed ?Type diphenhydramine HCl 25 mg capsule 25 mg PO Q8H PRN 02/13/22 12/16/24 History (Benadryl) cholecalciferol (vitamin D3) 10 10 mcg PO DAILY 04/25/22 12/21/24 History mcg (400 unit) capsule (Vitamin D3) acetaminophen 500 mg tablet 500 - 1,000 mg PO Q6H PRN 05/28/22 12/21/24 History metoprolol succinate 200 mg 200 mg PO DAILY 10/30/23 12/21/24 History tablet,extended release 24 hr apixaban 5 mg tablet (Eliquis) 5 mg PO BID #180 tabs 06/15/24 12/21/24 Rx acyclovir 400 mg tablet 400 mg PO BID #180 tabs 06/28/24 12/21/24 Rx sennosides 8.6 mg tablet (Laxative 8.6 mg PO DAILY PRN 09/09/24 12/21/24 History (sennosides)) sulfamethoxazole 800 1 tab PO 3XW #90 tabs 11/01/24 12/21/24 Rx mg-trimethoprim 160 mg tablet dexamethasone 4 mg tablet 20 mg PO DIRECTED PRN 11/15/24 12/21/24 History lenalidomide 5 mg capsule 7.5 mg PO DIRECTED 11/15/24 12/21/24 History (Revlimid) Allergies Allergy/AdvReac Type Severity Reaction Status Date / Time No Known Drug Allergies Allergy Verified 12/16/24 14:58 Exam Const: Vital Signs, click to edit/add: Vital Signs - 24 hr 12/21/24 10:19 12/21/24 10:41 12/21/24 10:41 Temperature 99.1 F Pulse Rate Pulse Rate [Pulse Oximeter] 79 Respiratory Rate 32 H Blood Pressure Blood Pressure [Le ft Upper Arm] 98/47 L Pulse Oximetry 88 88 93 Oxygen Delivery Me thod Room Air Nasal Cannula Oxygen Flow Rate 2 12/21/24 12:04 12/21/24 12:05 12/21/24 12:15 Temperature Pulse Rate 103 H 109 H Pulse Rate [Pulse Oximeter] Respiratory Rate 30 H 25 H 35 H Blood Pressure 118/86 Blood Pressure [Le ft Upper Arm] Pulse Oximetry 9 L 98 Oxygen Delivery Me thod Nasal Cannula Nasal Cannula Nasal Cannula Oxygen Flow Rate 3 3 3 12/21/24 12:22 12/21/24 12:30 12/21/24 12:42 Temperature Pulse Rate 105 H 101 H 112 H Pulse Rate [Pulse Oximeter] Respiratory Rate 34 H 32 H 34 H Blood Pressure 114/73 108/77 Blood Pressure [Le ft Upper Arm] Pulse Oximetry 98 97 97 Oxygen Delivery Me thod Nasal Cannula Nasal Cannula Nasal Cannula Oxygen Flow Rate 3 3 3 12/21/24 12:43 12/21/24 12:45 12/21/24 13:00 Temperature Pulse Rate 114 H 96 109 H Pulse Rate [Pulse Oximeter] Respiratory Rate 33 H 31 H 30 H Blood Pressure Blood Pressure [Le ft Upper Arm] Pulse Oximetry 97 97 97 Oxygen Delivery Me thod Nasal Cannula Nasal Cannula Nasal Cannula Oxygen Flow Rate 3 3 3 12/21/24 13:02 12/21/24 13:15 Temperature Pulse Rate 112 H 89 Pulse Rate [Pulse Oximeter] Respiratory Rate 17 37 H Blood Pressure 103/86 Blood Pressure [Le ft Upper Arm] Pulse Oximetry 87 L 91 Oxygen Delivery Me thod Nasal Cannula Nasal Cannula Oxygen Flow Rate 3 3 Hospitalist - H&P: Result Labs Labs: Short CBC 12/21/24 Range/Units 10:55 WBC 3.27 L (4.50-11.00) K/uL Hgb 14.6 (12.0-16.0) gm/dL Hct 43.0 (33.0-51.0) % Plt Count 126 L (140-440) K/uL BMP 12/21/24 10:55 Sodium 135 Potassium 3.9 Chloride 102 Carbon Dioxide 22 BUN 23 Creatinine 1.4 Glucose 121 H Calcium 10.4 Cardiac Enzymes 12/21/24 Range/Units 10:55 Troponin I 0.03 (0.01-0.04) ng/mL Liver Function 12/21/24 Range/Units 10:55 Total Bilirubin 1.3 (0.1-1.5) mg/dL AST 30 (12-35) U/L ALT 28 (4-35) U/L Alkaline Phosphatase 118 (40-150) U/L Albumin 3.9 (3.3-5.0) g/dL
[2024-12-21] MEDS: IPRAT-ALBUT 0.5-2.5 MG/3 ML NEB 1 NEB IH (15:36)
[2024-12-21] MEDS: LACTATED RINGERS 500 ML 500 ML IV (15:49)
[2024-12-21] MEDS: METOPROLOL TARTRATE 25 MG TABLET PO ×2 (16:00→21:33)
[2024-12-21] MEDS: predniSONE 20 MG TABLET 40 MG PO (16:00)
[2024-12-21 16:25] LABS: Lactate* 2.8 mmol/L (0.5-1.9)
[2024-12-21] MEDS: MAGNESIUM IV 2 GM/50 ML PIGGYBACK IVPB (17:00)
[2024-12-21] MEDS: 0.9 % SODIUM CHLORIDE 1000 ml 1,000 ML 125 ML IV (17:01)
[2024-12-21] MEDS: 0.9 % SODIUM CHLORIDE 500 ML 500 ML IV (18:26)
[2024-12-21] MEDS: guaiFENesin 100 MG/ML CUP PO ×2 (18:30→22:35)
--- NOTE | 2024-12-21 19:37 | PC.NURSE ---
Nursing Care Hours: [id number] Pt this shift arrived to floor on 4L NC, able to titrate to 2L. Pt alert and oriented. Moist consistent cough and runny nose. BP stable, afib with RVR 100-115bpm. Duo neb given without relief. HR increased to 130-140's , hospitalist updated. Lactate came back with an elevation so NS 500ml bolus infused. Second IV started. Mg sulfate infused. By end of shift, HR still in A.fib with RVR but rate between 98-120. MRSA sample sent to lab. Pt voided x1 but urine contaminated and could not send to lab. Pt assist x1 with walker. Becomes SOB and fatigued. Food Expeditor instructing pt on breathing through nose and out of mouth. LS rhonchi throughout. Skin tear to left elbow cleaned and dried and Mepilex applied.
[2024-12-21 20:17] LABS: HCO3 VBG 19 mmol/L (21-28); Lactate* 1.5 mmol/L (0.5-1.9); PCO2 VBG 30 mmHG (40-50); PO2 VBG 76.1 mmHG (25-47); pH VBG 7.398 (7.32-7.43)
[2024-12-21] MEDS: ACYCLOVIR 200 MG CAPSULE 400 MG PO (20:25)
[2024-12-21] MEDS: SODIUM CHLORIDE 0.9 % (FLUSH) 10 ML SYRINGE 5 ML IVF (20:26)
[2024-12-21] MEDS: APIXABAN 5 MG TABLET PO (20:26)
[2024-12-21 22:59] LABS: Legionella pneumo Ag Urine L. pneumo Negative (Negative); S pneumo Ag Urine S. pneumo Negative (Negative)
[2024-12-22] VITALS (9 sets, daily range): BP systolic 96–130; BP diastolic 71–100; PULSE 90–141; RESP 16–26; TEMP 36.3–36.6; O2SAT 91–94; BMI 28.2
[2024-12-22] MEDS: 0.9 % SODIUM CHLORIDE 1000 ml 1,000 ML 125 ML IV (03:10)
[2024-12-22] MEDS: METOPROLOL TARTRATE 25 MG TABLET PO ×2 (03:32→09:52)
[2024-12-22] MEDS: guaiFENesin 100 MG/ML CUP PO ×3 (05:27→21:27)
--- NOTE | 2024-12-22 06:07 | PC.NURSE ---
End of shift report [id number]: VSS. HR remains elevated, pt tele reads afib with RVR.?Afebrile. Denies pain. Pt has been on 1 L O2 via NC overnight to keep?O2 sats above 90%. Left arm restriction band is in place. Pt has SOB with exertion. Ambulates 1A, GB, W. Pt continues to have a cough, Robitussin offered and given. Pt did the aerobika this shift per MD Piper. L arm mepilex is C/D/I.?Pt is resting in bed, bed alarm on, call light within reach.?
[2024-12-22 06:38] LABS: HCO3 VBG 18 mmol/L (21-28); Lactate* 1.6 mmol/L (0.5-1.9); PCO2 VBG 32 mmHG (40-50); PO2 VBG 61.5 mmHG (25-47); pH VBG 7.354 (7.32-7.43)
[2024-12-22 06:44] LABS: Basophils Percent Auto 0.3 % (0.0-3.0); Hematocrit 37.1 % (33.0-51.0); Hemoglobin* 12.4 gm/dL (12.0-16.0); Immature Granulocytes Pct Auto 0.3 %; Lymphocytes Percent Auto 21.8 % (20-44); Mean Corpuscular HGB Conc 33 gm/dL (32-36); Mean Corpuscular Hemoglobin 36 pg (26-34); Mean Corpuscular Volume 109 fL (80-100); Monocytes Percent Auto 12.7 % (0.0-11.0); Neutrophils Percent Auto 64.9 % (42.0-72.0); Platelet Count* 129 K/uL (140-440); RDW Coefficient of Variation % 13.7 % (11.5-15.5); Red Blood Count 3.41 m/uL (4.00-5.20); White Blood Count* 3.16 K/uL (4.50-11.00)
[2024-12-22 07:01] LABS: Albumin* 2.9 g/dL (3.3-5.0)
[2024-12-22 07:02] LABS: Chloride* 110 mmol/L (96-114); Potassium* 4.3 mmol/L (3.6-5.1); Sodium* 135 mmol/L (135-149)
[2024-12-22 07:04] LABS: Alanine Aminotransferase* 21 U/L (4-35); Aspartate Amino Transferase* 27 U/L (12-35); Blood Urea Nitrogen* 23 mg/dL (7-30); Est. Creatinine Clearance* 34.87; Estimated Glomerular Filt Rate 55 ml/min; Slide Review Reflex Yes
[2024-12-22 07:05] LABS: Alkaline Phosphatase* 118 U/L (40-150); Anion Gap 7 mEq/L (7-15); Bilirubin Total* 0.8 mg/dL (0.1-1.5); Calcium* 9.5 mg/dL (8.4-10.6); Carbon Dioxide* 18 mmol/L (20-32); Glucose* 105 mg/dL (60-115); Magnesium* 2.1 mg/dL (1.5-2.6); Total Protein* 5.4 g/dL (6.0-8.3)
[2024-12-22 07:20] LABS: C Reactive Protein* 24.9 mg/dL (0.5-1.0); Procalcitonin* 0.48 ng/mL (<0.50)
[2024-12-22 07:40] LABS: Slide Review Acceptable Review (Acceptable)
[2024-12-22] MEDS: predniSONE 20 MG TABLET 40 MG PO (07:45)
[2024-12-22] MEDS: ACYCLOVIR 200 MG CAPSULE 400 MG PO ×2 (08:52→20:41)
[2024-12-22] MEDS: APIXABAN 5 MG TABLET PO ×2 (08:52→20:41)
[2024-12-22] MEDS: SULFA/TRIMETHOPRIM 800/160 1 TAB PO (08:52)
[2024-12-22] MEDS: SODIUM CHLORIDE 0.9 % (FLUSH) 10 ML SYRINGE 5 ML IVF ×2 (08:59→20:42)
--- NOTE | 2024-12-22 09:48 | PM.IMPN1 ---
Assessment and Plan Assessment and plan (1) Sepsis: Problem comment: - Source: community-acquired pneumonia - Indicators: Elevated Heart rate, elevated respiratory rate, depressed total white blood cell count, systolic blood pressure less than 90, lactate greater than 2 - treating with Fluid resuscitation, respiratory antibiotics, prednisone, oxygen - cultures currently NGTD Status: Acute (2) Acute hypoxemic respiratory failure: Problem comment: -community-acquired pneumonia, left lower lobe -continue ceftriaxone and azithromycin, Prednisone, nebs -oxygen to titrate sats 90-95% -RT following -treating with Ceftriaxone and Azithromycin -negative legionella and strep pneumonia -MRSA and blood/sputum cultures pending Status: Acute (3) HFrEF (heart failure with reduced ejection fraction): Problem comment: - TTE obtained 12/22 (notably, patient in a fib RVR during exam) with results below - increase Metoprolol dosing to help with rate reduction, current BP does not support further titration of GDMT Final Impressions: 1. Atrial fibrillation with RVR. 2. Normal left ventricular size, normal wall thickness, moderately reduced global systolic function, calculated EF of 31 %. 3. The aortic valve is trileaflet and calcified, moderate stenosis and mild regurgitation. 4. Severe biatrial enlargement. 5. The mitral valve is normal, moderate mitral regurgitation. 6. Tricuspid valve is normal, moderate-severe tricuspid regurgitation. 7. The inferior vena cava is dilated, respiratory size variation greater than 50%. 8. Dilated ascending aorta, diameter of 4.4 cm (upper limit of normal for age, sex, and BSA is 4.0 cm*), Height Index 2.70. Status: Acute (4) Atrial fibrillation with rapid ventricular response: Problem comment: -hydrate to get lactate down and see if this is more of a sepsis driven tachycardia vs arrhythmia (in permanent afib - RVR maybe sepsis driven) -12/22: normal lactate and magnesium, continues to have elevated HR -INCREASE Metoprolol 25mg Q6H to 50mg Q6H on 12/22 -continue Apixaban Status: Acute (5) Chronic anticoagulation: Problem comment: - eliquis for AFIB and hx of DVT Status: Acute (6) Multiple myeloma: Problem comment: - IgG [place], Dxed 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 Currently being treated with Revlimid Status: Acute Plan - per above (continue abx for CAP, supplemental oxygen as needed, rate control for a fib) - home with daughter vs SNF when medically appropriate for d/c Subjective Date Seen: 12/22/24 Interval history: Yoko was admitted to the hospital yesterday for acute hypoxic respiratory failure and hypotension in the setting of LLL pneumonia. Comorbidities include atrial fibrillation, multiple myeloma, history of DVT. In the ER, was in RVR with HR 110s-120s. Admitted on supplemental oxygen, Ceftriaxone and Azithromycin, Prednisone, nebs. RT following. Since admission, oxygen needs have decreased and Yoko is feeling a little better. HR remains elevated (100-110s) on Metoprolol (home dose of 200mg daily was held for hypotension, currently on IR Metoprolol 25mg Q6H), no CP. TTE completed today: EF of 31%, + biatrial enlargement, moderate , moderate MR, moderate to severe TR. Yoko has no concerns for the hospitalist team today. Exam Narrative: Exam Narrative: GEN: Alert and oriented, sitting at edge of bed. Mildly increased work of breathing with activity, intermittent coughing paroxysms HEENT: EOMIs bilaterally, no scleral icterus CV: Irregular heart rhythm with rate 100s R: Bibasilar rales (L>R), rhonchi throughout Ext: Mild edema BLE Skin: Scattered bruising of extremities, + skin tear LUE Neuro: No focal deficits Psych: Appropriate Const: Vital Signs, click to edit/add: Vital Signs - 24 hr 12/21/24 10:19 12/21/24 10:41 12/21/24 10:41 Temperature 99.1 F Pulse Rate Pulse Rate [Pulse Oximeter] 79 Pulse Rate [Right Pulse Oximeter] Respiratory Rate 32 H Blood Pressure Blood Pressure [Le ft Upper Arm] 98/47 L Blood Pressure [Ri ght Arm] Pulse Oximetry 88 88 93 Oxygen Delivery Me thod Room Air Nasal Cannula Oxygen Flow Rate 2 12/21/24 12:04 12/21/24 12:05 12/21/24 12:15 Temperature Pulse Rate 103 H 109 H Pulse Rate [Pulse Oximeter] Pulse Rate [Right Pulse Oximeter] Respiratory Rate 30 H 25 H 35 H Blood Pressure 118/86 Blood Pressure [Le ft Upper Arm] Blood Pressure [Ri ght Arm] Pulse Oximetry 9 L 98 Oxygen Delivery Me thod Nasal Cannula Nasal Cannula Nasal Cannula Oxygen Flow Rate 3 3 3 12/21/24 12:22 12/21/24 12:30 12/21/24 12:42 Temperature Pulse Rate 105 H 101 H 112 H Pulse Rate [Pulse Oximeter] Pulse Rate [Right Pulse Oximeter] Respiratory Rate 34 H 32 H 34 H Blood Pressure 114/73 108/77 Blood Pressure [Le ft Upper Arm] Blood Pressure [Ri ght Arm] Pulse Oximetry 98 97 97 Oxygen Delivery Me thod Nasal Cannula Nasal Cannula Nasal Cannula Oxygen Flow Rate 3 3 3 12/21/24 12:43 12/21/24 12:45 12/21/24 13:00 Temperature Pulse Rate 114 H 96 109 H Pulse Rate [Pulse Oximeter] Pulse Rate [Right Pulse Oximeter] Respiratory Rate 33 H 31 H 30 H Blood Pressure Blood Pressure [Le ft Upper Arm] Blood Pressure [Ri ght Arm] Pulse Oximetry 97 97 97 Oxygen Delivery Me thod Nasal Cannula Nasal Cannula Nasal Cannula Oxygen Flow Rate 3 3 3 12/21/24 13:02 12/21/24 13:15 12/21/24 13:22 Temperature Pulse Rate 112 H 89 105 H Pulse Rate [Pulse Oximeter] Pulse Rate [Right Pulse Oximeter] Respiratory Rate 17 37 H 30 H Blood Pressure 103/86 101/73 Blood Pressure [Le ft Upper Arm] Blood Pressure [Ri ght Arm] Pulse Oximetry 87 L 91 92 Oxygen Delivery Me thod Nasal Cannula Nasal Cannula Nasal Cannula Oxygen Flow Rate 3 3 3 12/21/24 13:30 12/21/24 13:42 12/21/24 13:45 Temperature Pulse Rate 91 112 H 95 Pulse Rate [Pulse Oximeter] Pulse Rate [Right Pulse Oximeter] Respiratory Rate 32 H 19 35 H Blood Pressure 112/81 Blood Pressure [Le ft Upper Arm] Blood Pressure [Ri ght Arm] Pulse Oximetry 94 91 89 Oxygen Delivery Me thod Nasal Cannula Nasal Cannula Nasal Cannula Oxygen Flow Rate 3 3 3 12/21/24 14:00 12/21/24 14:22 12/21/24 14:22 Temperature Pulse Rate 142 H Pulse Rate [Pulse Oximeter] Pulse Rate [Right Pulse Oximeter] 98 Respiratory Rate 30 H 30 H Blood Pressure Blood Pressure [Le ft Upper Arm] Blood Pressure [Ri ght Arm] 114/95 H Pulse Oximetry 97 97 Oxygen Delivery Me thod Nasal Cannula Nasal Cannula Nasal Cannula Oxygen Flow Rate 3 3 3 12/21/24 14:54 12/21/24 14:54 12/21/24 14:54 Temperature Pulse Rate 118 H Pulse Rate [Pulse Oximeter] Pulse Rate [Right Pulse Oximeter] Respiratory Rate 28 H Blood Pressure Blood Pressure [Le ft Upper Arm] Blood Pressure [Ri ght Arm] Pulse Oximetry 96 97 Oxygen Delivery Me thod Nasal Cannula Oxygen Flow Rate 3 12/21/24 15:00 12/21/24 17:02 12/21/24 19:30 Temperature 97.5 F L Pulse Rate Pulse Rate [Pulse Oximeter] Pulse Rate [Right Pulse Oximeter] 130 H 101 H 99 Respiratory Rate 28 H 30 H 28 H Blood Pressure Blood Pressure [Le ft Upper Arm] Blood Pressure [Ri ght Arm] 126/85 111/82 Pulse Oximetry 93 90 Oxygen Delivery Me thod Nasal Cannula Oxygen Flow Rate 2 12/21/24 20:16 12/21/24 21:27 12/21/24 22:38 Temperature Pulse Rate 106 H Pulse Rate [Pulse Oximeter] Pulse Rate [Right Pulse Oximeter] 101 H 99 Respiratory Rate 30 H Blood Pressure Blood Pressure [Le ft Upper Arm] Blood Pressure [Ri ght Arm] 119/75 Pulse Oximetry 98 Oxygen Delivery Me thod Nasal Cannula Oxygen Flow Rate 2 12/21/24 23:00 12/22/24 03:00 12/22/24 09:00 Temperature 97.5 F L 97.4 F L 97.7 F Pulse Rate Pulse Rate [Pulse Oximeter] Pulse Rate [Right Pulse Oximeter] 91 90 110 H Respiratory Rate 28 H 26 H 18 Blood Pressure Blood Pressure [Le ft Upper Arm] Blood Pressure [Ri ght Arm] 117/94 H 130/87 96/71 Pulse Oximetry 91 91 91 Oxygen Delivery Me thod Nasal Cannula Nasal Cannula Room Air Oxygen Flow Rate 1 1 Labs Labs: Laboratory Results - last 24 hr 12/21/24 12/21/24 12/21/24 10:55 14:19 15:13 WBC 3.27 L RBC 3.99 L Hgb 14.6 Hct 43.0 MCV 108 H MCH 37 H MCHC 34 RDW Coeff of Tri 13.7 Plt Count 126 L Neut % (Auto) 46.5 Lymph % (Auto) 31.5 [place] % (Auto) 20.2 H Eos % (Auto) 0.6 Baso % (Auto) 0.6 Neut # (Auto) 1.50 L Lymph # (Auto) 1.00 [place] # (Auto) 0.70 Eos # (Auto) 0.00 Baso # (Auto) 0.00 Abs Immat Gran (auto) 0.00 Imm/Tot Granulo (auto) 0.6 Diff Slide Review D-Dimer Quant (PE/DVT) 0.78 H VBG pH 7.355 VBG pCO2 40 VBG pO2 34.5 VBG HCO3 22 Sodium 135 Potassium 3.9 Chloride 102 Carbon Dioxide 22 Anion Gap 11 BUN 23 Creatinine 1.4 Estimated Creat Clear 24.91 Estimated GFR 37 Glucose 121 H Lactate 2.7 H 2.8 H Calcium 10.4 Magnesium 1.6 Total Bilirubin 1.3 AST 30 ALT 28 Alkaline Phosphatase 118 Troponin I 0.03 C-Reactive Protein 23.5 H NT-Pro-B Natriuret Pep 9520 Total Protein 6.6 Albumin 3.9 Procalcitonin 0.49 TSH 0.834 Urine L. pneumophilia Ag L. pneumo Negative Urine Strep pneumoniae Ag S. pneumo Negative SARS-CoV-2 (PCR) Negative SARS-CoV-2 Influenza Type A (PCR) Negative PCR FLU A Influenza Type B (PCR) Negative PCR FLU B RSV (PCR) Negative PCR RSV 12/21/24 12/22/24 20:12 06:08 WBC 3.16 L RBC 3.41 L Hgb 12.4 Hct 37.1 MCV 109 H MCH 36 H MCHC 33 RDW Coeff of Tri 13.7 Plt Count 129 L Neut % (Auto) 64.9 Lymph % (Auto) 21.8 [place] % (Auto) 12.7 H Eos % (Auto) 0.0 Baso % (Auto) 0.3 Neut # (Auto) 2.10 Lymph # (Auto) 0.70 L [place] # (Auto) 0.40 Eos # (Auto) 0.00 Baso # (Auto) 0.00 Abs Immat Gran (auto) 0.00 Imm/Tot Granulo (auto) 0.3 Diff Slide Review Acceptable Review D-Dimer Quant (PE/DVT) VBG pH 7.398 7.354 VBG pCO2 30 L 32 L VBG pO2 76.1 H 61.5 H VBG HCO3 19 L 18 L Sodium 135 Potassium 4.3 Chloride 110 Carbon Dioxide 18 L Anion Gap 7 BUN 23 Creatinine 1.0 Estimated Creat Clear 34.87 Estimated GFR 55 Glucose 105 Lactate 1.5 1.6 Calcium 9.5 Magnesium 2.1 Total Bilirubin 0.8 AST 27 ALT 21 Alkaline Phosphatase 118 Troponin I C-Reactive Protein 24.9 H NT-Pro-B Natriuret Pep Total Protein 5.4 L Albumin 2.9 L Procalcitonin 0.48 TSH Urine L. pneumophilia Ag Urine Strep pneumoniae Ag SARS-CoV-2 (PCR) Influenza Type A (PCR) Influenza Type B (PCR) RSV (PCR)
[2024-12-22] MEDS: cefTRIAXone 1 GM in 0.9 % SODIUM CHLORIDE Mini-bag 100 ML IVPB (12:06)
[2024-12-22] MEDS: AZITHROMYCIN 250 MG TABLET PO (12:38)
[2024-12-22] MEDS: METOPROLOL TARTRATE 1 MG/ML inj 5 MG IVP ×2 (12:43→22:07)
--- NOTE | 2024-12-22 13:32 | PC.SOCIAL ---
Discharge Planning: SW met with patient to discuss support needs and discharge plan. Patient states that right now she is interested in going home with her daughter Mae for a few days instead of going to rehab if that is recommended. Patient then desires to return to her apartment. Patient states that she feels the OP PT wasn't helpful and it's all been cancelled. Patient reports that her daughter would like to talk with a SW tomorrow when she is here. SW explained that she would check-in in the morning to see if she is here and if she isn't will call her. Patient explains that her daughter Mae is the one that will be coming and is available Thurs-Fri, while her other daughter will be home from a trip this weekend. Patient expressed no other concerns at this time. SW to continue to follow throughout hospitalization.
[2024-12-22] MEDS: METOPROLOL TARTRATE 25 MG TABLET 50 MG PO ×2 (16:05→21:28)
--- NOTE | 2024-12-22 18:34 | PC.NURSE ---
Patient was completely alert and orient upon initial assessment. Around the noon hour she degraded to where she no longer understood why she was at the hospital and could not answer the year. This was associated with a desire to ambulate and to search the room for her things. Continuing to monitor as a high fall risk. Appears of strong strength and then another moment appears to be frail. Calm and appropriate. Fluent in speech. Left arm is off limits for assessments. Right arm has one working IV. A difficult stick it was reported to me. Currently in Afib RVR with PVCs. Metoprolol has been ordered in attempt to lower heart rate.
[2024-12-23] VITALS (8 sets, daily range): BP systolic 121–145; BP diastolic 76–118; PULSE 86–133; RESP 18–24; TEMP 35.9–36.7; O2SAT 91–93
[2024-12-23] MEDS: METOPROLOL TARTRATE 1 MG/ML inj 5 MG IVP (00:55)
[2024-12-23] MEDS: METOPROLOL TARTRATE 25 MG TABLET 50 MG PO (03:58)
--- NOTE | 2024-12-23 05:55 | PC.NURSE ---
End of shift report [id number]: BP remain stable. Pt is on RA. Pt?s tele remains afib with RVR. Pt?s HR remains elevated. HR was noted to be elevated at 120-150 on tele, newswriter notified MD Silva. A one time dose of IV metoprolol tartrate?was given with little relief. Direct Marketing Manager notified MD Silva again and another one time dose of IV metoprolol tartrate was given. Pt continues to have a cough, PRN Robitussin offered and given. Direct Marketing Manager noticed that the pt was having increased confusion overnight, newswriter notified MD Garces at [facility], no new orders. Pt ambulates 1A, GB, W. Chair?alarm on, call light within reach.?
[2024-12-23 06:43] LABS: HCO3 VBG 21 mmol/L (21-28); PCO2 VBG 44 mmHG (40-50); PO2 VBG < 30.1 mmHG (25-47); pH VBG 7.285 (7.32-7.43)
[2024-12-23 06:50] LABS: Basophils Absolute Auto 0.01 K/uL (0.00-0.30); Basophils Percent Auto 0.2 % (0.0-3.0); Eosinophils Absolute Auto 0.01 K/uL (0.00-0.50); Eosinophils Percent Auto 0.2 % (0.0-7.0); Hematocrit 40.3 % (33.0-51.0); Hemoglobin* 13.5 gm/dL (12.0-16.0); Immature Granulocytes Abs Auto 0.02 K/uL (0.00-0.30); Immature Granulocytes Pct Auto 0.4 %; Lymphocytes Absolute Auto 1.01 K/uL (0.90-2.90); Lymphocytes Percent Auto 20.2 % (20-44); Mean Corpuscular HGB Conc 34 gm/dL (32-36); Mean Corpuscular Hemoglobin 37 pg (26-34); Mean Corpuscular Volume 109 fL (80-100); Neutrophils Absolute Auto 3.16 K/uL (1.7-7.0); Platelet Count* 160 K/uL (140-440); RDW Coefficient of Variation % 13.9 % (11.5-15.5); Red Blood Count 3.69 m/uL (4.00-5.20); White Blood Count* 5.01 K/uL (4.50-11.00)
[2024-12-23 06:52] LABS: Slide Review Reflex No
[2024-12-23 07:00] LABS: Chloride* 104 mmol/L (96-114); Potassium* 3.8 mmol/L (3.6-5.1); Sodium* 133 mmol/L (135-149)
[2024-12-23 07:03] LABS: Anion Gap 7 mEq/L (7-15); Blood Urea Nitrogen* 29 mg/dL (7-30); Carbon Dioxide* 22 mmol/L (20-32); Creatinine* 1.2 mg/dL (0.5-1.5); Est. Creatinine Clearance* 29.06; Estimated Glomerular Filt Rate 44 ml/min; Glucose* 98 mg/dL (60-115)
[2024-12-23 07:04] LABS: Magnesium* 2.1 mg/dL (1.5-2.6)
[2024-12-23] MEDS: METOPROLOL SUCCINATE (XL) 100 MG TAB 200 MG PO (07:40)
[2024-12-23] MEDS: predniSONE 20 MG TABLET 40 MG PO (07:41)
--- NOTE | 2024-12-23 07:48 | PM.IMPN1 ---
Assessment and Plan Assessment and plan (1) Sepsis: Problem comment: - Source: community-acquired pneumonia - Indicators: Elevated Heart rate, elevated respiratory rate, depressed total white blood cell count, systolic blood pressure less than 90, lactate greater than 2 - treating with Fluid resuscitation, respiratory antibiotics, prednisone, oxygen - cultures currently NGTD Status: Acute (2) Acute hypoxemic respiratory failure: Problem comment: -community-acquired pneumonia, left lower lobe -continue ceftriaxone and azithromycin, Prednisone, nebs -oxygen to titrate sats 90-95% -RT following -treating with Ceftriaxone and Azithromycin -negative legionella and strep pneumonia -MRSA and blood/sputum cultures pending Status: Acute (3) HFrEF (heart failure with reduced ejection fraction): Problem comment: - TTE obtained 12/22 (notably, patient in a fib RVR during exam) with results below - increase Metoprolol dosing to help with rate reduction, current BP does not support further titration of GDMT Final Impressions: 1. Atrial fibrillation with RVR. 2. Normal left ventricular size, normal wall thickness, moderately reduced global systolic function, calculated EF of 31 %. 3. The aortic valve is trileaflet and calcified, moderate stenosis and mild regurgitation. 4. Severe biatrial enlargement. 5. The mitral valve is normal, moderate mitral regurgitation. 6. Tricuspid valve is normal, moderate-severe tricuspid regurgitation. 7. The inferior vena cava is dilated, respiratory size variation greater than 50%. 8. Dilated ascending aorta, diameter of 4.4 cm (upper limit of normal for age, sex, and BSA is 4.0 cm*), Height Index 2.70. 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 Currently being treated with Revlimid Status: Acute Subjective Date Seen: 12/23/24 Interval history: Yoko was admitted to the hospital yesterday for acute hypoxic respiratory failure and hypotension in the setting of LLL pneumonia. Comorbidities include atrial fibrillation, multiple myeloma, history of DVT. In the ER, was in RVR with HR 110s-120s. Admitted on supplemental oxygen, Ceftriaxone and Azithromycin, Prednisone, nebs. RT following. Since admission, oxygen needs have decreased and Yoko is feeling a little better, but still having coughing paroxysms. HR has remained elevated since admission; her home dose of 200mg Metoprolol Succinate daily was held for hypotension. She had been receiving Metoprolol Tartrate 25mg Q6H with prn IV 2.5mg Metoprolol Tartrate with persisten RVR. Hypotension has improved and we are restarting her Succinate this morning. TTE completed 12/22: EF of 31%, + biatrial enlargement, moderate , moderate MR, moderate to severe TR. Exam Const: Vital Signs, click to edit/add: Vital Signs - 24 hr 12/22/24 09:00 12/22/24 09:00 12/22/24 11:00 Temperature 97.7 F 97.6 F Pulse Rate Pulse Rate [Right Pulse Oximeter] 110 H 110 H 115 H Respiratory Rate 18 18 16 Blood Pressure [Ri ght Arm] 96/71 114/86 Pulse Oximetry 91 94 Oxygen Delivery Me thod Room Air Room Air 12/22/24 14:54 12/22/24 15:00 12/22/24 15:00 Temperature 97.5 F L Pulse Rate Pulse Rate [Right Pulse Oximeter] 100 100 Respiratory Rate 18 18 Blood Pressure [Ri ght Arm] 123/94 H Pulse Oximetry 94 94 Oxygen Delivery Md thod Room Air 12/22/24 15:00 12/22/24 19:00 12/22/24 21:24 Temperature 97.9 F Pulse Rate 141 H Pulse Rate [Right Pulse Oximeter] 100 Respiratory Rate 20 Blood Pressure [Ri ght Arm] 126/100 H 112/90 H Pulse Oximetry 92 Oxygen Delivery Md thod Room Air 12/22/24 23:00 12/22/24 23:00 12/23/24 00:27 Temperature 98.1 F Pulse Rate 113 H Pulse Rate [Right Pulse Oximeter] 100 86 Respiratory Rate 20 22 Blood Pressure [Ri ght Arm] 121/76 Pulse Oximetry 91 Oxygen Delivery Md thod Room Air 12/23/24 02:44 Temperature 97.8 F Pulse Rate Pulse Rate [Right Pulse Oximeter] 105 H Respiratory Rate 24 Blood Pressure [Ri ght Arm] 136/112 H Pulse Oximetry 91 Oxygen Delivery Me thod Room Air Labs Labs: Laboratory Results - last 24 hr 12/23/24 06:31 WBC 5.01 RBC 3.69 L Hgb 13.5 Hct 40.3 MCV 109 H MCH 37 H MCHC 34 RDW Coeff of Tri 13.9 Plt Count 160 Neut % (Auto) 63.0 Lymph % (Auto) 20.2 [place] % (Auto) 16.0 H Eos % (Auto) 0.2 Baso % (Auto) 0.2 Neut # (Auto) 3.16 Lymph # (Auto) 1.01 [place] # (Auto) 0.80 Eos # (Auto) 0.01 Baso # (Auto) 0.01 Abs Immat Gran (auto) 0.02 Imm/Tot Granulo (auto) 0.4 VBG pH 7.285 L VBG pCO2 44 VBG pO2 < 30.1 VBG HCO3 21 Sodium 133 L Potassium 3.8 Chloride 104 Carbon Dioxide 22 Anion Gap 7 BUN 29 Creatinine 1.2 Estimated Creat Clear 29.06 Estimated GFR 44 Glucose 98 Calcium 10.0 Magnesium 2.1
[2024-12-23] MEDS: ACYCLOVIR 200 MG CAPSULE 400 MG PO (08:40)
[2024-12-23] MEDS: APIXABAN 5 MG TABLET PO (08:40)
[2024-12-23] MEDS: DOXYCYCLINE HYCLATE 100 MG PO (08:41)
[2024-12-23] MEDS: SODIUM CHLORIDE 0.9 % (FLUSH) 10 ML SYRINGE 5 ML IVF (08:41)
[2024-12-23] MEDS: SULFA/TRIMETHOPRIM 800/160 1 TAB PO (08:42)
[2024-12-23] MEDS: DIGOXIN 250 MCG TABLET 500 MCG PO (09:37)
[2024-12-23] MEDS: FUROSEMIDE 10 MG/ML inj 20 MG IVP (09:38)
--- NOTE | 2024-12-23 09:43 | PC.SOCIAL ---
Discharge planning: SW informed that patient will be transferring. SW to assist if family has any questions/concerns prior to transfer.
--- NOTE | 2024-12-23 09:57 | PM.DST ---
Transfer Discharge Sum: Prov Provider Date Seen: 12/23/24 Date of admission: 12/21/24 15:05 Primary care physician: Sena Mcintyre MD Admitting clinician: Laura Piper Consults: OT, PT, RT, SW Attending physician on discharge: Carnia Sanabria Discharging clinician: Carina Sanabria Anticipated date of transfer: 12/23/24 Receiving physician/facility: [facility] DS: Diagnosis Discharge Diagnosis (1) Atrial fibrillation with rapid ventricular response: Status: Acute Problem details: - HR did not improve after hydration in ER, with normalization of lactate/magnesium, or after 24 hours of antibiotic therapy - initially placed on Metoprolol Tartrate 50mg Q6H, RVR continued, restarted Metoprolol Succinate 200mg on 12/23 with no change - continued Apixaban during stay - reduction in EF on TTE noted - reviewed with Dr. Preciado of [facility] on 12/23, recommends transfer to [facility] for Cardiology care - given 20mg of IV Lasix and 500mcg of Digoxin on 12/23 prior to transfer (2) HFrEF (heart failure with reduced ejection fraction): Status: Acute Problem details: - TTE obtained 12/22 (notably, patient in a fib RVR during exam) with results below - increase Metoprolol dosing to help with rate reduction, current BP does not support further titration of GDMT Final Impressions: 1. Atrial fibrillation with RVR. 2. Normal left ventricular size, normal wall thickness, moderately reduced global systolic function, calculated EF of 31 %. 3. The aortic valve is trileaflet and calcified, moderate stenosis and mild regurgitation. 4. Severe biatrial enlargement. 5. The mitral valve is normal, moderate mitral regurgitation. 6. Tricuspid valve is normal, moderate-severe tricuspid regurgitation. 7. The inferior vena cava is dilated, respiratory size variation greater than 50%. 8. Dilated ascending aorta, diameter of 4.4 cm (upper limit of normal for age, sex, and BSA is 4.0 cm*), Height Index 2.70. (3) Sepsis: Status: Acute Problem details: - Source: community-acquired pneumonia - Indicators: Elevated Heart rate, elevated respiratory rate, depressed total white blood cell count, systolic blood pressure less than 90, lactate greater than 2 - treating with IVFs (discontinued on hospital day 1 given HFrEF), Ceftriaxone and Doxycycline, prednisone, supplemental oxygen - blood cultures negative 12/23/24 (4) Acute hypoxemic respiratory failure: Status: Acute Problem details: -community-acquired pneumonia, left lower lobe -continue ceftriaxone and azithromycin, Prednisone, nebs -oxygen to titrate sats 90-95% -RT following -treating with Ceftriaxone and Doxycycline -negative legionella and strep pneumonia -MRSA nasal swab negative, BCx are NGTD (5) Chronic anticoagulation: Status: Acute Problem details: - eliquis for AFIB and hx of DVT (6) Multiple myeloma: Status: Acute Problem details: - IgG [place], Dxed 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 Currently being treated with Revlimid Transfer Discharge Sum: Med Medications Active and Home Medications: Home Medications diphenhydramine HCl 25 mg capsule (Benadryl) 25 mg PO Q8H PRN 02/13/22 [History Confirmed 12/16/24] cholecalciferol (vitamin D3) 10 mcg (400 unit) capsule (Vitamin D3) 10 mcg PO DAILY 04/25/22 [History Confirmed 12/21/24] acetaminophen 500 mg tablet 500 - 1,000 mg PO Q6H PRN 05/28/22 [History Confirmed 12/21/24] metoprolol succinate 200 mg tablet,extended release 24 hr 200 mg PO DAILY 10/30/23 [History Confirmed 12/21/24] apixaban 5 mg tablet (Eliquis) 5 mg PO BID #180 tabs 06/15/24 [Rx Confirmed 12/21/24] acyclovir 400 mg tablet 400 mg PO BID #180 tabs 06/28/24 [Rx Confirmed 12/21/24] sennosides 8.6 mg tablet (Laxative (sennosides)) 8.6 mg PO DAILY PRN 09/09/24 [History Confirmed 12/21/24] sulfamethoxazole 800 mg-trimethoprim 160 mg tablet 1 tab PO 3XW #90 tabs 11/01/24 [Rx Confirmed 12/21/24] dexamethasone 4 mg tablet 20 mg PO DIRECTED PRN 11/15/24 [History Confirmed 12/21/24] lenalidomide 5 mg capsule (Revlimid) 7.5 mg PO DIRECTED 11/15/24 [History Confirmed 12/21/24] Active Medications Acetaminophen (Acetaminophen 325 Mg Tablet) 650 mg PO Q4H PRN Acyclovir (Acyclovir 200 Mg Capsule) 400 mg PO BID [facility] Last Admin: 12/23/24 08:40 Dose: 400 mg Albuterol/Ipratropium (Iprat-Albut 0.5-2.5 Mg/3 Ml Neb) 1 neb IH Q2H PRN Last Admin: 12/21/24 15:36 Dose: 1 neb Apixaban (Apixaban 5 Mg Tablet) 5 mg PO BID [facility] Last Admin: 12/23/24 08:40 Dose: 5 mg Bisacodyl (Bisacodyl 10 Mg Supp.Rect) 10 mg CO DAILY PRN Doxycycline Hyclate (Doxycycline Hyclate 100 Mg) 100 mg PO BID [facility] Last Admin: 12/23/24 08:41 Dose: 100 mg Guaifenesin (Guaifenesin 100 Mg/Ml Cup) 100 - 200 mg PO Q4H PRN PRN Reason: Cough Last Admin: 12/22/24 21:27 Dose: 200 mg Ceftriaxone Sodium 1 gm/ (Sodium Chloride) 100 mls @ 200 mls/hr IVPB Q24H [facility] Last Infusion: 12/22/24 12:40 Dose: Infused Ketorolac Tromethamine (Ketorolac 15 Mg/Ml Inj) 15 mg IVP Q6H PRN Melatonin (Melatonin 3 Mg Tablet) 6 mg PO HS PRN Metoprolol Succinate (Metoprolol Succinate (Xl) 100 Mg Tab) 200 mg PO DAILY [facility] Last Admin: 12/23/24 07:40 Dose: 200 mg Metoprolol Tartrate (Metoprolol Tartrate 25 Mg Tablet) 50 mg PO Q6H [facility] On Hold: 12/23/24 07:07 Last Admin: 12/23/24 03:58 Dose: 50 mg Metoprolol Tartrate (Metoprolol Tartrate 1 Mg/Ml Inj) 5 mg IVP Q6H PRN PRN Reason: sustained resting HR >100 for more than 10 min and SBP >90 Ondansetron HCl (Ondansetron Odt 4 Mg Tab) 4 mg PO Q6H PRN Polyethylene Glycol (Polyethylene Glycol 3350 17 Gm Pack) 17 gm PO DAILY PRN Prednisone (Pred[facility]one 20 Mg Tablet) [facility] [place] Last Admin: 12/23/24 07:41 Dose: 40 mg Senna/Docusate Sodium (Sennosides/Docusate Tablet) 1 tab PO DAILY PRN Sodium Chloride (Sodium Chloride 0.9 % (Flush) 10 Ml Syringe) 5 ml IVF .FLUSH PRN Sodium Chloride (Sodium Chloride 0.9 % (Flush) 10 Ml Syringe) 5 ml IVF BID [facility] Last Admin: 12/23/24 08:41 Dose: 5 ml Trimethoprim/Sulfamethoxazole (Sulfa/Trimethoprim 800/160 1 Tab) 1 tab PO MoWeFr@0900 [facility] Last Admin: 12/23/24 08:42 Dose: 1 tab Transfer Discharge Sum: Hosp Hospital Course Hospital course: Yoko was admitted to the hospital on 12/21 for acute hypoxic respiratory failure, a fib with RVR, and hypotension in the setting of LLL pneumonia. History of permanent atrial fibrillation, multiple myeloma, history of DVT. In the ER, was in RVR with HR 110s-120s. Admitted on supplemental oxygen, Ceftriaxone and Azithromycin, Prednisone, nebs. Followed by RT During stay: - oxygen needs decreased, tolerating RA on hospital day 2 - hypotensive in ER; BP has increased to 120-130 systolic, treated with Metoprolol Tartrate 25-50mg Q6H on hospital day 1 - TTE completed 12/22: EF 31% (previous EF 55%), moderate , moderate AR, moderate/severe TR. Notably in a fib during TTE - added back home dose of Metoprolol Succinate 200mg 12/23 but HR remained elevated (>120) with RVR - transitioned from Azithromycin to Doxycycline on 12/23 given arrythmia - received 500mcg of Digoxin + 20mg IV Lasix 12/23 am - discussed with Dr. Preciado of Cardiology, who recommends transfer to [facility] for Cardiology assessment/management Patient and daughter comfortable with transfer. Time Spent with Patient Time attestation: Total time spent providing and/or coordinating transfer services: Total time spent: Greater than 30 minutes Exam Narrative: Exam Narrative: GEN: Awake and sitting in bedside chair, occasional coughing paroxysms during visit HEENT: EOMIs bilaterally, no scleral icterus CV: Irregular rhythm, rate 110-120s R: Decreased breath sounds throughout, fine bibasilar rales (L>R) Ext: wwp, + BLE edema Skin: Scattered bruising on extremities Neuro: No focal deficits Psych: Intermittently noted to have mild confusion, otherwise appropriate Const: Vital Signs, click to edit/add: Vital Signs - 24 hr 12/22/24 11:00 12/22/24 14:54 12/22/24 15:00 Temperature 97.6 F Pulse Rate Pulse Rate [Right Pulse Oximeter] 115 H 100 Pulse Rate [Right Radial] Respiratory Rate 16 18 Blood Pressure [Ri ght Arm] 114/86 Pulse Oximetry 94 94 Oxygen Delivery Me thod Room Air 12/22/24 15:00 12/22/24 15:00 12/22/24 19:00 Temperature 97.5 F L 97.9 F Pulse Rate 141 H Pulse Rate [Right Pulse Oximeter] 100 100 Pulse Rate [Right Radial] Respiratory Rate 18 20 Blood Pressure [Ri ght Arm] 123/94 H 126/100 H Pulse Oximetry 94 92 Oxygen Delivery Me thod Room Air Room Air 12/22/24 21:24 12/22/24 23:00 12/22/24 23:00 Temperature Pulse Rate 113 H Pulse Rate [Right Pulse Oximeter] 100 Pulse Rate [Right Radial] Respiratory Rate 20 Blood Pressure [Ri ght Arm] 112/90 H Pulse Oximetry Oxygen Delivery Me thod 12/23/24 00:27 12/23/24 02:44 12/23/24 07:00 Temperature 98.1 F 97.8 F Pulse Rate 133 H Pulse Rate [Right Pulse Oximeter] 86 105 H Pulse Rate [Right Radial] Respiratory Rate 22 24 Blood Pressure [Ri ght Arm] 121/76 136/112 H Pulse Oximetry 91 91 Oxygen Delivery Me thod Room Air Room Air 12/23/24 08:00 12/23/24 08:34 12/23/24 09:37 Temperature Pulse Rate 120 H Pulse Rate [Right Pulse Oximeter] Pulse Rate [Right Radial] 118 H 130 H Respiratory Rate 18 18 Blood Pressure [Ri ght Arm] 127/85 Pulse Oximetry 92 Oxygen Delivery Me thod Room Air Discharge Plan Discharge Disposition: [facility] Date of Admission: 12/21/24 15:05 Attending Provider on Discharge: Carina Sanabria Primary Care Provider: Sena Mcintyre Discharge Orders: Transfer of Care to Other Hospital (ORDER); Ordered 12/23/24 Ordered By: Carina Sanabria Oxygen: No Urinary Catheter: No Services not available here: Cardiology
[2024-12-23 11:52] LABS: Troponin I* 0.03 ng/mL (0.01-0.04)
[2024-12-23] MEDS: cefTRIAXone 1 GM in 0.9 % SODIUM CHLORIDE Mini-bag 100 ML IVPB (12:18)
--- NOTE | 2024-12-23 14:00 | PC.NURSE ---
The patient was alert to their name, date of , and where they were located but could not correctly recall the year nor reason for stay. Vitally they remained hypertensive and tachycardic. Telemetry showed Afib RVR. Treatments were administered throughout the day but their vitals and heart activity remained largely unchanged. Low appetite. Ate only a cup of oatmeal and some of a cup of soup before discharging. They were transported in the afternoon by [facility] to [facility] in order to advance their care. No personal belongings were left within the room at time of departure.
== END 2024-12-23 12:50 | disposition short-term general hospital (02) | DRG 871 ==
LOC: ED 12:29 → MEDSURG 14:18
PROVIDERS: Family Medicine; Admitting Provider Family Medicine; Emergency Provider Family Medicine; PCP Internal Medicine; Visit Provider Family Medicine
DX: A41.9 Sepsis, unspecified organism (principal); I50.21 Acute systolic (congestive) heart failure; J18.9 Pneumonia, unspecified organism; J96.01 Acute respiratory failure with hypoxia; C90.00 Multiple myeloma not having achieved remission; I48.91 Unspecified atrial fibrillation; Z79.01 Long term (current) use of anticoagulants; I35.1 Nonrheumatic aortic (valve) insufficiency; Z86.718 Personal history of other venous thrombosis and embolism; E78.5 Hyperlipidemia, unspecified; H90.3 Sensorineural hearing loss, bilateral; G62.0 Drug-induced polyneuropathy; T45.1X5A Adverse effect of antineoplastic and immunosuppressive drugs, initial encounter; Z85.3 Personal history of malignant neoplasm of breast; Z96.612 Presence of left artificial shoulder joint; Z90.12 Acquired absence of left breast and nipple; Z90.710 Acquired absence of both cervix and uterus
CPT/HCPCS: 36415; 71046; 73502; 80048; 80053; 82803; 83605; 83735; 83880; 84145; 84443; 84484; 85025; 85379; 86140; 87040; 87070; 87081; 87205; 87449; 87631; 87899; 93005; 93306; 94664; 94761; 97116; 97161; 97165; 97530; 97535; 99285; A9270; J0456; J0696; J1938; J3475; J7030; J7050; J7120; J7512

== ENCOUNTER 2024-12-23 12:40 | Outpatient (CLI) | payer MEDICARE, BC, SELFPAY | END 2024-12-23 12:41 | disposition home or self-care (01) | LOC: AMB 12-24 10:29 | PROVIDERS: PCP Internal Medicine; Visit Provider Emergency Medicine | DX: J96.01 Acute respiratory failure with hypoxia (principal); I48.19 Other persistent atrial fibrillation; I50.20 Unspecified systolic (congestive) heart failure; A41.9 Sepsis, unspecified organism; J18.9 Pneumonia, unspecified organism; Z79.01 Long term (current) use of anticoagulants | CPT/HCPCS: A0425; A0434 ==

== ENCOUNTER 2025-03-23 08:50 | Outpatient (CLI) | payer MEDICARE, BC, SELFPAY | END 2025-03-23 08:51 | disposition home or self-care (01) | LOC: RAD 08:51 | PROVIDERS: PCP Internal Medicine; Visit Provider Internal Medicine | DX: I42.8 Other cardiomyopathies (principal); I35.1 Nonrheumatic aortic (valve) insufficiency; I34.0 Nonrheumatic mitral (valve) insufficiency; I51.7 Cardiomegaly | CPT/HCPCS: 93306 ==

== ENCOUNTER 2025-03-31 10:00 | Outpatient (RCR) | payer MEDICARE, BC, SELFPAY ==
--- NOTE | 2024-10-12 15:12 | ONC.NURNOTE ---
Per Dr She Babcock instructed to hold her Revlimid this cycle- Darya will continue if lab results within parameters on Yoko BP monitoring continues each am and afternoon Today's numbers are 147/104 at 07 and 122/90 at 1330
--- NOTE | 2024-10-12 15:26 | ONC.NURNOTE ---
Dr Hodge's nurse (Dot) was contacted with BP updates Dot will contact Yoko about Metoprolol dose- they recommend that she resume the 200 mg dosing with noted BP trends
[2024-10-13 08:18] LABS: Hematocrit 47.4 % (33.0-51.0); Hemoglobin* 15.7 gm/dL (12.0-16.0); Immature Granulocytes Abs Auto 0.03 K/uL (0.00-0.30); Immature Granulocytes Pct Auto 0.6 %; Lymphocytes Absolute Auto 2.17 K/uL (0.90-2.90); Mean Corpuscular HGB Conc 33 gm/dL (32-36); Mean Corpuscular Hemoglobin 35 pg (26-34); Mean Corpuscular Volume 107 fL (80-100); RDW Coefficient of Variation % 14.4 % (11.5-15.5); Red Blood Count 4.43 m/uL (4.00-5.20); White Blood Count* 5.18 K/uL (4.50-11.00)
[2024-10-13 08:24] LABS: Slide Review Reflex No
[2024-10-13 08:27] LABS: Albumin* 3.8 g/dL (3.3-5.0); Chloride* 108 mmol/L (96-114)
[2024-10-13 08:28] LABS: Potassium* 3.9 mmol/L (3.6-5.1); Sodium* 138 mmol/L (135-149)
[2024-10-13 08:30] LABS: Alkaline Phosphatase* 81 U/L (40-150); Anion Gap 10 mEq/L (7-15); Aspartate Amino Transferase* 21 U/L (12-35); Bilirubin Total* 0.7 mg/dL (0.1-1.5); Blood Urea Nitrogen* 21 mg/dL (7-30); Carbon Dioxide* 20 mmol/L (20-32); Creatinine* 1.4 mg/dL (0.5-1.5); Estimated Glomerular Filt Rate 37 ml/min; Total Protein* 6.1 g/dL (6.0-8.3)
[2024-10-13 08:31] LABS: Alanine Aminotransferase* 18 U/L (4-35); Calcium* 9.6 mg/dL (8.4-10.6); Glucose* 97 mg/dL (60-115)
[2024-10-14 08:50] VITALS: BP 118/78; PULSE 62; RESP 18; TEMP 36.7; O2SAT 96
[2024-10-14] MEDS: DARATUMUMAB-HYALURONIDASE-FIHJ 15 ML SUBCUT (09:29)
--- NOTE | 2024-10-28 16:37 | URNOTE ---
Prior auth is not required for Daratumumab-hyaluronidase (J9144). Services are based on medical necessity and follow medicare guidelines.
[2024-11-10 08:05] LABS: Hematocrit 45.3 % (33.0-51.0); Hemoglobin* 14.9 gm/dL (12.0-16.0); Immature Granulocytes Abs Auto 0.00 K/uL (0.00-0.30); Immature Granulocytes Pct Auto 0.0 %; Lymphocytes Absolute Auto 2.10 K/uL (0.90-2.90); Mean Corpuscular HGB Conc 33 gm/dL (32-36); Mean Corpuscular Hemoglobin 36 pg (26-34); Mean Corpuscular Volume 109 fL (80-100); RDW Coefficient of Variation % 14.9 % (11.5-15.5); Red Blood Count 4.17 m/uL (4.00-5.20); White Blood Count* 4.66 K/uL (4.50-11.00)
[2024-11-10 08:14] LABS: Slide Review Reflex No
[2024-11-10 08:41] LABS: Albumin* 4.1 g/dL (3.3-5.0); Chloride* 106 mmol/L (96-114); Sodium* 136 mmol/L (135-149)
[2024-11-10 08:42] LABS: Potassium* 4.3 mmol/L (3.6-5.1)
[2024-11-10 08:44] LABS: Alanine Aminotransferase* 20 U/L (4-35); Anion Gap 7 mEq/L (7-15); Aspartate Amino Transferase* 25 U/L (12-35); Blood Urea Nitrogen* 24 mg/dL (7-30); Carbon Dioxide* 23 mmol/L (20-32); Creatinine* 1.6 mg/dL (0.5-1.5); Estimated Glomerular Filt Rate 31 ml/min
[2024-11-10 08:45] LABS: Alkaline Phosphatase* 83 U/L (40-150); Bilirubin Total* 0.7 mg/dL (0.1-1.5); Calcium* 10.1 mg/dL (8.4-10.6); Glucose* 91 mg/dL (60-115); Total Protein* 6.5 g/dL (6.0-8.3)
--- NOTE | 2024-11-10 11:17 | ONC.NURNOTE ---
Pt's creat 1.6 today; reviewed with Shiela Newman APRN. Plan to proceed with treatment tomorrow with addition of IVF. Also per recommendation, LM for pt updating her and encouraging to drink more fluids today and overall.
[2024-11-11 09:55] VITALS: BP 132/79; PULSE 86; RESP 18; TEMP 36.2; O2SAT 97
[2024-11-11] MEDS: ACETAMINOPHEN 325 MG TABLET 650 MG PO (10:13)
[2024-11-11] MEDS: 0.9 % SODIUM CHLORIDE 500 ML 500 ML IV (10:30)
[2024-11-11] MEDS: DARATUMUMAB-HYALURONIDASE-FIHJ 15 ML SUBCUT (11:43)
--- NOTE | 2024-12-15 09:15 | ONC.NURNOTE ---
Patient's daughter called today to report that Yoko is sick today. They recently went on a vacation and her, her and Gerogene are all sick now. Daughter tested postive for COVID on Tuesday 12/12. Yoko has tested twice, Wednesday 12/13 and this morning 12/15, both tests were negative but per the daughter Yoko is pretty sick. Appts this week cancelled and moved to next week. Scheduled for 12/22 at 8 am for labs and 12/23 at 10 am for Darzalex. Asked daughter to update us if anything changes. She agreed to plan.
--- NOTE | 2024-12-21 13:42 | ONC.NURNOTE ---
Pt's daughter Mae called this am with concerns that pt still is not feeling well with a cough, extreme fatigue, and poor appetite. Also had some diarrhea last evening, did not take last evening dose of revlimid. Advised her to have pt evaluated in the ED to see if fluids are needed. Update as of 1343- pt currently in the ED-diagnosis of pneumonia, Afib with RVR, plan is to be admitted to [facility]. Pt's daughter instructed that pt's appts in [facility] will be cancelled this week and when she is discharged from the hospital we will reschedule her provider and darzalex appts. Pt's daughter Mae, verbalized understanding of plan of care.
--- NOTE | 2024-12-30 09:47 | ONC.NURNOTE ---
Pt discharged from [facility] today for A.fib w/RVR. Pt's daughter states pt is being discharged to a transitional care facility. Motor Vehicle Technician spoke to Dr. Shearer today and updated her on pt's recent hospitalization. Pt will see Dr. Shearer on 01/13/25, per Dr. Shearer no myeloma labs needed prior to that appt, will need a CBC and CMP. Pt's daughter updated on future appts and verbalized understanding of plan of care.
[2025-01-13 11:04] LABS: Hematocrit 40.6 % (33.0-51.0); Hemoglobin* 13.3 gm/dL (12.0-16.0); Immature Granulocytes Abs Auto 0.00 K/uL (0.00-0.30); Immature Granulocytes Pct Auto 0.0 %; Lymphocytes Absolute Auto 2.45 K/uL (0.90-2.90); Mean Corpuscular HGB Conc 33 gm/dL (32-36); Mean Corpuscular Hemoglobin 36 pg (26-34); Mean Corpuscular Volume 111 fL (80-100); RDW Coefficient of Variation % 14.2 % (11.5-15.5); Red Blood Count 3.65 m/uL (4.00-5.20); White Blood Count* 5.63 K/uL (4.50-11.00)
[2025-01-13 11:09] LABS: Slide Review Reflex No
[2025-01-13 11:19] LABS: Albumin* 3.5 g/dL (3.3-5.0); Chloride* 106 mmol/L (96-114)
[2025-01-13 11:20] LABS: Potassium* 4.1 mmol/L (3.6-5.1); Sodium* 136 mmol/L (135-149)
[2025-01-13 11:22] LABS: Alanine Aminotransferase* 25 U/L (4-35); Anion Gap 4 mEq/L (7-15); Aspartate Amino Transferase* 30 U/L (12-35); Bilirubin Total* 0.7 mg/dL (0.1-1.5); Blood Urea Nitrogen* 19 mg/dL (7-30); Carbon Dioxide* 26 mmol/L (20-32); Creatinine* 1.4 mg/dL (0.5-1.5); Estimated Glomerular Filt Rate 37 ml/min
[2025-01-13 11:23] LABS: Alkaline Phosphatase* 98 U/L (40-150); Calcium* 9.8 mg/dL (8.4-10.6); Glucose* 85 mg/dL (60-115); Total Protein* 6.1 g/dL (6.0-8.3)
--- NOTE | 2025-02-22 12:16 | ONC.NURNOTE ---
Per [facility] -PA required for dose change -Over ride needed to dispense Revlimid instead of lenalidomide [facility] only has Revlimid and ilenalidomide is needed- Yoko will need to to through [facility] Instead
--- NOTE | 2025-02-23 14:02 | ONC.NURNOTE ---
Machine Clerical Verifier phone [facility] for status update- no PA request was received RX had been transferred to [facility]- this office was not notified of this change [facility] was contacted No PA required No copay RX ready to be shipped, but they have not been able to contact the patient- several messages left Machine Clerical Verifier contacted Yoko with updated marketing information coordinator asked Yoko if ok to provide new info to daughter to call and set up delivery discussed that this will be generic not brand name - lenalidomide Daughter Mae to call and set up delivery phone # [facility] is [phone] or [phone]
[2025-03-02 08:09] LABS: Hematocrit 45.8 % (33.0-51.0); Hemoglobin* 15.1 gm/dL (12.0-16.0); Immature Granulocytes Abs Auto 0.01 K/uL (0.00-0.30); Immature Granulocytes Pct Auto 0.2 %; Mean Corpuscular HGB Conc 33 gm/dL (32-36); Mean Corpuscular Hemoglobin 37 pg (26-34); Mean Corpuscular Volume 112 fL (80-100); RDW Coefficient of Variation % 13.6 % (11.5-15.5); Red Blood Count 4.09 m/uL (4.00-5.20); White Blood Count* 4.92 K/uL (4.50-11.00)
[2025-03-02 08:17] LABS: Lymphocytes Absolute Auto 2.30 K/uL (0.90-2.90); Slide Review Reflex No
[2025-03-02 08:26] LABS: Albumin* 4.2 g/dL (3.3-5.0); Chloride* 108 mmol/L (96-114)
[2025-03-02 08:27] LABS: Potassium* 4.9 mmol/L (3.6-5.1); Sodium* 138 mmol/L (135-149)
[2025-03-02 08:29] LABS: Alanine Aminotransferase* 16 U/L (4-35); Anion Gap 5 mEq/L (7-15); Aspartate Amino Transferase* 28 U/L (12-35); Blood Urea Nitrogen* 17 mg/dL (7-30); Carbon Dioxide* 25 mmol/L (20-32); Creatinine* 1.5 mg/dL (0.5-1.5); Est. Creatinine Clearance* 22.82; Estimated Glomerular Filt Rate 34 ml/min
[2025-03-02 08:30] LABS: Alkaline Phosphatase* 88 U/L (40-150); Bilirubin Total* 0.8 mg/dL (0.1-1.5); Calcium* 10.4 mg/dL (8.4-10.6); Glucose* 106 mg/dL (60-115); Total Protein* 7.2 g/dL (6.0-8.3)
[2025-03-03 10:33] VITALS: BP 151/89; PULSE 96; RESP 15; TEMP 36.6; O2SAT 97
[2025-03-03] MEDS: ACETAMINOPHEN 500 MG TABLET PO (10:56)
[2025-03-03] MEDS: DARATUMUMAB-HYALURONIDASE-FIHJ 15 ML SUBCUT (12:07)
[2025-03-30 10:00] LABS: Hematocrit 47.5 % (33.0-51.0); Hemoglobin* 15.6 gm/dL (12.0-16.0); Immature Granulocytes Abs Auto 0.00 K/uL (0.00-0.30); Immature Granulocytes Pct Auto 0.0 %; Lymphocytes Absolute Auto 2.90 K/uL (0.90-2.90); Mean Corpuscular HGB Conc 33 gm/dL (32-36); Mean Corpuscular Hemoglobin 36 pg (26-34); Mean Corpuscular Volume 109 fL (80-100); RDW Coefficient of Variation % 13.0 % (11.5-15.5); Red Blood Count 4.35 m/uL (4.00-5.20); White Blood Count* 5.40 K/uL (4.50-11.00)
[2025-03-30 10:06] LABS: Slide Review Reflex No
[2025-03-30 10:12] LABS: Albumin* 4.2 g/dL (3.3-5.0); Chloride* 105 mmol/L (96-114); Potassium* 4.9 mmol/L (3.6-5.1); Sodium* 137 mmol/L (135-149)
[2025-03-30 10:15] LABS: Alanine Aminotransferase* 19 U/L (4-35); Alkaline Phosphatase* 88 U/L (40-150); Anion Gap 6 mEq/L (7-15); Aspartate Amino Transferase* 30 U/L (12-35); Bilirubin Total* 0.5 mg/dL (0.1-1.5); Blood Urea Nitrogen* 25 mg/dL (7-30); Calcium* 10.5 mg/dL (8.4-10.6); Carbon Dioxide* 26 mmol/L (20-32); Creatinine* 1.6 mg/dL (0.5-1.5); Est. Creatinine Clearance* 21.39; Estimated Glomerular Filt Rate 31 ml/min; Glucose* 77 mg/dL (60-115); Total Protein* 7.1 g/dL (6.0-8.3)
[2025-03-31 10:17] VITALS: BP 114/73; PULSE 92; RESP 16; TEMP 36.6; O2SAT 95
[2025-03-31] MEDS: 0.9 % SODIUM CHLORIDE 500 ML 500 ML IV (10:24)
[2025-03-31] MEDS: DARATUMUMAB-HYALURONIDASE-FIHJ 15 ML SUBCUT (10:34)
--- NOTE | 2025-03-31 10:52 | ONC.NURNOTE ---
Addendum entered by Maria Luisa Ventura RN 04/11/25 13:53: Dr. Smith reviewed RN note re: pt taking one dexamethasone tab day after Darzalex and confirmed that pt SHOULD NOT be taking additional dex the day after Darzalex. Called Yoko with that update. She verbalized understanding. Addendum entered by Maria Luisa Ventura RN 04/07/25 08:51: Dr. Smith reviewed RN note. She advises that pt NOT order any more Revlimid at this time. Further cycles will be discussed at MD appointment later this month. Pt verbalized understanding. Confirmed lab and injection appointments for next week. Dex question from previous addendum still needs to be addressed (day after Darzalex Dex dose). Will have this answered in time for pt's appt's next week. Addendum entered by Maria Luisa Ventura RN 03/31/25 16:08: Regarding question #1 (Dex refill), Shiela Ugarte APRN, MEDICAL RECORDS ASSISTANT noted that Dr. Trevizo refilled the dexamethasone script yesterday. Also of note, pt reported to this RN that she takes 20 mg (5 tablets) on the day of her Darzalex and 4 mg (1 tab) the day after her Darzalex injection. It is unclear if pt should be taking the day [address] discuss with Dr[address] Smith next week and follow-up with pt with her next Darzalex dose. Original Note: Pt is present at [facility] today for fluids and Darzalex injection. Yoko has two questions: 1) She wonders if she can get a new script for Dexamethasone as she will now be getting Darzalex twice monthly as opposed to once so she will need double the amount of Dex on a monthly basis. Discussed with Shiela Ugarte APRN MEDICAL RECORDS ASSISTANT, who stated she would enter the new script for pt's April doses. 2) Pt wonders if she should order her next cycle of Revlimid. She started her current cycle on 03/30/2025 and takes 2.5 mg daily for 14 days and then is off for 14 days. She will be seeing Dr. Trevizo on 04/26/2025 at which time MD will determine whether pt is done with Rev or if she will do one more month. Pt feels that she will need to have her drug in hand in case MD decides to continue for one more cycle. But if MD decides NOT to continue Rev, pt will have a supply of Rev that she doesn't need to take and will require proper disposal. Virgil d/w CLARI Ptots NN and Dr. Trevizo.
== END 2025-04-11 23:59 | disposition home or self-care (01) ==
LOC: CCIC 10:00
PROVIDERS: Clinical Nurse Specialist; Internal Medicine Hematology & Oncology; PCP Internal Medicine; Referring Provider Internal Medicine; Visit Provider Internal Medicine Hematology & Oncology
DX: C90.00 Multiple myeloma not having achieved remission (principal)
CPT/HCPCS: 36415; 80053; 85025; 96360; 96401; 99214; 99215; G0463; J9144; A9270; J7030

== ENCOUNTER 2025-07-14 10:43 | Outpatient (CLI) | payer MEDICARE, BC, SELFPAY ==
--- NOTE | 2025-07-14 10:45 | CRLHL7_ITS ---
For Patients: As a result of the Century Cures Act, medical imaging exams and procedure reports are released immediately into your electronic medical record. You may view this report before your referring provider. If you have questions, please contact your health care provider. Indication: lower abdominal bloating, diarrhea Technique: Abdomen two views Comparison: 05/03/2021 IMPRESSION: Leftward curvature lumbar spine. No renal calculi. Moderately increased colonic stool. No small bowel obstruction. No pleural effusion. No free air. Incidental phleboliths noted. Findings compatible with constipation. Dictated by Koffi Gallegos MD @ 07/14/2025 11:25:49 AM (Electronically Signed)
== END 2025-07-14 10:44 | disposition home or self-care (01) ==
LOC: RAD 10:44
PROVIDERS: PCP Internal Medicine; Visit Provider Clinical Nurse Specialist
DX: R14.0 Abdominal distension (gaseous) (principal); R19.7 Diarrhea, unspecified; C90.00 Multiple myeloma not having achieved remission
CPT/HCPCS: 74019